=== PATIENT | male | born 1950 | race Caucasian/White ===

== ENCOUNTER → 2018-01-08 15:20 | Outpatient (CLI) | payer MEDICARE, SELFPAY ==
[2018-01-08 16:49] LABS: Alanine Aminotransferase 49 IU/L (21-72); Albumin 4.4 g/dL (3.5-5.0); Albumin Globulin Ratio 1.6 (1.0-2.8); Alkaline Phosphatase 75 U/L (38-126); Aspartate Aminotransferase 57 IU/L (17-59); BUN Creatinine Ratio 22.5 (6-22); Bilirubin Total 0.7 mg/dL (0.2-1.3); Blood Urea Nitrogen 18 mg/dL (9-20); Carbon Dioxide 32 mmol/L (22-32); Chloride 95 mmol/L (98-107); Estimated Glomerular Filt Rate > 60.0 mL/min (>60); Globulin 2.7 g/dL (1.7-4.1); Glucose 109 mg/dL (80-110); HEMOLYSIS < 15 (0-50); Potassium 4.1 mmol/L (3.4-5.1); Sodium 137 mmol/L (137-145); Total Protein 7.1 g/dL (6.3-8.2); Uric Acid 5.1 mg/dL (3.5-8.5)
[2018-01-08 16:53] LABS: Add Manual Diff / Slide Review NO; Basophils Percent Auto 0.9 % (0-2); Eosinophils Percent Auto 2.5 % (2-4); Hematocrit 44.8 % (41-53); Hemoglobin 15.6 g/dL (13.5-17.5); Lymphocytes Percent Auto 35.6 % (25-40); Mean Corpuscular HGB Conc 34.7 % (30-36); Mean Corpuscular Hemoglobin 32.1 PG (26-34); Mean Corpuscular Volume 92.4 fL (80-100); Monocytes Percent Auto 8.2 % (3-14); Neutrophils Absolute Auto 2800 /uL (3000-5900); Neutrophils Percent Auto 52.8 % (50-75); Platelet Count 259 X10^3/uL (150-400); Red Blood Cell Count 4.85 X10^6/uL (4.5-5.9); Red Cell Distribution Width 13.8 % (11.6-14.8); White Blood Cell Count 5.4 X10^3/uL (4.5-11.0)
[2018-01-08 17:38] LABS: Hemoglobin A1C% w Est Avg Glu 4.8 % (4.0-6.0)
[2018-01-08 17:52] LABS: Free T4, Direct Thyroxine 1.24 ng/dL (0.78-2.19)
[2018-01-08 18:06] LABS: Thyroid Stimulating Hormone 0.57 uIU/mL (0.47-4.68)
[2018-01-08 21:09] LABS: Vitamin B12 814 pg/mL (239-931)
[2018-01-12 16:50] LABS: Arsenic 9 mcg/L (< 23)
[2018-01-13 14:58] LABS: Lead, Blood < 1 mcg/dL (< 5)
== END ==
PROVIDERS: PCP Internal Medicine; Visit Provider Internal Medicine
DX: G62.9 Polyneuropathy, unspecified (principal)
CPT/HCPCS: 36415; 80053; 82607; 83036; 83825; 84439; 84443; 84550; 85025

== ENCOUNTER → 2018-05-28 16:22 | Outpatient (CLI) | payer MEDICARE, SELFPAY ==
--- NOTE | 2018-05-28 16:26 | DI.RAD.S_ITS ---
PROCEDURE: XR KNEE RT 3V INDICATIONS: osteoarthritis knee TECHNIQUE: 3 views of the knee were acquired. COMPARISON: [facility], , TIB/FIB 2V RIGHT, 11/29/2014, 16:44. [facility], , KNEE 3V RIGHT, 01/25/2016, 10:04. FINDINGS: Bones: There is a right knee total arthroplasty with prosthesis stable in alignment. There is inferior displacement of patella, unchanged. Old distal femoral metaphyseal fracture with deformity is noted, not significantly changed. Multiple corticated osseous fragments are seen, unchanged. No fractures or dislocations. No suspicious bony lesions. Soft tissues: Small joint effusion. No suspicious soft tissue calcifications. IMPRESSION: 1. Unchanged postsurgical appearance with total knee arthroplasty. 2. Inferior displacement of patella. 3. Old fracture/deformity in distal femoral metaphysis. 4. Small knee joint effusion Dictated by: Rubio Cabrera M.D. on 05/28/2018 at 17:00 Approved by: Rubio Cabrera M.D. on 05/28/2018 at 17:04
--- NOTE | 2018-05-28 16:26 | DI.RAD.S_ITS ---
PROCEDURE: XR KNEE LT 3V INDICATIONS: osteoarthritis knee TECHNIQUE: 3 views of the knee were acquired. COMPARISON: None FINDINGS: Bones: No fractures or dislocations. No suspicious bony lesions. There is severe medial and moderate to severe patellofemoral compartment narrowing. Jeri-articular osteophytes are present without erosions. Subchondral sclerosis is present within the medial compartment. Small patellar osteophytes are present. Soft tissues: Moderate joint effusion. No suspicious soft tissue calcifications. IMPRESSION: Moderate effusion with prominent medial and patellofemoral compartment changes suggestive of arthritis. Dictated by: Bisi Hatfield M.D. on 05/28/2018 at 16:51 Approved by: Bisi Hatfield M.D. on 05/28/2018 at 16:51
== END ==
PROVIDERS: PCP Internal Medicine; Visit Provider Internal Medicine
DX: M17.0 Bilateral primary osteoarthritis of knee (principal); M25.462 Effusion, left knee; M25.461 Effusion, right knee; Z96.651 Presence of right artificial knee joint
CPT/HCPCS: 73562

== ENCOUNTER → 2018-08-03 14:02 | Outpatient (CLI) | payer MEDICARE, SELFPAY ==
[2018-08-03 15:18] LABS: Erythrocyte Sedimentation Rate 1 MM/HR (0-15)
[2018-08-03 15:31] LABS: C-Reactive Protein Quant < 0.5 mg/dL (<1.0)
== END ==
PROVIDERS: PCP Internal Medicine; Visit Provider Internal Medicine
DX: T84.59XD Infection and inflammatory reaction due to other internal joint prosthesis, subsequent encounter (principal)
CPT/HCPCS: 36415; 85651; 86140

== ENCOUNTER 2018-09-22 10:42 | Day surgery (SDC) | payer MEDICARE, SELFPAY ==
[2018-09-22 11:01] VITALS: BMI 28.3
[2018-09-22 11:11] VITALS: BP 141/96; PULSE 70; RESP 12; TEMP 36.7; O2SAT 98
--- NOTE | 2018-09-22 11:15 | P.HP_ITS ---
History of Present Illness Date Patient Seen: 09/22/18 Time Patient Seen: 11:12 Chief complaint: colonoscopy 80112 Narrative: 68-year-old male with complicated medical and surgical history on long-term chronic pain medication who presented recently with rectal bleeding. Currently is having no such symptoms. Denies any other gastrointestinal issues except for perhaps occasional crampy abdominal pain. No diarrhea. Denies nausea or vomiting. No fever or chills. 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) Hypogonadism in male (Chronic 12/14/15) Pituitary adenoma (Inactive 10/18/02) History of migraine headaches (Chronic) Surgical History History of knee replacement Family History Father Leukemia Social History marital status: number of children: 3 household members: none lives independently: Yes caregiver/support person: No housing: house pets and animals: Yes education level: college occupational status: other Previous occupational history: Various leisure activities: music and other Smoking Status: Never smoker Tobacco: How many years used: 0 quit status: quit date established second hand exposure: No alcohol intake: current substance use type: does not use Family & Social History Family History Father Leukemia Social History: household members none lives independently Yes caregiver/support person No Tobacco & Substance use: Smoking Status Never smoker alcohol intake current Meds Home Medications Medication Instructions Recorded Confirmed Type [TESTOSTERONE] IM #0 10/07/08 09/01/18 History baclofen 10 - 40 mg PO TID #0 04/02/13 09/01/18 History hydrocortisone [Cortef] 20 mg PO AMCC #0 tab 04/02/13 09/01/18 History liothyronine [Cytomel] 5 mcg PO 0600 #0 tab 04/02/13 09/01/18 History cyclobenzaprine 10 mg PO Q8HP PRN #20 tab 10/25/16 09/01/18 Rx carbamazepine 600 mg PO QPM #0 03/24/17 09/01/18 History hydrocortisone [Cortef] 10 mg PO QPM #0 03/24/17 09/01/18 History morphine ER 15 mg tablet,extended 30 mg PO Q8H 01/08/18 09/01/18 History release triamcinolone acetonide 0.025 % TOP 30 Days #60 ml 01/08/18 09/01/18 History lotion diazepam 10 mg tablet 5 mg PO BID 03/10/18 09/01/18 History diclofenac sodium 75 mg 75 mg PO BID 03/10/18 09/01/18 History tablet,delayed release pantoprazole 40 mg tablet,delayed 40 mg PO DAILY 03/10/18 09/01/18 History release sennosides 8.6 mg tablet 8.6 mg PO BID PRN 03/10/18 09/01/18 History gabapentin 100 mg capsule 100 mg PO TID cap 04/14/18 09/01/18 History sennosides 8.6 mg-docusate sodium 2 tab PO BID #120 tab 04/14/18 09/01/18 Rx 50 mg tablet clonazepam 1 mg tablet 3 mg PO DAILY #0 tab 05/28/18 09/01/18 History tadalafil 5 mg tablet 5 mg PO DAILY #30 tab 07/24/18 09/01/18 Rx cephalexin 500 mg capsule 500 mg PO TID #0 cap 09/01/18 09/01/18 History levothyroxine 75 mcg tablet 75 mcg PO DAILY 90 Days tab 09/01/18 09/01/18 History morphine 15 mg immediate release See Rx Instructions PO Q6H PRN 28 09/01/18 History tablet Days tab Allergies Allergy/AdvReac Type Severity Reaction Status Date / Time phenobarbital [PHENOBARBITAL] Allergy Severe REALLY SICK Verified 09/22/18 11:01 venom-honey bee Allergy Severe ANAPHYLAXIS Verified 09/22/18 11:01 [BEE VENOM (HONEY BEE)] venom-wasp [WASP VENOM] Allergy Severe Anaphylaxis Verified 09/22/18 11:01 Review of Systems Review of Systems All systems reviewed & are unremarkable except as noted in HPI and below Exam Vital Signs (past 8 hours): - 09/22/18 11:11 Temperature 98.0 F Pulse Rate 70 Respiratory Rate 12 Blood Pressure 141/96 H Pulse Oximetry 98 Oxygen Delivery Method Room Air Narrative Exam Narrative: Well-nourished well-developed male in no acute distress. Alert oriented x3 although he is somewhat of a poor historian Sclera nonicteric Neck supple No crackles or wheezes. Regular rate rhythm Abdomen is soft, nondistended, nontender, no masses Extremities show no clubbing or cyanosis but he has multiple surgical scars from orthopedic procedures. Objective Labs Labs: No recent laboratory or radiographic studies for review Assessment & Plan Assessment & Plan narrative: 68-year-old male with recent blood per rectum requi ring colonoscopy. I discussed this with him today. Technical details of colonoscopy were reviewed. Risks, benefits, alternatives were explained. Risks including but not limited to anesthesia, bleeding, pain, missed lesion, incomplete examination, need for further radiographic studies, colonic perforation, need for major abdominal surgery, and all attendant risks of major surgery were explained at length. Because of his significant medical history including psychotropic medications, chronic high-dose narcotic medications, and neuropathy he requires general anesthesia. I discussed this with him and he is agreeable to such. All questions were otherwise answered to his satisfaction, and he voiced understanding. Consent was placed on the chart. We will proceed as above.
--- NOTE | 2018-09-22 11:15 | SUR.OPER ---
Supine on padded OR bed, head on pillow, safety belt at thigh, left arm padded and tucked at side. Right arm secured on padded arm oard <90 degrees abduction. Legs uncrossed. Padded footboard in place. Tape over blanket to secure lower legs.
--- NOTE | 2018-09-22 11:15 | PM.PREOP ---
Pre-operative Note Interval Note History & Physical reviewed/Exam performed by Physician: Yes Changes to H&P: No H&P completed within 30 days and has changed as indicated here:: Patient seen and examined. History physical examination documented and placed on the chart today. Proceed with colonoscopy today as planned.
[2018-09-22] MEDS: SODIUM CHLORIDE 0.9% 1,000 ML 100 ML IV (11:22)
--- NOTE | 2018-09-22 11:35 | SUR.OPER ---
pt. monitored per anesthesia
[2018-09-22 11:53] VITALS: BP 120/80; PULSE 79; RESP 13; TEMP 37.2; O2SAT 98
--- NOTE | 2018-09-22 11:55 | PM.OP.1 ---
Operative Date/Time/Diagnoses Date of procedure: 09/22/18 Time of procedure: 11:55 Pre-op diagnosis: Rectal bleeding Post-op diagnosis: other (Diverticulosis but otherwise normal colon and rectum) Procedure & Clinicians Procedure: Colonoscopy under anesthesia Same procedure as scheduled: Yes Indications: 68-year-old male with complicated medical and surgical history requiring significant chronic pain medications who presented with rectal bleeding recently. Colonoscopy was recommended. However, he requires general anesthesia services given his significant narcotic requirements and ASA class 3 status. Surgeon: Iek Vazquez Click Yes if Unassisted: Yes Anesthesia Type: General Operative Notes Findings: 1. Somewhat suboptimal bowel preparation but cleared with copious irrigation 2. Diverticulosis but without evidence of inflammation or stricture 3. No fresh or old blood anywhere in the entire colon or rectum 4. Otherwise completely normal colon and rectum without evidence of neoplastic disease or other abnormalities. Closure Type: not applicable Specimen(s): none sent Prosthetic devices, grafts, tissues, transplants, or devices: None Estimated Blood Loss (mL): 0 Blood products transfused: none Procedure in detail: After obtaining informed consent, the patient was brought to the OR suite and placed in the left lateral decubitus position on the examination table. After placement of appropriate monitors, the patient was given incremental doses of anesthesia per Dr. Mihcelle until an appropriate level of sedation was achieved. A time out was held per SCOAP protocol. A digital rectal examination was performed and did not reveal any masses or obstructing lesions. The colonoscope was gently passed into the patient's anus and the entire colon navigated to the level of the cecum with minimal difficulty. Once in the cecum, the scope was withdrawn being sure to go before and beyond all mucosal folds and prominences and get an excellent examination. The findings are noted above. At the level of the rectal vault, the scope was retroflexed and the internal anal canal was examined. The scope was straightened and air aspirated from the colon. The instrument was removed from the patient's body and the procedure was concluded. Scope withdrawal time was 8 min 33 sec. The patient was allowed to awaken from sedation without difficulty and taken to the post-anesthesia care unit in good condition. Complications: none Condition: stable Disposition: PACU Plan for aftercare: 1. Discharge home 2. Follow-up with primary physician as previously scheduled
[2018-09-22 11:58] VITALS: BP 130/81; PULSE 76; RESP 14; TEMP 37.2; O2SAT 97
[2018-09-22 12:02] VITALS: BP 130/75; PULSE 72; RESP 13; TEMP 37.2; O2SAT 97
== END 2018-09-22 12:15 | disposition home or self-care (01) ==
PROVIDERS: PCP Internal Medicine; Visit Provider Surgery
PROC: 0DJD8ZZ Inspection of Lower Intestinal Tract, Via Natural or Artificial Opening Endoscopic (ICD-10-PCS; CPT 45378; principal; 2018-09-22 13:30)
DX: K62.5 Hemorrhage of anus and rectum (principal); K57.30 Diverticulosis of large intestine without perforation or abscess without bleeding
CPT/HCPCS: 45378; J2704

== ENCOUNTER → 2018-11-12 17:43 | Outpatient (CLI) | payer MEDICARE, SELFPAY ==
[2018-11-24 13:55] LABS: Miscellaneous to LabCorp SEE SEPERATE REPORT
== END ==
PROVIDERS: PCP Internal Medicine
DX: Z79.899 Other long term (current) drug therapy (principal)
CPT/HCPCS: 80307; 80326; 80331; 80334; 80337; 80338; 80341; 80344; 80346; 80348; 80353; 80354; 80355; 80357; 80358; 80359; 80360; 80361; 80364; 80365; 80366; 80367; 80368; 80370; 80371; 80372; 80373; 80377; 83992; G0480

== ENCOUNTER → 2019-01-19 14:52 | Outpatient (CLI) | payer MEDICARE, SELFPAY ==
--- NOTE | 2019-01-19 14:54 | DI.RAD.S_ITS ---
PROCEDURE: XR CHEST 2V INDICATIONS: cough TECHNIQUE: 2 views of the chest were acquired. COMPARISON: [facility], Chest X-ray, 03/21/2017 and 04/08/2017. FINDINGS: Surgical changes and devices: None. Lungs and pleura: There is left lower lobe opacity in the posterior sulcus, unchanged from prior exams. No pleural effusions or pneumothorax. Mediastinum: Mediastinal contours are normal. Heart size is normal. Bones and chest wall: No suspicious bony abnormalities. Soft tissues appear unremarkable. IMPRESSION: Chronic left lower lobe opacity may be scars or atelectasis. Superimposed pneumonia could be present. Dictated by: Rubio Cabrera M.D. on 01/19/2019 at 16:18 Approved by: Rubio Cabrera M.D. on 01/19/2019 at 16:19
[2019-01-19 15:48] LABS: C-Reactive Protein Quant < 0.5 mg/dL (<1.0)
[2019-01-19 16:27] LABS: Erythrocyte Sedimentation Rate 1 MM/HR (0-15)
== END ==
PROVIDERS: PCP Internal Medicine; Visit Provider Internal Medicine
DX: R05 Cough (principal); M00.9 Pyogenic arthritis, unspecified
CPT/HCPCS: 36415; 71046; 85651; 86140

== ENCOUNTER 2019-02-06 10:48 | Emergency (ER) | payer MEDICARE, SELFPAY ==
[2019-02-06 11:02] VITALS: BP 144/56; PULSE 71; RESP 20; TEMP 36.4; O2SAT 100; BMI 28.5
--- NOTE | 2019-02-06 11:13 | DI.RAD.S_ITS ---
PROCEDURE: XR SHOULDER RT MIN 2V INDICATIONS: injury TECHNIQUE: 2 views of the shoulder were acquired. COMPARISON: [facility], CR, XR CHEST 2V, 01/19/2019, 15:11. [facility] [place], CR, XR SHOULDER 2+ VIEWS LEFT, 09/29/2018, 14:10. FINDINGS: Bones: No fractures or dislocations. No suspicious bony lesions. Visualized ribs appear intact. Degenerative changes are seen, particularly involving the acromioclavicular joint. Soft tissues: No suspicious soft tissue calcifications. The visualized lung demonstrates an unremarkable appearance. IMPRESSION: Degenerative changes are seen, without an acute abnormality identified. If there is point tenderness (or other clinical suspicion for a fracture not seen on these images) please consider a dedicated CT for further evaluation. Dictated by: Darion Sargent M.D. on 02/06/2019 at 10:47 Approved by: Darion Sargent M.D. on 02/06/2019 at 10:48
[2019-02-06 12:00] VITALS: BP 121/68; PULSE 71; O2SAT 98
--- NOTE | 2019-02-06 12:13 | ED.UPPEXIN ---
HPI - Extremity Injury (Upper) <Mónica LinGINA manzanares - Last Filed: 02/06/19 20:36> General Chief Complaint: Extremity Injury, Upper Stated Complaint: FALL ON RIGHT SHOULDER Time Seen by Provider: 02/06/19 12:05 Source: patient Mode of arrival: ambulatory Limitations: no limitations History of Present Illness HPI narrative: 68-year-old male with a history of seizures, chronic right knee infection, and neuropathy, presents emergency department today complaining of 6/10 right shoulder pain that is worse with movement after tripping and falling on his shoes. States the pain is centralized around the front of his shoulder. Patient denies hitting his head, denies any other injuries or areas of pain. Denies chest pain, dizziness, shortness of breath, syncope, abdominal pain, or lower leg swelling. Related Data Home Medications Medication Instructions Recorded Confirmed [TESTOSTERONE] IM #0 10/07/08 02/08/19 hydrocortisone [Cortef] 20 mg PO AMCC #0 tab 04/02/13 02/08/19 liothyronine [Cytomel] 5 mcg PO 0600 #0 tab 04/02/13 02/08/19 carbamazepine 600 mg PO QPM #0 03/24/17 02/08/19 hydrocortisone [Cortef] 10 mg PO QPM #0 03/24/17 02/08/19 triamcinolone acetonide 0.025 % TOP 30 Days #60 ml 01/08/18 02/08/19 lotion diazepam 10 mg tablet 5 mg PO BID 03/10/18 02/08/19 diclofenac sodium 75 mg 75 mg PO BID 03/10/18 02/08/19 tablet,delayed release pantoprazole 40 mg tablet,delayed 40 mg PO DAILY 03/10/18 02/08/19 release clonazepam 1 mg tablet 3 mg PO DAILY #0 tab 05/28/18 02/08/19 baclofen 10 mg tablet 10 mg PO BEDTIME #0 tab 01/19/19 02/08/19 cephalexin 500 mg capsule 1,500 mg PO TID #0 cap 01/19/19 02/08/19 gabapentin 100 mg capsule 600 mg PO TID cap 01/19/19 02/08/19 morphine ER 15 mg tablet,extended 60 mg PO BID tab 01/19/19 02/08/19 release sennosides 8.6 mg tablet See Rx Instructions PO DAILY PRN 01/19/19 02/08/19 tab levothyroxine 75 mcg capsule 75 mcg PO DAILY 02/08/19 02/08/19 Previous Rx's Medication Instructions Recorded cyclobenzaprine 10 mg PO Q8HP PRN #20 tab 10/25/16 sennosides 8.6 mg-docusate sodium 2 tab PO BID #120 tab 04/14/18 50 mg tablet tadalafil 5 mg tablet 5 mg PO DAILY #30 tab 07/24/18 fluticasone propionate 50 2 spray NASAL BEDTIME #16 gram 01/19/19 mcg/actuation nasal spray,suspension Allergies Allergy/AdvReac Type Severity Reaction Status Date / Time phenobarbital [PHENOBARBITAL] Allergy Severe REALLY SICK Verified 02/08/19 11:42 venom-honey bee Allergy Severe ANAPHYLAXIS Verified 02/08/19 11:42 [BEE VENOM (HONEY BEE)] venom-wasp [WASP VENOM] Allergy Severe Anaphylaxis Verified 02/08/19 11:42 Review of Systems <GINA Barriga - Last Filed: 02/06/19 20:36> Review of Systems REVIEW OF SYSTEMS: GENERAL: Denies fever or chills. HENT: No head trauma. EYES: No double vision or vision loss. CARDIOVASCULAR: No chest pain or syncope. RESPIRATORY: No shortness of breath or cough. GASTROINTESTINAL: No nausea, vomiting, diarrhea, or constipation. GENITOURINARY: No flank pain or dysuria. MUSCULOSKELETAL: Complains of right shoulder pain, see HPI. INTEGUMENTARY: No rash, lesions, or pruritus. NEURO: No numbness, tingling. PSYCH: No behavior or mood changes. 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) Hypogonadism in male (Chronic 12/14/15) Pituitary adenoma (Inactive 10/18/02) History of migraine headaches (Chronic) Surgical History History of knee replacement Family History Father Leukemia Social History marital status: number of children: 3 household members: none lives independently: Yes caregiver/support person: No housing: house pets and animals: Yes education level: college occupational status: other Previous occupational history: Various leisure activities: music and other Smoking Status: Never smoker Tobacco: How many years used: 0 quit status: quit date established second hand exposure: No alcohol intake: current substance use type: does not use Family History Father Leukemia Social History marital status: number of children: 3 household members: none lives independently: Yes caregiver/support person: No housing: house pets and animals: Yes education level: college occupational status: other Previous occupational history: Various leisure activities: music and other Smoking Status: Never smoker Tobacco: How many years used: 0 quit status: quit date established second hand exposure: No alcohol intake: current substance use type: does not use Exam <GINA Barriga - Last Filed: 02/06/19 20:36> Initial Vital Signs Initial Vital Signs: Vital Signs Temperature 97.5 F L 02/06/19 11:02 Pulse Rate 71 02/06/19 11:02 Respiratory Rate 20 02/06/19 11:02 Blood Pressure 144/56 H 02/06/19 11:02 Pulse Oximetry 100 02/06/19 11:02 PHYSICAL EXAMINATION: GENERAL: Well groomed, alert, and cooperative. Answers questions promptly and appropriately. Vital signs noted. HENT: Normocephalic, atraumatic. EYES: Symmetrical, sclera white, no periorbital swelling. CARDIOVASCULAR: S1 and S2 sounds normal. Regular rate and rhythm, no murmurs, clicks, or bruits. No pedal edema. RESPIRATORY: Normal respiratory rate, trachea midline, airway patent. No stridor, nasal flaring or accessory muscle use. Lungs are clear in all ramírez. MUSCULOSKELETAL: Normal gait and coordination. Equal tone and mass bilaterally. Tenderness to anterior aspect of right shoulder with palpation. Patient had difficulty with shoulder extension and external rotation, equal director chemistry strength bilaterally. Specific exam was difficult to obtain as patient reported diffuse pain all over the entire joint with palpation. Internal rotation and and flexion intact. EXTREMITIES: CMS intact. No pedal edema. SKIN: Warm, dry, soft, appropriate color for ethnicity. No lesions, rashes, or wounds. NEURO: Alert and Oriented X 3. No sensory deficits. PSYCH: Appropriate affect and mood. <Trixie Odonnell DO - Last Filed: 02/09/19 18:27> Initial Vital Signs Initial Vital Signs: Vital Signs Temperature 97.5 F L 02/06/19 11:02 Pulse Rate 71 02/06/19 11:02 Respiratory Rate 20 02/06/19 11:02 Blood Pressure 144/56 H 02/06/19 11:02 Pulse Oximetry 100 02/06/19 11:02 Course <GINA Barriga - Last Filed: 02/06/19 20:36> Orders Ordered: ED Orders 02/06/19 11:13 XR shoulder RT min 2V Stat Consultations Consultation #1: Patient staffed with Dr. Odonnell. Vital Signs - 8 hr 02/06/19 12:57 Pulse Rate 66 Respiratory Rate 19 Blood Pressure 159/90 H Pulse Oximetry 99 <Trixie Odonnell DO - Last Filed: 02/09/19 18:27> Orders Ordered: ED Orders 02/06/19 11:13 XR shoulder RT min 2V Stat Vital Signs - 8 hr 02/06/19 12:57 Pulse Rate 66 Respiratory Rate 19 Blood Pressure 159/90 H Pulse Oximetry 99 MDM - Extremity Injury (Upper) <GINA Barriga - Last Filed: 02/06/19 20:36> Medical Records Attestation: I reviewed the patient's medical records. Lab Data Attestation: I reviewed the patient's lab results. Imaging Data R Shoulder: Radiologist's impression: [address] [address] XRay Report Signed Patient: Charli Davalos [facility]#: [id number] : 9Acct:[id number] Age/Sex: 68 / MDate of Service: 02/06/19 Loc: ED Accession Number: [id number] Procedure: XR shoulder RT min 2V Ordering Provider: Trixie Odonnell D.O. PROCEDURE: XR SHOULDER RT MIN 2V INDICATIONS: injury TECHNIQUE: 2 views of the shoulder were acquired. COMPARISON: [facility], CR, XR CHEST 2V, 01/19/2019, 15:11. [facility], CR, XR SHOULDER 2+ VIEWS LEFT, 09/29/2018, 14:10. FINDINGS: Bones: No fractures or dislocations. No suspicious bony lesions. Visualized ribs appear intact. Degenerative changes are seen, particularly involving the acromioclavicular joint. Soft tissues: No suspicious soft tissue calcifications. The visualized lung demonstrates an unremarkable appearance. IMPRESSION: Degenerative changes are seen, without an acute abnormality identified. If there is point tenderness (or other clinical suspicion for a fracture not seen on these images) please consider a dedicated CT for further evaluation. Dictated by: Darion Sargent M.D. on 02/06/2019 at 10:47 Approved by: Darion Sargent M.D. on 02/06/2019 at 10:48 MDM Narrative Medical decision making narrative: Less likely fracture due to negative x-ray, lack of ecchymosis, however assessment was difficult as patient reported diffuse pain over his entire arm. Consider possible tendon or ligament injury due to increased pain with movement. Additionally, arthritis seen on x-ray may be contributing to pain. Strict return precautions given and follow-up instructions discussed. Discharge Plan Departure Patient Disposition: Home Clinical Impression: Acute shoulder pain Qualifiers: Laterality: right Qualified Code(s): M25.511 - Pain in right shoulder Discharge Date/Time: 02/06/19 12:58 Interventions: ED Discharge Assessment Last Done: 02/06/19 12:57 Instructions: DI for Shoulder Pain Activity Restrictions/Additional Instructions: Thank you for entrusting me with your care today. As discussed, your x-rays are negative for fracture. Please follow up with her primary care provider next week for further testing if her pain persists. Return to the emergency department for chest pain, shortness of breath, syncope, or high fevers. Prescriptions: No Action [TESTOSTERONE] IM Qty: 0 RF: 0 liothyronine [Cytomel] 5 MCG tablet 5 mcg PO 0600 Qty: 0 RF: 0 hydrocortisone [Cortef] 20 MG tablet 20 mg PO AMCC Qty: 0 RF: 0 cyclobenzaprine 10 MG tablet 10 mg PO Q8HP PRNQty: 20 RF: 0 carbamazepine 300 MG capsule, ER multiphase 12 hr 600 mg PO QPM Qty: 0 RF: 0 hydrocortisone [Cortef] 20 MG tablet 10 mg PO QPM Qty: 0 RF: 0 clonazepam 1 mg tablet 3 mg PO DAILY Qty: 0 RF: 0 tadalafil [Cialis] 5 mg tablet 5 mg PO DAILY Qty: 30 RF: 0 baclofen 10 mg tablet 10 mg PO BEDTIME Qty: 0 RF: 0 triamcinolone acetonide 0.025 % lotion TOP 30 Days Qty: 60 RF: 0 morphine 15 mg tablet extended release 60 mg PO BID RF: 0 diclofenac sodium 75 mg tablet,delayed release (DR/EC) 75 mg PO BID RF: 0 diazepam 10 mg tablet 5 mg PO BID RF: 0 pantoprazole 40 mg tablet,delayed release (DR/EC) 40 mg PO DAILY RF: 0 sennosides [Senokot] 8.6 mg tablet See Patient Comments PO DAILY PRNRF: 0 sennosides-docusate sodium [Senna with Docusate Sodium] 8.6-50 mg tablet 2 tab PO BID Qty: 120 RF: 2 gabapentin 100 mg capsule 600 mg PO TID RF: 0 fluticasone propionate 50 mcg/actuation spray,suspension 2 spray NASAL BEDTIME Qty: 16 RF: 0 levothyroxine 75 mcg capsule 75 mcg PO DAILY RF: 0 cephalexin [Keflex] 500 mg capsule 1,500 mg PO TID Qty: 0 RF: 0 Referrals: Charli Sampson MD [Primary Care Provider] - <Trixie Odonnell DO - Last Filed: 02/09/19 18:27> Cosign ED Attending Cosignature Attestation: I was immediately available in the department for consultation. This documentation has been reviewed and I agree with assessment and plan. Supervised by Trixie Odonnell DO
[2019-02-06 12:57] VITALS: BP 159/90; PULSE 66; RESP 19; O2SAT 99
== END 2019-02-06 12:58 | disposition home or self-care (01) ==
PROVIDERS: Emergency Provider Nurse Practitioner; PCP Internal Medicine
DX: M25.511 Pain in right shoulder (principal); W01.0XXA Fall on same level from slipping, tripping and stumbling without subsequent striking against object, initial encounter
CPT/HCPCS: 73030; 99282; 99283

== ENCOUNTER → 2019-02-22 14:42 | Outpatient (CLI) | payer MEDICARE, SELFPAY ==
--- NOTE | 2019-02-22 14:46 | DI.MRI.S_ITS ---
PROCEDURE: MR SHOULDER RT WO CON INDICATIONS: Right shoulder pain s/p ground level fall TECHNIQUE: Noncontrast oblique coronal T2 fast spin echo with fat saturation, oblique sagittal T1 spin echo and T2 fast spin echo with fat saturation, axial T1 spin echo and T2 fast spin echo with fat saturation through the shoulder. COMPARISON: [facility] [place], CR, XR SHOULDER 2+ VIEWS LEFT, 09/29/2018, 14:10. [facility], CR, XR SHOULDER RT MIN 2V, 02/06/2019, 11:30. FINDINGS: Image quality: Excellent. Rotator cuff: There is full-thickness tear of the supraspinatus tendon with tendon retraction to the musculotendinous junction. There is severe supraspinatus muscle atrophy. There is high-grade partial-thickness tear of the infraspinatus tendon. There is subscapularis tendinitis. Bones and bursae: No bone marrow contusions or fractures. Severe acromioclavicular and glenohumeral joint degeneration. The acromion demonstrates conventional anatomy, without an os acromiale. No pathologic subacromial-subdeltoid or subcoracoid bursal fluid is present. Capsule and soft tissues: There is degenerative fraying of the glenoid labrum. In the absence of intra-articular contrast, glenohumeral ligaments appear intact. The long head of the biceps tendon demonstrates normal location and morphology. The rotator interval appears normal, without fibrosis. The coracohumeral ligament is normal in thickness. IMPRESSION: 1. Full thickness tear of the supraspinatus tendon with tendon retraction and severe supraspinatus muscle atrophy. 2. High-grade partial-thickness tear of the infraspinatus tendon. 3. Subscapularis tendinitis. 4. Degenerative labral fraying. 5. Severe acromioclavicular and glenohumeral joint degeneration. Dictated by: Rubio Cabrera M.D. on 02/22/2019 at 16:43 Approved by: Rubio Cabrera M.D. on 02/22/2019 at 18:46
== END ==
PROVIDERS: PCP Internal Medicine; Visit Provider Registered Nurse
DX: S46.911A Strain of unspecified muscle, fascia and tendon at shoulder and upper arm level, right arm, initial encounter (principal); M75.81 Other shoulder lesions, right shoulder; M19.011 Primary osteoarthritis, right shoulder; M25.511 Pain in right shoulder; W10.8XXA Fall (on) (from) other stairs and steps, initial encounter
CPT/HCPCS: 73221

== ENCOUNTER 2019-02-26 21:35 | Emergency (ER) | payer MEDICARE, SELFPAY ==
[2019-02-26 21:40] VITALS: BP 169/97; PULSE 86; RESP 15; TEMP 36.6; O2SAT 95; BMI 30.6
--- NOTE | 2019-02-26 21:48 | DI.RAD.S_ITS ---
PROCEDURE: XR CHEST 1V INDICATIONS: chest pain TECHNIQUE: One view of the chest was acquired. COMPARISON: [facility], , CHEST 2 VIEW, 04/08/2017, 15:22. [facility], , XR CHEST 2V, 01/19/2019, 15:11. FINDINGS: Surgical changes and devices: None. Lungs and pleura: There are persistent diffuse interstitial prominence with more focal opacities involving the right lower lung zone and left lung base near the cardiac apex. These opacities are new compared to most recent comparison study. Interstitial prominence/coarsening is favored to be chronic in etiology. No pneumothorax or pleural effusion. Mediastinum: Cardiomediastinal contours are stable. Bones and chest wall: No suspicious bony lesions. Overlying soft tissues appear unremarkable. IMPRESSION: New patchy opacities involving the right lower lung zone and left lung base likely superimposed on chronic interstitial disease are suggestive of focal airspace disease/pneumonia. Otherwise, stable cardiopulmonary examination. Recommend follow up chest radiograph 4-6 weeks after treatment to document resolution of findings and/or return to baseline examination. Dictated by: Casey Abel M.D. on 02/26/2019 at 22:23 Approved by: Casey Abel M.D. on 02/26/2019 at 22:27
[2019-02-26] MEDS: SODIUM CHLORIDE 0.9% 1,000 ML 150 ML IV (21:59)
[2019-02-26] MEDS: ASPIRIN 81 MG TAB 324 MG PO (21:59)
--- NOTE | 2019-02-26 22:00 | ED.CHESTPAIN ---
HPI - Chest Pain General Chief Complaint: Headache Stated Complaint: Multiple complaints of pain, tinninitis, PTSD Time Seen by Provider: 02/26/19 21:38 Source: patient Mode of arrival: ambulatory Limitations: no limitations History of Present Illness HPI narrative: 68M nonsmoker with history of multiple orthopedic ailments, PTSD and oral surgery yesterday presents with a multitude of complaints including headache, fatigue and some anxiety and anterior chest discomfort which has been present for most of the day. He denies any radiation or provocation, palliation of his chest discomfort. He states he has been seen multitude of times for chest pressure and it has always been anxiety. He denies any facial swelling or fever chills but states that he had dental work yesterday and was given nothing for pain control or antibiotics. He has no difficulty in swallowing nor foul taste in his mouth. He denies runny nose or sore throat. Additionally he had a fall and had a recent MRI of his right shoulder noting (per the patient) a rotator cuff injury MD complaint: other Onset (ago): hour(s) Duration: intermittent Pain location: substernal Severity: mild Quality: aching Pain radiation: none Relieving factors: nothing Exacerbating factors: nothing Associated symptoms: other Treatments prior to arrival chest pain: none Related Data Home Medications Medication Instructions Recorded Confirmed [TESTOSTERONE] IM #0 10/07/08 02/25/19 hydrocortisone [Cortef] 20 mg PO [facility] #0 tab 04/02/13 02/25/19 liothyronine [Cytomel] 5 mcg PO 0600 #0 tab 04/02/13 02/25/19 carbamazepine 600 mg PO QPM #0 03/24/17 02/25/19 hydrocortisone [Cortef] 10 mg PO QPM #0 03/24/17 02/25/19 triamcinolone acetonide 0.025 % TOP 30 Days #60 ml 01/08/18 02/25/19 lotion diazepam 10 mg tablet 5 mg PO BID 03/10/18 02/25/19 diclofenac sodium 75 mg 75 mg PO BID 03/10/18 02/25/19 tablet,delayed release pantoprazole 40 mg tablet,delayed 40 mg PO DAILY 03/10/18 02/25/19 release clonazepam 1 mg tablet 3 mg PO DAILY #0 tab 05/28/18 02/25/19 baclofen 10 mg tablet 10 mg PO BEDTIME #0 tab 06/25/19 08/01/19 cephalexin 500 mg capsule 1,500 mg PO TID #0 cap 01/19/19 02/25/19 gabapentin 100 mg capsule 600 mg PO TID cap 01/19/19 02/25/19 morphine ER 15 mg tablet,extended 60 mg PO BID tab 01/19/19 02/25/19 release sennosides 8.6 mg tablet See Rx Instructions PO DAILY PRN 01/19/19 02/25/19 tab levothyroxine 75 mcg capsule 75 mcg PO DAILY 02/08/19 02/25/19 Previous Rx's Medication Instructions Recorded cyclobenzaprine 10 mg PO Q8HP PRN #20 tab 10/25/16 sennosides 8.6 mg-docusate sodium 2 tab PO BID #120 tab 04/14/18 50 mg tablet tadalafil 5 mg tablet 5 mg PO DAILY #30 tab 07/24/18 fluticasone propionate 50 2 spray NASAL BEDTIME #16 gram 02/25/19 mcg/actuation nasal spray,suspension amoxicillin-pot clavulanate 1 tab PO BID #20 tab 02/27/19 [Augmentin] ketorolac 10 mg PO Q6H PRN #14 tab 02/27/19 Allergies Allergy/AdvReac Type Severity Reaction Status Date / Time phenobarbital [PHENOBARBITAL] Allergy Severe REALLY SICK Verified 02/25/19 15:47 venom-honey bee Allergy Severe ANAPHYLAXIS Verified 02/25/19 15:47 [BEE VENOM (HONEY BEE)] venom-wasp [WASP VENOM] Allergy Severe Anaphylaxis Verified 02/25/19 15:47 Review of Systems Constitutional Denies chills, Denies fever(s), Denies lethargy and Denies weakness Eyes Denies change in vision, Denies eye discharge, Denies irritation and Denies loss of vision ENT Ears, Nose, Mouth, and Throat: Denies change in voice, Reports dental pain, Denies neck pain and Denies sore throat Cardiovascular Denies chest pain, Denies irregular heart rhythm, Denies lightheadedness, Denies palpitations, Denies dyspnea, Denies dyspnea on exertion and Denies orthopnea Respiratory Denies cough, Denies dyspnea, Denies dyspnea on exertion and Denies wheezing Gastrointestinal Gastrointestinal: Denies abdominal pain, Denies change in bowel habits, Denies diarrhea, Denies nausea and Denies vomiting Genitourinary Denies hematuria, Denies flank pain, Denies urinary incontinence and Denies urinary urgency Musculoskeletal Denies neck pain Integumentary/Breasts Denies pruritus, Denies erythema, Denies rash and Denies wounds Neurologic Denies confusion, Denies loss of vision and Denies weakness Psychiatric Denies anxiety, Denies confusion, Denies depression, Denies homicidal ideation and Denies suicidal ideation Endocrine Denies palpitations Hematologic/Lymphatic Denies easy bruising Allergic/Immunologic Denies wheezing [facility] Medical History Constipation due to opioid therapy (Chronic) Bipolar 1 disorder (Chronic) Depression (Chronic) Chronic pain (Chronic) Peripheral neuropathy (Chronic) Chronic infection of right knee (Chronic) Tinnitus (Chronic) Lumbago (Chronic 05/31/02) 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) Other specified hypothyroidism (Chronic 05/21/13) Chronic adrenal insufficiency (Chronic 05/21/13) 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) Hypogonadism in male (Chronic 12/14/15) Pituitary adenoma (Inactive 10/18/02) History of migraine headaches (Chronic) Surgical History History of knee replacement Family History Father Leukemia Social History marital status: number of children: 3 household members: none lives independently: Yes caregiver/support person: No housing: house pets and animals: Yes education level: college occupational status: other Previous occupational history: Various leisure activities: music and other Smoking Status: Never smoker Tobacco: How many years used: 0 quit status: quit date established second hand exposure: No alcohol intake: current substance use type: does not use Family History Father Leukemia Social History marital status: number of children: 3 household members: none lives independently: Yes caregiver/support person: No housing: house pets and animals: Yes education level: college occupational status: other Previous occupational history: Various leisure activities: music and other Smoking Status: Never smoker Tobacco: How many years used: 0 quit status: quit date established second hand exposure: No alcohol intake: current substance use type: does not use Exam Narrative Exam Narrative: GENERAL: T 68-YEAR-OLD MALE APPEARS STATED AGE, OBVIOUSLY ANXIOUS RUBBING THE RIGHT SIDE OF HIS JAW HEAD: ATRAUMATIC. NORMOCEPHALIC. NO TEMPORAL OR SCALP TENDERNESS. EYES: PUPILS EQUAL ROUND AND REACTIVE. EXTRAOCULAR MOTIONS INTACT. NO SCLERAL ICTERUS. NO INJECTION OR DRAINAGE. ENT: NO FACIAL SWELLING NO EVIDENCE OF INFECTION AT RECENT DENTAL SITE NOSE WITHOUT BLEEDING, PURULENT DRAINAGE OR SEPTAL HEMATOMA. THROAT WITHOUT ERYTHEMA, TONSILLAR HYPERTROPHY OR EXUDATE. UVULA MIDLINE. AIRWAY PATENT. NECK: TRACHEA MIDLINE. NO JVD OR LYMPHADENOPATHY. SUPPLE, NONTENDER, NO MENINGEAL SIGNS. CARDIOVASCULAR: REGULAR RATE AND RHYTHM WITHOUT MURMURS, GALLOPS, OR RUBS. RESPIRATORY: FAINT CRACKLES IN BILATERAL BASES GASTROINTESTINAL: ABDOMEN SOFT, NON-TENDER, NONDISTENDED. NO HEPATO-SPLENOMEGALY, OR PALPABLE MASSES. NO GUARDING. EXTREMITIES: NO CLUBBING, CYANOSIS, OR EDEMA. NO JOINT TENDERNESS, EFFUSION, OR EDEMA NOTED. BACK: NONTENDER WITHOUT DEFORMITY OR CREPITANCE. NO FLANK TENDERNESS. NEURO: AOX3. SKIN: NO RASH OR ERYTHEMA. Initial Vital Signs Initial Vital Signs: Vital Signs Temperature 97.9 F 02/26/19 21:40 Pulse Rate 86 02/26/19 21:40 Respiratory Rate 15 02/26/19 21:40 Blood Pressure 169/97 H 02/26/19 21:40 Pulse Oximetry 95 02/26/19 21:40 Course Orders Ordered: ED Orders 02/26/19 21:48 XR chest 1V Stat EKG-12 Lead Stat 02/26/19 22:20 Complete Blood Count AUTO DIFF Stat Comprehensive Metabolic Panel Stat Lipase Stat Troponin & CK Cardiac Panel Stat Sodium Chloride (Normal Saline 0.9%) 1,000 mls @ 150 mls/hr IV CONT KEYANNA Last Infusion: 02/27/19 01:03 Dose: 0 mls/hr Admin: 02/26/19 21:59 Dose: 150 mls/hr Discontinued Medications Aspirin (Aspirin Chew) 324 mg PO NOW ONE Stop: 02/26/19 21:48 Last Admin: 02/26/19 21:59 Dose: 324 mg Ketorolac Tromethamine (Toradol) 15 mg IV NOW ONE Stop: 02/27/19 00:59 Last Admin: 02/27/19 01:03 Dose: 15 mg Vital Signs - 8 hr 02/26/19 21:40 02/26/19 22:28 02/26/19 23:20 Temperature 97.9 F Pulse Rate 86 76 65 Respiratory Rate 15 18 15 Blood Pressure 169/97 H Blood Pressure [Left Arm] 96/77 138/70 Pulse Oximetry 95 96 98 02/27/19 00:00 02/27/19 01:04 Temperature Pulse Rate 64 63 Respiratory Rate 16 14 Blood Pressure Blood Pressure [Left Arm] 140/86 151/81 H Pulse Oximetry 98 98 MDM - Chest Pain Lab Data Result diagrams: 02/26/19 22:20 02/26/19 22:20 Lab Results 02/26/19 02/26/19 Range/Units 22:20 22:20 WBC 7.1 (4.5-11.0) X10^3/uL RBC 4.98 (4.5-5.9) X10^6/uL Hgb 15.8 (13.5-17.5) g/dL Hct 47.1 (41-53) % MCV 94.5 (80-100) fL MCH 31.8 (26-34) PG MCHC 33.7 (30-36) % RDW 13.5 (11.6-14.8) % Plt Count 237 (150-400) X10^3/uL Neut % (Auto) 52.5 (50-75) % Lymph % (Auto) 37.3 (25-40) % [place] % (Auto) 7.7 (3-14) % Eos % (Auto) 1.8 L (2-4) % Baso % (Auto) 0.7 (0-2) % Neut # (Auto) 3700 (7506-7673) /uL Lymph # (Auto) 2600 (2198-9114) /uL [place] # (Auto) 500 (0-900) /uL Eos # (Auto) 100 (0-450) /uL Baso # (Auto) 0 (0-100) /uL Sodium 133 L (137-145) mmol/L Potassium 4.0 (3.4-5.1) mmol/L Chloride 96 L (98-107) mmol/L Carbon Dioxide 30 (22-32) mmol/L BUN 15 (9-20) mg/dL Creatinine 0.90 (0.66-1.25) mg/dL Estimated GFR > 60.0 (>60) mL/min BUN/Creatinine Ratio 16.7 (6-22) Glucose 115 H (80-110) mg/dL Calcium 8.7 (8.4-10.2) mg/dL Total Bilirubin 0.4 (0.2-1.3) mg/dL AST 29 (17-59) IU/L ALT 19 L (21-72) IU/L Alkaline Phosphatase 93 (38-126) U/L Total Creatine Kinase 80 (55-170) U/L CK-MB (CK-2) TNP CK-MB (CK-2) Rel Index TNP Troponin I < 0.012 (0.01-0.034) ng/mL Total Protein 6.8 (6.3-8.2) g/dL Albumin 4.1 (3.5-5.0) g/dL Globulin 2.7 (1.7-4.1) g/dL Albumin/Globulin Ratio 1.5 (1.0-2.8) Lipase 60 (23-300) U/L Imaging Data Chest x-ray: Radiologist's impression: [address] [address] XRay Report Signed Patient: Charli Davalos CMR#: [id number] : 9Acct:[id number] Age/Sex: 68 / MDate of Service: 02/26/19 Loc: ED Accession Number: [id number] Procedure: XR chest 1V Ordering Provider: Tavo Miranda D.O. PROCEDURE: XR CHEST 1V INDICATIONS: chest pain TECHNIQUE: One view of the chest was acquired. COMPARISON: [facility], [place], CHEST 2 VIEW, 04/08/2017, 15:22. [facility], [place], XR CHEST 2V, 01/19/2019, 15:11. FINDINGS: Surgical changes and devices: None. Lungs and pleura: There are persistent diffuse interstitial prominence with more focal opacities involving the right lower lung zone and left lung base near the cardiac apex. These opacities are new compared to most recent comparison study. Interstitial prominence/coarsening is favored to be chronic in etiology. No pneumothorax or pleural effusion. Mediastinum: Cardiomediastinal contours are stable. Bones and chest wall: No suspicious bony lesions. Overlying soft tissues appear unremarkable. IMPRESSION: New patchy opacities involving the right lower lung zone and left lung base likely superimposed on chronic interstitial disease are suggestive of focal airspace disease/pneumonia. Otherwise, stable cardiopulmonary examination. Recommend follow up chest radiograph 4-6 weeks after treatment to document resolution of findings and/or return to baseline examination. Dictated by: Casey Abel M.D. on 02/26/2019 at 22:23 Approved by: Casey Abel M.D. on 02/26/2019 at 22:27 [facility] Narrative Medical decision making narrative: MULTIPLE ETIOLOGIES FOR PATIENT'S SYMPTOMS CONSIDERED INCLUDING: [MYOCARDIAL INFARCTION VERSUS PNEUMONIA VERSUS DENTAL INFECTION VERSUS MIGRAINE VERSUS OTHER] PATIENT'S SYMPTOMS IMPROVED OR DURATION OF STAY WITH ABOVE-STATED THERAPIES. FINDINGS AND DISCHARGE DIAGNOSIS DISCUSSED WITH PATIENT/FAMILY FOLLOWED BY VERBALIZATION OF UNDERSTANDING RETURN PRECAUTIONS DISCUSSED WITH PATIENT/FAMILY WHOM VERBALIZE UNDERSTANDING. Discharge Plan Departure Patient Disposition: Home Clinical Impression: Pneumonia Qualifiers: Pneumonia type: due to unspecified organism Laterality: bilateral Lung location: lower lobe of lung Qualified Code(s): J18.1 - Lobar pneumonia, unspecified organism Instructions: DI for Pneumonia -- Adult Activity Restrictions/Additional Instructions: *You have been diagnosed with [acute pneumonia and headache] *What to do: *Take medications as directed *Follow up with your primary care provider in 2-3 days, call for an appointment. Let them know you were seen in the Emergency Department and that we ask that you be seen in follow up *Return to ER if you should have any new, worsening or concerning symptoms Prescriptions: New ketorolac 10 mg tablet 10 mg PO Q6H PRN (Reason: pain) Qty: 14 RF: 0 amoxicillin-pot clavulanate [Augmentin] 875-125 mg tablet 1 tab PO BID Qty: 20 RF: 0 No Action [TESTOSTERONE] IM Qty: 0 RF: 0 liothyronine [Cytomel] 5 MCG tablet 5 mcg PO 0600 Qty: 0 RF: 0 hydrocortisone [Cortef] 20 MG tablet 20 mg PO [facility] Qty: 0 RF: 0 cyclobenzaprine 10 MG tablet 10 mg PO Q8HP PRNQty: 20 RF: 0 carbamazepine 300 MG capsule, ER multiphase 12 hr 600 mg PO QPM Qty: 0 RF: 0 hydrocortisone [Cortef] 20 MG tablet 10 mg PO QPM Qty: 0 RF: 0 clonazepam 1 mg tablet 3 mg PO DAILY Qty: 0 RF: 0 tadalafil [Cialis] 5 mg tablet 5 mg PO DAILY Qty: 30 RF: 0 baclofen 10 mg tablet 10 mg PO BEDTIME Qty: 0 RF: 0 triamcinolone acetonide 0.025 % lotion TOP 30 Days Qty: 60 RF: 0 morphine 15 mg tablet extended release 60 mg PO BID RF: 0 diclofenac sodium 75 mg tablet,delayed release (DR/EC) 75 mg PO BID RF: 0 diazepam 10 mg tablet 5 mg PO BID RF: 0 pantoprazole 40 mg tablet,delayed release (DR/EC) 40 mg PO DAILY RF: 0 sennosides [Senokot] 8.6 mg tablet See Patient Comments PO DAILY PRNRF: 0 sennosides-docusate sodium [Senna with Docusate Sodium] 8.6-50 mg tablet 2 tab PO BID Qty: 120 RF: 2 gabapentin 100 mg capsule 600 mg PO TID RF: 0 levothyroxine 75 mcg capsule 75 mcg PO DAILY RF: 0 cephalexin [Keflex] 500 mg capsule 1,500 mg PO TID Qty: 0 RF: 0 fluticasone propionate 50 mcg/actuation spray,suspension 2 spray NASAL BEDTIME Qty: 16 RF: 5 Referrals: Charli Sampson MD [Primary Care Provider] -
--- NOTE | 2019-02-26 22:05 | ED_ITS ---
HPI - Chest Pain General Chief Complaint: Headache Stated Complaint: Multiple complaints of pain, tinninitis, PTSD Time Seen by Provider: 02/26/19 21:38 Source: patient Mode of arrival: ambulatory Limitations: no limitations History of Present Illness HPI narrative: 68M nonsmoker with history of multiple orthopedic ailments, PTSD and oral surgery yesterday presents with a multitude of complaints including headache, fatigue and some anxiety and anterior chest discomfort which has been present for most of the day. He denies any radiation or provocation, palliation of his chest discomfort. He states he has been seen multitude of times for chest pressure and it has always been anxiety. He denies any facial swelling or fever chills but states that he had dental work yesterday and was given nothing for pain control or antibiotics. He has no difficulty in swallowing nor foul taste in his mouth. He denies runny nose or sore throat. Additionally he had a fall and had a recent MRI of his right shoulder noting (per the patient) a rotator cuff injury MD complaint: other Onset (ago): hour(s) Duration: intermittent Pain location: substernal Severity: mild Quality: aching Pain radiation: none Relieving factors: nothing Exacerbating factors: nothing Associated symptoms: other Treatments prior to arrival chest pain: none Related Data Home Medications Medication Instructions Recorded Confirmed [TESTOSTERONE] IM #0 10/07/08 02/25/19 hydrocortisone [Cortef] 20 mg PO [facility] #0 tab 04/02/13 02/25/19 liothyronine [Cytomel] 5 mcg PO 0600 #0 tab 04/02/13 02/25/19 carbamazepine 600 mg PO QPM #0 03/24/17 02/25/19 hydrocortisone [Cortef] 10 mg PO QPM #0 03/24/17 02/25/19 triamcinolone acetonide 0.025 % TOP 30 Days #60 ml 01/08/18 02/25/19 lotion diazepam 10 mg tablet 5 mg PO BID 03/10/18 02/25/19 diclofenac sodium 75 mg 75 mg PO BID 03/10/18 02/25/19 tablet,delayed release pantoprazole 40 mg tablet,delayed 40 mg PO DAILY 03/10/18 02/25/19 release clonazepam 1 mg tablet 3 mg PO DAILY #0 tab 05/28/18 02/25/19 baclofen 10 mg tablet 10 mg PO BEDTIME #0 tab 06/25/19 08/01/19 cephalexin 500 mg capsule 1,500 mg PO TID #0 cap 01/19/19 02/25/19 gabapentin 100 mg capsule 600 mg PO TID cap 01/19/19 02/25/19 morphine ER 15 mg tablet,extended 60 mg PO BID tab 01/19/19 02/25/19 release sennosides 8.6 mg tablet See Rx Instructions PO DAILY PRN 01/19/19 02/25/19 tab levothyroxine 75 mcg capsule 75 mcg PO DAILY 02/08/19 02/25/19 Previous Rx's Medication Instructions Recorded cyclobenzaprine 10 mg PO Q8HP PRN #20 tab 10/25/16 sennosides 8.6 mg-docusate sodium 2 tab PO BID #120 tab 04/14/18 50 mg tablet tadalafil 5 mg tablet 5 mg PO DAILY #30 tab 07/24/18 fluticasone propionate 50 2 spray NASAL BEDTIME #16 gram 02/25/19 mcg/actuation nasal spray,suspension amoxicillin-pot clavulanate 1 tab PO BID #20 tab 02/27/19 [Augmentin] ketorolac 10 mg PO Q6H PRN #14 tab 02/27/19 Allergies Allergy/AdvReac Type Severity Reaction Status Date / Time phenobarbital [PHENOBARBITAL] Allergy Severe REALLY SICK Verified 02/25/19 15:47 venom-honey bee Allergy Severe ANAPHYLAXIS Verified 02/25/19 15:47 [BEE VENOM (HONEY BEE)] venom-wasp [WASP VENOM] Allergy Severe Anaphylaxis Verified 02/25/19 15:47 Review of Systems Constitutional Denies chills, Denies fever(s), Denies lethargy and Denies weakness Eyes Denies change in vision, Denies eye discharge, Denies irritation and Denies loss of vision ENT Ears, Nose, Mouth, and Throat: Denies change in voice, Reports dental pain, Denies neck pain and Denies sore throat Cardiovascular Denies chest pain, Denies irregular heart rhythm, Denies lightheadedness, Denies palpitations, Denies dyspnea, Denies dyspnea on exertion and Denies orthopnea Respiratory Denies cough, Denies dyspnea, Denies dyspnea on exertion and Denies wheezing Gastrointestinal Gastrointestinal: Denies abdominal pain, Denies change in bowel habits, Denies diarrhea, Denies nausea and Denies vomiting Genitourinary Denies hematuria, Denies flank pain, Denies urinary incontinence and Denies urin [place] urgency Musculoskeletal Denies neck pain Integumentary/Breasts Denies pruritus, Denies erythema, Denies rash and Denies wounds Neurologic Denies confusion, Denies loss of vision and Denies weakness Psychiatric Denies anxiety, Denies confusion, Denies depression, Denies homicidal ideation and Denies suicidal ideation Endocrine Denies palpitations Hematologic/Lymphatic Denies easy bruising Allergic/Immunologic Denies wheezing [facility] Medical History Constipation due to opioid therapy (Chronic) Bipolar 1 disorder (Chronic) Depression (Chronic) Chronic pain (Chronic) Peripheral neuropathy (Chronic) Chronic infection of right knee (Chronic) Tinnitus (Chronic) Lumbago (Chronic 05/31/02) 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) Other specified hypothyroidism (Chronic 05/21/13) Chronic adrenal insufficiency (Chronic 05/21/13) 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) Hypogonadism in male (Chronic 12/14/15) Pituitary adenoma (Inactive 10/18/02) History of migraine headaches (Chronic) Surgical History History of knee replacement Family History Father Leukemia Social History marital status: number of children: 3 household members: none lives independently: Yes caregiver/support person: No housing: house pets and animals: Yes education level: college occupational status: other Previous occupational history: Various leisure activities: music and other Smoking Status: Never smoker Tobacco: How many years used: 0 quit status: quit date established second hand exposure: No alcohol intake: current substance use type: does not use Family History Father Leukemia Social History marital status: number of children: 3 household members: none lives independently: Yes caregiver/support person: No housing: house pets and animals: Yes education level: college occupational status: other Previous occupational history: Various leisure activities: music and other Smoking Status: Never smoker Tobacco: How many years used: 0 quit status: quit date established second hand exposure: No alcohol intake: current substance use type: does not use Exam Narrative Exam Narrative: GENERAL: T 68-YEAR-OLD MALE APPEARS STATED AGE, OBVIOUSLY ANXIOUS RUBBING THE RIGHT SIDE OF HIS JAW HEAD: ATRAUMATIC. NORMOCEPHALIC. NO TEMPORAL OR SCALP TENDERNESS. EYES: PUPILS EQUAL ROUND AND REACTIVE. EXTRAOCULAR MOTIONS INTACT. NO SCLERAL ICTERUS. NO INJECTION OR DRAINAGE. ENT: NO FACIAL SWELLING NO EVIDENCE OF INFECTION AT RECENT DENTAL SITE NOSE WITHOUT BLEEDING, PURULENT DRAINAGE OR SEPTAL HEMATOMA. THROAT WITHOUT ERYTHEMA, TONSILLAR HYPERTROPHY OR EXUDATE. UVULA MIDLINE. AIRWAY PATENT. NECK: TRACHEA MIDLINE. NO JVD OR LYMPHADENOPATHY. SUPPLE, NONTENDER, NO MENINGEAL SIGNS. CARDIOVASCULAR: REGULAR RATE AND RHYTHM WITHOUT MURMURS, GALLOPS, OR RUBS. RESPIRATORY: FAINT CRACKLES IN BILATERAL BASES GASTROINTESTINAL: ABDOMEN SOFT, NON-TENDER, NONDISTENDED. NO HEPATO- SPLENOMEGALY, OR PALPABLE MASSES. NO GUARDING. EXTREMITIES: NO CLUBBING, CYANOSIS, OR EDEMA. NO JOINT TENDERNESS, EFFUSION, OR EDEMA NOTED. BACK: NONTENDER WITHOUT DEFORMITY OR CREPITANCE. NO FLANK TENDERNESS. NEURO: AOX3. SKIN: NO RASH OR ERYTHEMA. Initial Vital Signs Initial Vital Signs: Vital Signs Temperature 97.9 F 02/26/19 21:40 Pulse Rate 86 02/26/19 21:40 Respiratory Rate 15 02/26/19 21:40 Blood Pressure 169/97 H 02/26/19 21:40 Pulse Oximetry 95 02/26/19 21:40 Course Orders Ordered: ED Orders 02/26/19 21:48 XR chest 1V Stat EKG-12 Lead Stat 02/26/19 22:20 Complete Blood Count AUTO DIFF Stat Comprehensive Metabolic Panel Stat Lipase Stat Troponin & CK Cardiac Panel Stat Sodium Chloride (Normal Saline 0.9%) 1,000 mls @ 150 mls/hr IV CONT KEYANNA Last Infusion: 02/27/19 01:03 Dose: 0 mls/hr Admin: 02/26/19 21:59 Dose: 150 mls/hr Discontinued Medications Aspirin (Aspirin Chew) 324 mg PO NOW ONE Stop: 02/26/19 21:48 Last Admin: 02/26/19 21:59 Dose: 324 mg Ketorolac Tromethamine (Toradol) 15 mg IV NOW ONE Stop: 02/27/19 00:59 Last Admin: 02/27/19 01:03 Dose: 15 mg Vital Signs - 8 hr 02/26/19 21:40 02/26/19 22:28 02/26/19 23:20 Temperature 97.9 F Pulse Rate 86 76 65 Respiratory Rate 15 18 15 Blood Pressure 169/97 H Blood Pressure [Left Arm] 96/77 138/70 Pulse Oximetry 95 96 98 02/27/19 00:00 02/27/19 01:04 Temperature Pulse Rate 64 63 Respiratory Rate 16 14 Blood Pressure Blood Pressure [Left Arm] 140/86 151/81 H Pulse Oximetry 98 98 MDM - Chest Pain Lab Data Result diagrams: 02/26/19 22:20 02/26/19 22:20 Lab Results 02/26/19 02/26/19 Range/Units 22:20 22:20 WBC 7.1 (4.5-11.0) X10^3/uL RBC 4.98 (4.5-5.9) X10^6/uL Hgb 15.8 (13.5-17.5) g/dL Hct 47.1 (41-53) % MCV 94.5 (80-100) fL MCH 31.8 (26-34) PG MCHC 33.7 (30-36) % RDW 13.5 (11.6-14.8) % Plt Count 237 (150-400) X10^3/uL Neut % (Auto) 52.5 (50-75) % Lymph % (Auto) 37.3 (25-40) % [place] % (Auto) 7.7 (3-14) % Eos % (Auto) 1.8 L (2-4) % Baso % (Auto) 0.7 (0-2) % Neut # (Auto) 3700 (8893-8540) /uL Lymph # (Auto) 2600 (4169-4256) /uL [place] # (Auto) 500 (0-900) /uL Eos # (Auto) 100 (0-450) /uL Baso # (Auto) 0 (0-100) /uL Sodium 133 L (137-145) mmol/L Potassium 4.0 (3.4-5.1) mmol/L Chloride 96 L (98-107) mmol/L Carbon Dioxide 30 (22-32) mmol/L BUN 15 (9-20) mg/dL Creatinine 0.90 (0.66-1.25) mg/dL Estimated GFR > 60.0 (>60) mL/min BUN/Creatinine Ratio 16.7 (6-22) Glucose 115 H (80-110) mg/dL Calcium 8.7 (8.4-10.2) mg/dL Total Bilirubin 0.4 (0.2-1.3) mg/dL AST 29 (17-59) IU/L ALT 19 L (21-72) IU/L Alkaline Phosphatase 93 (38-126) U/L Total Creatine Kinase 80 (55-170) U/L CK-MB (CK-2) TNP CK-MB (CK-2) Rel Index TNP Troponin I < 0.012 (0.01-0.034) ng/mL Total Protein 6.8 (6.3-8.2) g/dL Albumin 4.1 (3.5-5.0) g/dL Globulin 2.7 (1.7-4.1) g/dL Albumin/Globulin Ratio 1.5 (1.0-2.8) Lipase 60 (23-300) U/L Imaging Data Chest x-ray: Radiologist's impression: [place] [address] XRay Report Signed Patient: Charli Davalos CMR#: [id number] : 9Acct:[id number] Age/Sex: 68 / MDate of Service: 02/26/19 Loc: ED Accession Number: [id number] Procedure: XR chest 1V Ordering Provider: Tavo Miranda D.O. PROCEDURE: XR CHEST 1V INDICATIONS: chest pain TECHNIQUE: One view of the chest was acquired. COMPARISON: [facility], [place], CHEST 2 VIEW, 04/08/2017, 15:22. [facility], [place], XR CHEST 2V, 01/19/2019, 15:11. FINDINGS: Surgical changes and devices: None. Lungs and pleura: There are persistent diffuse interstitial prominence with more focal opacities involving the right lower lung zone and left lung base near the cardiac apex. These opacities are new compared to most recent comparison study. Interstitial prominence/coarsening is favored to be chronic in etiology. No pneumothorax or pleural effusion. Mediastinum: Cardiomediastinal contours are stable. Bones and chest wall: No suspicious bony lesions. Overlying soft tissues madisyn ear unremarkable. IMPRESSION: New patchy opacities involving the right lower lung zone and left lung base likely superimposed on chronic interstitial disease are suggestive of focal airspace disease/pneumonia. Otherwise, stable cardiopulmonary examination. Recommend follow up chest radiograph 4-6 weeks after treatment to document resolution of findings and/or return to baseline examination. Dictated by: Casey Abel M.D. on 02/26/2019 at 22:23 Approved by: Casey Abel M.D. on 02/26/2019 at 22:27 [facility] Narrative Medical decision making narrative: MULTIPLE ETIOLOGIES FOR PATIENT'S SYMPTOMS CONSIDERED INCLUDING: [MYOCARDIAL INFARCTION VERSUS PNEUMONIA VERSUS DENTAL INFECTION VERSUS MIGRAINE VERSUS OTHER] PATIENT'S SYMPTOMS IMPROVED OR DURATION OF STAY WITH ABOVE-STATED THERAPIES. FINDINGS AND DISCHARGE DIAGNOSIS DISCUSSED WITH PATIENT/FAMILY FOLLOWED BY VERBALIZATION OF UNDERSTANDING RETURN PRECAUTIONS DISCUSSED WITH PATIENT/FAMILY WHOM VERBALIZE UNDERSTANDING. Discharge Plan Departure Patient Disposition: Home Clinical Impression: Pneumonia Qualifiers: Pneumonia type: due to unspecified organism Laterality: bilateral Lung lo cation: lower lobe of lung Qualified Code(s): J18.1 - Lobar pneumonia, unspecified organism Instructions: DI for Pneumonia -- Adult Activity Restrictions/Additional Instructions: *You have been diagnosed with [acute pneumonia and headache] *What to do: *Take medications as directed *Follow up with your primary care provider in 2-3 days, call for an appointment. Let them know you were seen in the Emergency Department and that we ask that you be seen in follow up *Return to ER if you should have any new, worsening or concerning symptoms Prescriptions: New ketorolac 10 mg tablet 10 mg PO Q6H PRN (Reason: pain) Qty: 14 RF: 0 amoxicillin-pot clavulanate [Augmentin] 875-125 mg tablet 1 tab PO BID Qty: 20 RF: 0 No Action [TESTOSTERONE] IM Qty: 0 RF: 0 liothyronine [Cytomel] 5 MCG tablet 5 mcg PO 0600 Qty: 0 RF: 0 hydrocortisone [Cortef] 20 MG tablet 20 mg PO [facility] Qty: 0 RF: 0 cyclobenzaprine 10 MG tablet 10 mg PO Q8HP PRNQty: 20 RF: 0 carbamazepine 300 MG capsule, ER multiphase 12 hr 600 mg PO QPM Qty: 0 RF: 0 hydrocortisone [Cortef] 20 MG tablet 10 mg PO QPM Qty: 0 RF: 0 clonazepam 1 mg tablet 3 mg PO DAILY Qty: 0 RF: 0 tadalafil [Cialis] 5 mg tablet 5 mg PO DAILY Qty: 30 RF: 0 baclofen 10 mg tablet 10 mg PO BEDTIME Qty: 0 RF: 0 triamcinolone acetonide 0.025 % lotion TOP 30 Days Qty: 60 RF: 0 morphine 15 mg tablet extended release 60 mg PO BID RF: 0 diclofenac sodium 75 mg tablet,delayed release (DR/EC) 75 mg PO BID RF: 0 diazepam 10 mg tablet 5 mg PO BID RF: 0 pantoprazole 40 mg tablet,delayed release (DR/EC) 40 mg PO DAILY RF: 0 sennosides [Senokot] 8.6 mg tablet See Patient Comments PO DAILY PRNRF: 0 sennosides-docusate sodium [Senna with Docusate Sodium] 8.6-50 mg tablet 2 tab PO BID Qty: 120 RF: 2 gabapentin 100 mg capsule 600 mg PO TID RF: 0 levothyroxine 75 mcg capsule 75 mcg PO DAILY RF: 0 cephalexin [Keflex] 500 mg capsule 1,500 mg PO TID Qty: 0 RF: 0 fluticasone propionate 50 mcg/actuation spray,suspension 2 spray NASAL BEDTIME Qty: 16 RF: 5 Referrals: Charli Sampson MD [Primary Care Provider] -
[2019-02-26 22:27] LABS: Add Manual Diff / Slide Review NO; Basophils Absolute Auto 0 /uL (0-100); Basophils Percent Auto 0.7 % (0-2); Eosinophils Absolute Auto 100 /uL (0-450); Eosinophils Percent Auto 1.8 % (2-4); Hematocrit 47.1 % (41-53); Hemoglobin 15.8 g/dL (13.5-17.5); Lymphocytes Absolute Auto 2600 /uL (1100-4500); Lymphocytes Percent Auto 37.3 % (25-40); Mean Corpuscular HGB Conc 33.7 % (30-36); Mean Corpuscular Hemoglobin 31.8 PG (26-34); Mean Corpuscular Volume 94.5 fL (80-100); Monocytes Absolute Auto 500 /uL (0-900); Monocytes Percent Auto 7.7 % (3-14); Neutrophils Absolute Auto 3700 /uL (1500-7000); Neutrophils Percent Auto 52.5 % (50-75); Platelet Count 237 X10^3/uL (150-400); Red Blood Cell Count 4.98 X10^6/uL (4.5-5.9); Red Cell Distribution Width 13.5 % (11.6-14.8); White Blood Cell Count 7.1 X10^3/uL (4.5-11.0)
[2019-02-26 22:28] VITALS: BP 96/77; PULSE 76; RESP 18; O2SAT 96
[2019-02-26 22:36] LABS: Alanine Aminotransferase 19 IU/L (21-72); Albumin 4.1 g/dL (3.5-5.0); Albumin Globulin Ratio 1.5 (1.0-2.8); Alkaline Phosphatase 93 U/L (38-126); Aspartate Aminotransferase 29 IU/L (17-59); BUN Creatinine Ratio 16.7 (6-22); Bilirubin Total 0.4 mg/dL (0.2-1.3); Blood Urea Nitrogen 15 mg/dL (9-20); Calcium 8.7 mg/dL (8.4-10.2); Carbon Dioxide 30 mmol/L (22-32); Chloride 96 mmol/L (98-107); Creatine Kinase 80 U/L (55-170); Estimated Glomerular Filt Rate > 60.0 mL/min (>60); Globulin 2.7 g/dL (1.7-4.1); Glucose 115 mg/dL (80-110); HEMOLYSIS 18 (0-50); Lipase 60 U/L (23-300); Sodium 133 mmol/L (137-145); Total Protein 6.8 g/dL (6.3-8.2)
[2019-02-26 22:48] LABS: Troponin I < 0.012 ng/mL (0.01-0.034)
[2019-02-26 23:20] VITALS: BP 138/70; PULSE 65; RESP 15; O2SAT 98
[2019-02-27] VITALS: BP 140/86; PULSE 64; RESP 16; O2SAT 98
[2019-02-27] MEDS: KETOROLAC 60 MG/2 ML VIAL 15 MG IV (01:03)
[2019-02-27 01:04] VITALS: BP 151/81; PULSE 63; RESP 14; O2SAT 98
== END 2019-02-27 01:15 | disposition home or self-care (01) ==
PROVIDERS: Emergency Provider Emergency Medicine; PCP Internal Medicine
DX: J18.1 Lobar pneumonia, unspecified organism (principal); R07.9 Chest pain, unspecified
CPT/HCPCS: 36591; 71045; 80053; 82550; 83690; 84484; 85025; 93005; 96361; 96374; 99283; 99285; J1885

== ENCOUNTER → 2019-03-19 15:51 | Outpatient (CLI) | payer MEDICARE, SELFPAY ==
--- NOTE | 2019-03-19 15:53 | DI.RAD.S_ITS ---
PROCEDURE: XR CHEST 2V INDICATIONS: cough TECHNIQUE: 2 views of the chest were acquired. COMPARISON: [facility], [place], XR CHEST 2V, 01/19/2019, 15:11. [facility], [place], XR CHEST 1V, 02/26/2019, 21:52. FINDINGS: Surgical changes and devices: None. Lungs and pleura: There is been interval resolution of focal air space opacities involving the lung bases. Diffuse bilateral chronic interstitial densities are unchanged. No pleural effusion or pneumothorax. No pleural effusions or pneumothorax. Mediastinum: Mediastinal contours are normal. Heart size is normal. Bones and chest wall: No suspicious bony abnormalities. Soft tissues appear unremarkable. IMPRESSION: 1. Interval resolution of bibasilar atelectasis versus pneumonia. 2. Chronic interstitial fibrosis redemonstrated. Dictated by: Rehan HERNANDEZ Interpreted: Javier Vinson MD on 03/19/2019 at 16:35 Approved by: Javier Vinson M.D. on 03/22/2019 at 8:37
== END ==
PROVIDERS: PCP Internal Medicine; Visit Provider Internal Medicine
DX: R05 Cough (principal)
CPT/HCPCS: 71046

== ENCOUNTER 2019-03-24 17:01 | Emergency (ER) | payer MEDICARE, SELFPAY ==
[2019-03-24 17:05] VITALS: BP 138/123; PULSE 110; RESP 15; TEMP 37.2; O2SAT 93
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
--- NOTE | 2019-03-24 17:13 | DI.RAD.S_ITS ---
PROCEDURE: XR TIBIA FUBULA RT 2V INDICATIONS: ankle injury TECHNIQUE: 2 views of the tibia and fibula were acquired. COMPARISON: [facility], [place], XR ANKLE RT 2V, 03/24/2019, 17:38. [facility], [place], KNEE 3V RIGHT, 01/25/2016, 10:04. [facility], [place], TIB/FIB 2V RIGHT, 11/29/2014, 16:44. FINDINGS: Bones: Patient is status post right total knee arthroplasty and [place] Alignment of right knee and hardware position is not significantly changed from previous study. ion. No gross acute right knee fracture or dislocation. No gross acute fracture or dislocation is seen in proximal to mid right tibia and fibula. Cortical irregularity involving medial and lateral malleoli are seen suggestive of slightly displaced bimalleolar fractures. Osteoarthritic changes in ankle joint are seen. Soft tissues: No suspicious soft tissue calcifications or masses. Soft tissue swelling around ankle joint is seen. IMPRESSION: Prior right total knee arthroplasty. No gross hardware complication. 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 Osteopenia. Suggestion of slightly displaced bimalleolar fracture with ankle soft tissue swelling. No proximal to mid tibial or fibular shaft fractures. Dictated by: Jesse Aguila M.D. on 03/24/2019 at 18:28 Approved by: Jesse Aguila M.D. on 03/24/2019 at 18:32
--- NOTE | 2019-03-24 17:13 | DI.RAD.S_ITS ---
PROCEDURE: XR ANKLE RT 2V INDICATIONS: Ankle pain after injury. TECHNIQUE: 2 views of the ankle were acquired. COMPARISON: None. FINDINGS: Bones: Slightly displaced oblique fracture involving distal fibular shaft is seen. Subtle cortical irregularity involving medial cortex of medial malleolus is seen concerning for subtle minimally displaced fracture. Ankle joint osteoarthritis is seen.. Ankle mortise is normally aligned. No suspicious bony lesions. Soft tissues: No tibiotalar joint effusion. Achilles tendon appears normal. Soft tissue swelling around ankle joint is noted. IMPRESSION: 1. Finding is consistent with a slightly displaced distal fibular shaft/lateral malleolus fracture and minimally displaced medial malleolus fracture. Ankle soft tissue swelling. Dictated by: Jesse Aguila M.D. on 03/24/2019 at 18:58 Approved by: Jesse Aguila M.D. on 03/24/2019 at 18:59
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
[2019-03-24] MEDS: HYDROMORPHONE 1 MG INJ IV (17:48)
--- NOTE | 2019-03-24 19:12 | ED.LOWEXIN ---
HPI - Extremity Injury (Lower) General Chief Complaint: Extremity Injury, Lower Stated Complaint: Right ankle fracture Time Seen by Provider: 03/24/19 18:12 Source: patient and EMS Limitations: no limitations History of Present Illness HPI Narrative: Patient is a 68-year-old male who presents with right ankle pain after a fall. He is a chronic pain patient with multiple orthopedic injuries PTSD, presenting with ankle pain. He is unable to tell me how he fell exactly because she is in so much pain and wanting his pain controlled. He had 60 mg of morphine which is his typical dose prior to arrival and also 1 mg of Dilaudid. He denies any other injury from the fall MD complaint: ankle injury Related Data Home Medications Medication Instructions Recorded Confirmed [TESTOSTERONE] IM #0 10/07/08 03/19/19 hydrocortisone [Cortef] 20 mg PO [facility] #0 tab 04/02/13 03/24/19 liothyronine [Cytomel] 5 mcg PO 0600 #0 tab 04/02/13 03/24/19 carbamazepine 600 mg PO BID #0 03/24/17 03/24/19 hydrocortisone [Cortef] 10 mg PO QPM #0 03/24/17 03/24/19 triamcinolone acetonide 0.025 % TOP 30 Days #60 ml 01/08/18 03/19/19 lotion diazepam 10 mg tablet 5 mg PO BID 03/10/18 03/19/19 diclofenac sodium 75 mg 75 mg PO BID 03/10/18 03/24/19 tablet,delayed release pantoprazole 40 mg tablet,delayed 40 mg PO DAILY PRN 03/10/18 03/24/19 release clonazepam 1 mg tablet 1 mg PO QAM #0 tab 05/28/18 03/24/19 baclofen 10 mg tablet 10 mg PO BEDTIME #0 tab 01/19/19 03/19/19 cephalexin 500 mg capsule 500 mg PO TID #0 cap 01/19/19 03/24/19 morphine 15 mg tablet,extended 60 mg PO BID tab 01/19/19 03/19/19 release sennosides 8.6 mg tablet See Rx Instructions PO DAILY PRN 01/19/19 03/19/19 tab clonazepam 2 mg PO QPM 03/24/19 03/24/19 cyclobenzaprine 10 mg PO TID 03/24/19 03/24/19 gabapentin 600 mg PO TID 03/24/19 03/24/19 levothyroxine 56 mcg PO DAILY 03/24/19 03/24/19 morphine 15 - 30 mg PO Q6H PRN 03/24/19 03/24/19 silver sulfadiazine [SSD] applic TOPICAL BID 03/24/19 tadalafil 20 mg PO .ONCE 03/24/19 03/24/19 Previous Rx's Medication Instructions Recorded fluticasone propionate 50 2 spray NASAL BEDTIME #16 gram 02/25/19 mcg/actuation nasal spray,suspension ketorolac 10 mg PO Q6H PRN #14 tab 02/27/19 levofloxacin 750 mg tablet 750 mg PO DAILY #10 tab 03/19/19 Allergies Allergy/AdvReac Type Severity Reaction Status Date / Time phenobarbital [PHENOBARBITAL] Allergy Severe REALLY SICK Verified 03/24/19 17:10 venom-honey bee Allergy Severe ANAPHYLAXIS Verified 03/24/19 17:10 [BEE VENOM (HONEY BEE)] venom-wasp [WASP VENOM] Allergy Severe Anaphylaxis Verified 03/24/19 17:10 Review of Systems Review of Systems Narrative: GENERAL: Denies chills,fever HEENT: Denies throat pain RESPIRATORY: Denies dyspnea, cough, wheezing CARDIOVASCULAR: Denies chest pain, palpitations GASTROINTESTINAL: Denies nausea, vomiting MUSCULOSKELETAL: See HPI SKIN: No rash, no laceration, no pruritus NEUROLOGIC: Denies weakness, dizziness, headache, numbness 8 point review of systems is negative except for those stated above and HPI PFSH Medical History Bipolar 1 disorder (Chronic) Chronic adrenal insufficiency (Chronic 05/21/13) Chronic infection of right knee (Chronic) Chronic pain (Chronic) Constipation due to opioid therapy (Chronic) Depression (Chronic) History of migraine headaches (Chronic) Hypogonadism in male (Chronic 12/14/15) 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) Lumbago (Chronic 05/31/02) Other specified hypothyroidism (Chronic 05/21/13) 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) Peripheral neuropathy (Chronic) Pituitary adenoma (Inactive 10/18/02) Tinnitus (Chronic) Surgical History History of knee replacement Family History Father Leukemia Social History marital status: number of children: 3 household members: none lives independently: Yes caregiver/support person: No housing: house pets and animals: Yes education level: college occupational status: other Previous occupational history: Various leisure activities: music and other Smoking Status: Never smoker Tobacco: How many years used: 0 quit status: quit date established second hand exposure: No alcohol intake: current substance use type: does not use Family History Father Leukemia Social History marital status: number of children: 3 household members: none lives independently: Yes caregiver/support person: No housing: house pets and animals: Yes education level: college occupational status: other Previous occupational history: Various leisure activities: music and other Smoking Status: Never smoker Tobacco: How many years used: 0 quit status: quit date established second hand exposure: No alcohol intake: current substance use type: does not use Exam Initial Vital Signs Initial Vital Signs: Vital Signs Temperature 98.9 F 03/24/19 17:05 Pulse Rate 110 H 03/24/19 17:05 Respiratory Rate 15 03/24/19 17:05 Blood Pressure 138/123 H 03/24/19 17:05 Pulse Oximetry 93 03/24/19 17:05 GENERAL: Alert hostile angry may CARDIOVASCULAR: peripheral pulses in tact, cap refill <2 sec RESPIRATORY: No respiratory distress, speaks in full sentences without difficulty EXTREMITIES: Normal range of motion, no clubbing or edema. Neurovascularly intact Right ankle distal pedal pulse intact severe pain bilaterally no gross bony deformity NEUROLOGICAL: Cranial nerves II through XII grossly intact. Normal gait and speech. SKIN: Warm, dry, no petechiae, no rashes or lesions. Procedures Orthopedic Splinting/Casting Injury #1: Side: right Lower Extremity Injury Location: ankle Lower Extremity Immobilizer: posterior splint and stirrup splint Post splinting neuro exam: intact Post splinting vascular exam: intact Placed by: Provider Course Orders Ordered: Discontinued Medications Hydromorphone HCl (Dilaudid) 1 mg IV NOW ONE Stop: 03/24/19 17:44 Last Admin: 03/24/19 17:48 Dose: 1 mg Documented by: MARY Hydromorphone HCl (Dilaudid) 2 mg IV NOW ONE Stop: 03/24/19 19:10 Last Admin: 03/24/19 19:15 Dose: 2 mg Documented by: MARY Vital Signs Vital signs: Vital Signs - 8 hr 03/24/19 20:00 03/24/19 21:10 Temperature 97.6 F Pulse Rate 94 H 80 Respiratory Rate 18 16 Blood Pressure 150/94 H Blood Pressure [Right Arm] 138/95 H Pulse Oximetry 97 97 MDM - Extremity Injury (Lower) Imaging Data Right ankle: Radiologist's impression: PROCEDURE: XR TIBIA FUBULA RT 2V INDICATIONS: ankle injury TECHNIQUE: 2 views of the tibia and fibula were acquired. COMPARISON: [facility], CR, XR ANKLE RT 2V, 03/24/2019, 17:38. [facility], CR, KNEE 3V RIGHT, 01/25/2016, 10:04. [facility], CR, TIB/FIB 2V RIGHT, 11/29/2014, 16:44. FINDINGS: Bones: Patient is status post right total knee arthroplasty and salvador Alignment of right knee and hardware position is not significantly changed from previous study. ion. No gross acute right knee fracture or dislocation. No gross acute fracture or dislocation is seen in proximal to mid right tibia and fibula. Cortical irregularity involving medial and lateral malleoli are seen suggestive of slightly displaced bimalleolar fractures. Osteoarthritic changes in ankle joint are seen. Soft tissues: No suspicious soft tissue calcifications or masses. Soft tissue swelling around ankle joint is seen. IMPRESSION: Prior right total knee arthroplasty. No gross hardware complication. 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 Osteopenia. Suggestion of slightly displaced bimalleolar fracture with ankle soft tissue swelling. No proximal to mid tibial or fibular shaft fractures. Dictated by: Jesse Aguila M.D. on 03/24/2019 at 18:28 MDM Narrative Medical decision making narrative: Patient is noted to be quite angry and aggressive towards staff. He has a chronic pain patient and I have explained to him that his pain will not be completely controlled I have also explained that he will not be getting a prescription of narcotic medications. He is given a total 3 mg of Dilaudid to splint his right ankle fracture. He is given a disc and offered crutches. He has orthopedic surgeons who he sees on what sounds like a fairly regular basis. I recommend he follow up with them. Discharge Plan Departure Patient Disposition: Home Clinical Impression: Ankle fracture, right Qualifiers: Encounter type: initial encounter Fracture type: closed Qualified Code(s): S82.891A - Other fracture of right lower leg, initial encounter for closed fracture Discharge Date/Time: 03/24/19 21:10 Instructions: Ankle Fracture Activity Restrictions/Additional Instructions: *You have been diagnosed with right ankle fracture *What to do: Keep splint on at all times, no weight-bearing use crutches *Continue to take medications as directed Please call your chronic pain management doctor in regards to your pain management *Follow up with your primary care provider in 2-3 days, call orthopedic surgeon tomorrow *Return to ER if you should have numbness tingling, or any new, worsening or concerning symptoms Prescriptions: No Action [TESTOSTERONE] IM Qty: 0 RF: 0 liothyronine [Cytomel] 5 MCG tablet 5 mcg PO 0600 Qty: 0 RF: 0 hydrocortisone [Cortef] 20 MG tablet 20 mg PO [facility] Qty: 0 RF: 0 carbamazepine 300 MG capsule, ER multiphase 12 hr 600 mg PO BID Qty: 0 RF: 0 hydrocortisone [Cortef] 20 MG tablet 10 mg PO QPM Qty: 0 RF: 0 clonazepam 1 mg tablet 1 mg PO QAM Qty: 0 RF: 0 baclofen 10 mg tablet 10 mg PO BEDTIME Qty: 0 RF: 0 triamcinolone acetonide 0.025 % lotion TOP 30 Days Qty: 60 RF: 0 morphine 15 mg tablet extended release 60 mg PO BID RF: 0 diclofenac sodium 75 mg tablet,delayed release (DR/EC) 75 mg PO BID RF: 0 diazepam 10 mg tablet 5 mg PO BID RF: 0 pantoprazole 40 mg tablet,delayed release (DR/EC) 40 mg PO DAILY PRN (Reason: Acid Reflux) RF: 0 sennosides [Senokot] 8.6 mg tablet See Rx Instructions PO DAILY PRNRF: 0 levofloxacin [Levaquin] 750 mg tablet 750 mg PO DAILY Qty: 10 RF: 0 cephalexin [Keflex] 500 mg capsule 500 mg PO TID Qty: 0 RF: 0 fluticasone propionate 50 mcg/actuation spray,suspension 2 spray NASAL BEDTIME Qty: 16 RF: 5 ketorolac 10 mg tablet 10 mg PO Q6H PRN (Reason: pain) Qty: 14 RF: 0 silver sulfadiazine [SSD] 1 % cream TOPICAL BID RF: 0 gabapentin 600 mg tablet 600 mg PO TID RF: 0 clonazepam 1 mg tablet 2 mg PO QPM RF: 0 morphine 15 mg tablet 15 - 30 mg PO Q6H PRN (Reason: pain) RF: 0 levothyroxine 112 mcg tablet 56 mcg PO DAILY RF: 0 tadalafil 20 mg tablet 20 mg PO .ONCE RF: 0 cyclobenzaprine 10 MG tablet 10 mg PO TID RF: 0 Referrals: Charli Sampson MD [Primary Care Provider] -
[2019-03-24] MEDS: HYDROMORPHONE 1 MG INJ 2 MG IV (19:15)
--- NOTE | 2019-03-24 19:51 | PC.NURSE ---
Pt advised of plan of care. pt to be medicated and leg to be splinted. pt with questions regarding splint. Dr Mullins in room to answer all pt questions. Pt being verbally aggressive and abusive with staff. medicated with 2mg dilaudid. pt states im about to punch someone attempted deescalation. Ankle splinted with posterior and stirrup splint and pt tolerated well. pt reports my girlfriend has a small Kim and i wont be able to fit in it, so i need an ambulance home Pt advised that insurance will most likely not pay for the ambulance ride to his home and staff can assist him into his vehicle. RN called [facility] and asked for pt to be met at his home to assist him into house. Pt agreeable.
[2019-03-24 20:00] VITALS: BP 138/95; PULSE 94; RESP 18; TEMP 36.4; O2SAT 97
--- NOTE | 2019-03-24 21:07 | PC.NURSE ---
Pt continually verbally abusive to staff. States I'm going to go off on you. Informed that no violence either physical or verbal would be tolerated and law enforcement would be called for staff safety. Pt continued to be verbally abusive to this nurse and other nurses during his stay. I told him to calm down and to listen to our instructions. Pt hostile and angry that I spoke to him in this way. I informed him that our tolerance for his abusive verbalizations was at an end. 2 assist into wheel chair, then to car. [facility] agreed to meet them at the home to assist patient into home. Pt verbalized understanding that he had pain management contract and would not receive additional narcotics from the ED per Dr. Mullins.
[2019-03-24 21:10] VITALS: BP 150/94; PULSE 80; RESP 16; O2SAT 97
--- NOTE | 2019-03-24 21:28 | PC.NURSE ---
2110: pt refusing to sign DC instructions. being verbally aggressive and abusive with staff. pt calling RN's uneducated while trying to assist pt in transferring to wheelchair. pt assisted into car.with RN x 2.
== END 2019-03-24 21:10 | disposition home or self-care (01) ==
PROVIDERS: Emergency Provider Emergency Medicine; PCP Internal Medicine
DX: S82.891A Other fracture of right lower leg, initial encounter for closed fracture (principal)
CPT/HCPCS: 36591; 73590; 73600; 96374; 96376; 99282; 99284; J1170

== ENCOUNTER → 2019-06-21 11:28 | Outpatient (CLI) | payer MEDICARE, SELFPAY ==
--- NOTE | 2019-06-21 11:31 | DI.RAD.S_ITS ---
PROCEDURE: XR CHEST 2V INDICATIONS: cough TECHNIQUE: 2 views of the chest were acquired. COMPARISON: [facility], CR, XR CHEST 2V, 03/19/2019, 15:53. [facility], CR, XR CHEST 1V, 02/26/2019, 21:52. FINDINGS: Surgical changes and devices: None. Lungs and pleura: Lungs are clear except for a mild interstitial prominence. No pleural effusions or pneumothorax. Mediastinum: Mediastinal contours are normal. Heart size is normal. Bones and chest wall: No suspicious bony abnormalities. Soft tissues appear unremarkable. IMPRESSION: Chronic mild interstitial prominence potentially a manifestation of prior smoking, no acute disease, a definite source of new cough is found. Dictated by: Javier Vinson M.D. on 06/21/2019 at 12:18 Approved by: Javier Vinson M.D. on 06/21/2019 at 12:18
== END ==
PROVIDERS: PCP Internal Medicine; Visit Provider Internal Medicine
DX: R05 Cough (principal)
CPT/HCPCS: 71046

== ENCOUNTER 2019-08-10 22:02 | Emergency (ER) | payer MEDICARE, SELFPAY ==
[2019-08-10 22:10] VITALS: BP 154/96; PULSE 84; RESP 16; TEMP 36.7; O2SAT 100; BMI 28.0
--- NOTE | 2019-08-10 22:37 | DI.RAD.S_ITS ---
PROCEDURE: XR CHEST 2V INDICATIONS: cough TECHNIQUE: 2 views of the chest were acquired. COMPARISON: [facility], CR, XR CHEST 2V, 06/21/2019, 11:29. FINDINGS: Surgical changes and devices: A right shoulder prosthesis is partially visualized. Lungs and pleura: No focal consolidation. There is increased interstitial prominence compared to the prior study. No pleural effusions or pneumothorax. Mediastinum: Mediastinal contours are normal. Heart size is normal. Bones and chest wall: No suspicious bony abnormalities. Soft tissues appear unremarkable. IMPRESSION: 1. Increased interstitial prominence compared to the prior study suggestive of interstitial edema which may be due to cardiogenic or noncardiogenic etiologies such as atypical infection. Dictated by: Poli Painter M.D. on 08/11/2019 at 9:26 Approved by: Poli Painter M.D. on 08/11/2019 at 9:27
[2019-08-10 23:35] LABS: Influenza A - CEPHEID Flu A NEGATIVE (NEGATIVE); Influenza B - CEPHEID Flu B NEGATIVE (NEGATIVE)
--- NOTE | 2019-08-11 00:05 | ED_ITS ---
HPI - URI/Sore Throat General Chief Complaint: Upper Respiratory Symptoms Stated Complaint: cough, congestion Time Seen by Provider: 08/11/19 00:05 Source: patient Mode of arrival: Ambulatory Limitations: no limitations History of Present Illness HPI Narrative: The patient developed cough about 3-4 days ago. He is now developing increased cough with a recumbent position. He has had this a couple times previously. He has previously been diagnosed with pneumonia. He has previously been on inhaler. He has not been a cigarette smoker since the 1960s. Additionally, he smoked marijuana in the 60s and 70s. 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 He has never had environmental issues that would be a problem for his lungs. He has no history of CHF or cardiac disease. He had no edema. He denies orthopnea. With the current cough he has had no ENT complaints, no sinus pressure or sore throat. He is not having fever. He has no chest pain. I've reviewed his prior chest x-rays, as well the chest x-ray tonight. He has a prominent interstitial pattern in his lung ramírez. Cardiac silhouette is normal. He has severe DJD, multiple prior operations in the right knee and pain and swelling the right knee. There is no erythema. He is on Keflex for right knee inflammation from his doctor. He has also undergone surgery on the right shoulder and has planned surgery on the left knee. Related Data Home Medications Medication Instructions Recorded Confirmed [TESTOSTERONE] IM #0 10/07/08 06/21/19 hydrocortisone [Cortef] 20 mg PO [facility] #0 tab 04/02/13 06/21/19 liothyronine [Cytomel] 5 mcg PO 0600 #0 tab 04/02/13 06/21/19 carbamazepine 600 mg PO BID #0 03/24/17 06/21/19 hydrocortisone [Cortef] 10 mg PO QPM #0 03/24/17 06/21/19 triamcinolone acetonide 0.025 % TOP 30 Days #60 ml 01/08/18 06/21/19 lotion diazepam 10 mg tablet 5 mg PO BID 03/10/18 06/21/19 diclofenac sodium 75 mg 75 mg PO BID 03/10/18 06/21/19 tablet,delayed release pantoprazole 40 mg tablet,delayed 40 mg PO DAILY PRN 03/10/18 06/21/19 release clonazepam 1 mg tablet 1 mg PO QAM #0 tab 05/28/18 06/21/19 baclofen 10 mg tablet 10 mg PO BEDTIME #0 tab 01/19/19 06/21/19 cephalexin 500 mg capsule 500 mg PO TID #0 cap 01/19/19 06/21/19 morphine 15 mg tablet,extended 60 mg PO BID tab 01/19/19 06/21/19 release sennosides 8.6 mg tablet See Rx Instructions PO DAILY PRN 01/19/19 06/21/19 tab clonazepam 2 mg PO QPM 03/24/19 06/21/19 cyclobenzaprine 10 mg PO TID 03/24/19 06/21/19 gabapentin 600 mg PO TID 03/24/19 06/21/19 levothyroxine 56 mcg PO DAILY 03/24/19 06/21/19 morphine 15 - 30 mg PO Q6H PRN 03/24/19 06/21/19 silver sulfadiazine [SSD] applic TOPICAL BID 03/24/19 06/21/19 Previous Rx's Medication Instructions Recorded fluticasone propionate 50 2 spray NASAL BEDTIME #16 gram 02/25/19 mcg/actuation nasal spray,suspension ketorolac 10 mg PO Q6H PRN #14 tab 02/27/19 tadalafil 20 mg tablet 20 mg PO .ONCE #30 tab 07/14/19 prednisone 60 mg PO DAILY 5 Days #15 tab 08/11/19 Allergies Allergy/AdvReac Type Severity Reaction Status Date / Time phenobarbital [PHENOBARBITAL] Allergy Severe REALLY SICK Verified 06/21/19 11:01 venom-honey bee Allergy Severe ANAPHYLAXIS Verified 06/21/19 11:01 [BEE VENOM (HONEY BEE)] venom-wasp [WASP VENOM] Allergy Severe Anaphylaxis Verified 06/21/19 11:01 Review of Systems Review of Systems ROS Unobtainable: All systems reviewed & are unremarkable except as noted in HPI and below Constitutional Constitutional: Denies chills, Denies fever(s), Denies lethargy and Denies weakness Eyes Comments: No higher taken or discharge. ENT Ears, Nose, Mouth, and Throat: Denies change in voice, Denies neck pain and Denies sore throat Cardiovascular Cardiovascular: Denies chest pain, Denies edema, Denies irregular heart rhythm, Denies lightheadedness, Denies palpitations and Denies orthopnea Respiratory Respiratory: Reports cough Gastrointestinal Gastrointestinal: Denies abdominal pain, Denies nausea and Denies vomiting Musculoskeletal Musculoskeletal: Denies neck pain Comments: No lower extremity edema Integumentary/Breasts Skin/Breast: Denies pruritus, Denies erythema, Denies rash and Denies wounds Neurologic Neurologic: Denies confusion and Denies weakness Psychiatric Psychiatric: Denies confusion Endocrine Endocrine: Denies palpitations Patient History Medical History Bipolar 1 disorder (Chronic) Chronic adrenal insufficiency (Chronic 05/21/13) Chronic infection of right knee (Chronic) Chronic pain (Chronic) Constipation due to opioid therapy (Chronic) Depression (Chronic) History of migraine headaches (Chronic) Hypogonadism in male (Chronic 12/14/15) 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) Lumbago (Chronic 05/31/02) Other specified hypothyroidism (Chronic 05/21/13) 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) Peripheral neuropathy (Chronic) Pituitary adenoma (Inactive 10/18/02) Tinnitus (Chronic) Surgical History History of knee replacement Family History Father Leukemia Social History marital status: number of children: 3 household members: none lives independently: Yes caregiver/support person: No housing: house pets and animals: Yes education level: college occupational status: other Previous occupational history: Various leisure activities: music and other Smoking Status: Never smoker Tobacco: How many years used: 0 quit status: quit date established second hand exposure: No alcohol intake: current substance use type: does not use Smoking Status: Never smoker alcohol intake frequency: 0-2 drinks per day Substance Use Type: does not use Exam Initial Vital Signs Initial Vital Signs: Vital Signs Temperature 98.0 F 08/10/19 22:10 Pulse Rate 84 08/10/19 22:10 Respiratory Rate 16 08/10/19 22:10 Blood Pressure 154/96 H 08/10/19 22:10 Pulse Oximetry 100 08/10/19 22:10 Const General: cooperative and well developed Nutritional Appearance: well nourished [facility] Mouth: oral mucosae normal and other (No sinus tenderness) Neck Neck: No JVD Chest Chest: normal inspection of the chest Resp Other: Wheezes left middle lobe. Cardio Rate: regular rate Rhythm: regular rhythm Heart Sounds: S1 normal, no click, no gallops, no murmurs and no rubs Pulses: normal peripheral pulses GI Inspection: non-distended Palpation: soft, no hepatosplenomegaly, No guarding, No pulsatile mass and No tender Auscultation: normal bowel sounds Back/Spine/Pelvis Thoracic/Lumbar Spine: thoracic and lumbar spine normal to inspection Skin General: no rashes or lesions noted Neuro General: alert, oriented x3, gait normal and no focal motor deficits Speech: speech normal Extrem General: full ROM, no pedal edema and no calf tenderness Course Course Course Narrative: The patient has cleared after albuterol neb. The patient has a question about antibiotics, he takes Keflex for a right knee Staph infection. He is having no fever chills with current respiratory symptoms. I would not provide alternative antibiotics for pulmonary infection. He will be discharged on albuterol and prednisone. He is advised to follow up with regular doctor, I recommend a pulmonology consult. Orders Ordered: ED Orders 08/10/19 22:37 XR chest 2V Stat 08/10/19 22:58 Flu test [Influenza A & B (PCR)] Stat Discontinued Medications Albuterol/Ipratropium (Duoneb) 3 ml INH NOW ONE Stop: 08/11/19 00:04 Last Admin: 08/11/19 00:10 Dose: 3 ml Documented by: TSHARP Vital Signs Vital signs: Vital Signs - 8 hr 08/10/19 22:10 08/11/19 00:10 Temperature 98.0 F Pulse Rate 84 Respiratory Rate 16 Blood Pressure 154/96 H Pulse Oximetry 100 98 MDM - URI/Sore Throat Lab Data Labs: Lab Results 08/10/19 Range/Units 22:58 Influenza A (RT-PCR) Flu a negative (NEGATIVE) Influenza B (RT-PCR) Flu b negative (NEGATIVE) Imaging Data Chest x-ray: Radiologist's Impression: Increased interstitial markings, no infiltrate or mass. Discharge Plan Departure Patient Disposition: Home Clinical Impression: ILD (interstitial lung disease) Instructions: Interstitial Lung Disease Activity Restrictions/Additional Instructions: Albuterol 2 puffs every 4 hours as needed for cough or shortness of breath. Prednisone 60 mg daily for the next 5 days. Follow-up with Dr. Sampson. I would recommend consultation with a [facility], a lung specialist. Return the ER for increased difficulty breathing Prescriptions: New prednisone 20 mg tablet 60 mg PO DAILY 5 Days Qty: 15 RF: 0 No Action [TESTOSTERONE] IM Qty: 0 RF: 0 liothyronine [Cytomel] 5 MCG tablet 5 mcg PO 0600 Qty: 0 RF: 0 hydrocortisone [Cortef] 20 MG tablet 20 mg PO [facility] Qty: 0 RF: 0 carbamazepine 300 MG capsule, ER multiphase 12 hr 600 mg PO BID Qty: 0 RF: 0 hydrocortisone [Cortef] 20 MG tablet 10 mg PO QPM Qty: 0 RF: 0 clonazepam 1 mg tablet 1 mg PO QAM Qty: 0 RF: 0 baclofen 10 mg tablet 10 mg PO BEDTIME Qty: 0 RF: 0 tadalafil 20 mg tablet 20 mg PO .ONCE Qty: 30 RF: 0 triamcinolone acetonide 0.025 % lotion TOP 30 Days Qty: 60 RF: 0 morphine 15 mg tablet extended release 60 mg PO BID RF: 0 diclofenac sodium 75 mg tablet,delayed release (DR/EC) 75 mg PO BID RF: 0 diazepam 10 mg tablet 5 mg PO BID RF: 0 pantoprazole 40 mg tablet,delayed release (DR/EC) 40 mg PO DAILY PRN (Reason: Acid Reflux) RF: 0 sennosides [Senokot] 8.6 mg tablet See Rx Instructions PO DAILY PRNRF: 0 cephalexin [Keflex] 500 mg capsule 500 mg PO TID Qty: 0 RF: 0 fluticasone propionate 50 mcg/actuation spray,suspension 2 spray NASAL BEDTIME Qty: 16 RF: 5 ketorolac 10 mg tablet 10 mg PO Q6H PRN (Reason: pain) Qty: 14 RF: 0 silver sulfadiazine [SSD] 1 % cream TOPICAL BID RF: 0 gabapentin 600 mg tablet 600 mg PO TID RF: 0 clonazepam 1 mg tablet 2 mg PO QPM RF: 0 morphine 15 mg tablet 15 - 30 mg PO Q6H PRN (Reason: pain) RF: 0 levothyroxine 112 mcg tablet 56 mcg PO DAILY RF: 0 cyclobenzaprine 10 MG tablet 10 mg PO TID RF: 0 Referrals: Charli Sampson MD [Primary Care Provider] -
[2019-08-11 00:10] VITALS: O2SAT 98
[2019-08-11] MEDS: ALBUTEROL/IPRATROPIUM 3 ML AMPUL INH (00:10)
[2019-08-11] MEDS: ALBUTEROL HFA PREPACK 1 BOX MISC (01:57)
[2019-08-11] MEDS: predniSONE 20 MG TABLET 60 MG PO (01:57)
[2019-08-11 02:06] VITALS: BP 157/90; PULSE 75; RESP 16; O2SAT 96
== END 2019-08-11 02:06 | disposition home or self-care (01) ==
PROVIDERS: Emergency Provider Emergency Medicine; Family Provider Internal Medicine; PCP Internal Medicine
DX: J84.9 Interstitial pulmonary disease, unspecified (principal)
CPT/HCPCS: 71046; 87502; 94640; 99284

== ENCOUNTER → 2019-12-09 13:25 | Outpatient (CLI) | payer MEDICARE, SELFPAY ==
[2019-12-09 14:09] LABS: Add Manual Diff / Slide Review NO; Basophils Absolute Auto 0 /uL (0-100); Basophils Percent Auto 0.9 % (0-2); Eosinophils Absolute Auto 100 /uL (0-450); Eosinophils Percent Auto 2.4 % (2-4); Hematocrit 44.8 % (41-53); Hemoglobin 14.4 g/dL (13.5-17.5); Lymphocytes Absolute Auto 1400 /uL (1100-4500); Lymphocytes Percent Auto 29.5 % (25-40); Mean Corpuscular HGB Conc 32.2 % (30-36); Mean Corpuscular Hemoglobin 24.7 PG (26-34); Mean Corpuscular Volume 76.9 fL (80-100); Monocytes Absolute Auto 400 /uL (0-900); Monocytes Percent Auto 7.6 % (3-14); Neutrophils Absolute Auto 2900 /uL (1500-7000); Neutrophils Percent Auto 59.6 % (50-75); Platelet Count 266 X10^3/uL (150-400); Red Blood Cell Count 5.83 X10^6/uL (4.5-5.9); Red Cell Distribution Width 16.7 % (11.6-14.8); White Blood Cell Count 4.8 X10^3/uL (4.5-11.0)
[2019-12-09 14:26] LABS: Alanine Aminotransferase 22 IU/L (<50); Albumin 4.7 g/dL (3.5-5.0); Albumin Globulin Ratio 1.6 (1.0-2.8); Alkaline Phosphatase 98 U/L (38-126); Aspartate Aminotransferase 35 IU/L (17-59); BUN Creatinine Ratio 16.3 (6-22); Bilirubin Total 0.7 mg/dL (0.2-1.3); Blood Urea Nitrogen 15 mg/dL (9-20); Calcium 9.9 mg/dL (8.4-10.2); Carbon Dioxide 30 mmol/L (22-32); Chloride 95 mmol/L (98-107); Estimated Glomerular Filt Rate > 60.0 mL/min (>60); Globulin 2.9 g/dL (1.7-4.1); Glucose 107 mg/dL (80-110); HEMOLYSIS < 15 (0-50); Potassium 5.3 mmol/L (3.4-5.1); Sodium 133 mmol/L (137-145); Total Protein 7.6 g/dL (6.3-8.2)
[2019-12-10 05:57] LABS: Carbamazepine Tegretol Level 8.4 ug/mL (4.0-12.0)
== END ==
PROVIDERS: Family Provider Internal Medicine; PCP Internal Medicine; Referring Provider Psychiatry & Neurology Neurology; Visit Provider Psychiatry & Neurology Neurology
DX: Z51.81 Encounter for therapeutic drug level monitoring (principal); G40.319 Generalized idiopathic epilepsy and epileptic syndromes, intractable, without status epilepticus; G93.40 Encephalopathy, unspecified
CPT/HCPCS: 36415; 80053; 80156; 85025

== ENCOUNTER → 2019-12-10 14:06 | Outpatient (CLI) | payer MEDICARE, SELFPAY ==
[2019-12-10 15:56] LABS: BUN Creatinine Ratio 23.5 (6-22); Blood Urea Nitrogen 20 mg/dL (9-20); Calcium 9.2 mg/dL (8.4-10.2); Carbon Dioxide 24 mmol/L (22-32); Chloride 97 mmol/L (98-107); Estimated Glomerular Filt Rate > 60.0 mL/min (>60); Glucose 69 mg/dL (80-110); HEMOLYSIS 15 (0-50); Sodium 133 mmol/L (137-145)
[2019-12-10 16:10] LABS: Free T4, Direct Thyroxine 1.27 ng/dL (0.78-2.19)
[2019-12-10 16:24] LABS: Thyroid Stimulating Hormone 0.94 uIU/mL (0.47-4.68)
== END ==
PROVIDERS: Family Provider Internal Medicine; PCP Internal Medicine; Referring Provider Internal Medicine; Visit Provider Internal Medicine
DX: R60.9 Edema, unspecified (principal)
CPT/HCPCS: 36415; 80048; 84439; 84443

== ENCOUNTER → 2019-12-17 14:48 | Outpatient (CLI) | payer MEDICARE, SELFPAY ==
--- NOTE | 2019-12-17 14:59 | DI.ECHO.S_ITS ---
Echocardiogram Report + + :Name: OMAYRA LEGGETT Study Date: 12/17/2019 Height: 76 in : :[facility] Weight: 243 lb : : Gender: Male BSA: 2.4 m2 : :: 1950 Age: 69 yrs BP: 126/78 mmHg: :Reason For Study: Edema : :Ordering Physician: Dr. Augustin : :Adrián Performed By: Charisma Lucero : + + Interpretation Summary Mild hypokinesis of basal to mid inferior/inferolateral bernardo are suspected but endocardial definition is suboptimal. Please correlate clinically and obtain further studies if coronary disease is suspected.. The left ventricular ejection fraction is normal. Diastolic parameters suggest a relaxation abnormality of the left ventricle, consistent with probable normal filling pressures. The right ventricle is normal in size and function. There is mild aortic regurgitation. The ascending aorta is mildly enlarged. There is no prior echocardiogram noted for this patient. Procedure: A two-dimensional transthoracic echocardiogram with color flow and Doppler was performed. The study quality was technically adequate. There is no prior echocardiogram noted for this patient. The patient was in normal sinus rhythm during the exam. Left Ventricle: The left ventricle is normal in size. There is normal left ventricular wall thickness. There is mild proximal septal thickening noted. The ejection fraction is estimated to be 60-65%. The left ventricular ejection fraction is normal. Mild hypokinesis of basal to mid inferior/inferolateral bernardo are suspected but endocardial definition is suboptimal. Please correlate clinically and obtain further studies if coronary disease is suspected.. Diastolic parameters suggest a relaxation abnormality of the left ventricle, consistent with probable normal filling pressures. Right Ventricle: The right ventricle is normal in size and function. Atria: The left atrium is mildly dilated. Right atrial size is normal. There is no Doppler evidence for an interatrial shunt. Mitral Valve: The mitral valve is normal in structure and function. There is trace mitral regurgitation. Aortic Valve: The aortic valve is grossly normal. There is no aortic valve stenosis. There is mild aortic regurgitation. Tricuspid Valve: The tricuspid valve is normal in structure and function. There is a trace or physiologic amount of tricuspid regurgitation. The right ventricular systolic pressure is estimated to be at least 24 mmHg based on an estimated right atrial pressure of 3 mm Hg. Pulmonic Valve: The pulmonic valve is not well seen, but is grossly normal. There is a trace or physiologic amount of pulmonic regurgitation. Great Vessels: The aortic root is normal size. The ascending aorta is mildly enlarged. The aortic arch is mildly enlarged. The IVC is of normal diameter and collapses greater than 50% with a sniff. This suggests a low right atrial pressure of 3 mm Hg. Pericardium/ Pleura There is no pericardial effusion. MMode/2D Measurements & Calculations LVIDd: 5.7 cm LVOT diam: 2.1 cm LVIDs: 3.7 cm Ao root diam: 4.1 cm FS: 35.6 % asc Aorta Diam: 4.1 cm EPSS: 0.34 cm Ao Arch Diam (Prox Trans): 3.4 cm IVSd: 1.1 cm LVPWd: 0.90 cm LV hernandez. diameter/BSA (cm/m^2): 2.4 LV sys. diameter/BSA (cm/m^2): 1.5 LA A2 area: 27.0 cm2 RA long axis: 5.3 cm LA A4 area: 23.2 cm2 RA area: 17.0 cm2 LA length (vol): 5.8 cm RA vol: 46.8 ml LA vol: 92.5 ml RA : 19.5 ml/m2 LA vol index: 38.4 ml/m2 IVC diam: 1.4 cm RVD1 (basal): 4.0 cm RVD2 (mid): 2.8 cm TAPSE: 2.6 cm Doppler Measurements & Calculations Ao V2 max: 131.1 cm/sec LVOT Max Reggie: 130.2 cm/sec Ao V2 mean: 87.9 cm/sec LV V1 max P.8 mmHg Ao max P.9 mmHg LV V1 VTI: 23.3 cm Ao mean P.5 mmHg FORREST(I,D): 3.0 cm2 Ao V2 VTI: 26.1 cm FORREST(V,D): 3.3 cm2 sev ratio: 0.89 FORREST indexed to BSA (cm^2/m^2): 1.2 AI P1/2t: 901.0 msec AI dec slope: 117.7 cm/sec2 MV E max reggie: 47.7 cm/sec TR max reggie: 230.8 cm/sec MV A max reggie: 57.6 cm/sec TR max P.3 mmHg MV E/A: 0.83 PA V2 max: 87.1 cm/sec Med Peak E' Reggie: 5.6 cm/sec PA V2 mean: 64.3 cm/sec E/E' med: 8.6 PA mean P.8 mmHg Lat Peak E' Reggie: 5.6 cm/sec PA Accel Time: 0.09 sec E/E' lat: 8.6 E/e' average: 8.6 MV dec time: 0.29 sec MV P1/2t: 85.7 msec MV P1/2t max reggie: 48.2 cm/sec SV(LVOT): 78.6 ml MVA(P1/2t): 2.6 cm2 _ Electronically signed by: Barrett Ramires M.D. on Reading Physician:12/20/2019 11:18 PM
== END ==
PROVIDERS: Family Provider Internal Medicine; PCP Internal Medicine; Referring Provider Internal Medicine; Visit Provider Internal Medicine
DX: I35.1 Nonrheumatic aortic (valve) insufficiency (principal); I77.89 Other specified disorders of arteries and arterioles; R60.9 Edema, unspecified
CPT/HCPCS: 93306

== ENCOUNTER → 2020-01-07 15:16 | Outpatient (CLI) | payer MEDICARE, SELFPAY ==
[2020-01-07 16:12] LABS: Add Manual Diff / Slide Review NO; Basophils Absolute Auto 100 /uL (0-100); Basophils Percent Auto 0.7 % (0-2); Eosinophils Absolute Auto 0 /uL (0-450); Eosinophils Percent Auto 0.6 % (2-4); Hematocrit 43.9 % (41-53); Hemoglobin 14.5 g/dL (13.5-17.5); Lymphocytes Absolute Auto 1500 /uL (1100-4500); Lymphocytes Percent Auto 20.1 % (25-40); Mean Corpuscular Hemoglobin 25.9 PG (26-34); Mean Corpuscular Volume 78.4 fL (80-100); Monocytes Absolute Auto 500 /uL (0-900); Monocytes Percent Auto 6.1 % (3-14); Neutrophils Absolute Auto 5500 /uL (1500-7000); Neutrophils Percent Auto 72.5 % (50-75); Platelet Count 315 X10^3/uL (150-400); Red Cell Distribution Width 18.6 % (11.6-14.8); White Blood Cell Count 7.6 X10^3/uL (4.5-11.0)
[2020-01-07 16:28] LABS: BUN Creatinine Ratio 18.9 (6-22); Blood Urea Nitrogen 17 mg/dL (9-20); Calcium 9.2 mg/dL (8.4-10.2); Carbon Dioxide 28 mmol/L (22-32); Chloride 95 mmol/L (98-107); Estimated Glomerular Filt Rate > 60.0 mL/min (>60); Glucose 141 mg/dL (80-110); HEMOLYSIS 44 (0-50); Potassium 4.7 mmol/L (3.4-5.1); Sodium 133 mmol/L (137-145)
[2020-01-07 16:29] LABS: C-Reactive Protein Quant < 0.5 mg/dL (<1.0)
== END ==
PROVIDERS: Family Provider Internal Medicine; PCP Internal Medicine; Referring Provider Internal Medicine; Visit Provider Internal Medicine
DX: T84.59XD Infection and inflammatory reaction due to other internal joint prosthesis, subsequent encounter (principal); Z96.659 Presence of unspecified artificial knee joint
CPT/HCPCS: 36415; 80048; 85025; 86140

== ENCOUNTER → 2020-03-03 09:39 | Outpatient (CLI) | payer MEDICARE, SELFPAY ==
--- NOTE | 2020-03-03 | DI.CT.S_ITS ---
PROCEDURE: CT UE RT WO CON INDICATIONS: Other specific arthropathies, not elsewhere classi TECHNIQUE: Noncontrast 1-1.5 mm thick sections acquired from the acromioclavicular joint to the inferior scapula, with coronal and sagittal reformatting. COMPARISON: [facility], , SHOULDER RT WO CON, 02/22/2019, 14:46. FINDINGS: Image quality: Diagnostic. Bones: Patient is status post reverse right total shoulder arthroplasty. Right shoulder alignment is anatomic. No gross hardware loosening or failure is seen. There is no acute shoulder fracture or dislocation. Moderate acromioclavicular joint osteoarthritic changes are seen. No suspicious intraosseous lesion. Visualized right ribs are grossly intact. Soft tissues: Moderate supraspinatus muscle atrophy is seen. There is no gross full-thickness rotator cuff tendon rupture. No significant joint effusion is seen. Visualized right lung field shows scattered scarring/atelectasis . No pleural effusion or pneumothorax. IMPRESSION: 1. Prior right shoulder reverse arthroplasty. Anatomic right shoulder alignment. No fracture or dislocation. No evidence of hardware complication. 2. Moderate supraspinatus muscle atrophy. No gross full-thickness rotator cuff tendon rupture. No significant joint effusion. Dictated by: Jesse Aguila M.D. on 03/03/2020 at 11:31 Approved by: Jesse Aguila M.D. on 03/03/2020 at 11:41
== END ==
PROVIDERS: Family Provider Internal Medicine; PCP Internal Medicine
DX: M12.811 Other specific arthropathies, not elsewhere classified, right shoulder (principal); Z96.611 Presence of right artificial shoulder joint
CPT/HCPCS: 73200

== ENCOUNTER 2020-04-28 15:58 | Emergency (ER) | payer MEDICARE, SELFPAY ==
[2020-04-28 16:14] VITALS: BP 135/102; PULSE 111; RESP 16; TEMP 36.7; O2SAT 96; BMI 27.1
[2020-04-28] MEDS: MORPHINE IR 15 MG TABLET 45 MG PO (17:58)
[2020-04-28 18:32] LABS: Add Manual Diff / Slide Review NO; Basophils Absolute Auto 100 /uL (0-100); Basophils Percent Auto 0.9 % (0-2); Eosinophils Absolute Auto 100 /uL (0-450); Eosinophils Percent Auto 1.4 % (2-4); Hematocrit 38.5 % (41-53); Hemoglobin 12.4 g/dL (13.5-17.5); Lymphocytes Absolute Auto 1600 /uL (1100-4500); Lymphocytes Percent Auto 23.8 % (25-40); Mean Corpuscular HGB Conc 32.3 % (30-36); Mean Corpuscular Hemoglobin 26.1 PG (26-34); Mean Corpuscular Volume 80.9 fL (80-100); Monocytes Absolute Auto 500 /uL (0-900); Monocytes Percent Auto 7.9 % (3-14); Neutrophils Absolute Auto 4500 /uL (1500-7000); Platelet Count 333 X10^3/uL (150-400); Red Blood Cell Count 4.75 X10^6/uL (4.5-5.9); Red Cell Distribution Width 18.6 % (11.6-14.8); White Blood Cell Count 6.9 X10^3/uL (4.5-11.0)
--- NOTE | 2020-04-28 19:21 | ED_ITS ---
HPI - Wound/Laceration General Chief Complaint: Wound/Laceration Stated Complaint: RT SHOULDER SURGERY BANDGE NEEDS FIXED Time Seen by Provider: 04/28/20 17:25 Source: patient Mode of arrival: Ambulatory Limitations: no limitations History of Present Illness HPI narrative: 69M nonsmoker presents with his son for evaluation of increasing pain, swelling, and mild bleeding from a recent surgical site of his right marjan ulder. He noted some spots of bleeding on the bandage of his right shoulder. The bandage had been placed earlier in the week. Patient had his original surgery on his right shoulder [place] a few months ago and had a revision of the surgery recently. In the aftermath of the surgery developed a large hematoma which required the use of a wound VAC which was just referred removed earlier in the week and then the incision was closed by skin adhesive. Patient denies significant pain. He denies systemic findings such as fever, chills nor nausea or vomiting. He denies any focal findings such as numbness, tingling or weakness. Related Data Home Medications Medication Instructions Recorded Confirmed [TESTOSTERONE] IM #0 10/07/08 02/22/20 hydrocortisone [Cortef] 20 [facility] #[facility] tab 04/02/13 02/22/20 liothyronine [Cytomel] 5 mcg PO 0600 #0 tab 04/02/13 02/22/20 hydrocortisone [Cortef] 10 mg PO QPM #0 03/24/17 02/22/20 triamcinolone acetonide 0.025 % TOP 30 Days #60 ml 01/08/18 02/22/20 lotion diazepam 10 mg tablet 5 mg PO BID 03/10/18 02/22/20 diclofenac sodium 75 mg 75 mg PO BID 03/10/18 02/22/20 tablet,delayed release pantoprazole 40 mg tablet,delayed 40 mg PO DAILY PRN 03/10/18 02/22/20 release clonazepam 1 mg tablet 1 mg PO QAM #0 tab 05/28/18 02/22/20 baclofen 10 mg tablet 10 mg PO BEDTIME #0 tab 01/19/19 02/22/20 cephalexin 500 mg capsule 500 mg PO TID #0 cap 01/19/19 02/22/20 sennosides 8.6 mg tablet See Rx Instructions PO DAILY PRN 01/19/19 02/22/20 tab clonazepam 2 mg PO QPM 03/24/19 02/22/20 cyclobenzaprine 10 mg PO TID 03/24/19 02/22/20 gabapentin 600 mg PO TID 03/24/19 02/22/20 levothyroxine 56 mcg PO DAILY 03/24/19 02/22/20 morphine 15 - 30 mg PO Q6H PRN 03/24/19 02/22/20 carbamazepine 300 mg 300 mg PO BID #0 cap 02/15/20 02/22/20 capsule,extended release [id number] Previous Rx's Medication Instructions Recorded tadalafil 20 mg tablet 20 mg PO .ONCE #30 tab 02/14/20 furosemide 20 mg tablet 20 mg PO DAILY #30 tab 04/06/20 potassium chloride 8 mEq 8 meq PO DAILY #30 tab 04/06/20 tablet,extended release Allergies Allergy/AdvReac Type Severity Reaction Status Date / Time phenobarbital [PHENOBARBITAL] Allergy Severe REALLY SICK Verified 04/28/20 16:21 venom-honey bee Allergy Severe ANAPHYLAXIS Verified 04/28/20 16:21 [BEE VENOM (HONEY BEE)] venom-wasp [WASP VENOM] Allergy Severe Anaphylaxis Verified 04/28/20 16:21 Review of Systems Constitutional Constitutional: Denies chills, Denies fatigue, Denies fever(s), Denies frequent falls, Denies lethargy and Denies weakness Eyes Eyes: Denies change in vision, Denies eye discharge, Denies irritation and Denies loss of vision ENT Ears, Nose, Mouth, and Throat: Denies change in voice, Denies dizziness, Denies neck pain, Denies sore throat and Denies throat swelling Cardiovascular Cardiovascular: Denies chest pain, Denies irregular heart rhythm, Denies lightheadedness, Denies palpitations, Denies dyspnea, Denies dyspnea on exertion and Denies orthopnea Respiratory Respiratory: Denies cough, Denies dyspnea, Denies dyspnea on exertion and Denies wheezing Gastrointestinal Gastrointestinal: Denies abdominal pain, Denies change in bowel habits, Denies diarrhea, Denies nausea and Denies vomiting Musculoskeletal Musculoskeletal: Reports arthralgias, Reports joint swelling, Reports limited range of motion, Denies neck pain and Denies numbness Integumentary/Breasts Skin/Breast: Denies pruritus, Denies erythema, Denies rash, Reports unusual bruising and Denies wounds Neurologic Neurologic: Denies behavioral changes, Denies confusion, Denies dizziness, De nies frequent falls, Denies loss of vision, Denies numbness and Denies weakness Psychiatric Psychiatric: Denies anxiety, Denies behavioral changes, Denies confusion, Denies depression, Denies homicidal ideation and Denies suicidal ideation Endocrine Endocrine: Denies fatigue, Denies flushing and Denies palpitations Hematologic/Lymphatic Hematologic/Lymphatic: Reports easy bleeding and Reports easy bruising Allergic/Immunologic Allergic/Immunologic: Denies urticaria, Denies throat swelling and Denies wheezing Patient History Medical History Bipolar 1 disorder (Chronic) Chronic adrenal insufficiency (Chronic 05/21/13) Chronic infection of right knee (Chronic) Chronic pain (Chronic) Constipation due to opioid therapy (Chronic) Depression (Chronic) History of migraine headaches (Chronic) Hypogonadism in male (Chronic 12/14/15) 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) Lumbago (Chronic 05/31/02) Other specified hypothyroidism (Chronic 05/21/13) 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) Peripheral neuropathy (Chronic) Pituitary adenoma (Inactive 10/18/02) Tinnitus (Chronic) Surgical History History of knee replacement Status post left knee replacement (Acute) Status post replacement of right shoulder joint (Acute ~04/27/19) Status post surgery (Acute) Family History Father Leukemia Social History marital status: number of children: 3 household members: none lives independently: Yes caregiver/support person: No housing: house pets and animals: Yes education level: college occupational status: other Previous occupational history: Various leisure activities: music and other Smoking Status: Never smoker Tobacco: How many years used: 0 quit status: quit date established second hand exposure: No alcohol intake: current substance use type: does not use Smoking Status: Never smoker alcohol intake frequency: 0-2 drinks per day Substance Use Type: does not use Exam Narrative Exam Narrative: GENERAL: [69] year old patient appears stated age. Well- nourished, well-developed patient, in mild distress. HEAD: Atraumatic. Normocephalic. EYES: Pupils equal round and reactive. Extraocular motions intact. No scleral icterus. No injection or drainage. ENT: Nose without bleeding, purulent drainage. Throat without erythema, tonsillar hypertrophy or exudate. Airway patent. NECK: Trachea midline. Non tender CARDIOVASCULAR: Regular rate and rhythm without murmurs, gallops, or rubs. RESPIRATORY: Clear to auscultation. Breath sounds equal bilaterally. No wheezes, rales, or rhonchi. GASTROINTESTINAL: Abdomen soft, non-tender, nondistended. EXTREMITIES: Right shoulder with noted swelling, and bruising. Incision largely in tact, very small area of dehiscence at inferior edge. Hematoma is soft and minimally painful. There is no obvious sign of infection. Distal pulses and sensation intact. BACK: Nontender without deformity or crepitance. No flank tenderness. NEURO: AOx3. SKIN: No rash or erythema of visible areas Initial Vital Signs Initial Vital Signs: Vital Signs Temperature 98.0 F 04/28/20 16:14 Pulse Rate 111 H 04/28/20 16:14 Respiratory Rate 16 04/28/20 16:14 Blood Pressure 135/102 H 04/28/20 16:14 Pulse Oximetry 96 04/28/20 16:14 Course Orders Ordered: ED Orders 04/28/20 18:25 Complete Blood Count AUTO DIFF Stat Discontinued Medications Morphine Sulfate (Morphine) 50 mg PO Q1HR PRN PRN Reason: Pain, Severe (7-10) Morphine Sulfate (Morphine Ir) 45 mg PO NOW ONE Stop: 04/28/20 18:01 Last Admin: 04/28/20 17:58 Dose: 45 mg Documented by: FIONA Consultations Consultation #1: discussion with occupational hygienist PA for patient orthopedist. He is in agreement that there is little concern for infection. Wishes for us to re-wrap, and have patient follow up with their clinic at [place] on Friday morning Vital Signs Vital signs: Vital Signs - 8 hr 04/28/20 16:14 Temperature 98.0 F Pulse Rate 111 H Respiratory Rate 16 Blood Pressure 135/102 H Pulse Oximetry 96 MDM - Wound/Laceration Lab Data Result diagrams: 04/28/20 18:25 Labs: Lab Results 04/28/20 Range/Units 18:25 WBC 6.9 (4.5-11.0) X10^3/uL RBC 4.75 (4.5-5.9) X10^6/uL Hgb 12.4 L (13.5-17.5) g/dL Hct 38.5 L (41-53) % MCV 80.9 (80-100) fL MCH 26.1 (26-34) PG MCHC 32.3 (30-36) % RDW 18.6 H (11.6-14.8) % Plt Count 333 (150-400) X10^3/uL Neut % (Auto) 66.0 (50-75) % Lymph % (Auto) 23.8 L (25-40) % Archuleta % (Auto) 7.9 (3-14) % Eos % (Auto) 1.4 L (2-4) % Baso % (Auto) 0.9 (0-2) % Neut # (Auto) 4500 (5120-1557) /uL Lymph # (Auto) 1600 (0271-4119) /uL Archuleta # (Auto) 500 (0-900) /uL Eos # (Auto) 100 (0-450) /uL Baso # (Auto) 100 (0-100) /uL MDM Narrative Medical decision making narrative: Patient with minimal wound dehiscence and moderate-sized hematoma postoperatively with no signs of infection or anemia. Compartments are soft and there is no evidence of compartment syndrome. Patient will see his surgical team Friday at their clinic in [place]. He has been given return precautions and has had his questions answered to his apparent satisfaction Discharge Plan Departure Patient Disposition: Home Clinical Impression: Hematoma Discharge Date/Time: 04/28/20 19:53 Instructions: DI for Hematoma (Bruise) Activity Restrictions/Additional Instructions: *You have been diagnosed with [ Hematoma, post operative, no evidence of infection ] *What to do: *Continue take medications as directed *Follow up with Ortho at [facility] on Friday as we discussed. *Return to ER if you should have any new, worsening or concerning symptoms, such as [fever, chills, worsening pain, numbness, tingling or other bothersome symptoms ] Prescriptions: No Action [TESTOSTERONE] IM Qty: 0 RF: 0 liothyronine [Cytomel] 5 MCG tablet 5 mcg PO 0600 Qty: 0 RF: 0 hydrocortisone [Cortef] 20 MG tablet 20 mg PO [facility] Qty: 0 RF: 0 hydrocortisone [Cortef] 20 MG tablet 10 mg PO QPM Qty: 0 RF: 0 clonazepam 1 mg tablet 1 mg PO QAM Qty: 0 RF: 0 baclofen 10 mg tablet 10 mg PO BEDTIME Qty: 0 RF: 0 tadalafil 20 mg tablet 20 mg PO .ONCE Qty: 30 RF: 0 carbamazepine 300 mg capsule, ER multiphase 12 hr 300 mg PO BID Qty: 0 RF: 0 furosemide 20 mg tablet 20 mg PO DAILY Qty: 30 RF: 3 potassium chloride 8 mEq tablet extended release 8 meq PO DAILY Qty: 30 RF: 3 triamcinolone acetonide 0.025 % lotion TOP 30 Days Qty: 60 RF: 0 diclofenac sodium 75 mg tablet,delayed release (DR/EC) 75 mg PO BID RF: 0 diazepam 10 mg tablet 5 mg PO BID RF: 0 pantoprazole 40 mg tablet,delayed release (DR/EC) 40 mg PO DAILY PRN (Reason: Acid Reflux) RF: 0 sennosides [Senokot] 8.6 mg tablet See Rx Instructions PO DAILY PRNRF: 0 cephalexin [Keflex] 500 mg capsule 500 mg PO TID Qty: 0 RF: 0 gabapentin 600 mg tablet 600 mg PO TID RF: 0 clonazepam 1 mg tablet 2 mg PO QPM RF: 0 morphine 15 mg tablet 15 - 30 mg PO Q6H PRN (Reason: pain) RF: 0 levothyroxine 112 mcg tablet 56 mcg PO DAILY RF: 0 cyclobenzaprine 10 MG tablet 10 mg PO TID RF: 0 Referrals: Charli Sampson MD [Primary Care Provider] - Matt Manuel MD [Physician] -
== END 2020-04-28 19:53 | disposition home or self-care (01) ==
PROVIDERS: Emergency Provider Emergency Medicine; Family Provider Internal Medicine; PCP Internal Medicine
DX: M96.840 Postprocedural hematoma of a musculoskeletal structure following a musculoskeletal system procedure (principal)
CPT/HCPCS: 36415; 85025; 99283

== ENCOUNTER 2020-05-16 15:08 | Emergency (ER) | payer MEDICARE, SELFPAY ==
[2020-05-16 15:10] VITALS: BP 140/76; PULSE 85; RESP 18; TEMP 36.7; O2SAT 99; BMI 28.5
[2020-05-16 16:33] VITALS: BP 138/80; PULSE 72; RESP 18; O2SAT 98
--- NOTE | 2020-05-16 22:17 | ED.SKABFB ---
HPI - Skin/Abscess/Foreign Bdy <GINA Schafer - Last Filed: 05/16/20 22:30> General Chief complaint: Skin/Abscess/Foreign Body Stated complaint: NEEDS DRESSING CHANGE Time Seen by Provider: 05/16/20 15:30 Source: patient Mode of arrival: Ambulatory Limitations: no limitations History of Present Illness HPI narrative: This is a 69-year-old male, nonsmoker, who presents to ED requesting for wound dressing on right shoulder. Patient reports she had accidental fall had right shoulder total reconstruction at [facility] 6 weeks ago. He then developed hematoma and has been draining serosanguineous drainage which requires dressing change in 2-3 days. Patient was seen by his surgeon a week ago and has a follow up appointment in about a week. Patient denies fever, chills, purulent discharge. Pain when he reaches out the affected arm and denies increasing pain. Patient's surgeon has been providing supplies for dressing change but this has ran out and he had difficult time with dressing change by himself. Patient reports usually his significant other and sons with dressing change but they are not at home to help him with this. Related Data Home Medications Medication Instructions Recorded Confirmed [TESTOSTERONE] IM #0 10/07/08 02/22/20 hydrocortisone [Cortef] 20 mg PO [facility] #0 tab 04/02/13 02/22/20 liothyronine [Cytomel] 5 mcg PO 0600 #0 tab 04/02/13 02/22/20 hydrocortisone [Cortef] 10 mg PO QPM #0 03/24/17 02/22/20 triamcinolone acetonide 0.025 % TOP 30 Days #60 ml 01/08/18 02/22/20 lotion diazepam 10 mg tablet 5 mg PO BID 03/10/18 02/22/20 diclofenac sodium 75 mg 75 mg PO BID 03/10/18 02/22/20 tablet,delayed release pantoprazole 40 mg tablet,delayed 40 mg PO DAILY PRN 03/10/18 02/22/20 release clonazepam 1 mg tablet 1 mg PO QAM #0 tab 05/28/18 02/22/20 baclofen 10 mg tablet 10 mg PO BEDTIME #0 tab 01/19/19 02/22/20 cephalexin 500 mg capsule 500 mg PO TID #0 cap 01/19/19 02/22/20 sennosides 8.6 mg tablet See Rx Instructions PO DAILY PRN 01/19/19 02/22/20 tab clonazepam 2 mg PO QPM 03/24/19 02/22/20 cyclobenzaprine 10 mg PO TID 03/24/19 02/22/20 gabapentin 600 mg PO TID 03/24/19 02/22/20 levothyroxine 56 mcg PO DAILY 03/24/19 02/22/20 morphine 15 - 30 mg PO Q6H PRN 03/24/19 02/22/20 carbamazepine 300 mg 300 mg PO BID #0 cap 02/15/20 02/22/20 capsule,extended release [id number] Previous Rx's Medication Instructions Recorded tadalafil 20 mg tablet 20 mg PO .ONCE #30 tab 02/14/20 furosemide 20 mg tablet 20 mg PO DAILY #30 tab 04/06/20 potassium chloride 8 mEq 8 meq PO DAILY #30 tab 04/06/20 tablet,extended release Allergies Allergy/AdvReac Type Severity Reaction Status Date / Time phenobarbital [PHENOBARBITAL] Allergy Severe REALLY SICK Verified 04/28/20 16:21 venom-honey bee Allergy Severe ANAPHYLAXIS Verified 04/28/20 16:21 [BEE VENOM (HONEY BEE)] venom-wasp [WASP VENOM] Allergy Severe Anaphylaxis Verified 04/28/20 16:21 Patient History <GINA Schafer - Last Filed: 05/16/20 22:30> Medical History Bipolar 1 disorder (Chronic) Chronic adrenal insufficiency (Chronic 05/21/13) Chronic infection of right knee (Chronic) Chronic pain (Chronic) Constipation due to opioid therapy (Chronic) Depression (Chronic) History of migraine headaches (Chronic) Hypogonadism in male (Chronic 12/14/15) 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) Lumbago (Chronic 05/31/02) Other specified hypothyroidism (Chronic 05/21/13) 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) Peripheral neuropathy (Chronic) Pituitary adenoma (Inactive 10/18/02) Tinnitus (Chronic) Surgical History History of knee replacement Status post left knee replacement (Acute) Status post replacement of right shoulder joint (Acute ~04/27/19) Status post surgery (Acute) Family History Father Leukemia Social History marital status: number of children: 3 household members: none lives independently: Yes caregiver/support person: No housing: house pets and animals: Yes education level: college occupational status: other Previous occupational history: Various leisure activities: music and other Smoking Status: Never smoker Tobacco: How many years used: 0 quit status: quit date established second hand exposure: No alcohol intake: current substance use type: does not use Smoking Status: Never smoker alcohol intake frequency: 0-2 drinks per day Substance Use Type: does not use Exam <GINA Schafer - Last Filed: 05/16/20 22:30> Narrative Exam Narrative: General appearance: well developed, well nourished, in no acute distress. Head: normocephalic, atraumatic, no scalp lesions, non-tender. ENT: Hearing grossly intact. Airway patent. Neck/Thyroid: neck supple, full range of motion, no visible masses or meningeal signs. No JVD, non-tender without lymphadenopathy. Skin: Right shoulder with mild erythema without warmth. Vertical surgical incision on right shoulder with several bullae and blister. No pruluent discharge. No significant swelling appreciated. Warm and dry and appropriate color for ethnicity. Heart: no clubbing, no cyanosis, no edema. Lungs: Breathing even and unlabored. No stridor. No accessory muscles used. Able to speak in full sentences. Chest: normal shape and expansion. Abdomen: non-obese, non-distended. Neurologic: alert and oriented. Cognitive exam, ANGER CONTROL COUNSELOR and PNS grossly intact on informal exam. Psych: good eye contact, normal affect. Initial Vital Signs Initial Vital Signs: Vital Signs Temperature 98.1 F 05/16/20 15:10 Pulse Rate 85 05/16/20 15:10 Respiratory Rate 18 05/16/20 15:10 Blood Pressure 140/76 05/16/20 15:10 Pulse Oximetry 99 05/16/20 15:10 Extrem Right upper extremity: shoulder/upper arm Details: abnormal to inspection, abnormal ROM (slight decreaed ROM with abduction, elevation) Details: with range as follows and other (Veritical surgical incision on right anterior shoulder); no tenderness, no swelling and no unusual warmth and hand Details: normal to inspection, neuromotor exam normal, neurosensory exam normal, vascular exam Details: radial pulse present and normal capillary refill and normal ROM of fingers <Ricardo Henriquez DO - Last Filed: 05/17/20 07:10> Initial Vital Signs Initial Vital Signs: Vital Signs Temperature 98.1 F 05/16/20 15:10 Pulse Rate 85 05/16/20 15:10 Respiratory Rate 18 05/16/20 15:10 Blood Pressure 140/76 05/16/20 15:10 Pulse Oximetry 99 05/16/20 15:10 Course <GINA Schafer - Last Filed: 05/16/20 22:30> Vital Signs Vital signs: Vital Signs - 8 hr 05/16/20 15:10 05/16/20 16:33 Temperature 98.1 F Pulse Rate 85 72 Respiratory Rate 18 18 Blood Pressure 140/76 138/80 Pulse Oximetry 99 98 <Ricardo Henriquez DO - Last Filed: 05/17/20 07:10> Vital Signs Vital signs: Vital Signs - 8 hr 05/16/20 15:10 05/16/20 16:33 Temperature 98.1 F Pulse Rate 85 72 Respiratory Rate 18 18 Blood Pressure 140/76 138/80 Pulse Oximetry 99 98 MDM - Skin/Abscess/Foreign Bdy <GINA Schafer - Last Filed: 05/16/20 22:30> Differential Diagnosis Differential diagnosis: Likely cellulitis and other (encounter for dressing change) Medical Records Attestation: I reviewed the patient's medical records. MDM Narrative Medical decision making narrative: Right shoulder exam without indications for cellulitis at this time. Right shoulder surgical dressing changed with abdominal pad and large clear tegaderm and provided dressing supply for temporarily. Patient advised to follow with surgeon or primary care physician's office requesting additional dressing supply and return precautions were discussed with patient. Patient verbalized understanding in agreement with treatment plan. Discharge Plan Departure Patient Disposition: Home Clinical Impression: Encounter for change of dressing, Hematoma of surgical wound of skin after surgical procedure Discharge Date/Time: 05/16/20 16:35 Instructions: DI for Hematoma (Bruise) Activity Restrictions/Additional Instructions: You have been diagnosed with [encounter for dressing change on right shoulder after shoulder surgery with hematoma.]. What to do: *Take your medications as directed. *Follow up next week as scheduled with your orthopedic doctor. Let them know you were seen in the ED and that we asked you to be seen in follow up. *Return to ED if you have any new, worsening, or concerning symptoms, such as [fever, chills, increasing pain, chest pain, breathing difficulty, purulent discharge from surgical site or any acute concerns]. Prescriptions: No Action [TESTOSTERONE] IM Qty: 0 RF: 0 liothyronine [Cytomel] 5 MCG tablet 5 mcg PO 0600 Qty: 0 RF: 0 hydrocortisone [Cortef] 20 MG tablet 20 mg PO [facility] Qty: 0 RF: 0 hydrocortisone [Cortef] 20 MG tablet 10 mg PO QPM Qty: 0 RF: 0 clonazepam 1 mg tablet 1 mg PO QAM Qty: 0 RF: 0 baclofen 10 mg tablet 10 mg PO BEDTIME Qty: 0 RF: 0 tadalafil 20 mg tablet 20 mg PO .ONCE Qty: 30 RF: 0 carbamazepine 300 mg capsule, ER multiphase 12 hr 300 mg PO BID Qty: 0 RF: 0 furosemide 20 mg tablet 20 mg PO DAILY Qty: 30 RF: 3 potassium chloride 8 mEq tablet extended release 8 meq PO DAILY Qty: 30 RF: 3 triamcinolone acetonide 0.025 % lotion TOP 30 Days Qty: 60 RF: 0 diclofenac sodium 75 mg tablet,delayed release (DR/EC) 75 mg PO BID RF: 0 diazepam 10 mg tablet 5 mg PO BID RF: 0 pantoprazole 40 mg tablet,delayed release (DR/EC) 40 mg PO DAILY PRN (Reason: Acid Reflux) RF: 0 sennosides [Senokot] 8.6 mg tablet See Rx Instructions PO DAILY PRNRF: 0 cephalexin [Keflex] 500 mg capsule 500 mg PO TID Qty: 0 RF: 0 gabapentin 600 mg tablet 600 mg PO TID RF: 0 clonazepam 1 mg tablet 2 mg PO QPM RF: 0 morphine 15 mg tablet 15 - 30 mg PO Q6H PRN (Reason: pain) RF: 0 levothyroxine 112 mcg tablet 56 mcg PO DAILY RF: 0 cyclobenzaprine 10 MG tablet 10 mg PO TID RF: 0 Referrals: Charli Sampson MD [Primary Care Provider] - <Ricardo Henriquez, DO - Last Filed: 05/17/20 07:10> Cosign ED Attending Cosignature Attestation: Dr Henriquez Co-Sign Statement: I was available for consultation during this patient's emergency department visit. This chart is signed by myself for administrative purposes only. I did not have direct contact with this patient during this visit. They were seen independently by the APC.
== END 2020-05-16 16:35 | disposition home or self-care (01) ==
PROVIDERS: Emergency Provider Nurse Practitioner Family; Family Provider Internal Medicine; PCP Internal Medicine
DX: Z48.01 Encounter for change or removal of surgical wound dressing (principal)
CPT/HCPCS: 99281

== ENCOUNTER 2020-06-09 14:43 | Emergency (ER) | payer MEDICARE, SELFPAY ==
[2020-06-09 14:56] VITALS: BP 148/89; PULSE 87; RESP 15; TEMP 36.5; O2SAT 96; BMI 28.5
--- NOTE | 2020-06-09 18:04 | ED_ITS ---
HPI - Recheck/Abnormal Lab/Rx General Chief Complaint: Recheck/Abnormal Lab/Rx Stated Complaint: wants PICC line removed Time Seen by Provider: 06/09/20 17:57 Source: patient Mode of arrival: Ambulatory Limitations: no limitations History of Present Illness HPI narrative: The patient is 69-year-old male who presents with request of PICC line removal. He apparently has an infected right shoulder he was discharged earlier this week from [facility]. It sounds as though they wanted him to go to a [facility] for further IV antibiotics however he did not want to be in [place] or a [facility] for IV antibiotics. Was evaluated today day in [place] he returned back to and a [facility] he says he received a phone call that they forgot to remove his PICC line. However after speaking with Orthopedics there seems to be some miss communication. Patient has transportation issues and has difficulty getting to [place]. He thinks he has an appointment next week with Orthopedics but the day continues to change in he is unsure when his appointment is. Related Data Home Medications Medication Instructions Recorded Confirmed [TESTOSTERONE] IM #0 10/07/08 02/22/20 hydrocortisone [Cortef] 20 mg PO [facility] #0 tab 04/02/13 02/22/20 liothyronine [Cytomel] 5 mcg PO 0600 #0 tab 04/02/13 02/22/20 hydrocortisone [Cortef] 10 mg PO QPM #0 03/24/17 02/22/20 triamcinolone acetonide 0.025 % TOP 30 Days #60 ml 01/08/18 02/22/20 lotion diazepam 10 mg tablet 5 mg PO BID 03/10/18 02/22/20 diclofenac sodium 75 mg 75 mg PO BID 03/10/18 02/22/20 tablet,delayed release pantoprazole 40 mg tablet,delayed 40 mg PO DAILY PRN 03/10/18 02/22/20 release clonazepam 1 mg tablet 1 mg PO QAM #0 tab 05/28/18 02/22/20 baclofen 10 mg tablet 10 mg PO BEDTIME #0 tab 01/19/19 02/22/20 cephalexin 500 mg capsule 500 mg PO TID #0 cap 01/19/19 02/22/20 sennosides 8.6 mg tablet See Rx Instructions PO DAILY PRN 01/19/19 02/22/20 tab clonazepam 2 mg PO QPM 03/24/19 02/22/20 cyclobenzaprine 10 mg PO TID 03/24/19 02/22/20 gabapentin 600 mg PO TID 03/24/19 02/22/20 levothyroxine 56 mcg PO DAILY 03/24/19 02/22/20 morphine 15 - 30 mg PO Q6H PRN 03/24/19 02/22/20 carbamazepine 300 mg 300 mg PO BID #0 cap 02/15/20 02/22/20 capsule,extended release [id number] Previous Rx's Medication Instructions Recorded tadalafil 20 mg tablet 20 mg PO .ONCE #30 tab 02/14/20 furosemide 20 mg tablet 20 mg PO DAILY #30 tab 04/06/20 potassium chloride 8 mEq 8 meq PO DAILY #30 tab 04/06/20 tablet,extended release Allergies Allergy/AdvReac Type Severity Reaction Status Date / Time phenobarbital [PHENOBARBITAL] Allergy Severe REALLY SICK Verified 06/09/20 14:56 venom-honey bee Allergy Severe ANAPHYLAXIS Verified 06/09/20 14:56 [BEE VENOM (HONEY BEE)] venom-wasp [WASP VENOM] Allergy Severe Anaphylaxis Verified 06/09/20 14:56 Review of Systems Review of Systems Narrative: GENERAL: Denies chills,fever HEENT: Denies throat pain RESPIRATORY: Denies dyspnea, cough, wheezing CARDIOVASCULAR: Denies chest pain, palpitations GASTROINTESTINAL: Denies nausea, vomiting MUSCULOSKELETAL: Denies extremity pain, injury SKIN: No rash, no laceration, no pruritus NEUROLOGIC: Denies weakness, dizziness, headache, numbness 8 point review of systems is negative except for those stated above and HPI Patient History Medical History Bipolar 1 disorder (Chronic) Chronic adrenal insufficiency (Chronic 05/21/13) Chronic infection of right knee (Chronic) Chronic pain (Chronic) Constipation due to opioid therapy (Chronic) Depression (Chronic) History of migraine headaches (Chronic) Hypogonadism in male (Chronic 12/14/15) 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) Lumbago (Chronic 05/31/02) Other specified hypothyroidism (Chronic 05/21/13) 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) Peripheral neuropathy (Chronic) Pituitary adenoma (Inactive 10/18/02) Tinnitus (Chronic) Surgical History History of knee replacement Status post left knee replacement (Acute) Status post replacement of right shoulder joint (Acute ~04/27/19) Status post surgery (Acute) Family History Father Leukemia Social History marital status: number of children: 3 household members: none lives independently: Yes caregiver/support person: No housing: house pets and animals: Yes education level: college occupational status: other Previous occupational history: Various leisure activities: music and other Smoking Status: Never smoker Tobacco: How many years used: 0 quit status: quit date established second hand exposure: No alcohol intake: current substance use type: does not use Smoking Status: Never smoker alcohol intake frequency: 0-2 drinks per day Substance Use Type: does not use Exam Initial Vital Signs Initial Vital Signs: Vital Signs Temperature 97.7 F 06/09/20 14:56 Pulse Rate 87 06/09/20 14:56 Respiratory Rate 15 06/09/20 14:56 Blood Pressure 148/89 H 06/09/20 14:56 Pulse Oximetry 96 06/09/20 14:56 GENERAL: Well-appearing, well-nourished and in no acute distress. CARDIOVASCULAR: peripheral pulses in tact, cap refill <2 sec RESPIRATORY: No respiratory distress, speaks in full sentences without difficulty EXTREMITIES: Normal range of motion, no clubbing or edema. Neurovascularly intact Right shoulder dressing intact not saturated PICC line in place on left arm no erythema NEUROLOGICAL: Cranial nerves II through XII grossly intact. Normal gait and speech. SKIN: Warm, dry, no petechiae, no rashes or lesions. Course Orders Ordered: Heparin Sodium (Porcine) (Heparin Flush (Port)) 500 unit IV PRN PRN PRN Reason: Flush Vital Signs Vital signs: Vital Signs - 8 hr 06/09/20 14:56 Temperature 97.7 F Pulse Rate 87 Respiratory Rate 15 Blood Pressure 148/89 H Pulse Oximetry 96 MDM - Recheck/Abnormal Lab/Rx MDM Narrative Medical decision making narrative: Jose Carlos [phone] spoke with on-call orthopedics from the [facility]. He states patient does actually need ongoing vancomycin an antibiotics. The he has difficulty with compliance. Orthopedics has spoken directly with the patient in the emergency department. 7:45pm Dr. Blackomn, on-call for PCP I spoke to him about arranging outpatient IV antibiotics or home health IV antibiotics here locally. He will not receive antibiotics over the weekend but this can be arranged for next week. The patient overall appears well and does not appear septic. Discharge Plan Departure Patient Disposition: Home Clinical Impression: Infection of shoulder Activity Restrictions/Additional Instructions: *You have been diagnosed with right shoulder infection *What to do: It sounds as though you need continuous IV antibiotics. *Continue to take medications as directed *Follow up with your primary care provider-they will be able to help arrange outpatient IV antibiotics here in [facility] Please be sure to follow-up with your Orthopedics in [place] next week as scheduled *Return to ER if you should have any new, worsening or concerning symptoms Prescriptions: No Action [TESTOSTERONE] IM Qty: 0 RF: 0 liothyronine [Cytomel] 5 MCG tablet 5 mcg PO 0600 Qty: 0 RF: 0 hydrocortisone [Cortef] 20 MG tablet 20 mg PO [facility] Qty: 0 RF: 0 hydrocortisone [Cortef] 20 MG tablet 10 mg PO QPM Qty: 0 RF: 0 clonazepam 1 mg tablet 1 mg PO QAM Qty: 0 RF: 0 baclofen 10 mg tablet 10 mg PO BEDTIME Qty: 0 RF: 0 tadalafil 20 mg tablet 20 mg PO .ONCE Qty: 30 RF: 0 carbamazepine 300 mg capsule, ER multiphase 12 hr 300 mg PO BID Qty: 0 RF: 0 furosemide 20 mg tablet 20 mg PO DAILY Qty: 30 RF: 3 potassium chloride 8 mEq tablet extended release 8 meq PO DAILY Qty: 30 RF: 3 triamcinolone acetonide 0.025 % lotion TOP 30 Days Qty: 60 RF: 0 diclofenac sodium 75 mg tablet,delayed release (DR/EC) 75 mg PO BID RF: 0 diazepam 10 mg tablet 5 mg PO BID RF: 0 pantoprazole 40 mg tablet,delayed release (DR/EC) 40 mg PO DAILY PRN (Reason: Acid Reflux) RF: 0 sennosides [Senokot] 8.6 mg tablet See Rx Instructions PO DAILY PRNRF: 0 cephalexin [Keflex] 500 mg capsule 500 mg PO TID Qty: 0 RF: 0 gabapentin 600 mg tablet 600 mg PO TID RF: 0 clonazepam 1 mg tablet 2 mg PO QPM RF: 0 morphine 15 mg tablet 15 - 30 mg PO Q6H PRN (Reason: pain) RF: 0 levothyroxine 112 mcg tablet 56 mcg PO DAILY RF: 0 cyclobenzaprine 10 MG tablet 10 mg PO TID RF: 0 Referrals: Charli Sampson MD [Primary Care Provider] -
[2020-06-09 20:08] VITALS: BP 200/109; PULSE 87; RESP 14; O2SAT 98
== END 2020-06-09 20:10 | disposition home or self-care (01) ==
PROVIDERS: Emergency Provider Emergency Medicine; Family Provider Internal Medicine; PCP Internal Medicine
DX: M00.9 Pyogenic arthritis, unspecified (principal)
CPT/HCPCS: 99281

== ENCOUNTER 2020-06-13 11:54 | Emergency (ER) | payer MEDICARE, SELFPAY ==
[2020-06-13 12:07] VITALS: BP 169/91; PULSE 100; RESP 14; TEMP 36.8; O2SAT 97; BMI 29.2
--- NOTE | 2020-06-13 12:29 | PC.NURSE ---
pt would like his picc line flushed.
--- NOTE | 2020-06-13 12:55 | DI.RAD.S_ITS ---
PROCEDURE: XR CHEST 1V INDICATIONS: PICC line verification TECHNIQUE: One view of the chest was acquired. COMPARISON: [facility], , XR CHEST 1V, 02/26/2019, 21:52. FINDINGS: Surgical changes and devices: PICC line projects to the distal SVC via a left-sided approach. Right shoulder arthroplasty. Lungs and pleura: Interstitial prominence is stable. No pleural effusions or pneumothorax. Mediastinum: Mediastinal contours appear normal. Heart size is normal. Bones and chest wall: No suspicious bony lesions. Overlying soft tissues appear unremarkable. IMPRESSION: PICC line projects to the distal SVC via a left-sided approach. Dictated by: Lizz Rankin MD, PhD on 06/13/2020 at 13:11 Approved by: Lizz Rankin MD, PhD on 06/13/2020 at 13:13
--- NOTE | 2020-06-13 13:12 | ED_ITS ---
HPI - Recheck/Abnormal Lab/Rx <GINA Schafer - Last Filed: 06/13/20 14:32> General Chief Complaint: Recheck/Abnormal Lab/Rx Stated Complaint: NEEDS PICC LINE FLUSHED Time Seen by Provider: 06/13/20 12:13 Source: patient Mode of arrival: Ambulatory Limitations: no limitations History of Present Illness HPI narrative: This is a 69-year-old male, nonsmoker, with past medical history significant for recent right shoulder surgery which developed infection and was hospitalized in [facility] for IV antibiotic medication, vancomycin, infusion received through declined on left upper arm. Patient reports discharged to home 4 days ago and was evaluated in ED on that day in emergency room after he received a phone call from [facility] in regards to PICC line questionable removal. According to EHR 4 days ago, patient is to receive outpatient verses home healthcare antibiotic medications which will be arranged by primary care physician. Patient is here today in request of PICC line Flush that he remembers this has to be done daily. Patient denies fever, chills, nausea or vomiting, chest pain, or breathing difficulty. Patient reports PICC line insertion was done in [facility]. PICC line dressing shows last dressing change was done on 06/02/2020. Patient thinks PICC line flushed 4 days ago. Related Data Home Medications Medication Instructions Recorded Confirmed [TESTOSTERONE] IM #0 10/07/08 02/22/20 hydrocortisone [Cortef] 20 mg PO [facility] #0 tab 04/02/13 02/22/20 liothyronine [Cytomel] 5 mcg PO 0600 #0 tab 04/02/13 02/22/20 hydrocortisone [Cortef] 10 mg PO QPM #0 03/24/17 02/22/20 triamcinolone acetonide 0.025 % TOP 30 Days #60 ml 01/08/18 02/22/20 lotion diazepam 10 mg tablet 5 mg PO BID 03/10/18 02/22/20 diclofenac sodium 75 mg 75 mg PO BID 03/10/18 02/22/20 tablet,delayed release pantoprazole 40 mg tablet,delayed 40 mg PO DAILY PRN 03/10/18 02/22/20 release clonazepam 1 mg tablet 1 mg PO QAM #0 tab 05/28/18 02/22/20 baclofen 10 mg tablet 10 mg PO BEDTIME #0 tab 01/19/19 02/22/20 cephalexin 500 mg capsule 500 mg PO TID #0 cap 01/19/19 02/22/20 sennosides 8.6 mg tablet See Rx Instructions PO DAILY PRN 01/19/19 02/22/20 tab clonazepam 2 mg PO QPM 03/24/19 02/22/20 cyclobenzaprine 10 mg PO TID 03/24/19 02/22/20 gabapentin 600 mg PO TID 03/24/19 02/22/20 levothyroxine 56 mcg PO DAILY 03/24/19 02/22/20 morphine 15 - 30 mg PO Q6H PRN 03/24/19 02/22/20 carbamazepine 300 mg 300 mg PO BID #0 cap 02/15/20 02/22/20 capsule,extended release [id number] Previous Rx's Medication Instructions Recorded tadalafil 20 mg tablet 20 mg PO .ONCE #30 tab 02/14/20 furosemide 20 mg tablet 20 mg PO DAILY #30 tab 04/06/20 potassium chloride 8 mEq 8 meq PO DAILY #30 tab 04/06/20 tablet,extended release Allergies Allergy/AdvReac Type Severity Reaction Status Date / Time phenobarbital [PHENOBARBITAL] Allergy Severe REALLY SICK Verified 06/13/20 12:07 venom-honey bee Allergy Severe ANAPHYLAXIS Verified 06/13/20 12:07 [BEE VENOM (HONEY BEE)] venom-wasp [WASP VENOM] Allergy Severe Anaphylaxis Verified 06/13/20 12:07 Review of Systems <GINA Schafer - Last Filed: 06/13/20 14:32> Review of Systems Narrative: General: Denies fever, chills, fatigue, malaise, sweats. Respiratory: Denies dyspnea, cough, wheezing, hemoptysis, sputum. Cardiovascular: Denies chest pain, palpitations, orthopnea, edema. Gastrointestinal: Denies nausea, vomiting, abdominal pain, diarrhea, constipation, melena. : Denies dysuria, frequency, incontinence, hematuria, urinary retention. Musculoskeletal: Right shoulder pain well managed. Skin: Denies rash, skin lesions, or other. Right shoulder surgical site dressing intact before leaving [facility]. 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) Peripheral neuropathy Pituitary adenoma (10/18/02) Tinnitus Surgical History History of knee replacement Status post left knee 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 (~04/27/19) Status post surgery Family History Father Leukemia Social History marital status: number of children: 3 household members: none lives independently: Yes caregiver/support person: No housing: house pets and animals: Yes education level: college occupational status: other Previous occupational history: Various leisure activities: music and other Smoking Status: Never smoker Tobacco: How many years used: 0 quit status: quit date established second hand exposure: No alcohol intake: current substance use type: does not use Smoking Status: Never smoker alcohol intake frequency: 0-2 drinks per day Substance Use Type: does not use Exam <GINA Schafer - Last Filed: 06/13/20 14:32> Narrative Exam Narrative: General appearance: well developed, well nourished, in no acute distress. Head: normocephalic, atraumatic, no scalp lesions, non-tender. ENT: Hearing grossly intact. Airway patent. Neck/Thyroid: neck supple, full range of motion, no visible masses or meningeal signs. No JVD, non-tender without lymphadenopathy. Skin: Right shoulder dressing intact. No redness, warmth, swelling in surrounding the surgical area. Warm and dry and appropriate color for ethnicity. Left upper arm with PICC line no swelling, redness, drainage or warmth. Heart: no clubbing, no cyanosis, no edema. Lungs: Breathing even and unlabored. No stridor. No accessory muscles used. Able to speak in full sentences. Chest: normal shape and expansion. Abdomen: non-obese, non-distended. Neurologic: alert and oriented. Cognitive exam, [place]AM[place] and PNS grossly intact on informal exam. Psych: good eye contact, normal affect. Initial Vital Signs Initial Vital Signs: Vital Signs Temperature 98.3 F 06/13/20 12:07 Pulse Rate 100 H 06/13/20 12:07 Respiratory Rate 14 06/13/20 12:07 Blood Pressure 169/91 H 06/13/20 12:07 Pulse Oximetry 97 06/13/20 12:07 <Trixie Odonnell DO - Last Filed: 06/13/20 19:22> Initial Vital Signs Initial Vital Signs: Vital Signs Temperature 98.3 F 06/13/20 12:07 Pulse Rate 100 H 06/13/20 12:07 Respiratory Rate 14 06/13/20 12:07 Blood Pressure 169/91 H 06/13/20 12:07 Pulse Oximetry 97 06/13/20 12:07 Scores <GINA Schafer - Last Filed: 06/13/20 14:32> GCS [place] coma scale eye opening: Spontaneous [place] coma scale verbal response: Orientated [place] coma scale motor response: Obey commands [place] coma scale total score: 15 Course <GINA Schafer - Last Filed: 06/13/20 14:32> Orders Ordered: ED Orders 06/13/20 12:55 XR chest 1V Stat Discontinued Medications Heparin Sodium (Porcine) (Heparin Flush (Cl/Picc/Mid-Line) 50 Unit/5 Ml Syringe) 50 unit IV NOW ONE Stop: 06/13/20 13:22 Last Admin: 06/13/20 13:38 Dose: 50 unit Documented by: TRAE Vital Signs Vital signs: Vital Signs - 8 hr 06/13/20 12:07 06/13/20 14:06 Temperature 98.3 F Pulse Rate 100 H 78 Respiratory Rate 14 18 Blood Pressure 169/91 H 132/72 Pulse Oximetry 97 100 <Trixie Odonnell DO - Last Filed: 06/13/20 19:22> Orders Ordered: ED Orders 06/13/20 12:55 XR chest 1V Stat Discontinued Medications Heparin Sodium (Porcine) (Heparin Flush (Cl/Picc/Mid-Line) 50 Unit/5 Ml Syringe) 50 unit IV NOW ONE Stop: 06/13/20 13:22 Last Admin: 06/13/20 13:38 Dose: 50 unit Documented by: TRAE Vital Signs Vital signs: Vital Signs - 8 hr 06/13/20 12:07 06/13/20 14:06 Temperature 98.3 F Pulse Rate 100 H 78 Respiratory Rate 14 18 Blood Pressure 169/91 H 132/72 Pulse Oximetry 97 100 MDM - Recheck/Abnormal Lab/Rx <GINA Schafer - Last Filed: 06/13/20 14:32> Differential Diagnosis Differential diagnosis: Likely other (Encounter for PICC line Flush) Medical Records Attestation: I reviewed the patient's medical records. Imaging Data Chest x-ray: Radiologist's Impression: Charli Davalos 69 M [address] [id number] ReportSigned Patient: Charli Davalos CMR#: [id number]: 9Acct:[id number]/Sex: 69 / MDate of Service: 06/13/20Loc: EDAccession Number: [id number] Procedure: XR chest 1V Ordering Provider: Dejuan John PROCEDURE: XR CHEST 1V INDICATIONS: PICC line verification TECHNIQUE: One view of the chest was acquired. COMPARISON: [facility], , XR CHEST 1V, 02/26/2019, 21:52. FINDINGS: Surgical changes and devices: PICC line projects to the distal SVC via a left- sided approach. Right shoulder arthroplasty. Lungs and pleura: Interstitial prominence is stable. No pleural effusions or pneumothorax. Mediastinum: Mediastinal contours appear normal. Heart size is normal. Bones and chest wall: No suspicious bony lesions. Overlying soft tissues appear unremarkable. IMPRESSION: PICC line projects to the distal SVC via a left-sided approach. Dictated by: Lizz Rankin MD, PhD on 06/13/2020 at 13:11 Approved by: Lizz Rankin MD, PhD on 06/13/2020 at 13:13 [facility] Narrative Medical decision making narrative: This is 69-year-old male who has postop infection on right shoulder and he received IV vancomycin via PICC line before discharged from [facility] 4 days ago. Patient is here to get his PICC line flushed. He is waiting for on appointment with primary care physician to arrange resuming IV antibiotic medication at outpatient clinic in [facility] versus home health care. PICC line site no signs of infection. Chest x-ray shows appropriate location of PICC line. PICC line was flushed by nursing staff without difficulty and dressing has changed. Patient advised to follow-up with primary care physician as scheduled and return precautions were discussed with patient. He verbalized understanding and in agreement with the treatment plan. Discharge Plan Departure Patient Disposition: Home Clinical Impression: Encounter for peripherally inserted central catheter (PICC) flush Activity Restrictions/Additional Instructions: You have been diagnosed with [a encounter for PICC line dressing change and flushed with heparin. X-ray test shows PICC line verification]. What to do: *Take your medications as directed. *Follow up with your primary care provider in 2-3 days, call for an appointment. Let them know you were seen in the ED and that we asked you to be seen in follow up. You may be able to get PICC line dressing change and flush at your physician's office or walk-in clinic. Please contact Dr. Sampson office today to arrange this. *Return to ED if you have any new, worsening, or concerning symptoms, such as [chest pain, breathing difficulty, fever, signs and symptoms for infection on her right shoulder region and PICC line insertion site or any acute concerns]. Prescriptions: No Action [TESTOSTERONE] IM Qty: 0 RF: 0 liothyronine [Cytomel] 5 MCG tablet 5 mcg PO 0600 Qty: 0 RF: 0 hydrocortisone [Cortef] 20 MG tablet 20 mg PO [facility] Qty: 0 RF: 0 hydrocortisone [Cortef] 20 MG tablet 10 mg PO QPM Qty: 0 RF: 0 clonazepam 1 mg tablet 1 mg PO QAM Qty: 0 RF: 0 baclofen 10 mg tablet 10 mg PO BEDTIME Qty: 0 RF: 0 tadalafil 20 mg tablet 20 mg PO .ONCE Qty: 30 RF: 0 carbamazepine 300 mg capsule, ER multiphase 12 hr 300 mg PO BID Qty: 0 RF: 0 furosemide 20 mg tablet 20 mg PO DAILY Qty: 30 RF: 3 potassium chloride 8 mEq tablet extended release 8 meq PO DAILY Qty: 30 RF: 3 triamcinolone acetonide 0.025 % lotion TOP 30 Days Qty: 60 RF: 0 diclofenac sodium 75 mg tablet,delayed release (DR/EC) 75 mg PO BID RF: 0 diazepam 10 mg tablet 5 mg PO BID RF: 0 pantoprazole 40 mg tablet,delayed release (DR/EC) 40 mg PO DAILY PRN (Reason: Acid Reflux) RF: 0 sennosides [Senokot] 8.6 mg tablet See Rx Instructions PO DAILY PRNRF: 0 cephalexin [Keflex] 500 mg capsule 500 mg PO TID Qty: 0 RF: 0 gabapentin 600 mg tablet 600 mg PO TID RF: 0 clonazepam 1 mg tablet 2 mg PO QPM RF: 0 morphine 15 mg tablet 15 - 30 mg PO Q6H PRN (Reason: pain) RF: 0 levothyroxine 112 mcg tablet 56 mcg PO DAILY RF: 0 cyclobenzaprine 10 MG tablet 10 mg PO TID RF: 0 Referrals: Charli Sampson MD [Primary Care Provider] - <Trixie Odonnell DO - Last Filed: 06/13/20 19:22> Cosign ED Attending Cosignature Attestation: I was immediately available in the department for consultation. This documentation has been reviewed and I agree with assessment and plan. Supervised by Trixie Odonnell DO
[2020-06-13 14:06] VITALS: BP 132/72; PULSE 78; RESP 18; O2SAT 100
== END 2020-06-13 14:15 | disposition home or self-care (01) ==
PROVIDERS: Emergency Provider Nurse Practitioner Family; Family Provider Internal Medicine; PCP Internal Medicine
DX: T85.9XXA Unspecified complication of internal prosthetic device, implant and graft, initial encounter (principal); Z45.2 Encounter for adjustment and management of vascular access device
CPT/HCPCS: 71045; 99283; J1642

== ENCOUNTER 2020-06-17 14:31 | Emergency (ER) | payer MEDICARE, SELFPAY ==
[2020-06-17 14:41] VITALS: BP 145/77; PULSE 95; RESP 16; TEMP 36.8; O2SAT 98; BMI 29.0
--- NOTE | 2020-06-17 14:46 | ED_ITS ---
HPI - Recheck/Abnormal Lab/Rx <GINA Schafer - Last Filed: 06/17/20 15:25> General Chief Complaint: Recheck/Abnormal Lab/Rx Stated Complaint: needs PICC line flushed Time Seen by Provider: 06/17/20 14:33 Source: patient Mode of arrival: Ambulatory Limitations: no limitations History of Present Illness HPI narrative: This is a 69-year-old male, nonsmoker, with past medical history significant for right shoulder surgery which he developed hematoma and infection and was hospitalized in [facility] for IV antibiotic medication therapy with vancomycin via PICC line on left upper arm presents to ED with in request of PICC line fush. Patient has not resumed daily antibiotic medication therapy yet but this has been arranged to start locally at [facility] in 3 days. Patient denies no pain, swelling, redness to PICC line site and denies chest pain or dyspnea. Patient denies fever, chills, nausea or vomiting. Patient reports he saw orthopedic doctor 2 days ago and re-evaluated on right shoulder surical site. Patient was here 4 days ago with same request and PICC line placement was verified. Related Data Home Medications Medication Instructions Recorded Confirmed [TESTOSTERONE] IM #0 10/07/08 06/16/20 hydrocortisone [Cortef] 20 mg PO [facility] #0 tab 04/02/13 06/16/20 liothyronine [Cytomel] 5 mcg PO 0600 #0 tab 04/02/13 06/16/20 diclofenac sodium 75 mg 75 mg PO BID 03/10/18 06/16/20 tablet,delayed release pantoprazole 40 mg tablet,delayed 40 mg PO DAILY PRN 03/10/18 06/16/20 release clonazepam 1 mg tablet 1 mg PO QAM #0 tab 05/28/18 06/16/20 sennosides 8.6 mg tablet See Rx Instructions PO DAILY PRN 01/19/19 06/16/20 tab clonazepam 2 mg PO QPM 03/24/19 06/16/20 cyclobenzaprine 10 mg PO TID 03/24/19 06/16/20 gabapentin 600 mg PO TID 03/24/19 06/16/20 levothyroxine 56 mcg PO DAILY 03/24/19 06/16/20 carbamazepine 300 mg 300 mg PO BID #0 cap 02/15/20 06/16/20 capsule,extended release [id number] baclofen 10 mg tablet 20 mg PO TID #0 tab 06/16/20 06/16/20 cephalexin 500 mg capsule 500 mg PO BID #0 cap 06/16/20 06/16/20 diazepam 10 mg tablet 10 mg PO BID PRN tab 06/16/20 06/16/20 hydrocortisone 10 mg tablet 10 mg PO QPM tab 06/16/20 06/16/20 morphine 15 mg immediate release 45 mg PO Q6H PRN tab 06/16/20 06/16/20 tablet Previous Rx's Medication Instructions Recorded furosemide 20 mg tablet 20 mg PO DAILY #30 tab 04/06/20 potassium chloride 8 mEq 8 meq PO DAILY #30 tab 04/06/20 tablet,extended release tadalafil 20 mg tablet 20 mg PO DAILY PRN #30 tab 06/16/20 Allergies Allergy/AdvReac Type Severity Reaction Status Date / Time phenobarbital [PHENOBARBITAL] Allergy Severe REALLY SICK Verified 06/17/20 14:44 venom-honey bee Allergy Severe ANAPHYLAXIS Verified 06/17/20 14:44 [BEE VENOM (HONEY BEE)] venom-wasp [WASP VENOM] Allergy Severe Anaphylaxis Verified 06/17/20 14:44 Review of Systems <GINA Schafer - Last Filed: 06/17/20 15:25> Review of Systems Narrative: General: Denies fever, chills, fatigue, malaise, sweats. Respiratory: Denies dyspnea, cough, wheezing, hemoptysis, sputum. Cardiovascular: Denies chest pain, palpitations, orthopnea, edema. Musculoskeletal: Had recent right shoulder surgery. Denies increase in pain. Skin: See HPI. 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) Peripheral neuropathy Pituitary adenoma (10/18/02) Tinnitus Surgical History History of knee replacement Status post left knee 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 (~04/27/19) Status post surgery Family History Father Leukemia Social History marital status: number of children: 3 household members: none lives independently: Yes caregiver/support person: No housing: house pets and animals: Yes education level: college occupational status: other Previous occupational history: Various leisure activities: music and other Smoking Status: Never smoker Tobacco: How many years used: 0 quit status: quit date established second hand exposure: No alcohol intake: current substance use type: does not use Smoking Status: Never smoker alcohol intake frequency: 0-2 drinks per day Substance Use Type: does not use Exam <GINA Schafer - Last Filed: 06/17/20 15:25> Narrative Exam Narrative: General appearance: well developed, well nourished, in no acute distress. Head: normocephalic, atraumatic, no scalp lesions, non-tender. ENT: Hearing grossly intact. Airway patent. Neck/Thyroid: neck supple, full range of motion, no visible masses or meningeal signs. No JVD, non-tender without lymphadenopathy. Skin: no suspicious rashes, lesions over visible areas. PICC site without swelling, erythema, or warmth. Warm and dry and appropriate color for ethnicity. Heart: no clubbing, no cyanosis, no edema. S1 and S2 normal. RRR w/o murmurs, clicks, or bruits. Lungs: Breathing even and unlabored. No stridor. No accessory muscles used. Able to speak in full sentences. Chest: normal shape and expansion. Abdomen: non-obese, non-distended. Neurologic: alert and oriented. Cognitive exam, PORTABLE [place]WYER and PNS grossly intact on i nformal exam. Psych: good eye contact, normal affect. Initial Vital Signs Initial Vital Signs: Vital Signs Temperature 98.2 F 06/17/20 14:41 Pulse Rate 95 H 06/17/20 14:41 Respiratory Rate 16 06/17/20 14:41 Blood Pressure 145/77 H 06/17/20 14:41 Pulse Oximetry 98 06/17/20 14:41 <Yajaira Wills MD - Last Filed: 06/17/20 15:30> Initial Vital Signs Initial Vital Signs: Vital Signs Temperature 98.2 F 06/17/20 14:41 Pulse Rate 95 H 06/17/20 14:41 Respiratory Rate 16 06/17/20 14:41 Blood Pressure 145/77 H 06/17/20 14:41 Pulse Oximetry 98 06/17/20 14:41 Scores <Dejuan ANGELA JohnP - Last Filed: 06/17/20 15:25> GCS [place] coma scale eye opening: Spontaneous [place] coma scale verbal response: Orientated [place] coma scale motor response: Obey commands [place] coma scale total score: 15 Course <GINA Schafer - Last Filed: 06/17/20 15:25> Orders Ordered: Discontinued Medications Heparin Sodium (Porcine) (Heparin Flush (Cl/Picc/Mid-Line) 50 Unit/5 Ml Syringe) 50 unit IV NOW ONE Stop: 06/17/20 14:46 Last Admin: 06/17/20 15:09 Dose: 50 unit Documented by: TORY Vital Signs Vital signs: Vital Signs - 8 hr 06/17/20 14:41 Temperature 98.2 F Pulse Rate 95 H Respiratory Rate 16 Blood Pressure 145/77 H Pulse Oximetry 98 <Yajaira Wills MD - Last Filed: 06/17/20 15:30> Orders Ordered: Discontinued Medications Heparin Sodium (Porcine) (Heparin Flush (Cl/Picc/Mid-Line) 50 Unit/5 Ml Syringe) 50 unit IV NOW ONE Stop: 06/17/20 14:46 Last Admin: 06/17/20 15:09 Dose: 50 unit Documented by: TORY Vital Signs Vital signs: Vital Signs - 8 hr 06/17/20 14:41 Temperature 98.2 F Pulse Rate 95 H Respiratory Rate 16 Blood Pressure 145/77 H Pulse Oximetry 98 MDM - Recheck/Abnormal Lab/Rx <ANGELA SchaferP - Last Filed: 06/17/20 15:25> Differential Diagnosis Differential diagnosis: Likely other (Encounter for PICC line flush) Medical Records Attestation: I reviewed the patient's medical records. [facility] Narrative Medical decision making narrative: This is a 69 year old male presents to ED in request of left upper arm PICC line flashing. His waiting to resume antibiotic medication therapy in 3 days I was arranged by Dr. Sampson and [facility] orthopedist after he developed postop hematoma and infection on right shoulder. Patient has no complaints at this time. PICC line was flushed without difficulty. Advised to follow up with an appointment with Oncology clinic on Friday as scheduled for IV antibiotic medication infusion and PICC line dressing change. He verbalized understanding and agreement with treatment plan. Discharge Plan Departure Patient Disposition: Home Clinical Impression: Encounter for peripherally inserted central catheter flush Activity Restrictions/Additional Instructions: You have been diagnosed with [ PICC line flush. NO indication for infection around the PICC line.]. What to do: *Take your medications as directed. *Follow up for IV antibiotic medication therapy and Oncology Clinic in [facility] as scheduled on Friday. *Return to ED if you have any new, worsening, or concerning symptoms, such as [chest pain, dyspnea, fever, unable to tolerate fluids, signs and symptoms for infection at PICC line site or any acute concerns]. Prescriptions: No Action [TESTOSTERONE] IM Qty: 0 RF: 0 liothyronine [Cytomel] 5 MCG tablet 5 mcg PO 0600 Qty: 0 RF: 0 hydrocortisone [Cortef] 20 MG tablet 20 mg PO [facility] Qty: 0 RF: 0 clonazepam 1 mg tablet 1 mg PO QAM Qty: 0 RF: 0 carbamazepine 300 mg capsule, ER multiphase 12 hr 300 mg PO BID Qty: 0 RF: 0 furosemide 20 mg tablet 20 mg PO DAILY Qty: 30 RF: 3 potassium chloride 8 mEq tablet extended release 8 meq PO DAILY Qty: 30 RF: 3 baclofen 10 mg tablet 20 mg PO TID Qty: 0 RF: 0 diclofenac sodium 75 mg tablet,delayed release (DR/EC) 75 mg PO BID RF: 0 pantoprazole 40 mg tablet,delayed release (DR/EC) 40 mg PO DAILY PRN (Reason: Acid Reflux) RF: 0 sennosides [Senokot] 8.6 mg tablet See Rx Instructions PO DAILY PRNRF: 0 diazepam 10 mg tablet 10 mg PO BID PRNRF: 0 cephalexin [Keflex] 500 mg capsule 500 mg PO BID Qty: 0 RF: 0 tadalafil [Cialis] 20 mg tablet 20 mg PO DAILY PRN (Reason: sexual activity) Qty: 30 RF: 3 hydrocortisone [Cortef] 10 mg tablet 10 mg PO QPM RF: 0 gabapentin 600 mg tablet 600 mg PO TID RF: 0 clonazepam 1 mg tablet 2 mg PO QPM RF: 0 levothyroxine 112 mcg tablet 56 mcg PO DAILY RF: 0 cyclobenzaprine 10 MG tablet 10 mg PO TID RF: 0 morphine 15 mg tablet 45 mg PO Q6H PRN (Reason: pain) RF: 0 Referrals: Charli Sampson MD [Primary Care Provider] - <Yajaira Wills MD - Last Filed: 06/17/20 15:30> [facility]: I was immediately available in the department for consultation throughout this patient's visit. I agree with documentation as above. Yajaira Wills MD
== END 2020-06-17 15:42 | disposition home or self-care (01) ==
PROVIDERS: Emergency Provider Nurse Practitioner Family; Family Provider Internal Medicine; PCP Internal Medicine
DX: Z45.2 Encounter for adjustment and management of vascular access device (principal)
CPT/HCPCS: 99281; J1642

== ENCOUNTER 2020-07-11 06:44 | Emergency (ER) | payer MEDICARE, SELFPAY ==
--- NOTE | 2020-07-11 06:54 | DI.RAD.S_ITS ---
PROCEDURE: XR CHEST 1V INDICATIONS: PICC line pulled out eval for possible retained part TECHNIQUE: One view of the chest was acquired. COMPARISON: [facility], CR, XR CHEST 1V, 06/13/2020, 13:01. FINDINGS: Surgical changes and devices: No radiopaque foreign body or retained catheter identified.. Scattered subsegmental atelectasis and/or scarring. No focal consolidation. No pleural effusions or pneumothorax. Mediastinum: Mediastinal contours appear normal. Heart size is normal. Bones and chest wall: No suspicious bony lesions. Overlying soft tissues appear unremarkable. IMPRESSION: No radiopaque foreign body or retained catheter fragment. Scattered subsegmental atelectasis and/or scarring. No focal consolidation. Dictated by: Darren Sheikh M.D. on 07/11/2020 at 8:44 Approved by: Darren Sheikh M.D. on 07/11/2020 at 8:50
[2020-07-11 06:55] VITALS: BP 162/93; PULSE 88; RESP 16; TEMP 36.6; O2SAT 99; BMI 28.0
--- NOTE | 2020-07-11 07:06 | ED_ITS ---
HPI - Extremity Problem General Chief complaint: Extremity Problem,Nontraumatic Stated complaint: pulled picc line out Time Seen by Provider: 07/11/20 06:47 Source: patient Mode of arrival: Ambulatory Limitations: no limitations History of Present Illness HPI Narrative: 70-year-old gentleman with a history of a left shoulder replacement with consequent infection and long-term antibiotics. Had a PICC line in the left upper extremity and woke up this morning having an odd dream and the line dislodged. No bleeding issues but he comes in and brings the line concerned that part of it may have broken off. The line does have a very blunt and rather than tapered (as is typical with a central line) and ends at 52 cm. Will need to see if we can document the length of the line at time of insertion. All this care is through the [facility], he has had infectious disease consultation. No records from this are immediately available. Chest x-rays obtained to see if any portion of the line is visible. Patient is in absolutely no distress with no chest pain, dyspnea, palpitations, fever, chills, abdominal pain, nausea, vomiting, diarrhea. Current plan as documented in the infusion clinic was daptomycin 600 mg and ceftriaxone 2 g IV daily through 07/14. Charli states that he had a teleconference with his infectious disease doctor yesterday who recommended continuing the antibiotics through at least the and perhaps longer. In light of that plan change as of yesterday, will proceed with PICC line and will administer his daptomycin ceftriaxone do today here in the emergency department. He will continue his schedule follow-up at the infusion clinic tomorrow 11. Related Data Home Medications Medication Instructions Recorded Confirmed [TESTOSTERONE] IM #0 10/07/08 06/16/20 hydrocortisone [Cortef] 20 mg PO [facility] #0 tab 04/02/13 06/16/20 liothyronine [Cytomel] 5 mcg PO 0600 #0 tab 04/02/13 06/16/20 diclofenac sodium 75 mg 75 mg PO BID 03/10/18 06/16/20 tablet,delayed release pantoprazole 40 mg tablet,delayed 40 mg PO DAILY PRN 03/10/18 06/16/20 release clonazepam 1 mg tablet 1 mg PO QAM #0 tab 05/28/18 06/16/20 sennosides 8.6 mg tablet See Rx Instructions PO DAILY PRN 01/19/19 06/16/20 tab clonazepam 2 mg PO QPM 03/24/19 06/16/20 cyclobenzaprine 10 mg PO TID 03/24/19 06/16/20 gabapentin 600 mg PO TID 03/24/19 06/16/20 levothyroxine 56 mcg PO DAILY 03/24/19 06/16/20 carbamazepine 300 mg 300 mg PO BID #0 cap 02/15/20 06/16/20 capsule,extended release [id number] baclofen 10 mg tablet 20 mg PO TID #0 tab 06/16/20 06/16/20 cephalexin 500 mg capsule 500 mg PO BID #0 cap 06/16/20 06/16/20 diazepam 10 mg tablet 10 mg PO BID PRN tab 06/16/20 06/16/20 hydrocortisone 10 mg tablet 10 mg PO QPM tab 06/16/20 06/16/20 morphine 15 mg immediate release 45 mg PO Q6H PRN tab 06/16/20 06/16/20 tablet Previous Rx's Medication Instructions Recorded furosemide 20 mg tablet 20 mg PO DAILY #30 tab 04/06/20 potassium chloride 8 mEq 8 meq PO DAILY #30 tab 04/06/20 tablet,extended release tadalafil 20 mg tablet 20 mg PO DAILY PRN #30 tab 06/16/20 Allergies Allergy/AdvReac Type Severity Reaction Status Date / Time phenobarbital [PHENOBARBITAL] Allergy Severe REALLY SICK Verified 06/17/20 14:44 venom-honey bee Allergy Severe ANAPHYLAXIS Verified 06/17/20 14:44 [BEE VENOM (HONEY BEE)] venom-wasp [WASP VENOM] Allergy Severe Anaphylaxis Verified 06/17/20 14:44 Review of Systems Review of Systems Narrative: Remainder of review of systems including constitutional, ENT, cardiovascular, respiratory, GI, , musculoskeletal, skin, neurologic and psychiatric systems reviewed and are unremarkable except as noted in HPI. 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) Peripheral neuropathy Pituitary adenoma (10/18/02) Tinnitus Surgical History (Updated 07/11/20 @ 09:18 by Yajaira Wills MD) History of knee replacement Status post left knee 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 (~04/27/19) Status post surgery Family History Father Leukemia Social History marital status: number of children: 3 household members: none lives independently: Yes caregiver/support person: No housing: house pets and animals: Yes education level: college occupational status: other Previous occupational history: Various leisure activities: music and other Smoking Status: Never smoker Tobacco: How many years used: 0 quit status: quit date established second hand exposure: No alcohol intake: current substance use type: does not use Smoking Status: Never smoker alcohol intake frequency: 0-2 drinks per day Substance Use Type: does not use Exam Narrative Exam Narrative: General: Alert appropriate in no acute distress Respiratory: Able to speak in full sentences, no obvious respiratory distress, no wheezing or rhonchi Cardiac: Regular rate and rhythm Skin: No obvious rashes, warm and dry. Small puncture site left upper extremity from PICC line is noted. Has some skin irritation from the adhesive from the catheter rivers device. Neurologic: Grossly intact no obvious asymmetries or abnormalities Psych, appropriate insight and affect, cooperative Initial Vital Signs Initial Vital Signs: Vital Signs Temperature 97.8 F 07/11/20 06:55 Pulse Rate 88 07/11/20 06:55 Respiratory Rate 16 07/11/20 06:55 Blood Pressure 162/93 H 07/11/20 06:55 Pulse Oximetry 99 07/11/20 06:55 Course Course Course Narrative: Call to [facility]fusion [facility] Orders Ordered: ED Orders 07/11/20 06:54 XR chest 1V Stat Discontinued Medications Heparin Sodium (Porcine) (Heparin 500 Unit/5 Ml Port Flush) 500 unit IV PRN PRN PRN Reason: Flush Heparin Sodium (Porcine) (Heparin Flush (Cl/Picc/Mid-Line) 50 Unit/5 Ml Syringe) 50 unit IV NOW ONE Stop: 07/11/20 10:42 Last Admin: 07/11/20 10:41 Dose: 50 unit Documented by: MICHAELR Ceftriaxone Sodium/Dextrose (Rocephin) 2 gm in 50 mls @ 100 mls/hr IV NOW ONE Stop: 07/11/20 08:51 Last Infusion: 07/11/20 11:32 Dose: 0 mls/hr Documented by: Admin: 07/11/20 10:37 Dose: 100 mls/hr Documented by: VIRGINIAONER Daptomycin 600 mg/ Sodium (Chloride) 50 mls @ 100 mls/hr IV Q24H KEYANNA Last Infusion: 07/11/20 10:36 Dose: 0 mls/hr Documented by: Admin: 07/11/20 09:31 Dose: 100 mls/hr Documented by: DANIE Triamcinolone Acetonide (Triamcinolone 0.1% Cream 15 Gm) 1 applic TOP NOW ONE Stop: 07/11/20 07:22 Last Admin: 07/11/20 07:39 Dose: 1 applic Documented by: DANIE Vital Signs Vital signs: Vital Signs - 8 hr 07/11/20 06:55 07/11/20 09:36 07/11/20 09:38 Temperature 97.8 F Pulse Rate 88 76 71 Respiratory Rate 16 Blood Pressure 162/93 H 172/81 H Pulse Oximetry 99 99 100 07/11/20 10:00 07/11/20 10:30 07/11/20 11:00 Temperature Pulse Rate 63 63 65 Respiratory Rate Blood Pressure Pulse Oximetry 100 100 99 MDM - Extremity (Nontraumatic) Imaging Data Chest x-ray: Radiologist's Impression: No evidence of retained radiopaque foreign body Dr Anurag Pink MD [facility] Narrative Medical decision making narrative: 70-year-old gentleman with a right shoulder infection requiring prolonged IV antibiotics. Pulled his PICC line out last night and still has at least 7 days of IV antibiotics required. He does bring in pic line it is a power port and does need to be trimmed prior to insertion. His recollection was ?52 something? which correlates with the 52 cm the current power port is trimmed to. The chest x-ray is unremarkable and I do not suspect that there is any retained product or remnant of the PICC line in place. PICC team is consulted and midline a 8 in IV will be placed good for at least 28 additional days. Discharge Plan Departure Patient Disposition: Home Clinical Impression: Status post peripherally inserted central catheter (PICC) central line placement, Infection of shoulder Activity Restrictions/Additional Instructions: Thank you for coming in today Sounds like you had quite the impressive dream that led to pulling at your catheter. The catheter appears to be intact and your chest x-ray was unremarkable. You had a new midline catheter placed that is good for an additional month. You did get your ceftriaxone and dapsone infusions in the emergency department today. Please keep your scheduled appointment tomorrow at 11:00 a.m. with the infusion clinic I hope you heal completely and quickly Prescriptions: No Action [TESTOSTERONE] IM Qty: 0 RF: 0 liothyronine [Cytomel] 5 MCG tablet 5 mcg PO 0600 Qty: 0 RF: 0 hydrocortisone [Cortef] 20 MG tablet 20 mg PO [facility] Qty: 0 RF: 0 clonazepam 1 mg tablet 1 mg PO QAM Qty: 0 RF: 0 carbamazepine 300 mg capsule, ER multiphase 12 hr 300 mg PO BID Qty: 0 RF: 0 furosemide 20 mg tablet 20 mg PO DAILY Qty: 30 RF: 3 potassium chloride 8 mEq tablet extended release 8 meq PO DAILY Qty: 30 RF: 3 baclofen 10 mg tablet 20 mg PO TID Qty: 0 RF: 0 diclofenac sodium 75 mg tablet,delayed release (DR/EC) 75 mg PO BID RF: 0 pantoprazole 40 mg tablet,delayed release (DR/EC) 40 mg PO DAILY PRN (Reason: Acid Reflux) RF: 0 sennosides [Senokot] 8.6 mg tablet See Rx Instructions PO DAILY PRNRF: 0 diazepam 10 mg tablet 10 mg PO BID PRNRF: 0 cephalexin [Keflex] 500 mg capsule 500 mg PO BID Qty: 0 RF: 0 tadalafil [Cialis] 20 mg tablet 20 mg PO DAILY PRN (Reason: sexual activity) Qty: 30 RF: 3 hydrocortisone [Cortef] 10 mg tablet 10 mg PO QPM RF: 0 gabapentin 600 mg tablet 600 mg PO TID RF: 0 clonazepam 1 mg tablet 2 mg PO QPM RF: 0 levothyroxine 112 mcg tablet 56 mcg PO DAILY RF: 0 cyclobenzaprine 10 MG tablet 10 mg PO TID RF: 0 morphine 15 mg tablet 45 mg PO Q6H PRN (Reason: pain) RF: 0 Referrals: Charli Sampson MD [Primary Care Provider] -
[2020-07-11] MEDS: TRIAMCINOLONE 0.1% CREAM 15 GM 1 APPLIC TOP (07:39)
[2020-07-11 09:36] VITALS: PULSE 76; O2SAT 99
[2020-07-11 09:38] VITALS: BP 172/81; PULSE 71; O2SAT 100
[2020-07-11 10:00] VITALS: PULSE 63; O2SAT 100
[2020-07-11 10:30] VITALS: PULSE 63; O2SAT 100
[2020-07-11] MEDS: CEFTRIAXONE 2 GM/50 ML FROZ.PIGGY IV (10:37)
[2020-07-11 11:00] VITALS: PULSE 65; O2SAT 99
== END 2020-07-11 11:32 | disposition home or self-care (01) ==
PROVIDERS: Emergency Provider Emergency Medicine; Family Provider Internal Medicine; PCP Internal Medicine
DX: T85.9XXA Unspecified complication of internal prosthetic device, implant and graft, initial encounter (principal); L08.9 Local infection of the skin and subcutaneous tissue, unspecified
CPT/HCPCS: 71045; 96365; 96367; 99283; 99284; J0696; J0878; J1642

== ENCOUNTER → 2020-07-17 11:00 | Oncology outpatient (ONC) | payer MEDICARE, SELFPAY ==
[2020-06-19] MEDS: CEFTRIAXONE 2 GM/50 ML FROZ.PIGGY IV (15:23)
[2020-06-19 15:27] LABS: Add Manual Diff / Slide Review NO; Basophils Absolute Auto 100 /uL (0-100); Basophils Percent Auto 1.5 % (0-2); Eosinophils Absolute Auto 200 /uL (0-450); Eosinophils Percent Auto 2.7 % (2-4); Hematocrit 34.9 % (41-53); Hemoglobin 11.2 g/dL (13.5-17.5); Lymphocytes Absolute Auto 1900 /uL (1100-4500); Lymphocytes Percent Auto 29.7 % (25-40); Mean Corpuscular HGB Conc 32.1 % (30-36); Mean Corpuscular Hemoglobin 25.3 PG (26-34); Mean Corpuscular Volume 78.7 fL (80-100); Monocytes Absolute Auto 500 /uL (0-900); Neutrophils Absolute Auto 3700 /uL (1500-7000); Neutrophils Percent Auto 58.1 % (50-75); Platelet Count 399 X10^3/uL (150-400); Red Blood Cell Count 4.44 X10^6/uL (4.5-5.9); Red Cell Distribution Width 16.4 % (11.6-14.8); White Blood Cell Count 6.3 X10^3/uL (4.5-11.0)
[2020-06-19 15:43] LABS: Alanine Aminotransferase 17 IU/L (<50); Albumin Globulin Ratio 1.5 (1.0-2.8); Alkaline Phosphatase 106 U/L (38-126); Aspartate Aminotransferase 31 IU/L (17-59); Bilirubin Total 0.5 mg/dL (0.2-1.3); Blood Urea Nitrogen 18 mg/dL (9-20); Calcium 8.6 mg/dL (8.4-10.2); Carbon Dioxide 32 mmol/L (22-32); Chloride 97 mmol/L (98-107); Estimated Glomerular Filt Rate > 60.0 mL/min (>60); Globulin 2.6 g/dL (1.7-4.1); Glucose 121 mg/dL (80-110); HEMOLYSIS < 15 (0-50); Potassium 3.9 mmol/L (3.4-5.1); Sodium 133 mmol/L (137-145); Total Protein 6.6 g/dL (6.3-8.2)
[2020-06-19 15:45] LABS: C-Reactive Protein Quant < 0.5 mg/dL (<1.0)
[2020-06-19 16:23] LABS: Erythrocyte Sedimentation Rate 3 MM/HR (0-15)
[2020-06-20] MEDS: CEFTRIAXONE 2 GM/50 ML FROZ.PIGGY IV (13:30)
[2020-06-20 13:47] VITALS: BP 124/70; PULSE 80; RESP 18; TEMP 36.8; O2SAT 95
[2020-06-21 11:02] VITALS: BP 133/74; PULSE 82; RESP 16; TEMP 36.9; O2SAT 95
[2020-06-21] MEDS: CEFTRIAXONE 2 GM/50 ML FROZ.PIGGY IV (11:12)
[2020-06-22] MEDS: CEFTRIAXONE 2 GM/50 ML FROZ.PIGGY IV (10:56)
[2020-06-23] MEDS: CEFTRIAXONE 2 GM/50 ML FROZ.PIGGY IV (11:01)
[2020-06-23 11:29] VITALS: BP 138/78; PULSE 70; RESP 18; TEMP 36.6; O2SAT 96
--- NOTE | 2020-06-23 11:42 | PC.NURSE ---
06/23/2020 1100 Pt arrived for Abx infusion. PICC to LUE flushes well and tolerating infusion x2. Heparin flushed. Dressing CDI.
[2020-06-24] MEDS: CEFTRIAXONE 2 GM/50 ML FROZ.PIGGY IV (11:05)
[2020-06-24 11:08] VITALS: BP 124/72; PULSE 83; RESP 16; TEMP 36.8; O2SAT 96
[2020-06-25 10:52] VITALS: BP 101/73; PULSE 90; RESP 16; TEMP 37.4; O2SAT 97
[2020-06-25] MEDS: CEFTRIAXONE 2 GM/50 ML FROZ.PIGGY IV (10:57)
[2020-06-26 11:08] LABS: Add Manual Diff / Slide Review NO; Basophils Absolute Auto 0 /uL (0-100); Basophils Percent Auto 1.1 % (0-2); Eosinophils Absolute Auto 200 /uL (0-450); Eosinophils Percent Auto 3.5 % (2-4); Hematocrit 36.7 % (41-53); Hemoglobin 11.7 g/dL (13.5-17.5); Lymphocytes Absolute Auto 1500 /uL (1100-4500); Lymphocytes Percent Auto 33.7 % (25-40); Mean Corpuscular HGB Conc 31.7 % (30-36); Mean Corpuscular Hemoglobin 24.4 PG (26-34); Mean Corpuscular Volume 76.9 fL (80-100); Monocytes Absolute Auto 400 /uL (0-900); Monocytes Percent Auto 9.1 % (3-14); Neutrophils Absolute Auto 2400 /uL (1500-7000); Neutrophils Percent Auto 52.6 % (50-75); Platelet Count 266 X10^3/uL (150-400); Red Blood Cell Count 4.78 X10^6/uL (4.5-5.9); White Blood Cell Count 4.5 X10^3/uL (4.5-11.0)
[2020-06-26 11:13] VITALS: BP 145/75; PULSE 79; RESP 16; TEMP 36.4; O2SAT 97
[2020-06-26] MEDS: CEFTRIAXONE 2 GM/50 ML FROZ.PIGGY IV (11:15)
[2020-06-26 11:33] LABS: Alanine Aminotransferase 17 IU/L (<50); Albumin 4.2 g/dL (3.5-5.0); Albumin Globulin Ratio 1.6 (1.0-2.8); Alkaline Phosphatase 96 U/L (38-126); Aspartate Aminotransferase 32 IU/L (17-59); BUN Creatinine Ratio 18.9 (6-22); Bilirubin Total 0.5 mg/dL (0.2-1.3); Blood Urea Nitrogen 14 mg/dL (9-20); Carbon Dioxide 35 mmol/L (22-32); Chloride 96 mmol/L (98-107); Estimated Glomerular Filt Rate > 60.0 mL/min (>60); Globulin 2.7 g/dL (1.7-4.1); Glucose 103 mg/dL (80-110); HEMOLYSIS < 15 (0-50); Potassium 3.8 mmol/L (3.4-5.1); Sodium 132 mmol/L (137-145); Total Protein 6.9 g/dL (6.3-8.2)
[2020-06-26 11:38] LABS: C-Reactive Protein Quant < 0.5 mg/dL (<1.0)
[2020-06-26 11:44] LABS: Erythrocyte Sedimentation Rate 2 MM/HR (0-15)
[2020-06-27] MEDS: CEFTRIAXONE 2 GM/50 ML FROZ.PIGGY IV (11:42)
[2020-06-27 11:47] VITALS: BP 126/80; PULSE 86; RESP 18; TEMP 36.9; O2SAT 98
[2020-06-28 13:12] VITALS: BP 129/73; PULSE 86; RESP 16; TEMP 37; O2SAT 95
[2020-06-28] MEDS: CEFTRIAXONE 2 GM/50 ML FROZ.PIGGY IV (13:26)
[2020-06-29 11:20] VITALS: BP 136/79; PULSE 79; RESP 16; TEMP 36.7; O2SAT 95
[2020-06-29] MEDS: CEFTRIAXONE 2 GM/50 ML FROZ.PIGGY IV (11:51)
[2020-06-30] MEDS: CEFTRIAXONE 2 GM/50 ML FROZ.PIGGY IV (11:09)
[2020-06-30 11:50] VITALS: BP 133/76; PULSE 80; RESP 16; TEMP 35.6; O2SAT 100
[2020-07-01 11:01] VITALS: BP 132/84; PULSE 76; RESP 18; TEMP 36.3; O2SAT 100
--- NOTE | 2020-07-01 11:19 | PC.NURSE ---
Addendum entered by Madison Rodríguez R.N. 07/01/20 12:53: pt disconnected from infusion, PICC flushed with heparin, and tolerated well. I ran both ABX concurrently (with one being the primary) and then attached a 250mL bag of NS to flush. pt ambulated out of room with all personal belongings. Addendum entered by Madison Rodríguez R.N. 07/01/20 11:46: pt stated that downstairs has been infusing both ABX concurrently. Pharmacy confirmed that ceftriaxone and daptomycin are compatible and stated to Y-site the ABX. Will flush with NS after both have completed. Original Note: pt arrived to room for ABX infusions. PICC to upper left arm flushed and patent. VS stable. No other complaints or concerns (other than pt reporting chair is uncomfortable). Daptomycin infusing currently and tolerating well. Call light on bedside table.
[2020-07-01] MEDS: CEFTRIAXONE 2 GM/50 ML FROZ.PIGGY IV (11:25)
[2020-07-02 10:53] VITALS: BP 138/92; PULSE 76; RESP 16; TEMP 36.7; O2SAT 98
[2020-07-02] MEDS: CEFTRIAXONE 2 GM/50 ML FROZ.PIGGY IV (11:04)
[2020-07-03 11:13] LABS: Add Manual Diff / Slide Review NO; Basophils Absolute Auto 100 /uL (0-100); Basophils Percent Auto 1.2 % (0-2); Eosinophils Absolute Auto 100 /uL (0-450); Eosinophils Percent Auto 2.7 % (2-4); Hematocrit 38.6 % (41-53); Hemoglobin 12.1 g/dL (13.5-17.5); Lymphocytes Absolute Auto 1800 /uL (1100-4500); Lymphocytes Percent Auto 33.1 % (25-40); Mean Corpuscular HGB Conc 31.5 % (30-36); Mean Corpuscular Volume 76.2 fL (80-100); Monocytes Absolute Auto 400 /uL (0-900); Monocytes Percent Auto 7.9 % (3-14); Neutrophils Absolute Auto 3000 /uL (1500-7000); Neutrophils Percent Auto 55.1 % (50-75); Platelet Count 189 X10^3/uL (150-400); Red Blood Cell Count 5.06 X10^6/uL (4.5-5.9); Red Cell Distribution Width 17.2 % (11.6-14.8); White Blood Cell Count 5.5 X10^3/uL (4.5-11.0)
[2020-07-03 11:24] LABS: Alanine Aminotransferase 21 IU/L (<50); Albumin 4.5 g/dL (3.5-5.0); Albumin Globulin Ratio 1.5 (1.0-2.8); Alkaline Phosphatase 99 U/L (38-126); Aspartate Aminotransferase 36 IU/L (17-59); BUN Creatinine Ratio 21.1 (6-22); Bilirubin Total 0.5 mg/dL (0.2-1.3); Blood Urea Nitrogen 15 mg/dL (9-20); C-Reactive Protein Quant < 0.5 mg/dL (<1.0); Calcium 9.1 mg/dL (8.4-10.2); Carbon Dioxide 30 mmol/L (22-32); Chloride 99 mmol/L (98-107); Estimated Glomerular Filt Rate > 60.0 mL/min (>60); Globulin 3.1 g/dL (1.7-4.1); Glucose 102 mg/dL (80-110); HEMOLYSIS < 15 (0-50); Sodium 134 mmol/L (137-145); Total Protein 7.6 g/dL (6.3-8.2)
[2020-07-03 11:31] VITALS: BP 128/76; PULSE 78; RESP 16; TEMP 36.8; O2SAT 93
[2020-07-03 11:37] LABS: Erythrocyte Sedimentation Rate 1 MM/HR (0-15)
[2020-07-03] MEDS: CEFTRIAXONE 2 GM/50 ML FROZ.PIGGY IV (11:48)
[2020-07-04 11:01] VITALS: PULSE 82; RESP 16; TEMP 36.3; O2SAT 97
[2020-07-04] MEDS: CEFTRIAXONE 2 GM/50 ML FROZ.PIGGY IV (11:03)
[2020-07-05] MEDS: CEFTRIAXONE 2 GM/50 ML FROZ.PIGGY IV (11:17)
[2020-07-05 11:30] VITALS: BP 131/77; PULSE 85; RESP 16; TEMP 36.5; O2SAT 100
[2020-07-06] MEDS: CEFTRIAXONE 2 GM/50 ML FROZ.PIGGY IV (11:12)
[2020-07-07 10:55] VITALS: BP 125/76; PULSE 88; RESP 16; TEMP 37; O2SAT 96
[2020-07-07] MEDS: CEFTRIAXONE 2 GM/50 ML FROZ.PIGGY IV (11:05)
[2020-07-08 11:18] VITALS: BP 138/85; PULSE 89; RESP 16; TEMP 36.7
--- NOTE | 2020-07-08 11:37 | PC.NURSE ---
Pt arrived via home for abx tx. offers no overt complaint. Restful sitting in recliner.
[2020-07-08] MEDS: CEFTRIAXONE 2 GM/50 ML FROZ.PIGGY IV (11:39)
[2020-07-09 10:54] VITALS: BP 131/70; PULSE 80; RESP 10; TEMP 36
[2020-07-09] MEDS: CEFTRIAXONE 2 GM/50 ML FROZ.PIGGY IV (11:21)
[2020-07-10 11:01] VITALS: BP 128/77; PULSE 80; RESP 16; TEMP 36.6; O2SAT 100
[2020-07-10 11:09] LABS: Add Manual Diff / Slide Review NO; Basophils Absolute Auto 100 /uL (0-100); Basophils Percent Auto 1.2 % (0-2); Eosinophils Absolute Auto 300 /uL (0-450); Eosinophils Percent Auto 5.9 % (2-4); Hematocrit 37.2 % (41-53); Hemoglobin 11.7 g/dL (13.5-17.5); Lymphocytes Absolute Auto 1700 /uL (1100-4500); Lymphocytes Percent Auto 36.8 % (25-40); Mean Corpuscular HGB Conc 31.4 % (30-36); Mean Corpuscular Volume 76.3 fL (80-100); Monocytes Absolute Auto 400 /uL (0-900); Monocytes Percent Auto 9.3 % (3-14); Neutrophils Absolute Auto 2200 /uL (1500-7000); Neutrophils Percent Auto 46.8 % (50-75); Platelet Count 238 X10^3/uL (150-400); Red Blood Cell Count 4.87 X10^6/uL (4.5-5.9); Red Cell Distribution Width 17.4 % (11.6-14.8); White Blood Cell Count 4.6 X10^3/uL (4.5-11.0)
[2020-07-10 11:19] LABS: Alanine Aminotransferase 17 IU/L (<50); Albumin 4.1 g/dL (3.5-5.0); Albumin Globulin Ratio 1.6 (1.0-2.8); Alkaline Phosphatase 92 U/L (38-126); Aspartate Aminotransferase 31 IU/L (17-59); BUN Creatinine Ratio 25.3 (6-22); Bilirubin Total 0.4 mg/dL (0.2-1.3); Blood Urea Nitrogen 21 mg/dL (9-20); Calcium 8.7 mg/dL (8.4-10.2); Carbon Dioxide 33 mmol/L (22-32); Chloride 100 mmol/L (98-107); Estimated Glomerular Filt Rate > 60.0 mL/min (>60); Globulin 2.6 g/dL (1.7-4.1); Glucose 85 mg/dL (80-110); HEMOLYSIS < 15 (0-50); Potassium 3.8 mmol/L (3.4-5.1); Sodium 136 mmol/L (137-145); Total Protein 6.7 g/dL (6.3-8.2)
[2020-07-10 11:20] LABS: C-Reactive Protein Quant < 0.5 mg/dL (<1.0)
[2020-07-10] MEDS: CEFTRIAXONE 2 GM/50 ML FROZ.PIGGY IV (11:29)
[2020-07-10 11:37] LABS: Erythrocyte Sedimentation Rate 2 MM/HR (0-15)
[2020-07-12] MEDS: CEFTRIAXONE 2 GM/50 ML FROZ.PIGGY IV (11:03)
[2020-07-12 11:21] VITALS: BP 128/77; PULSE 80; RESP 16; TEMP 36.8; O2SAT 97
--- NOTE | 2020-07-13 09:09 | PC.NURSE ---
Addendum entered by Betsy Dela Cruz R.N. 07/13/20 09:46: RE; ABX order Per Alessandra JIMENEZ for Dr. Espinal she will fax updated orders to this clinic. Fax number provided. Reiterated to Alessandra that this clinic is closed on Friday and that order will need to be received by close today, Alessandra states understood. Original Note: ABX extension order: On 07/12 pt reported to this RN that at his most recent infectious disease f/u, he was instructed to continue IV ABX through Friday07/17/20. However, this clinic only has orders to give ABX through 07/14/20. This RN called [facility] yesterday 07/12 to request clarification and updated orders. Alessandra JIMENEZ explained she would ask provider and then update this clinic. As of today this clinic has not received any update.
[2020-07-13] MEDS: CEFTRIAXONE 2 GM/50 ML FROZ.PIGGY IV (11:12)
[2020-07-13 11:26] VITALS: BP 128/69; PULSE 84; RESP 16; TEMP 36.4; O2SAT 95
[2020-07-14] MEDS: CEFTRIAXONE 2 GM/50 ML FROZ.PIGGY IV (11:16)
[2020-07-14 11:21] VITALS: BP 117/64; PULSE 81; RESP 18; TEMP 36.9; O2SAT 99
--- NOTE | 2020-07-14 11:22 | PC.NURSE ---
Infusion 07/14/2020. pt arrived to room 219 at approximately 1057 and sitting in chair. VSS. Voided in bathroom IND. Midline flushed with saline. Ceftriaxone infusing per orders. pt resting in chair.
--- NOTE | 2020-07-14 14:14 | PC.NURSE ---
Addendum entered by Lashanda Bustos R.N. 07/14/20 14:47: ABX ORDER Rafiq confirmed that Dr. Sampson agreed to extended abx treatment until 07/17/20. Stated that he would fax order to [facility] and acute care unit for infusion over the weekend. Original Note: RE ABX ORDER This RN called [facility] at 1030 to obtain cef/dapto orders with new end date of 07/17. Spoke with TONY Aparicio. A progress note was faxed that stated ok to extend abx to 07/17/20. This RN tried numerous times to reach [facility] staff again to get signed order, but was unable to make contact with them. Called [facility] triage (Rafiq) to discuss the possibility of Dr. Sampson prescribing abx through the . Explained situation to Rafiq regarding the need for order, and faxed [facility] patient progress note to [facility] with attention Dr. Sampson. Also explained to Rafiq that our clinic is closed today through the weekend and that the abx order would need to be faxed to main pharmacy, fax number given ([phone]). Rafiq stated that he would get back to me as soon as possible with answer.
[2020-07-15] MEDS: CEFTRIAXONE 2 GM/50 ML FROZ.PIGGY IV (11:01)
[2020-07-15 11:03] VITALS: BP 141/73; PULSE 78; RESP 16; TEMP 36.5; O2SAT 98
[2020-07-15] MEDS: SODIUM CHLORIDE 0.9% FLUSH 10 ML IV (11:46)
[2020-07-16] MEDS: CEFTRIAXONE 2 GM/50 ML FROZ.PIGGY IV (10:45)
[2020-07-16] MEDS: SODIUM CHLORIDE 0.9% FLUSH 10 ML IV ×2 (10:45→11:20)
[2020-07-16 10:46] VITALS: BP 133/80; PULSE 84; RESP 16; TEMP 36.4; O2SAT 100
[2020-07-17] MEDS: CEFTRIAXONE 2 GM/50 ML FROZ.PIGGY IV (12:58)
[2020-07-17 13:00] LABS: Add Manual Diff / Slide Review NO; Basophils Absolute Auto 100 /uL (0-100); Basophils Percent Auto 1.2 % (0-2); Eosinophils Absolute Auto 100 /uL (0-450); Eosinophils Percent Auto 2.7 % (2-4); Hemoglobin 11.8 g/dL (13.5-17.5); Lymphocytes Absolute Auto 1000 /uL (1100-4500); Lymphocytes Percent Auto 23.1 % (25-40); Mean Corpuscular HGB Conc 31.8 % (30-36); Mean Corpuscular Volume 75.5 fL (80-100); Monocytes Absolute Auto 300 /uL (0-900); Monocytes Percent Auto 6.6 % (3-14); Neutrophils Absolute Auto 2900 /uL (1500-7000); Neutrophils Percent Auto 66.4 % (50-75); Platelet Count 288 X10^3/uL (150-400); Red Cell Distribution Width 17.1 % (11.6-14.8); White Blood Cell Count 4.4 X10^3/uL (4.5-11.0)
[2020-07-17 13:18] LABS: Alanine Aminotransferase 19 IU/L (<50); Albumin 4.4 g/dL (3.5-5.0); Albumin Globulin Ratio 1.5 (1.0-2.8); Alkaline Phosphatase 97 U/L (38-126); Aspartate Aminotransferase 37 IU/L (17-59); BUN Creatinine Ratio 26.2 (6-22); Bilirubin Total 0.5 mg/dL (0.2-1.3); Blood Urea Nitrogen 22 mg/dL (9-20); Calcium 8.9 mg/dL (8.4-10.2); Carbon Dioxide 35 mmol/L (22-32); Chloride 100 mmol/L (98-107); Estimated Glomerular Filt Rate > 60.0 mL/min (>60); Globulin 2.9 g/dL (1.7-4.1); Glucose 93 mg/dL (80-110); HEMOLYSIS 17 (0-50); Potassium 4.1 mmol/L (3.4-5.1); Sodium 137 mmol/L (137-145); Total Protein 7.3 g/dL (6.3-8.2)
[2020-07-17 13:19] LABS: C-Reactive Protein Quant < 0.5 mg/dL (<1.0)
[2020-07-17 13:24] LABS: Erythrocyte Sedimentation Rate 2 MM/HR (0-15)
== END ==
PROVIDERS: Family Provider Internal Medicine; PCP Internal Medicine; Referring Provider Internal Medicine; Visit Provider Internal Medicine
DX: M00.9 Pyogenic arthritis, unspecified (principal); Z79.899 Other long term (current) drug therapy
CPT/HCPCS: 36415; 36592; 80053; 85025; 85651; 86140; 96365; 96366; 96367; 96368; 96523; J0696; J0878; J1642

== ENCOUNTER → 2020-08-19 13:40 | Outpatient (CLI) | payer MEDICARE, SELFPAY ==
[2020-08-19 14:22] LABS: COVID19 -Nasal RAPID Negative (Negative)
== END ==
PROVIDERS: Family Provider Internal Medicine; PCP Internal Medicine; Visit Provider Physician Assistant
DX: Z20.822 Contact with and (suspected) exposure to COVID-19 (principal)
CPT/HCPCS: 87635; C9803

== ENCOUNTER → 2020-11-09 09:41 | Outpatient (CLI) | payer MEDICARE, SELFPAY ==
[2020-11-09 10:43] LABS: Basophils Absolute Auto 100 /uL (0-100); Basophils Percent Auto 1.2 % (0-2); Eosinophils Absolute Auto 1300 /uL (0-450); Hematocrit 37.7 % (41-53); Hemoglobin 11.3 g/dL (13.5-17.5); Lymphocytes Absolute Auto 1300 /uL (1100-4500); Lymphocytes Percent Auto 23.3 % (25-40); Mean Corpuscular HGB Conc 29.9 % (30-36); Mean Corpuscular Hemoglobin 20.5 PG (26-34); Mean Corpuscular Volume 68.4 fL (80-100); Monocytes Absolute Auto 400 /uL (0-900); Neutrophils Absolute Auto 2600 /uL (1500-7000); Neutrophils Percent Auto 45.5 % (50-75); Platelet Count 343 X10^3/uL (150-400); Red Blood Cell Count 5.52 X10^6/uL (4.5-5.9); Red Cell Distribution Width 17.8 % (11.6-14.8); White Blood Cell Count 5.7 X10^3/uL (4.5-11.0)
[2020-11-09 10:54] LABS: Add Manual Diff / Slide Review SLIDE REVIEW; Alanine Aminotransferase 16 IU/L (<50); Albumin 4.4 g/dL (3.5-5.0); Albumin Globulin Ratio 1.5 (1.0-2.8); Alkaline Phosphatase 101 U/L (38-126); Aspartate Aminotransferase 34 IU/L (17-59); BUN Creatinine Ratio 16.5 (6-22); Bilirubin Total 0.2 mg/dL (0.2-1.3); Blood Urea Nitrogen 18 mg/dL (9-20); Calcium 9.2 mg/dL (8.4-10.2); Carbon Dioxide 29 mmol/L (22-32); Chloride 101 mmol/L (98-107); Estimated Glomerular Filt Rate > 60.0 mL/min (>60); Glucose 97 mg/dL (80-110); Potassium 4.7 mmol/L (3.4-5.1); Sodium 137 mmol/L (137-145); Total Protein 7.4 g/dL (6.3-8.2)
[2020-11-09 10:57] LABS: HEMOLYSIS < 15 (0-50)
[2020-11-09 11:00] LABS: Erythrocyte Sedimentation Rate 1 MM/HR (0-15)
[2020-11-09 11:10] LABS: Prolactin 6.9 ng/mL (3.7-17.9)
[2020-11-09 11:15] LABS: TSH w/ Reflex to FT4 0.56 uIU/mL (0.47-4.68)
[2020-11-09 11:46] LABS: Anisocytosis 1+; Hypochromasia 1+; Microcytosis 1+; Poikilocytosis 1+
== END ==
PROVIDERS: Family Provider Internal Medicine; PCP Internal Medicine; Referring Provider Internal Medicine; Visit Provider Internal Medicine
DX: D35.2 Benign neoplasm of pituitary gland (principal); E03.8 Other specified hypothyroidism; G62.9 Polyneuropathy, unspecified; G89.29 Other chronic pain
CPT/HCPCS: 36415; 80053; 84146; 84443; 85025; 85651; 86140

== ENCOUNTER → 2020-11-17 08:02 | Outpatient (CLI) | payer MEDICARE, SELFPAY ==
[2020-11-17 08:32] LABS: COVID19 -Nasal RAPID Negative (Negative)
== END ==
PROVIDERS: Family Provider Internal Medicine; PCP Internal Medicine; Visit Provider Physician Assistant
DX: Z20.822 Contact with and (suspected) exposure to COVID-19 (principal)
CPT/HCPCS: 87635

== ENCOUNTER → 2020-11-17 08:16 | Outpatient (CLI) | payer MEDICARE, SELFPAY ==
--- NOTE | 2020-11-17 08:19 | DI.RAD.S_ITS ---
PROCEDURE: XR CHEST 2V INDICATIONS: cough TECHNIQUE: 2 views of the chest were acquired. COMPARISON: [facility], CR, XR CHEST 2V, 08/10/2019, 23:00. [facility], CR, XR CHEST 1V, 07/11/2020, 6:59. FINDINGS: Heart size, mediastinum and pulmonary vasculature normal. Atherosclerotic calcification in the abdominal aorta without evidence of aneurysm. Diffuse chronic interstitial changes rim stable from the prior exam. Minimal blunting the right costophrenic angle. Right total shoulder arthroplasty partially imaged. IMPRESSION: Stable diffuse chronic interstitial changes. Small right basilar pleural effusion with atelectasis and/or infiltrate. Dictated by: Lizandro Amin M.D. on 11/17/2020 at 9:35 Approved by: Lizandro Amin M.D. on 11/17/2020 at 9:38
== END ==
PROVIDERS: Family Provider Internal Medicine; PCP Internal Medicine; Referring Provider Physician Assistant; Visit Provider Physician Assistant
DX: R05 Cough (principal); J90 Pleural effusion, not elsewhere classified; Z20.822 Contact with and (suspected) exposure to COVID-19
CPT/HCPCS: 71046; 87635

== ENCOUNTER → 2021-02-20 14:02 | Outpatient (CLI) | payer MEDICARE, SELFPAY ==
--- NOTE | 2021-02-20 14:20 | DI.RAD.S_ITS ---
PROCEDURE: XR ANKLE RT MIN 3V INDICATIONS: ANKLE PAIN AFTER HARDWARE PLACEMENT TECHNIQUE: 3 views of the ankle were acquired. COMPARISON: [facility], CR, XR ANKLE RT 2V, 03/24/2019, 17:38. FINDINGS: Bones: No previously unidentified fractures or dislocations. Ankle mortise is normally aligned. No suspicious bony lesions. Excellent anatomic alignment after ORIF of right ankle fractures. Soft tissues: No tibiotalar joint effusion. Achilles tendon appears normal. IMPRESSION: Normal alignment for healing after ORIF at the right ankle fractures. Dictated by: Javier Vinson M.D. on 02/20/2021 at 17:03 Approved by: Javier Vinson M.D. on 02/20/2021 at 17:04
[2021-02-20 14:58] LABS: Add Manual Diff / Slide Review NO; Basophils Absolute Auto 0 /uL (0-100); Eosinophils Absolute Auto 300 /uL (0-450); Eosinophils Percent Auto 6.7 % (2-4); Hematocrit 36.1 % (41-53); Hemoglobin 10.7 g/dL (13.5-17.5); Lymphocytes Absolute Auto 1800 /uL (1100-4500); Lymphocytes Percent Auto 43.1 % (25-40); Mean Corpuscular HGB Conc 29.6 % (30-36); Mean Corpuscular Hemoglobin 20.5 PG (26-34); Mean Corpuscular Volume 69.1 fL (80-100); Monocytes Absolute Auto 400 /uL (0-900); Monocytes Percent Auto 10.2 % (3-14); Neutrophils Absolute Auto 1600 /uL (1500-7000); Platelet Count 201 X10^3/uL (150-400); Red Blood Cell Count 5.22 X10^6/uL (4.5-5.9); Red Cell Distribution Width 18.8 % (11.6-14.8); White Blood Cell Count 4.1 X10^3/uL (4.5-11.0)
[2021-02-20 15:17] LABS: BUN Creatinine Ratio 23.3 (6-22); Blood Urea Nitrogen 21 mg/dL (9-20); C-Reactive Protein Quant < 0.5 mg/dL (<1.0); Carbon Dioxide 28 mmol/L (22-32); Chloride 103 mmol/L (98-107); Estimated Glomerular Filt Rate > 60.0 mL/min (>60); Glucose 94 mg/dL (80-110); HEMOLYSIS < 15 (0-50); Potassium 4.7 mmol/L (3.4-5.1); Sodium 136 mmol/L (137-145)
[2021-02-20 15:26] LABS: Hypochromasia 2+; Microcytosis 2+; RBC Morphology ABNORMAL
[2021-02-20 15:27] LABS: Erythrocyte Sedimentation Rate 1 MM/HR (0-15)
== END ==
PROVIDERS: Family Provider Internal Medicine; PCP Internal Medicine; Referring Provider Internal Medicine; Visit Provider Internal Medicine
DX: A49.01 Methicillin susceptible Staphylococcus aureus infection, unspecified site (principal); T84.59XD Infection and inflammatory reaction due to other internal joint prosthesis, subsequent encounter; M25.571 Pain in right ankle and joints of right foot
CPT/HCPCS: 36415; 73610; 80048; 85025; 85651; 86140

== ENCOUNTER → 2021-10-22 17:36 | Outpatient (CLI) | payer MEDICARE, SELFPAY ==
[2021-10-22 18:45] LABS: Alanine Aminotransferase 18 IU/L (<50); Albumin 4.5 g/dL (3.5-5.0); Albumin Globulin Ratio 1.8 (1.0-2.8); Alkaline Phosphatase 61 U/L (38-126); Aspartate Aminotransferase 29 IU/L (17-59); BUN Creatinine Ratio 22.2 (6-22); Bilirubin Total 0.5 mg/dL (0.2-1.3); Blood Urea Nitrogen 20 mg/dL (9-20); Calcium 8.5 mg/dL (8.4-10.2); Carbon Dioxide 31 mmol/L (22-32); Chloride 100 mmol/L (98-107); Estimated Glomerular Filt Rate > 60.0 mL/min (>60); Globulin 2.5 g/dL (1.7-4.1); Glucose 131 mg/dL (80-110); HEMOLYSIS < 15 (0-50); Potassium 4.3 mmol/L (3.4-5.1); Sodium 136 mmol/L (137-145)
[2021-10-22 19:02] LABS: Free T3, Triiodothyronine Free 4.18 pg/mL (2.77-5.27)
[2021-10-22 19:15] LABS: Thyroid Stimulating Hormone 0.488 uIU/mL (0.47-4.68)
[2021-10-23 22:07] LABS: Sex Hormone Binding Globulin 84.2 nmol/L (19.3-76.4)
[2021-10-28 12:11] LABS: Percent Free Testosterone 1.59 % (1.50-4.20); Testosterone Free 6.14 ng/dL (5.00-21.00); Testosterone Total 386.3 ng/dL (264.0-916.0)
== END ==
PROVIDERS: Family Provider Internal Medicine; PCP Internal Medicine; Referring Provider Internal Medicine; Visit Provider Internal Medicine
DX: E29.1 Testicular hypofunction (principal); E03.9 Hypothyroidism, unspecified
CPT/HCPCS: 36415; 80053; 84270; 84402; 84403; 84439; 84443; 84481

== ENCOUNTER → 2021-11-06 16:56 | Outpatient (CLI) | payer MEDICARE, SELFPAY ==
--- NOTE | 2021-11-06 16:59 | DI.RAD.S_ITS ---
PROCEDURE: XR KNEE RT 3V INDICATIONS: knee pain/infection TECHNIQUE: 3 views of the knee were acquired. COMPARISON: [facility], CR, XR KNEE RT 3V, 05/28/2018, 16:04. [facility], CR, XR KNEE LT 3V, 05/28/2018, 16:04. FINDINGS: Bones: No acute, displaced fracture. Redemonstrated knee arthroplasty with increased perihardware lucency of the femoral component, now measuring up to 5 mm, compatible with loosening. Diffuse osteopenia. Soft tissues: No joint effusion. Soft tissue swelling overlying the femoral component.. IMPRESSION: Loosening of the femoral component, knee arthroplasty. Dictated by: Mesfin Marcos M.D. on 11/07/2021 at 13:15 Approved by: Mesfin Marcos M.D. on 11/07/2021 at 13:22
--- NOTE | 2021-11-06 16:59 | DI.RAD.S_ITS ---
PROCEDURE: XR KNEE LT 3V INDICATIONS: knee pain after replacement TECHNIQUE: 3 views of the knee were acquired. COMPARISON: [facility], RG, KNEE 3VW (LT), 09/09/2019, 13:39. [facility], CR, XR KNEE LT 3V, 05/28/2018, 16:04. FINDINGS: Bones: No fractures or dislocations. Left knee arthroplasty without evidence of hardware loosening. No suspicious bony lesions. Soft tissues: No substantial joint effusion. Suprapatellar intra-articular body versus calcification of the quadriceps. IMPRESSION: Postsurgical change of the left knee as detailed above. Dictated by: Mesfin Marcos M.D. on 11/07/2021 at 13:22 Approved by: Mesfin Marcos M.D. on 11/07/2021 at 13:23
== END ==
PROVIDERS: Family Provider Internal Medicine; PCP Internal Medicine; Referring Provider Internal Medicine; Visit Provider Internal Medicine
DX: M00.9 Pyogenic arthritis, unspecified (principal); M25.562 Pain in left knee; T84.032A Mechanical loosening of internal right knee prosthetic joint, initial encounter; G89.29 Other chronic pain
CPT/HCPCS: 73562

== ENCOUNTER 2021-12-09 11:38 | Emergency (ER) | payer MEDICARE, SELFPAY ==
[2021-12-09] VITALS (9 sets, daily range): BP systolic 141–163; BP diastolic 67–81; PULSE 62–80; RESP 16; TEMP 36.6; O2SAT 94–100; BMI 28.0
--- NOTE | 2021-12-09 13:18 | ED_ITS ---
HPI - Abdominal Pain General Chief Complaint: Abdominal Pain Stated Complaint: constipation Time Seen by Provider: 12/09/21 12:47 Source: patient Mode of arrival: Ambulatory History of Present Illness HPI narrative: Patient is a 71-year-old male chronic ongoing pain. He has had multiple surgeries pain is controlled with morphine. He has been on stool softener softener since he has been on morphine. It has been a number of years. However he has taken multiple [id number] stool softeners her recently including Dulcolax which he says is not working. He has not had a bowel movement for the last 10 days. He has no nausea or vomiting. He is passing gas. She has no significant pain. No chest pain shortness of breath fever. But is concerned because usually medications work for Related Data Home Medications Medication Instructions Recorded Confirmed [TESTOSTERONE] IM #0 10/07/08 11/06/21 hydrocortisone 20 mg tablet 20 mg PO AMCC #0 tab 04/02/13 11/06/21 (Cortef) liothyronine 5 mcg tablet (Cytomel) 5 mcg PO 0600 #0 tab 04/02/13 11/06/21 diclofenac sodium 75 mg 75 mg PO BID 03/10/18 11/06/21 tablet,delayed release pantoprazole 40 mg tablet,delayed 40 mg PO DAILY PRN 03/10/18 11/06/21 release clonazepam 1 mg tablet 1 mg PO QAM #0 tab 05/28/18 11/06/21 sennosides 8.6 mg tablet (Senokot) See Rx Instructions PO DAILY PRN 01/19/19 11/06/21 tab clonazepam 1 mg tablet 2 mg PO QPM 03/24/19 11/06/21 cyclobenzaprine 10 mg tablet 10 mg PO TID 03/24/19 11/06/21 levothyroxine 112 mcg tablet 56 mcg PO DAILY 03/24/19 11/06/21 carbamazepine 300 mg 300 mg PO BID #0 cap 02/15/20 11/06/21 capsule,extended release [id number] baclofen 10 mg tablet 20 mg PO TID #0 tab 06/16/20 11/06/21 hydrocortisone 10 mg tablet 10 mg PO QPM tab 06/16/20 11/06/21 (Cortef) morphine 15 mg immediate release 45 mg PO Q6H PRN tab 06/16/20 11/06/21 tablet cefadroxil 500 mg capsule 1,000 mg PO BID 11/09/20 11/06/21 Previous Rx's Medication Instructions Recorded tamsulosin 0.4 mg capsule 0.4 mg PO DAILY #90 cap 04/13/21 furosemide 20 mg tablet 20 mg PO DAILY #30 tab 05/28/21 potassium chloride 8 mEq 8 meq PO DAILY #30 tab 06/28/21 tablet,extended release duloxetine 40 mg capsule,delayed 40 mg PO DAILY #90 cap 11/06/21 release lorazepam 2 mg tablet 4 mg PO BEDTIME #60 tab 11/06/21 tadalafil 20 mg tablet (Cialis) 20 mg PO DAILY PRN #10 tab 11/19/21 lactulose 10 gram/15 mL oral 20 g (30 mL) PO TID #237 ml 12/09/21 solution Allergies Allergy/AdvReac Type Severity Reaction Status Date / Time phenobarbital [PHENOBARBITAL] Allergy Severe REALLY SICK Verified 12/09/21 11:47 venom-honey bee Allergy Severe ANAPHYLAXIS Verified 12/09/21 11:47 [BEE VENOM (HONEY BEE)] venom-wasp [WASP VENOM] Allergy Severe Anaphylaxis Verified 12/09/21 11:47 Review of Systems Review of Systems Narrative: GENERAL: Denies chills, fatigue, malaise, fever, sweats, travel HEENT: Denies sinus pain, ear pain, sore throat, difficulty swallowing, neck pain RESPIRATORY: Denies dyspnea, cough, wheezing, hemoptysis, sputum. CARDIOVASCULAR: Denies chest pain, palpitations, orthopnea, edema GASTROINTESTINAL: See HPI : Denies dysuria, frequency, incontinence, hematuria, urinary retention, flank pain. MUSCULOSKELETAL: Denies weakness, joint pain, or bony pain SKIN: No rash, no erythema, no pruritus NEUROLOGIC: Denies weakness, dizziness, headache, numbness, change in speech, confusion PSYCHIATRIC: No concerning psychosocial issues. 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) Peripheral neuropathy Pituitary adenoma (10/18/02) Tinnitus Surgical History (Updated 07/26/20 @ 00:00 by ) History of knee replacement Status post left knee 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 (~04/27/19) Status post surgery Family History Father Leukemia Social History marital status: number of children: 3 household members: none lives independently: Yes caregiver/support person: No housing: house pets and animals: Yes education level: college occupational status: other Previous occupational history: Various leisure activities: music and other Smoking Status: Never smoker Tobacco: How many years used: 0 quit status: quit date established second hand exposure: No alcohol intake: current substance use type: does not use Smoking Status: Never smoker alcohol intake frequency: a few times a week Substance Use Type: does not use Exam Initial Vital Signs Initial Vital Signs: Vital Signs Temperature 98 F 12/09/21 11:43 Pulse Rate 80 12/09/21 11:43 Respiratory Rate 16 12/09/21 11:43 Blood Pressure 141/67 H 12/09/21 11:43 Pulse Oximetry 98 12/09/21 11:43 GENERAL: Alert 71-year-old male appears well no acute distress HEENT: Head atraumatic,EOMI, pupils reactive, face symmetric, moist mucous m embranes CARDIOVASCULAR: Regular rate and rhythm without murmurs, rubs or gallops. RESPIRATORY: Breath sounds equal bilaterally, no wheezes rales or rhonchi. ABDOMEN: Soft, nontender. Normoactive bowel sounds all 4 quadrants. No guarding or rebound. EXTREMITIES: Normal range of motion, no clubbing or edema. Neurovascularly intact NEUROLOGICAL: Alert and oriented x4.Normal gait and speech. SKIN: Warm, dry, no laceration, no petechiae, no rashes or lesions. Course Orders Ordered: ED Orders 12/09/21 13:18 CT abdomen pelvis w con Stat 12/09/21 13:48 Complete Blood Count AUTO DIFF Stat Comprehensive Metabolic Panel Stat Lipase Stat Discontinued Medications Sodium Chloride (Normal Saline 0.9%) 1,000 mls @ 150 mls/hr IV CONT KEYANNA Last Infusion: 12/09/21 16:59 Dose: 0 mls/hr Documented by: MARIA GUADALUPE Admin: 12/09/21 14:25 Dose: 150 mls/hr Documented by: TITO Lactulose (Lactulose 20 Gm/30 Ml Solution) 20 gm PO NOW ONE Stop: 12/09/21 16:34 Last Admin: 12/09/21 16:55 Dose: 20 gm Documented by: MARIA GUADALUPE Vital Signs Vital signs: Vital Signs - 8 hr 12/09/21 11:43 12/09/21 14:46 12/09/21 14:48 Temperature 98 F Pulse Rate 80 67 65 Respiratory Rate 16 Blood Pressure 141/67 H 163/81 H Pulse Oximetry 98 99 100 12/09/21 15:00 12/09/21 15:30 12/09/21 15:31 Temperature Pulse Rate 64 64 64 Respiratory Rate Blood Pressure 151/69 H Pulse Oximetry 95 94 95 12/09/21 15:58 12/09/21 16:00 12/09/21 16:30 Temperature Pulse Rate 62 63 64 Respiratory Rate Blood Pressure 147/71 H 145/73 H 147/72 H Pulse Oximetry 95 96 99 MDM - Abdominal Pain Lab Data Result diagrams: 12/09/21 13:48 12/09/21 13:48 Labs: Lab Results 12/09/21 12/09/21 Range/Units 13:48 13:48 WBC 4.7 (4.5-11.0) X10^3/uL RBC 5.63 (4.5-5.9) X10^6/uL Hgb 12.3 L (13.5-17.5) g/dL Hct 39.1 L (41-53) % MCV 70.0 L (80-100) fL MCH 21.9 L (26-34) PG MCHC 31.5 (30-36) % RDW 19.0 H (11.6-14.8) % Plt Count 218 (150-400) X10^3/uL Neut % (Auto) 59.7 (50-75) % Lymph % (Auto) 25.8 (25-40) % Martin % (Auto) 9.9 (3-14) % Eos % (Auto) 3.2 (2-4) % Baso % (Auto) 1.4 (0-2) % Neut # (Auto) 2800 (3166-7254) /uL Lymph # (Auto) 1200 (6594-0306) /uL Martin # (Auto) 500 (0-900) /uL Eos # (Auto) 200 (0-450) /uL Baso # (Auto) 100 (0-100) /uL Sodium 133 L (137-145) mmol/L Potassium 4.2 (3.4-5.1) mmol/L Chloride 96 L (98-107) mmol/L Carbon Dioxide 31 (22-32) mmol/L BUN 8 L (9-20) mg/dL Creatinine 0.82 (0.66-1.25) mg/dL Estimated GFR > 60 (>60) mL/min BUN/Creatinine Ratio 9.8 (6-22) Glucose 98 (80-110) mg/dL Calcium 8.7 (8.4-10.2) mg/dL Total Bilirubin 0.4 (0.2-1.3) mg/dL AST 33 (17-59) IU/L ALT 21 (<50) IU/L Alkaline Phosphatase 78 (38-126) U/L Total Protein 7.3 (6.3-8.2) g/dL Albumin 4.5 (3.5-5.0) g/dL Globulin 2.8 (1.7-4.1) g/dL Albumin/Globulin Ratio 1.6 (1.0-2.8) Lipase 50 (23-300) U/L Point of care testing: Urine Dip Bedside Urine Glucose Negative Bedside Urine Bilirubin - Negative Bedside Urine Ketone - Negative Urine Specific [place] 1.010 Bedside Urine Occult Blood - Negative Bedside Urine pH 7 Bedside Urine Protein - Negative Bedside Urine Urobilinogen - Negative Bedside Urine Nitrite - Negative Bedside Urine Leukocytes - Negative Esterase Imaging Data CT scan - abdomen/pelvis: Radiologist's Impression: CT Scan Report Signed Patient: Charli Davalos MR#: [id number] : 1950 Acct:[id number] Age/Sex: 71 / M Date of Service: 12/09/21 Loc: ED Accession Number: [id number] ?? Procedure: CT abdomen pelvis w con Ordering Provider: Botnick,Carolyn D.O. PROCEDURE:? CT ABDOMEN PELVIS W CON ? INDICATIONS:? no bm for 10 days, pain ? TECHNIQUE:? After the administration of IV contrast, axial sections were acquired from the lung bases to the pubic symphysis.? Coronal and sagittal reformats were performed.? For radiation dose reduction, the following was used:? automated exposure control, adjustment of mA and/or kV according to patient size. ? COMPARISON:? None. ? FINDINGS:? Image quality:? Excellent.? ? Lung bases:? Mild subpleural fibrotic changes can be seen. Eventration of the right hemidiaphragm can be seen, without carly hernia. Heart:? No significant findings.? At least moderate coronary artery calcification is seen. ? ? ABDOMEN: Liver:? Unremarkable.? ? Gallbladder:? Unremarkable.? ? Biliary ducts:? Unremarkable.? ? Pancreas:? Unremarkable.? ? Spleen:? Unremarkable.? ? Adrenal Glands:? Unremarkable.? ? Kidneys and Ureters:? Unremarkable.? ? ? Stomach and Bowel:? There is a moderate amount of stool seen within the colon.? The right hepatic flexure is high-riding is seen superior to the liver.? No dilated loops of small bowel are seen. No significant gastric abnormality is seen. A normal appendix is incidentally noted.? Peritoneum:? No abnormal intraperitoneal fluid.? No free air.? ? Ventral Wall: ? No hernia.? Abdominal Nodes:? No retroperitoneal or mesenteric adenopathy by size criteria.? Vessels:? Aorta and inferior vena cava are normal in size.? ? PELVIS: Pelvic Organs:? Unremarkable.? ? Bladder:? Unremarkable.? ? Pelvic Nodes: No enlarged lymph nodes.? Miscellaneous: No inguinal hernias are seen. ? ? ? Bones:? At least moderate lumbar spine degenerative changes are seen. No suspicious lytic or blastic lesions are seen. ? ? IMPRESSION:? ? There is a moderate amount of stool seen within the colon, which is consistent with the given history. ? ? ? Incidental note is made of: At least moderate coronary artery calcification Focal lumbar spine degenerative change Normal appendix ? ?Dictated by: Darion Sargent M.D. on 12/09/2021 at 13:42? MDM Narrative Medical decision making narrative: Patient is on chronic opiate medications. He has not had a bowel movement in numerous days. No significant pain nausea vomiting. CT does confirm constipation. He is given a lactulose to help with this. Discharge Plan Departure Patient Disposition: Home Clinical Impression: Constipation Instructions: DI for Constipation Activity Restrictions/Additional Instructions: *You have been diagnosed with constipation *What to do: It increased water intake, increased walking. Definitely return to your regular regimen. *Continue to take medications as directed Lactulose 15 g up to 3 times a day as needed for constipation-> SENT TO [facility] *Follow up with your primary care provider in 2-3 days or call [phone] *Return to ER if you should have vomiting, increased abdominal pain, fever or any new, worsening or concerning symptoms Prescriptions: New lactulose 10 gram/15 mL solution 20 g PO TID Qty: 237 0RF No Action [TESTOSTERONE] IM Qty: 0 0RF liothyronine [Cytomel] 5 MCG tablet 5 mcg PO 0600 Qty: 0 0RF hydrocortisone [Cortef] 20 MG tablet 20 mg PO AMCC Qty: 0 0RF clonazepam 1 mg tablet 1 mg PO QAM Qty: 0 0RF Label Comments: 1 every am and 2 every night carbamazepine 300 mg capsule, ER multiphase 12 hr 300 mg PO BID Qty: 0 0RF baclofen 10 mg tablet 20 mg PO TID Qty: 0 0RF tamsulosin 0.4 mg capsule 0.4 mg PO DAILY Qty: 90 3RF furosemide 20 mg tablet 20 mg PO DAILY Qty: 30 3RF potassium chloride 8 mEq tablet extended release 8 meq PO DAILY Qty: 30 3RF tadalafil [Cialis] 20 mg tablet 20 mg PO DAILY PRN (Reason: sexual activity) Qty: 10 0RF Rx Instructions: 1 tablet daily as needed. diclofenac sodium 75 mg tablet,delayed release (DR/EC) 75 mg PO BID 0RF pantoprazole 40 mg tablet,delayed release (DR/EC) 40 mg PO DAILY PRN (Reason: Acid Reflux) 0RF sennosides [Senokot] 8.6 mg tablet See Rx Instructions PO DAILY PRN0RF Label Comments: 1 TAB IN AM, 2 IN PM PO DAILY PRN; Rx Instructions: 1 TAB IN AM, 2 IN PM PO DAILY PRN; cefadroxil 500 mg capsule 1,000 mg PO BID 0RF duloxetine 40 mg capsule,delayed release(DR/EC) 40 mg PO DAILY Qty: 90 3RF lorazepam 2 mg tablet 4 mg PO BEDTIME Qty: 60 0RF hydrocortisone [Cortef] 10 mg tablet 10 mg PO QPM 0RF clonazepam 1 mg tablet 2 mg PO QPM 0RF Label Comments: TK 1 T PO QAM AND TK 2 TS QPM. levothyroxine 112 mcg tablet 56 mcg PO DAILY 0RF Label Comments: TK 1/2 T PO QD cyclobenzaprine 10 MG tablet 10 mg PO TID 0RF morphine 15 mg tablet 45 mg PO Q6H PRN (Reason: pain) 0RF Label Comments: TK 1 TO 2 TS PO Q 6 H PRN P Referrals: Charli Sampson MD [Primary Care Provider] -
--- NOTE | 2021-12-09 13:18 | DI.CT.S_ITS ---
PROCEDURE: CT ABDOMEN PELVIS W CON INDICATIONS: no bm for 10 days, pain TECHNIQUE: After the administration of IV contrast, axial sections were acquired from the lung bases to the pubic symphysis. Coronal and sagittal reformats were performed. For radiation dose reduction, the following was used: automated exposure control, adjustment of mA and/or kV according to patient size. COMPARISON: None. FINDINGS: Image quality: Excellent. Lung bases: Mild subpleural fibrotic changes can be seen. Eventration of the right hemidiaphragm can be seen, without carly hernia. Heart: No significant findings. At least moderate coronary artery calcification is seen. ABDOMEN: Liver: Unremarkable. Gallbladder: Unremarkable. Biliary ducts: Unremarkable. Pancreas: Unremarkable. Spleen: Unremarkable. Adrenal Glands: Unremarkable. Kidneys and Ureters: Unremarkable. Stomach and Bowel: There is a moderate amount of stool seen within the colon. The right hepatic flexure is high-riding is seen superior to the liver. No dilated loops of small bowel are seen. No significant gastric abnormality is seen. A normal appendix is incidentally noted. Peritoneum: No abnormal intraperitoneal fluid. No free air. Ventral Wall: No hernia. Abdominal Nodes: No retroperitoneal or mesenteric adenopathy by size criteria. Vessels: Aorta and inferior vena cava are normal in size. PELVIS: Pelvic Organs: Unremarkable. Bladder: Unremarkable. Pelvic Nodes: No enlarged lymph nodes. Miscellaneous: No inguinal hernias are seen. Bones: At least moderate lumbar spine degenerative changes are seen. No suspicious lytic or blastic lesions are seen. IMPRESSION: There is a moderate amount of stool seen within the colon, which is consistent with the given history. Incidental note is made of: At least moderate coronary artery calcification Focal lumbar spine degenerative change Normal appendix Dictated by: Darion Sargent M.D. on 12/09/2021 at 13:42 Approved by: Darion Sargent M.D. on 12/09/2021 at 13:45
[2021-12-09 14:09] LABS: Add Manual Diff / Slide Review NO; Basophils Absolute Auto 100 /uL (0-100); Basophils Percent Auto 1.4 % (0-2); Eosinophils Absolute Auto 200 /uL (0-450); Eosinophils Percent Auto 3.2 % (2-4); Hematocrit 39.1 % (41-53); Hemoglobin 12.3 g/dL (13.5-17.5); Lymphocytes Absolute Auto 1200 /uL (1100-4500); Lymphocytes Percent Auto 25.8 % (25-40); Mean Corpuscular HGB Conc 31.5 % (30-36); Mean Corpuscular Hemoglobin 21.9 PG (26-34); Monocytes Absolute Auto 500 /uL (0-900); Monocytes Percent Auto 9.9 % (3-14); Neutrophils Absolute Auto 2800 /uL (1500-7000); Neutrophils Percent Auto 59.7 % (50-75); Platelet Count 218 X10^3/uL (150-400); Red Blood Cell Count 5.63 X10^6/uL (4.5-5.9); White Blood Cell Count 4.7 X10^3/uL (4.5-11.0)
[2021-12-09 14:18] LABS: Alanine Aminotransferase 21 IU/L (<50); Albumin 4.5 g/dL (3.5-5.0); Albumin Globulin Ratio 1.6 (1.0-2.8); Alkaline Phosphatase 78 U/L (38-126); Aspartate Aminotransferase 33 IU/L (17-59); BUN Creatinine Ratio 9.8 (6-22); Bilirubin Total 0.4 mg/dL (0.2-1.3); Blood Urea Nitrogen 8 mg/dL (9-20); Calcium 8.7 mg/dL (8.4-10.2); Carbon Dioxide 31 mmol/L (22-32); Chloride 96 mmol/L (98-107); Estimated Glomerular Filt Rate > 60 mL/min (>60); Globulin 2.8 g/dL (1.7-4.1); Glucose 98 mg/dL (80-110); HEMOLYSIS < 15 (0-50); Lipase 50 U/L (23-300); Potassium 4.2 mmol/L (3.4-5.1); Sodium 133 mmol/L (137-145); Total Protein 7.3 g/dL (6.3-8.2)
[2021-12-09] MEDS: SODIUM CHLORIDE 0.9% 1,000 ML 150 ML IV (14:25)
[2021-12-09] MEDS: LACTULOSE 20 GM/30 ML SOLUTION PO (16:55)
== END 2021-12-09 17:00 | disposition home or self-care (01) ==
PROVIDERS: Emergency Provider Emergency Medicine; Family Provider Internal Medicine; PCP Internal Medicine
DX: K59.00 Constipation, unspecified (principal); R10.9 Unspecified abdominal pain
CPT/HCPCS: 36415; 74177; 80053; 81003; 83690; 85025; 99284; Q9967

== ENCOUNTER 2021-12-31 18:53 | Emergency (ER) | payer MEDICARE, SELFPAY ==
[2021-12-31 19:13] VITALS: BP 135/77; PULSE 79; RESP 16; TEMP 36.9; O2SAT 96; BMI 28.0
[2021-12-31 21:30] LABS: Influenza A - CEPHEID Flu A NEGATIVE (NEGATIVE); Influenza B - CEPHEID Flu B NEGATIVE (NEGATIVE); Respiratory Syncytial Virus Negative (Negative)
[2021-12-31 21:38] LABS: COVID-19 CEPHEID PCR (VTM/NP) POSITIVE (Negative)
--- NOTE | 2021-12-31 21:43 | ED.FEVER ---
HPI - Fever General Chief Complaint: Fever Stated Complaint: Sore throat cough 103 fever Time Seen by Provider: 12/31/21 21:28 Source: patient Mode of arrival: Ambulatory History of Present Illness HPI Narrative: 71M nonsmoker with history of anxiety and bipolar as well as panhypopituitarism presents with multiple days of fever, nasal congestion, runny nose, sore throat, and a harsh but dry cough. He has no significant difficulty breathing. He denies obvious exposure to ill persons. He is fully vaccinated against COVID. He denies any nausea or vomiting but did have some loose stools about a week ago. Related Data Home Medications Medication Instructions Recorded Confirmed [TESTOSTERONE] IM #0 10/07/08 11/06/21 hydrocortisone 20 mg tablet 20 mg PO AMCC #0 tab 04/02/13 11/06/21 (Cortef) liothyronine 5 mcg tablet (Cytomel) 5 mcg PO 0600 #0 tab 04/02/13 11/06/21 diclofenac sodium 75 mg 75 mg PO BID 03/10/18 11/06/21 tablet,delayed release pantoprazole 40 mg tablet,delayed 40 mg PO DAILY PRN 03/10/18 11/06/21 release clonazepam 1 mg tablet 1 mg PO QAM #0 tab 05/28/18 11/06/21 sennosides 8.6 mg tablet (Senokot) See Rx Instructions PO DAILY PRN 01/19/19 11/06/21 tab clonazepam 1 mg tablet 2 mg PO QPM 03/24/19 11/06/21 cyclobenzaprine 10 mg tablet 10 mg PO TID 03/24/19 11/06/21 levothyroxine 112 mcg tablet 56 mcg PO DAILY 03/24/19 11/06/21 carbamazepine 300 mg 300 mg PO BID #0 cap 02/15/20 11/06/21 capsule,extended release [id number] baclofen 10 mg tablet 20 mg PO TID #0 tab 06/16/20 11/06/21 hydrocortisone 10 mg tablet 10 mg PO QPM tab 06/16/20 11/06/21 (Cortef) morphine 15 mg immediate release 45 mg PO Q6H PRN tab 06/16/20 11/06/21 tablet cefadroxil 500 mg capsule 1,000 mg PO BID 04/15/21 04/12/22 Previous Rx's Medication Instructions Recorded tamsulosin 0.4 mg capsule 0.4 mg PO DAILY #90 cap 04/13/21 furosemide 20 mg tablet 20 mg PO DAILY #30 tab 05/28/21 potassium chloride 8 mEq 8 meq PO DAILY #30 tab 06/28/21 tablet,extended release duloxetine 40 mg capsule,delayed 40 mg PO DAILY #90 cap 11/06/21 release tadalafil 20 mg tablet (Cialis) 20 mg PO DAILY PRN #10 tab 11/19/21 lactulose 10 gram/15 mL oral 20 g (30 mL) PO TID #237 ml 12/09/21 solution lorazepam 2 mg tablet 4 mg PO BEDTIME #60 tab 12/27/21 promethazine 6.25 mg-codeine 10 5 ml PO Q4-6H PRN #473 ml 12/31/21 mg/5 mL syrup Allergies Allergy/AdvReac Type Severity Reaction Status Date / Time phenobarbital [PHENOBARBITAL] Allergy Severe REALLY SICK Verified 12/31/21 20:33 venom-honey bee Allergy Severe ANAPHYLAXIS Verified 12/31/21 20:33 [BEE VENOM (HONEY BEE)] venom-wasp [WASP VENOM] Allergy Severe Anaphylaxis Verified 12/31/21 20:33 Review of Systems Review of Systems Narrative: GENERAL: See HPI HEENT: See HPI RESPIRATORY: See HPI CARDIOVASCULAR: Denies chest pain, palpitations, orthopnea, edema, GASTROINTESTINAL: See HPI : Denies dysuria, frequency, incontinence, hematuria, urinary retention. MUSCULOSKELETAL: denies weakness, joint pain, or bony pain SKIN: Denies rash, skin lesions, or other NEUROLOGIC: Denies weakness, headache, numbness, change in speech, confusion, seizures, incoordination. PSYCHIATRIC: No concerning psychosocial issues. 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) Peripheral neuropathy Pituitary adenoma (10/18/02) Tinnitus Surgical History (Updated 07/26/20 @ 00:00 by ) History of knee replacement Status post left knee 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 (~04/27/19) Status post surgery Family History Father Leukemia Social History marital status: number of children: 3 household members: none lives independently: Yes caregiver/support person: No housing: house pets and animals: Yes education level: college occupational status: other Previous occupational history: Various leisure activities: music and other Smoking Status: Never smoker Tobacco: How many years used: 0 quit status: quit date established second hand exposure: No alcohol intake: current substance use type: does not use Smoking Status: Never smoker alcohol intake frequency: a few times a week Substance Use Type: does not use Exam Narrative Exam Narrative: GENERAL: [71] year old patient appears stated age. Well-developed patient, in mild distress. HEAD: Atraumatic. Normocephalic. EYES: Pupils equal round and reactive. Extraocular motions intact. No scleral icterus. No injection or drainage. ENT: Nose without bleeding, clear nasal drainage bilaterally. Throat without erythema, tonsillar hypertrophy or exudate. Airway patent. NECK: Trachea midline. Non tender CARDIOVASCULAR: Regular rate and rhythm without murmurs, gallops, or rubs. RESPIRATORY: Clear to auscultation. Breath sounds equal bilaterally. No wheezes, rales, or rhonchi. Occasional harsh sounding cough GASTROINTESTINAL: Abdomen soft, non-tender, nondistended. EXTREMITIES: No edema or joint tenderness. BACK: Nontender without deformity or crepitance. No flank tenderness. NEURO: AOx3. SKIN: No rash or erythema of visible areas Initial Vital Signs Initial Vital Signs: Vital Signs Temperature 98.4 F 12/31/21 19:13 Pulse Rate 79 12/31/21 19:13 Respiratory Rate 16 12/31/21 19:13 Blood Pressure 135/77 12/31/21 19:13 Pulse Oximetry 96 12/31/21 19:13 Course Orders Ordered: ED Orders 12/31/21 19:28 Covid-19 + FLU A/B + RSV - PCR Stat Discontinued Medications Acetaminophen/Codeine Phosphate (Acetaminophen/Codeine Soln 5 Ml Solution) 10 ml PO NOW ONE Stop: 12/31/21 21:55 Last Admin: 12/31/21 22:06 Dose: 5 ml Documented by: ROSA Acetaminophen/Codeine Phosphate (Acetaminophen/Codeine Soln 5 Ml Solution) 5 ml PO NOW ONE Stop: 12/31/21 22:31 Last Admin: 12/31/21 22:22 Dose: 5 ml Documented by: ROSA Vital Signs Vital signs: Vital Signs - 8 hr 12/31/21 22:03 Pulse Rate 87 Respiratory Rate 18 Blood Pressure 160/81 H Pulse Oximetry 95 MDM - Fever Lab Data Labs: Lab Results 12/31/21 Range/Units 19:28 SARS-CoV-2 (PCR) Positive H (Negative) Influenza A (RT-PCR) Flu a negative (NEGATIVE) Influenza B (RT-PCR) Flu b negative (NEGATIVE) RSV (PCR) Negative (Negative) MDM Narrative Medical decision making narrative: Patient with reassuring history and physical exam including typical upper respiratory symptoms as no signs of significant respiratory distress, no use of accessory muscles or hypoxemia. He is well-hydrated and tolerating orals. Vital signs are reassuring. COVID swab is positive. The duration of his symptoms was suggest that he is not a candidate for Paxlovid. There is no indication for significant workup involving labs or advanced imaging. Extensive return precautions discussed and questions answered to his apparent satisfaction Discharge Plan Departure Patient Disposition: Home Clinical Impression: COVID-19 Instructions: DI for COVID-19 (Suspected or Confirmed ) Activity Restrictions/Additional Instructions: *You have been diagnosed with [ COVID-19] *What to do: * per recommendations from the CDC and the [facility] Department of Health * stay home except to get medical care. Restrict activities outside your home, except for getting medical care. Do not go to work, school, or public areas. Avoid using public transportation, ride sharing, or taxis. * separate yourself from other people in your home. * call ahead before visiting your doctor * Wear a facemask * Cover your coughs and sneezes * Clean your hands often * Avoid sharing household items * Clean all high-touch services every day * Monitor your symptoms and seek prompt medical attention if your illness is worsening, particularly with difficulty in breathing. You may discontinue your isolation when: 1. You have been fever-free for at least 24 hours without the use of fever reducing medication, AND 2. Your symptoms are getting better, AND 3. At least 5 days have passed since symptoms first appeared 4. If you have fever, continue to stay home until fever resolves Individuals with laboratory confirmed COVID-19 who have not had any symptoms may discontinue home isolation when at least 5 days have passed since the date of their first COVID-19 diagnostic test and have had no subsequent illness You should notifiy any friends and family that have been in close contact *If up to date on COVID Vaccines, then they do not need to quarantine unless symptoms develop. Get tested on day 5 (or sooner if symptoms develop). Take precautions and watch for symptoms until day 10 *If NOT up to date on COVID Vaccines, then CDC recommends quarantine for at least 5 full days. Wear a well fitted mask at home if you must be around others. If they develop symptoms they should get tested. If they remain asymptomatic they should get tested on day 5. They should take precautions and monitor for symptoms until day 10. Prescriptions: New promethazine-codeine 6.25-10 mg/5 mL syrup 5 ml PO Q4-6H PRN (Reason: cough) Qty: 473 0RF No Action [TESTOSTERONE] IM Qty: 0 0RF liothyronine [Cytomel] 5 MCG tablet 5 mcg PO 0600 Qty: 0 0RF hydrocortisone [Cortef] 20 MG tablet 20 mg PO AMCC Qty: 0 0RF clonazepam 1 mg tablet 1 mg PO QAM Qty: 0 0RF Label Comments: 1 every am and 2 every night carbamazepine 300 mg capsule, ER multiphase 12 hr 300 mg PO BID Qty: 0 0RF baclofen 10 mg tablet 20 mg PO TID Qty: 0 0RF tamsulosin 0.4 mg capsule 0.4 mg PO DAILY Qty: 90 3RF furosemide 20 mg tablet 20 mg PO DAILY Qty: 30 3RF potassium chloride 8 mEq tablet extended release 8 meq PO DAILY Qty: 30 3RF tadalafil [Cialis] 20 mg tablet 20 mg PO DAILY PRN (Reason: sexual activity) Qty: 10 0RF Rx Instructions: 1 tablet daily as needed. lorazepam 2 mg tablet 4 mg PO BEDTIME Qty: 60 0RF diclofenac sodium 75 mg tablet,delayed release (DR/EC) 75 mg PO BID 0RF pantoprazole 40 mg tablet,delayed release (DR/EC) 40 mg PO DAILY PRN (Reason: Acid Reflux) 0RF sennosides [Senokot] 8.6 mg tablet See Rx Instructions PO DAILY PRN0RF Label Comments: 1 TAB IN AM, 2 IN PM PO DAILY PRN; Rx Instructions: 1 TAB IN AM, 2 IN PM PO DAILY PRN; cefadroxil 500 mg capsule 1,000 mg PO BID 0RF duloxetine 40 mg capsule,delayed release(DR/EC) 40 mg PO DAILY Qty: 90 3RF hydrocortisone [Cortef] 10 mg tablet 10 mg PO QPM 0RF lactulose 10 gram/15 mL solution 20 g PO TID Qty: 237 0RF clonazepam 1 mg tablet 2 mg PO QPM 0RF Label Comments: TK 1 T PO QAM AND TK 2 TS QPM. levothyroxine 112 mcg tablet 56 mcg PO DAILY 0RF Label Comments: TK 1/2 T PO QD cyclobenzaprine 10 MG tablet 10 mg PO TID 0RF morphine 15 mg tablet 45 mg PO Q6H PRN (Reason: pain) 0RF Label Comments: TK 1 TO 2 TS PO Q 6 H PRN P Referrals: Charli Sampson MD [Primary Care Provider] - Visit Report Forms: Patient Portal/API
[2021-12-31 22:03] VITALS: BP 160/81; PULSE 87; RESP 18; O2SAT 95
[2021-12-31] MEDS: ACETAMINOPHEN/CODEINE SOLN 5 ML SOLUTION 10 ML PO (22:06)
[2021-12-31] MEDS: ACETAMINOPHEN/CODEINE SOLN 5 ML SOLUTION PO (22:22)
== END 2021-12-31 22:27 | disposition home or self-care (01) ==
PROVIDERS: Emergency Provider Emergency Medicine; Family Provider Internal Medicine; PCP Internal Medicine
DX: U07.1 COVID-19 (principal)
CPT/HCPCS: 0241U; 99283

== ENCOUNTER → 2022-03-04 14:34 | Outpatient (CLI) | payer MEDICARE, SELFPAY ==
--- NOTE | 2022-03-04 14:38 | DI.RAD.S_ITS ---
PROCEDURE: XR ACUTE ABDOMEN SERIES INDICATIONS: nausea/abd pain TECHNIQUE: One view chest and two views of the abdomen were acquired. COMPARISON: [facility], CR, XR CHEST 2V, 11/17/2020, 8:20. [facility], CT, CT ABDOMEN PELVIS W CON, 12/09/2021, 14:13. FINDINGS: Surgical changes and devices: None. Chest: Increased pulmonary markings are unchanged. This is consistent with chronic interstitial lung disease. No acute airspace opacity identified. Heart size is normal. No pleural effusions. No pneumoperitoneum. Abdomen: Scattered small bowel and colonic gas. No dilated loops of bowel seen. No suspicious calcifications. Visualized solid organ contours appear normal. Bones: No suspicious bony lesions. Right shoulder reverse arthroplasty. IMPRESSION: 1. Similar chronic interstitial lung disease. 2. Nonobstructive bowel gas pattern. If clinically indicated consider CT abdomen pelvis with IV contrast for further evaluation. Dictated by: Vance Pineda M.D. on 03/05/2022 at 9:19 Approved by: Vance Pineda M.D. on 03/05/2022 at 9:22
[2022-03-04 16:17] LABS: Add Manual Diff / Slide Review NO; Basophils Absolute Auto 0 /uL (0-100); Basophils Percent Auto 0.8 % (0-2); Eosinophils Absolute Auto 200 /uL (0-450); Eosinophils Percent Auto 3.9 % (2-4); Hematocrit 42.6 % (41-53); Hemoglobin 13.5 g/dL (13.5-17.5); Lymphocytes Absolute Auto 2300 /uL (1100-4500); Lymphocytes Percent Auto 43.6 % (25-40); Mean Corpuscular HGB Conc 31.7 % (30-36); Mean Corpuscular Hemoglobin 23.1 PG (26-34); Mean Corpuscular Volume 72.9 fL (80-100); Monocytes Absolute Auto 600 /uL (0-900); Monocytes Percent Auto 10.7 % (3-14); Neutrophils Absolute Auto 2200 /uL (1500-7000); Platelet Count 275 X10^3/uL (150-400); Red Blood Cell Count 5.85 X10^6/uL (4.5-5.9); Red Cell Distribution Width 20.7 % (11.6-14.8); White Blood Cell Count 5.3 X10^3/uL (4.5-11.0)
[2022-03-04 16:42] LABS: Erythrocyte Sedimentation Rate 1 MM/HR (0-15)
[2022-03-04 16:45] LABS: Alanine Aminotransferase 27 IU/L (<50); Albumin 4.8 g/dL (3.5-5.0); Albumin Globulin Ratio 1.5 (1.0-2.8); Alkaline Phosphatase 83 U/L (38-126); Amylase 94 U/L (30-110); Aspartate Aminotransferase 61 IU/L (17-59); BUN Creatinine Ratio 13.3 (6-22); Bilirubin Total 0.7 mg/dL (0.2-1.3); Blood Urea Nitrogen 15 mg/dL (9-20); C-Reactive Protein Quant < 0.5 mg/dL (<1.0); Calcium 9.4 mg/dL (8.4-10.2); Carbon Dioxide 29 mmol/L (22-32); Chloride 95 mmol/L (98-107); Estimated Glomerular Filt Rate > 60 mL/min (>60); Globulin 3.2 g/dL (1.7-4.1); Glucose 111 mg/dL (80-110); HEMOLYSIS 21 (0-50); Lipase 77 U/L (23-300); Potassium 4.5 mmol/L (3.4-5.1); Sodium 134 mmol/L (137-145)
[2022-03-04 16:58] LABS: Anisocytosis 2+
[2022-03-04 17:00] LABS: Macrocytosis 1+
== END ==
PROVIDERS: Family Provider Internal Medicine; PCP Internal Medicine; Referring Provider Internal Medicine; Visit Provider Internal Medicine
DX: R11.0 Nausea (principal); R10.9 Unspecified abdominal pain; J84.9 Interstitial pulmonary disease, unspecified
CPT/HCPCS: 36415; 74022; 80053; 82150; 83690; 85025; 85651; 86140

== ENCOUNTER → 2022-03-20 17:38 | Outpatient (CLI) | payer MEDICARE, SELFPAY ==
[2022-03-20 18:41] LABS: Alanine Aminotransferase 21 IU/L (<50); Albumin 4.2 g/dL (3.5-5.0); Albumin Globulin Ratio 1.6 (1.0-2.8); Alkaline Phosphatase 77 U/L (38-126); Aspartate Aminotransferase 31 IU/L (17-59); BUN Creatinine Ratio 19.3 (6-22); Bilirubin Total 0.4 mg/dL (0.2-1.3); Blood Urea Nitrogen 21 mg/dL (9-20); Calcium 8.6 mg/dL (8.4-10.2); Carbon Dioxide 30 mmol/L (22-32); Chloride 98 mmol/L (98-107); Estimated Glomerular Filt Rate > 60 mL/min (>60); Globulin 2.6 g/dL (1.7-4.1); Glucose 102 mg/dL (80-110); HEMOLYSIS < 15 (0-50); Sodium 133 mmol/L (137-145); Total Protein 6.8 g/dL (6.3-8.2)
[2022-03-20 18:59] LABS: Free T3, Triiodothyronine Free 5.08 pg/mL (2.77-5.27); Free T4, Direct Thyroxine 1.13 ng/dL (0.78-2.19)
[2022-03-20 19:12] LABS: Thyroid Stimulating Hormone 0.285 uIU/mL (0.47-4.68)
[2022-03-20 19:17] LABS: Testosterone 762 ng/dL (71.8-623)
== END ==
PROVIDERS: Family Provider Internal Medicine; PCP Internal Medicine; Referring Provider Internal Medicine Endocrinology, Diabetes & Metabolism; Visit Provider Internal Medicine Endocrinology, Diabetes & Metabolism
DX: E29.1 Testicular hypofunction (principal); E03.9 Hypothyroidism, unspecified
CPT/HCPCS: 36415; 80053; 84403; 84439; 84443; 84481

== ENCOUNTER 2022-05-05 13:59 | Emergency (ER) | payer MEDICARE, SELFPAY ==
[2022-05-05 14:33] VITALS: BP 116/60; PULSE 106; RESP 18; TEMP 36.9; O2SAT 97; BMI 27.3
--- NOTE | 2022-05-05 14:39 | DI.RAD.S_ITS ---
PROCEDURE: XR ACUTE ABDOMEN SERIES INDICATIONS: no bm in 1 week, increased pain TECHNIQUE: One view chest and two views of the abdomen were acquired. COMPARISON: [facility], CR, XR CHEST 2V, 11/17/2020, 8:20. [facility], CT, CT ABDOMEN PELVIS W CON, 12/09/2021, 14:13. [facility], CR, XR ACUTE ABDOMEN SERIES, 03/04/2022, 14:55. FINDINGS: Surgical changes and devices: Right shoulder arthroplasty hardware is seen. Chest: Generalized interstitial prominence can be seen within the lungs. No focal infiltrates are seen. No pneumothorax or pleural effusions are seen. Heart size is normal. No pleural effusions. No pneumoperitoneum. Abdomen: No dilated loops of small bowel are seen. There is a moderate amount of stool seen within the colon. No suspicious calcifications. Visualized solid organ contours appear normal. Pelvic phleboliths are incidentally noted. Bones: No suspicious bony lesions. Age-appropriate bony degenerative changes are seen. Mild dextroconvex scoliotic curvature is seen. IMPRESSION: There is a moderate amount of stool seen within the colon, which is consistent with the given history. Postoperative and degenerative changes are seen. Stable pulmonary interstitial prominence. Dictated by: Darion Sargent M.D. on 05/05/2022 at 14:22 Approved by: Darion Sargent M.D. on 05/05/2022 at 14:24
--- NOTE | 2022-05-05 16:06 | ED.ABDPAIN ---
HPI - Abdominal Pain <Daniel Sanders PA-C - Last Filed: 05/05/22 19:05> General Chief Complaint: Abdominal Pain Stated Complaint: Constipation pt thinks, lower abd pain Time Seen by Provider: 05/05/22 14:25 Source: patient Mode of arrival: Ambulatory History of Present Illness HPI narrative: Patient is a 71-year-old male who presents to the emergency room today with complaint of constipation and the need urinate. Patient has chronic history of constipation related to him taking opioid medication states she has been seen by his primary care provider recently for this and he was prescribed Constulose. States he is not understand the dosing of this medication. States that last night he noticed that he had associated abdominal pain with the constipation. States that he also had difficulty urinating. He said he eventually he urinated late last night with still had constipation. States he was hit on the toilet would not be able to go. Admits the last time he was seen here in the emergency room the lactulose helped him have a bowel movement. States that he took some of the Constulose yesterday and it was only the 2nd medication. Denies shortness of breath fever chills nausea vomiting or other GI related concerns. Describes the abdominal pain as an abdominal discomfort that is lateral lower abdomen. Related Data Home Medications Medication Instructions Recorded Confirmed [TESTOSTERONE] IM ##0 10/07/08 03/04/22 liothyronine 5 mcg tablet (Cytomel) 5 mcg PO 0600 #0 tabs 04/02/13 03/04/22 diclofenac sodium 75 mg 75 mg PO BID 03/10/18 03/04/22 tablet,delayed release pantoprazole 40 mg tablet,delayed 40 mg PO DAILY PRN Acid Reflux 03/10/18 03/04/22 release clonazepam 1 mg tablet 1 mg PO QAM #0 tabs 05/28/18 03/04/22 sennosides 8.6 mg tablet (Senokot) See Rx Instructions PO DAILY PRN 01/19/19 03/04/22 clonazepam 1 mg tablet 2 mg PO QPM 03/24/19 03/04/22 cyclobenzaprine 10 mg tablet 10 mg PO TID 03/24/19 03/04/22 levothyroxine 112 mcg tablet 56 mcg PO DAILY 03/24/19 03/04/22 carbamazepine 300 mg 300 mg PO BID #0 caps 02/15/20 03/04/22 capsule,extended release [id number] baclofen 10 mg tablet 20 mg PO TID #0 tabs 06/16/20 03/04/22 morphine 15 mg immediate release 45 mg PO Q6H PRN pain 06/16/20 03/04/22 tablet cefadroxil 500 mg capsule 1,000 mg PO BID 11/09/20 03/04/22 hydrocortisone 10 mg tablet See Rx Instructions .Route .COMPLEX 01/25/22 03/04/22 (Cortef) sulfamethoxazole 800 1 tab PO BID 01/25/22 03/04/22 mg-trimethoprim 160 mg tablet Previous Rx's Medication Instructions Recorded furosemide 20 mg tablet 20 mg PO DAILY #30 tabs 05/28/21 potassium chloride 8 mEq 8 meq PO DAILY #30 tabs 06/28/21 tablet,extended release duloxetine 40 mg capsule,delayed 40 mg PO DAILY #90 caps 11/06/21 release promethazine 6.25 mg-codeine 10 5 ml PO Q4-6H PRN cough #473 mL 12/31/21 mg/5 mL syrup tadalafil 20 mg tablet (Cialis) 20 mg PO DAILY PRN sexual activity 02/11/22 #10 tabs lactulose 10 gram/15 mL oral 20 g (30 mL) PO TID #237 mL 03/12/22 solution tamsulosin 0.4 mg capsule 0.4 mg PO DAILY #90 caps 04/02/22 lorazepam 2 mg tablet 4 mg PO BEDTIME anxiety #60 tabs 04/11/22 Allergies Allergy/AdvReac Type Severity Reaction Status Date / Time phenobarbital [PHENOBARBITAL] Allergy Severe REALLY SICK Verified 03/04/22 14:07 venom-honey bee Allergy Severe ANAPHYLAXIS Verified 03/04/22 14:07 [BEE VENOM (HONEY BEE)] venom-wasp [WASP VENOM] Allergy Severe Anaphylaxis Verified 03/04/22 14:07 Review of Systems <Daniel Sanders PA-C - Last Filed: 05/05/22 19:05> Review of Systems Narrative: R.O.S.: General: No fever, chills or fatigue. Cardiovascular: No chest pain or palpitations Respiratory: No S.O.B. HEENT: No congestion, ear pain, rhinorrhea, sore throat or tinnitus Gastrointestinal: Constipation : Need to urinate Skin: No rash or associated abnormalities Musculoskeletal: No pain in muscles or joints, no limitation of range of motion, no paresthesia or numbness. ?? Neurological: Awake, alert and in not apparent distress. No Headaches, changes in vision or other related neurological concerns. 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) Peripheral neuropathy Pituitary adenoma (10/18/02) Tinnitus Surgical History (Updated 07/26/20 @ 00:00 by ) History of knee replacement Status post left knee 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 (~04/27/19) Status post surgery Family History Father Leukemia Social History marital status: number of children: 3 household members: none lives independently: Yes caregiver/support person: No housing: house pets and animals: Yes education level: college occupational status: other Previous occupational history: Various leisure activities: music and other Smoking Status: Never smoker Tobacco: How many years used: 0 quit status: quit date established second hand exposure: No alcohol intake: current substance use type: does not use Smoking Status: Never smoker alcohol intake frequency: a few times a week Substance Use Type: does not use Exam <Daniel Sanders PA-C - Last Filed: 05/05/22 19:05> Narrative Exam Narrative: Physical Exam: ? General: normal appearance, well developed, well nourished, alert, and awake. Not in acute distress. ? Head: Normocephalic, no lesions. Chest: Lungs CTAB, no rales, rhonchi or wheezes. ?? Heart: RRR, no murmurs, rubs or gallops. Eyes: PERRLA, EOM's full, conjunctivae clear. ? Neuro: Physiological, no localizing findings, CN3-12 intact. ?? Extremities: Warm, well perfused, FROM, no deformities, no edema. ?? Skin: Normal, no rashes, no lesions noted. ?? PSYCHIATRIC: The mood is good, no blunted affect. Speech is clear. Thought process is linear, thought content is appropriate. The voice is without significant inflection. Gastrointestinal: Soft; NT; mild tenderness to the bilateral lower quadrants.; negative CVA tenderness Pos BS with Neg. rebound tenderness. No scars or major deformities noted on Visual Inspection. Initial Vital Signs Initial Vital Signs: Vital Signs Temperature 98.5 F 05/05/22 14:33 Pulse Rate 106 H 05/05/22 14:33 Respiratory Rate 18 05/05/22 14:33 Blood Pressure 116/60 05/05/22 14:33 Pulse Oximetry 97 05/05/22 14:33 Oxygen Delivery Method 05/05/22 14:33 <DO Estela Cook Last Filed: 05/06/22 07:10> Initial Vital Signs Initial Vital Signs: Vital Signs Temperature 98.5 F 05/05/22 14:33 Pulse Rate 106 H 05/05/22 14:33 Respiratory Rate 18 05/05/22 14:33 Blood Pressure 116/60 05/05/22 14:33 Pulse Oximetry 97 05/05/22 14:33 Oxygen Delivery Method 05/05/22 14:33 Course <Daniel Sanders PA-C - Last Filed: 05/05/22 19:05> Orders Ordered: ED Orders 05/05/22 14:39 XR acute abdomen series Stat Complete Blood Count AUTO DIFF Stat Comprehensive Metabolic Panel Stat Lipase Stat 05/05/22 15:16 EKG-12 Lead Stat Vital Signs Vital signs: Vital Signs - 8 hr 05/05/22 14:33 Temperature 98.5 F Pulse Rate 106 H Respiratory Rate 18 Blood Pressure 116/60 Pulse Oximetry 97 Oxygen Delivery Method Room Air <DO Estela Cook Last Filed: 05/06/22 07:10> Orders Ordered: ED Orders 05/05/22 14:39 XR acute abdomen series Stat Complete Blood Count AUTO DIFF Stat Comprehensive Metabolic Panel Stat Lipase Stat 05/05/22 15:16 EKG-12 Lead Stat Vital Signs Vital signs: Vital Signs - 8 hr 05/05/22 14:33 Temperature 98.5 F Pulse Rate 106 H Respiratory Rate 18 Blood Pressure 116/60 Pulse Oximetry 97 Oxygen Delivery Method Room Air MDM - Abdominal Pain <Daniel Sanders PA-C - Last Filed: 05/05/22 19:05> Lab Data Point of care testing: Urine Dip Bedside Urine Glucose Negative Bedside Urine Bilirubin - Negative Bedside Urine Ketone - Negative Urine Specific [place] 1.010 Bedside Urine Occult Blood - Negative Bedside Urine pH 7.5 Bedside Urine Protein - Negative Bedside Urine Urobilinogen 0.2 Bedside Urine Nitrite - Negative Bedside Urine Leukocytes - Negative Esterase Imaging Data Abdominal x-ray: Radiologist's Impression: [address] [address] XRay Report Signed Patient: Charli Davalos MR#: [id number] : 1950 Acct:[id number] Age/Sex: 71 / M Date of Service: 05/05/22 Loc: ED Accession Number: [id number] ?? Procedure: XR acute abdomen series Ordering Provider: Ricardo Henriquez D.O. PROCEDURE:? XR ACUTE ABDOMEN SERIES ? INDICATIONS:? no bm in 1 week, increased pain ? TECHNIQUE:? One view chest and two views of the abdomen were acquired.? ? COMPARISON:? [facility], CR, XR CHEST 2V, 11/17/2020, 8:20.? [facility], CT, CT ABDOMEN PELVIS W CON, 12/09/2021, 14:13.? [facility], CR, XR ACUTE ABDOMEN SERIES, 03/04/2022, 14:55. ? FINDINGS:? ? Surgical changes and devices:? Right shoulder arthroplasty hardware is seen. ? Chest:? Generalized interstitial prominence can be seen within the lungs.? No focal infiltrates are seen. No pneumothorax or pleural effusions are seen. ? Heart size is normal.? No pleural effusions.? No pneumoperitoneum.? ? Abdomen:? No dilated loops of small bowel are seen.? There is a moderate amount of stool seen within the colon.? No suspicious calcifications.? Visualized solid organ contours appear normal.? Pelvic phleboliths are incidentally noted.? ? Bones:? No suspicious bony lesions.? Age-appropriate bony degenerative changes are seen.? Mild dextroconvex scoliotic curvature is seen.? IMPRESSION:? There is a moderate amount of stool seen within the colon, which is consistent with the given history. ? Postoperative and degenerative changes are seen.? ? Stable pulmonary interstitial prominence. ? ? Dictated by: Darion Sargent M.D. on 05/05/2022 at 14:22 ? ? Approved by: Darion Sargent M.D. on 05/05/2022 at 14:24 ? MDM Narrative Medical decision making narrative: Patient to emergency room with complaint of chronic constipation and inability to urinate as he feels. Physical exam did not reveal any urgent emergent. Chest abdomen x-ray acute series was also done did not reveal any urgent emergent concerns. Bladder scan ordered and confirmed a volume of 600 cc. Nurse to insert a catheter to help patient avoid. Also urine collected to rule out urinary tract infection. Patient declined to have a catheter inserted and voided urine while he was in the emergency room. Urine was negative for urinary tract infection inpatient sedated the emergency room before given total discharge instructions. <Ricardo Henriquez, DO - Last Filed: 05/06/22 07:10> Lab Data Point of care testing: Urine Dip Bedside Urine Glucose Negative Bedside Urine Bilirubin - Negative Bedside Urine Ketone - Negative Urine Specific [place] 1.010 Bedside Urine Occult Blood - Negative Bedside Urine pH 7.5 Bedside Urine Protein - Negative Bedside Urine Urobilinogen 0.2 Bedside Urine Nitrite - Negative Bedside Urine Leukocytes - Negative Esterase Discharge Plan Departure Patient Disposition: Home Clinical Impression: Constipation, chronic, Difficulty in urination Instructions: DI for Constipation Activity Restrictions/Additional Instructions: *You have been diagnosed with chronic constipation and difficulty urinating. The nurse informed me the voided urine while in the emergency room and declined catheter today. I have instructed on correct dosing of your Constulose medications and advise you take them as ordered. I also suggested also use Fleet enemas and other [id number] remedies to with your constipation. Also please return to the emergency room should any emergent concerns arise. [ ] *What to do: *Please continue to take your regular medications as directed. [ ] New medication prescriptions sent to your pharmacy: [ ] [ ] New medication written as a paper prescription [x] No new medications given *Please follow up with your primary care provider in 2-3 days, call for an appointment. Let them know you were seen in the Emergency Department and that we ask that you be seen in follow up. We will electronically transmit a record of today's note if your PCP is in our system *If you do not have a primary care provider please contact the [facility] Resource line at [phone]. They will ask some questions about your medical history and help get you set up with a doctor in the community. *Return to Emergency Department if you should have any new, worsening or concerning symptoms, such as [fever greater than 101 F, shaking chills, worsening pain, persistent vomiting or other bothersome symptoms] Prescriptions: No Action [TESTOSTERONE] IM Qty: 0 liothyronine [Cytomel] 5 MCG tablet 5 mcg PO 0600 Qty: 0 clonazepam 1 mg tablet 1 mg PO QAM Qty: 0 Label Comments: 1 every am and 2 every night carbamazepine 300 mg capsule, ER multiphase 12 hr 300 mg PO BID Qty: 0 baclofen 10 mg tablet 20 mg PO TID Qty: 0 furosemide 20 mg tablet 20 mg PO DAILY Qty: 30 3RF potassium chloride 8 mEq tablet extended release 8 meq PO DAILY Qty: 30 3RF tadalafil [Cialis] 20 mg tablet 20 mg PO DAILY PRN (Reason: sexual activity) Qty: 10 3RF Rx Instructions: 1 tablet daily as needed. lactulose 10 gram/15 mL solution 20 g PO TID Qty: 237 12RF tamsulosin 0.4 mg capsule 0.4 mg PO DAILY Qty: 90 3RF lorazepam 2 mg tablet 4 mg PO BEDTIME Qty: 60 0RF diclofenac sodium 75 mg tablet,delayed release (DR/EC) 75 mg PO BID pantoprazole 40 mg tablet,delayed release (DR/EC) 40 mg PO DAILY PRN (Reason: Acid Reflux) sennosides [Senokot] 8.6 mg tablet See Rx Instructions PO DAILY PRN Label Comments: 1 TAB IN AM, 2 IN PM PO DAILY PRN; Rx Instructions: 1 TAB IN AM, 2 IN PM PO DAILY PRN; cefadroxil 500 mg capsule 1,000 mg PO BID duloxetine 40 mg capsule,delayed release(DR/EC) 40 mg PO DAILY Qty: 90 3RF sulfamethoxazole-trimethoprim 800-160 mg tablet 1 tab PO BID hydrocortisone [Cortef] 10 mg tablet See Rx Instructions .ROUTE .COMPLEX Rx Instructions: 20mg in am, 10mg in pm clonazepam 1 mg tablet 2 mg PO QPM Label Comments: TK 1 T PO QAM AND TK 2 TS QPM. levothyroxine 112 mcg tablet 56 mcg PO DAILY Label Comments: TK 1/2 T PO QD cyclobenzaprine 10 MG tablet 10 mg PO TID morphine 15 mg tablet 45 mg PO Q6H PRN (Reason: pain) Label Comments: TK 1 TO 2 TS PO Q 6 H PRN P promethazine-codeine 6.25-10 mg/5 mL syrup 5 ml PO Q4-6H PRN (Reason: cough) Qty: 473 0RF Referrals: Charli Sampson MD [Primary Care Provider] - Visit Report Forms: Patient Portal/API <Ricardo Henriquez, - Last Filed: 05/06/22 07:10> Cosign ED Attending Cosignature Attestation: Dr Henriquez Co-Sign Statement: I was available for consultation during this patient's emergency department visit. This chart is signed by myself for administrative purposes only. I did not have direct contact with this patient during this visit. They were seen independently by the APC.
== END 2022-05-05 18:20 | disposition home or self-care (01) ==
PROVIDERS: Emergency Provider Physician Assistant; Family Provider Internal Medicine; PCP Internal Medicine
DX: K59.09 Other constipation (principal); R39.198 Other difficulties with micturition; R10.9 Unspecified abdominal pain
CPT/HCPCS: 51798; 74022; 81003; 93005; 93010; 99282; 99284

== ENCOUNTER 2022-10-12 18:19 | Emergency (ER) | payer MEDICARE, SELFPAY ==
[2022-10-12] VITALS (7 sets, daily range): BP systolic 137–181; BP diastolic 73–91; PULSE 60–87; RESP 15–16; TEMP 36.8; O2SAT 93–98; BMI 27.3
--- NOTE | 2022-10-12 18:33 | DI.RAD.S_ITS ---
PROCEDURE: XR CHEST 2V INDICATIONS: fall, hit chest on bed frame TECHNIQUE: 2 views of the chest were acquired. COMPARISON: [facility], , XR CHEST 2V, 11/17/2020, 8:20. FINDINGS: Surgical changes and devices: None. Lungs and pleura: Prominent reticular opacities throughout the bilateral lungs. No concerning consolidation. No pleural effusions or pneumothorax. Mediastinum: Mediastinal contours are normal. Heart size is normal. Bones and chest wall: Severe emphysematous reticular changes obscure overlying osseous structures. No displaced rib fracture identified. No pneumothorax. No suspicious bony abnormalities. Soft tissues appear unremarkable. IMPRESSION: 1. No displaced rib fracture or pneumothorax identified. 2. Prominent emphysematous changes with reticular thickening of the lungs. Dictated by: Taqueria Finley M.D. on 10/12/2022 at 17:53 Approved by: Taqueria Finley M.D. on 10/12/2022 at 17:55
--- NOTE | 2022-10-12 18:49 | PC.NURSE ---
No sub-cutaneous emphysema palpated on chest or over neck, no JVD, no flail chest, and no signs of acute respiratory distress. Pt tender to palpation.
--- NOTE | 2022-10-12 19:04 | ED_ITS ---
HPI - Fall General Chief Complaint: Fall Stated Complaint: fell last night/hand injury/chest pain Time Seen by Provider: 10/12/22 18:25 Source: patient Mode of arrival: Family Vehicle History of Present Illness HPI Narrative: 72-year-old male nonsmoker with history of bipolar 1, roberto hypopituitarism presents with family in the chief complaint of chest wall pain as a consequence of a ground level fall yesterday. He states that he had no prodromal symptoms contributed to the fall such as dizziness, weakness or lightheadedness. He states that he was barely reaching for to stabilize his body when leaning over and his hand slipped which allowed him to fall forward striking his chest on a hard object. He denies any head, neck or back pain. He does not take any anticoagulation. He has sharp and stabbing pain in his left anterior chest with certain range of motion in deep breath. He is had no hemoptysis and feels short of breath only occasionally and generally due to pain. He denies abdominal pain, nausea or vomiting. Related Data Home Medications Medication Instructions Recorded Confirmed liothyronine 5 mcg tablet (Cytomel) 5 mcg PO 0600 #0 tabs 04/02/13 09/06/22 diclofenac sodium 75 mg 75 mg PO BID 03/10/18 09/06/22 tablet,delayed release pantoprazole 40 mg tablet,delayed 40 mg PO DAILY PRN Acid Reflux 03/10/18 09/06/22 release clonazepam 1 mg tablet 1 mg PO QAM #0 tabs 05/28/18 09/06/22 sennosides 8.6 mg tablet (Senokot) See Rx Instructions PO DAILY PRN 01/19/19 09/06/22 clonazepam 1 mg tablet 2 mg PO QPM 03/24/19 09/06/22 cyclobenzaprine 10 mg tablet 10 mg PO TID 03/24/19 09/06/22 levothyroxine 112 mcg tablet 56 mcg PO DAILY 03/24/19 09/06/22 carbamazepine 300 mg 300 mg PO BID #0 caps 02/15/20 09/06/22 capsule,extended release [id number] baclofen 10 mg tablet 20 mg PO TID #0 tabs 06/16/20 09/06/22 morphine 15 mg immediate release 45 mg PO Q6H PRN pain 06/16/20 09/06/22 tablet cefadroxil 500 mg capsule 1,000 mg PO BID 11/09/20 09/06/22 hydrocortisone 10 mg tablet See Rx Instructions .Route .COMPLEX 01/25/22 09/06/22 (Cortef) sulfamethoxazole 800 1 tab PO BID 01/25/22 09/06/22 mg-trimethoprim 160 mg tablet testosterone cypionate 200 mg/mL 200 mg IM 09/06/22 09/06/22 intramuscular oil Previous Rx's Medication Instructions Recorded furosemide 20 mg tablet 20 mg PO DAILY #30 tabs 05/28/21 duloxetine 40 mg capsule,delayed 40 mg PO DAILY #90 caps 11/06/21 release lactulose 10 gram/15 mL oral 20 g (30 mL) PO TID #237 mL 03/12/22 solution tamsulosin 0.4 mg capsule 0.4 mg PO DAILY #90 caps 04/02/22 tadalafil 20 mg tablet (Cialis) 20 mg PO DAILY PRN sexual activity 07/30/22 #10 tabs lorazepam 2 mg tablet 4 mg PO BEDTIME anxiety #60 tabs 10/08/22 hydrocodone 5 mg-acetaminophen 325 1 tab PO Q4-6H PRN pain #20 tabs 10/12/22 mg tablet ondansetron 4 mg disintegrating 4 mg PO TID-QID PRN nausea and 10/12/22 tablet vomiting #10 tabs Allergies Allergy/AdvReac Type Severity Reaction Status Date / Time phenobarbital [PHENOBARBITAL] Allergy Severe REALLY SICK Verified 10/12/22 18:28 venom-honey bee Allergy Severe ANAPHYLAXIS Verified 10/12/22 18:28 [BEE VENOM (HONEY BEE)] venom-wasp [WASP VENOM] Allergy Severe Anaphylaxis Verified 10/12/22 18:28 Review of Systems Review of Systems Narrative: GENERAL: Denies chills, fatigue, malaise, fever, sweats. HEENT: Denies sinus pain, ear pain, sore throat, difficulty swallowing, dizziness. RESPIRATORY: Denies dyspnea, cough, wheezing, hemoptysis, sputum. CARDIOVASCULAR: See HPI GASTROINTESTINAL: Denies nausea, vomiting, abdominal pain, diarrhea, constipation, melena. : Denies dysuria, frequency, incontinence, hematuria, urinary retention. MUSCULOSKELETAL: denies weakness, joint pain, or bony pain SKIN: Denies rash, skin lesions, or other NEUROLOGIC: Denies weakness, headache, numbness, change in speech, confusion, seizures, incoordination. PSYCHIATRIC: No concerning psychosocial issues. 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) Peripheral neuropathy Pituitary adenoma (10/18/02) Tinnitus Surgical History History of knee replacement Status post left knee 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 (~04/27/19) Status post surgery Family History Father Leukemia Social History marital status: number of children: 3 household members: none lives independently: Yes caregiver/support person: No housing: house pets and animals: Yes education level: college occupational status: other Previous occupational history: Various leisure activities: music and other Smoking Status: Never smoker Tobacco: How many years used: 0 quit status: quit date established second hand exposure: No alcohol intake: current substance use type: does not use Smoking Status: Never smoker alcohol intake frequency: a few times a week Substance Use Type: does not use Exam Narrative Exam Narrative: GENERAL: [72] year old patient appears stated age. Well-developed patient, in mild distress. HEAD: Atraumatic. Normocephalic. EYES: Pupils equal round and reactive. Extraocular motions intact. No scleral icterus. No injection or drainage. ENT: Nose without bleeding, purulent drainage. Throat without erythema, tonsillar hypertrophy or exudate. Airway patent. NECK: Trachea midline. Non tender CARDIOVASCULAR: Regular rate and rhythm without murmurs, gallops, or rubs. Left anterior chest tender to palpation, no subcu emphysema or crepitance. There is a small area of ecchymosis just lateral to the sternum RESPIRATORY: Clear to auscultation. Breath sounds equal bilaterally. No wheezes, rales, or rhonchi. GASTROINTESTINAL: Abdomen soft, non-tender, nondistended. EXTREMITIES: No edema or joint tenderness. BACK: Nontender without deformity or crepitance. No flank tenderness. NEURO: AOx3. SKIN: No rash or erythema of visible areas Initial Vital Signs Initial Vital Signs: Vital Signs Pulse Rate 83 10/12/22 18:24 Blood Pressure 181/91 H 10/12/22 18:24 Pulse Oximetry 96 10/12/22 18:24 Course Orders Ordered: Discontinued Medications Hydrocodone Bitart/Acetaminophen (Hydrocodone/Acet 5/325 Prepack) 1 bottle MISC SEEINSTR ONE Stop: 10/12/22 19:48 Last Admin: 10/12/22 19:59 Dose: 1 bottle Documented By: CHEO Ondansetron HCl (Ondansetron 4 Mg Odt Prepack) 1 bottle MISC SEEINSTR ONE Stop: 10/12/22 19:48 Last Admin: 10/12/22 19:59 Dose: 1 bottle Documented By: CHEO Vital Signs Vital signs: Vital Signs - 8 hr 10/12/22 18:25 10/12/22 18:24 10/12/22 18:24 Temperature 98.2 F Pulse Rate 87 83 Respiratory Rate 16 Blood Pressure 181/91 H 181/91 H Pulse Oximetry 97 96 Oxygen Delivery Method Room Air 10/12/22 18:34 10/12/22 18:34 10/12/22 18:46 Temperature Pulse Rate 81 Respiratory Rate Blood Pressure 153/81 H 164/83 H Pulse Oximetry 98 Oxygen Delivery Method 10/12/22 18:46 10/12/22 19:00 10/12/22 19:00 Temperature Pulse Rate 81 75 Respiratory Rate 15 Blood Pressure 146/82 H Pulse Oximetry 97 95 Oxygen Delivery Method 10/12/22 19:30 10/12/22 19:30 Temperature Pulse Rate 60 Respiratory Rate Blood Pressure 147/73 H Pulse Oximetry 93 Oxygen Delivery Method Room Air MDM - Fall MDM Narrative Medical decision making narrative: [72] year old patient presents with chest wall pain after ground level fall yesterday Multiple etiologies for patient's symptoms considered including, but not limited to: [Contusion, rib fracture, pneumothorax versus other] Prior Charts reviewed in our EMR Primary Historian: patient Imaging reviewed: No fracture or pneumothorax Patient with anterior chest wall pain after ground level fall, no significant increased work of breathing, normal lung sounds bilaterally and imaging without obvious fracture or pneumothorax. His vitals are stable and there is no evidence of hypoxemia. We did discuss the utility of a possible CT scan but sure the opinion that at this time we would hold off because based on how reassuring his history and physical as well as vital signs are it is unlikely to present a finding that would take us down a different path. We spoke at length about the elements that would prompt a return such as increasing shortness of breath, hemoptysis, near-syncope, worsening pain, vomiting or other concerning symptoms. He is given prepack for both hydrocodone and Zofran and respiratory therapy has provided teaching with incentive spirometry Findings and discharge diagnosis discussed with patient/family followed by verbalization of understanding Return precautions discussed with patient/family whom verbalize understanding of diagnosis and plan Discharge Plan Departure Patient Disposition: Home Clinical Impression: Chest wall contusion Instructions: DI for Contusion Activity Restrictions/Additional Instructions: *You have been diagnosed with [chest wall contusion. As we discussed your history and physical exam as well as x-ray are reassuring and there is no evidence of fracture or collapsed lung.] *What to do: *Please continue to take your regular medications as directed. [ x] New medication prescriptions sent to your pharmacy: [ [facility] ] [ ] New medication written as a paper prescription [ ] No new medications given *Please follow up with your primary care provider in 2-3 days, call for an appointment. Let them know you were seen in the Emergency Department and that we ask that you be seen in follow up. We will electronically transmit a record of today's note if your PCP is in our system *If you do not have a primary care provider please contact the [facility] Resource line at [phone]. They will ask some questions about your medical history and help get you set up with a doctor in the community. *Return to Emergency Department if you should have any new, worsening or concerning symptoms, such as [fever greater than 101 F, shaking chills, worsening pain, persistent vomiting or other bothersome symptoms] You have been prescribed a short course of narcotic medications. These are potentially dangerous and addictive medications that should be used carefully. While on these medications you cannot drive or operate heavy machinery. Additionally, you cannot sign legal documents or perform any duties such as this. Many people get constipated on narcotic medications so it would be advisable to discuss stool softeners with the pharmacist when you pickle solution maker your prescription. Please understand that we cannot provide further refills of narcotics or controlled substances through the ED and your pain management will need to be through your Primary Care Provider Prescriptions: New hydrocodone-acetaminophen 5-325 mg tablet 1 tab PO Q4-6H PRN (Reason: pain) Qty: 20 0RF ondansetron 4 mg tablet,disintegrating 4 mg PO TID-QID PRN (Reason: nausea and vomiting) Qty: 10 0RF No Action liothyronine [Cytomel] 5 MCG tablet 5 mcg PO 0600 Qty: 0 clonazepam 1 mg tablet 1 mg PO QAM Qty: 0 Patient Comments: 1 every am and 2 every night carbamazepine 300 mg capsule, ER multiphase 12 hr 300 mg PO BID Qty: 0 baclofen 10 mg tablet 20 mg PO TID Qty: 0 furosemide 20 mg tablet 20 mg PO DAILY Qty: 30 3RF lactulose 10 gram/15 mL solution 20 g PO TID Qty: 237 12RF tamsulosin 0.4 mg capsule 0.4 mg PO DAILY Qty: 90 3RF tadalafil [Cialis] 20 mg tablet 20 mg PO DAILY PRN (Reason: sexual activity) Qty: 10 3RF Rx Instructions: 1 tablet daily as needed. lorazepam 2 mg tablet 4 mg PO BEDTIME Qty: 60 0RF diclofenac sodium 75 mg tablet,delayed release (DR/EC) 75 mg PO BID pantoprazole 40 mg tablet,delayed release (DR/EC) 40 mg PO DAILY PRN (Reason: Acid Reflux) sennosides [Senokot] 8.6 mg tablet See Rx Instructions PO DAILY PRN Patient Comments: 1 TAB IN AM, 2 IN PM PO DAILY PRN; Rx Instructions: 1 TAB IN AM, 2 IN PM PO DAILY PRN; cefadroxil 500 mg capsule 1,000 mg PO BID duloxetine 40 mg capsule,delayed release(DR/EC) 40 mg PO DAILY Qty: 90 3RF sulfamethoxazole-trimethoprim 800-160 mg tablet 1 tab PO BID hydrocortisone [Cortef] 10 mg tablet See Rx Instructions .ROUTE .COMPLEX Rx Instructions: 20mg in am, 10mg in pm testosterone cypionate 200 mg/mL oil 200 mg IM clonazepam 1 mg tablet 2 mg PO QPM Patient Comments: TK 1 T PO QAM AND TK 2 TS QPM. levothyroxine 112 mcg tablet 56 mcg PO DAILY Patient Comments: TK 1/2 T PO QD cyclobenzaprine 10 MG tablet 10 mg PO TID morphine 15 mg tablet 45 mg PO Q6H PRN (Reason: pain) Patient Comments: TK 1 TO 2 TS PO Q 6 H PRN P Referrals: Charli Sampson MD [Primary Care Provider] - Stand Alone Forms: Patient Portal/API
[2022-10-12] MEDS: HYDROCODONE/ACET 5/325 PREPACK 1 BOTTLE MISC (19:59)
[2022-10-12] MEDS: ONDANSETRON 4 MG ODT PREPACK 1 BOTTLE MISC (19:59)
== END 2022-10-12 20:07 | disposition home or self-care (01) ==
PROVIDERS: Emergency Provider Emergency Medicine; Family Provider Internal Medicine; PCP Internal Medicine
DX: S20.212A Contusion of left front wall of thorax, initial encounter (principal); W18.30XA Fall on same level, unspecified, initial encounter
CPT/HCPCS: 71046; 99283

== ENCOUNTER → 2022-11-05 13:04 | Outpatient (CLI) | payer MEDICARE, SELFPAY ==
[2022-11-05 14:03] LABS: Alanine Aminotransferase 62 IU/L (<50); Albumin 4.3 g/dL (3.5-5.0); Albumin Globulin Ratio 1.5 (1.0-2.8); Alkaline Phosphatase 131 U/L (38-126); Aspartate Aminotransferase 54 IU/L (17-59); BUN Creatinine Ratio 20.9 (6-22); Bilirubin Total 0.7 mg/dL (0.2-1.3); Bilirubin Unconjugated 0.4 mg/dL (0.0-1.1); Blood Urea Nitrogen 18 mg/dL (9-20); Calcium 8.9 mg/dL (8.4-10.2); Carbon Dioxide 32 mmol/L (22-32); Chloride 93 mmol/L (98-107); Estimated Glomerular Filt Rate > 60 mL/min (>60); Globulin 2.9 g/dL (1.7-4.1); Glucose 87 mg/dL (80-110); HEMOLYSIS < 15 (0-50); Potassium 4.3 mmol/L (3.4-5.1); Sodium 131 mmol/L (137-145); Total Protein 7.2 g/dL (6.3-8.2)
== END ==
PROVIDERS: Family Provider Internal Medicine; PCP Internal Medicine; Referring Provider Internal Medicine; Visit Provider Internal Medicine
DX: E27.40 Unspecified adrenocortical insufficiency (principal); E87.5 Hyperkalemia
CPT/HCPCS: 36415; 80048; 80076

== ENCOUNTER 2023-03-11 16:36 | Emergency (ER) | payer MEDICARE, SELFPAY ==
[2023-03-11 16:47] VITALS: BP 149/70; PULSE 79; RESP 19; TEMP 36.3; O2SAT 97; BMI 27.8
--- NOTE | 2023-03-11 21:07 | ED.GENADULT ---
HPI - General Adult General Chief complaint: Nasal Problem Stated complaint: Bleeding post nose surgery Time Seen by Provider: 03/11/23 20:59 Source: patient Mode of arrival: Family Vehicle History of Present Illness HPI narrative: Patient is a 72-year-old male who earlier today had a Mohs surgery on his nose. He states that he noticed that the bandage that was covering the wound was bleeding and was saturated. He took the bandage off and replaced it with another and came to the emergency department for evaluation. Related Data Home Medications Medication Instructions Recorded Confirmed liothyronine 5 mcg tablet (Cytomel) 5 mcg PO 0600 #0 tabs 04/02/13 09/06/22 diclofenac sodium 75 mg 75 mg PO BID 03/10/18 09/06/22 tablet,delayed release pantoprazole 40 mg tablet,delayed 40 mg PO DAILY PRN Acid Reflux 03/10/18 09/06/22 release clonazepam 1 mg tablet 1 mg PO QAM #0 tabs 05/28/18 09/06/22 sennosides 8.6 mg tablet (Senokot) See Rx Instructions PO DAILY PRN 01/19/19 09/06/22 clonazepam 1 mg tablet 2 mg PO QPM 03/24/19 09/06/22 cyclobenzaprine 10 mg tablet 10 mg PO TID 03/24/19 09/06/22 levothyroxine 112 mcg tablet 56 mcg PO DAILY 03/24/19 09/06/22 carbamazepine 300 mg 300 mg PO BID #0 caps 02/15/20 09/06/22 capsule,extended release [id number] baclofen 10 mg tablet 20 mg PO TID #0 tabs 06/16/20 09/06/22 morphine 15 mg immediate release 45 mg PO Q6H PRN pain 06/16/20 09/06/22 tablet cefadroxil 500 mg capsule 1,000 mg PO BID 11/09/20 09/06/22 hydrocortisone 10 mg tablet See Rx Instructions .Route .COMPLEX 01/25/22 09/06/22 (Cortef) sulfamethoxazole 800 1 tab PO BID 01/25/22 09/06/22 mg-trimethoprim 160 mg tablet testosterone cypionate 200 mg/mL 200 mg IM 09/06/22 09/06/22 intramuscular oil Previous Rx's Medication Instructions Recorded furosemide 20 mg tablet 20 mg PO DAILY #30 tabs 05/28/21 lactulose 10 gram/15 mL oral 20 g (30 mL) PO TID #237 mL 03/12/22 solution tadalafil 20 mg tablet (Cialis) 20 mg PO DAILY PRN sexual activity 07/30/22 #10 tabs hydrocodone 5 mg-acetaminophen 325 1 tab PO Q4-6H PRN pain #20 tabs 10/12/22 mg tablet ondansetron 4 mg disintegrating 4 mg PO TID-QID PRN nausea and 10/12/22 tablet vomiting #10 tabs tamsulosin 0.4 mg capsule 0.4 mg PO DAILY #90 caps 11/18/22 duloxetine 40 mg capsule,delayed 40 mg PO DAILY #90 caps 12/09/22 release lorazepam 2 mg tablet 4 mg PO BEDTIME anxiety #60 tabs 02/19/23 Allergies Allergy/AdvReac Type Severity Reaction Status Date / Time phenobarbital [PHENOBARBITAL] Allergy Severe REALLY SICK Verified 10/12/22 18:28 venom-honey bee Allergy Severe ANAPHYLAXIS Verified 10/12/22 18:28 [BEE VENOM (HONEY BEE)] venom-wasp [WASP VENOM] Allergy Severe Anaphylaxis Verified 10/12/22 18:28 Review of Systems Constitutional Constitutional: Reports system reviewed and no additional complaints, except as documented Integumentary/Breasts Skin/Breast: Reports system reviewed and no additional complaints, except as documented Hematologic/Lymphatic On Anticoagulants: No Patient History Medical History Bipolar 1 disorder Chronic adrenal insufficiency (05/21/13) Chronic infection of right knee Chronic pain Constipation due to opioid therapy COVID-19 Depression Generalized anxiety disorder History of migraine headaches Hypogonadism in male (12/14/15) Lumbago (05/31/02) Other specified hypothyroidism (05/21/13) 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) Peripheral neuropathy Pituitary adenoma (10/18/02) Tinnitus Surgical History History of knee replacement Status post left knee 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 (~04/27/19) Status post surgery Family History Father Leukemia Social History (Reviewed 03/12/23 @ 03:02 by OCTAVIA Cook marital status: number of children: 3 household members: none lives independently: Yes caregiver/support person: No housing: house pets and animals: Yes education level: college occupational status: other Previous occupational history: Various leisure activities: music and other Smoking Status: Never smoker Tobacco: How many years used: 0 quit status: quit date established second hand exposure: No alcohol intake: current substance use type: does not use Smoking Status: Never smoker alcohol intake frequency: a few times a week Substance Use Type: does not use Exam Initial Vital Signs Initial Vital Signs: Vital Signs Temperature 97.3 F L 03/11/23 16:47 Pulse Rate 79 03/11/23 16:47 Respiratory Rate 19 03/11/23 16:47 Blood Pressure 149/70 H 03/11/23 16:47 Pulse Oximetry 97 03/11/23 16:47 Oxygen Delivery Method Room Air 03/11/23 16:47 Const General: cooperative, comfortable and No ill appearing HENMT Nose: other (Surgical wound left side of nose appears well without bleeding) Skin Other: The surgical incision on the left side of the nose appears well. The stitches are in place. There was no active bleeding. Does have some swelling under his left eye. Neuro General: patient alert and patient awake Course Vital Signs Vital signs: Vital Signs - 8 hr 03/11/23 16:47 Temperature 97.3 F L Pulse Rate 79 Respiratory Rate 19 Blood Pressure 149/70 H Pulse Oximetry 97 Oxygen Delivery Method Room Air Medical Decision Making MDM Narrative Medical decision making narrative: The surgical wound appears well. No active bleeding at the time my evaluation. No further workup required in the emergency department. Discharge patient home with return precautions. He expressed understanding and agreement. Discharge Plan Departure Patient Disposition: Home Clinical Impression: Postoperative hemorrhage Activity Restrictions/Additional Instructions: Recommend that you continue to follow all of the postoperative instructions given to you by the surgeon. Return to the emergency department for new or worsening symptoms. Prescriptions: No Action liothyronine [Cytomel] 5 MCG tablet 5 mcg PO 0600 Qty: 0 clonazepam 1 mg tablet 1 mg PO QAM Qty: 0 Patient Comments: 1 every am and 2 every night carbamazepine 300 mg capsule, ER multiphase 12 hr 300 mg PO BID Qty: 0 baclofen 10 mg tablet 20 mg PO TID Qty: 0 furosemide 20 mg tablet 20 mg PO DAILY Qty: 30 3RF lactulose 10 gram/15 mL solution 20 g PO TID Qty: 237 12RF tadalafil [Cialis] 20 mg tablet 20 mg PO DAILY PRN (Reason: sexual activity) Qty: 10 3RF Rx Instructions: 1 tablet daily as needed. tamsulosin 0.4 mg capsule 0.4 mg PO DAILY Qty: 90 1RF duloxetine 40 mg capsule,delayed release(DR/EC) 40 mg PO DAILY Qty: 90 3RF lorazepam 2 mg tablet 4 mg PO BEDTIME Qty: 60 0RF diclofenac sodium 75 mg tablet,delayed release (DR/EC) 75 mg PO BID pantoprazole 40 mg tablet,delayed release (DR/EC) 40 mg PO DAILY PRN (Reason: Acid Reflux) sennosides [Senokot] 8.6 mg tablet See Rx Instructions PO DAILY PRN Patient Comments: 1 TAB IN AM, 2 IN PM PO DAILY PRN; Rx Instructions: 1 TAB IN AM, 2 IN PM PO DAILY PRN; cefadroxil 500 mg capsule 1,000 mg PO BID sulfamethoxazole-trimethoprim 800-160 mg tablet 1 tab PO BID hydrocortisone [Cortef] 10 mg tablet See Rx Instructions .ROUTE .COMPLEX Rx Instructions: 20mg in am, 10mg in pm testosterone cypionate 200 mg/mL oil 200 mg IM hydrocodone-acetaminophen 5-325 mg tablet 1 tab PO Q4-6H PRN (Reason: pain) Qty: 20 0RF ondansetron 4 mg tablet,disintegrating 4 mg PO TID-QID PRN (Reason: nausea and vomiting) Qty: 10 0RF clonazepam 1 mg tablet 2 mg PO QPM Patient Comments: TK 1 T PO QAM AND TK 2 TS QPM. levothyroxine 112 mcg tablet 56 mcg PO DAILY Patient Comments: TK 1/2 T PO QD cyclobenzaprine 10 MG tablet 10 mg PO TID morphine 15 mg tablet 45 mg PO Q6H PRN (Reason: pain) Patient Comments: TK 1 TO 2 TS PO Q 6 H PRN P Referrals: Charli Sampson MD [Primary Care Provider] - Stand Alone Forms: Patient Portal/API
== END 2023-03-11 21:28 | disposition home or self-care (01) ==
PROVIDERS: Emergency Provider Emergency Medicine; Family Provider Internal Medicine; PCP Internal Medicine
DX: L76.21 Postprocedural hemorrhage of skin and subcutaneous tissue following a dermatologic procedure (principal)
CPT/HCPCS: 99281

== ENCOUNTER → 2023-07-10 11:27 | Outpatient (CLI) | payer MEDICARE, SELFPAY ==
[2023-07-10 13:56] LABS: Influenza A - CEPHEID Flu A NEGATIVE (NEGATIVE); Influenza B - CEPHEID Flu B NEGATIVE (NEGATIVE); Respiratory Syncytial Virus POSITIVE (Negative)
[2023-07-10 14:09] LABS: COVID-19 CEPHEID 4-PLEX PCR Negative (Negative)
== END ==
PROVIDERS: PCP Internal Medicine; Visit Provider Physician Assistant
DX: J02.9 Acute pharyngitis, unspecified (principal); R05.1 Acute cough
CPT/HCPCS: 0241U

== ENCOUNTER 2023-07-23 15:25 | Emergency (ER) | payer MEDICARE, SELFPAY ==
[2023-07-23 15:29] VITALS: BP 113/53; PULSE 79; RESP 20; TEMP 36.4; O2SAT 98; BMI 26.7
--- NOTE | 2023-07-23 15:42 | DI.RAD.S_ITS ---
PROCEDURE: XR CHEST 2V INDICATIONS: cough x 14days, hx pneumonia TECHNIQUE: 2 views of the chest were acquired. COMPARISON: , CR, XR CHEST 2V, 11/17/2020, 8:20. , CR, XR CHEST 2V, 10/12/2022, 18:34. FINDINGS: Surgical changes and devices: Right shoulder arthroplasty hardware is seen. Lungs and pleura: Abnormal interstitial prominence is seen, which is worse than on the prior examination. Low lung volumes are noted. This causes a crowded appearance to the lung markings and limits evaluation. No pneumothorax or pleural effusions are seen. Mediastinum: Mediastinal contours are normal. Heart size is normal. Atherosclerotic calcification of the aortic arch is noted. Bones and chest wall: No suspicious bony abnormalities. Age-appropriate bony degenerative changes are seen. Soft tissues appear unremarkable. IMPRESSION: Low lung volumes, with worsening interstitial prominence. Mild pulmonary edema is suspected, although please consider atypical infection. If it would be helpful for clinical management decision making in this patient with this given history, please consider a dedicated chest CT with IV contrast for further evaluation. Postoperative and degenerative changes are seen. Dictated by: Darion Sargent M.D. on 07/23/2023 at 14:56 Approved by: Darion Sargent M.D. on 07/23/2023 at 14:57
[2023-07-23 16:24] LABS: Influenza A - CEPHEID Flu A NEGATIVE (NEGATIVE); Influenza B - CEPHEID Flu B NEGATIVE (NEGATIVE); Respiratory Syncytial Virus Negative (Negative)
[2023-07-23 16:25] LABS: COVID-19 CEPHEID 4-PLEX PCR Negative (Negative)
--- NOTE | 2023-07-23 18:09 | ED.GENADULT ---
HPI - General Adult General Chief complaint: Upper Respiratory Symptoms Stated complaint: chronic cough T-14/ Time Seen by Provider: 07/23/23 15:41 Source: patient and family Mode of arrival: Ambulatory History of Present Illness HPI narrative: Patient is a 73-year-old male. He is here for evaluation for approximately 14 days of a cough. It is nonproductive. No chest pain. No fevers. No sinus congestion. No sore throat. No shortness of breath. He currently is on antibiotics for a knee issue in a shoulder issue. This is prescribed by an outside provider. One of those antibiotics as Rocephin. He did have an exposure to COVID however he has had the cough prior to that. Related Data Home Medications Medication Instructions Recorded Confirmed liothyronine 5 mcg tablet (Cytomel) 5 mcg PO 0600 #0 tabs 04/02/13 07/10/23 diclofenac sodium 75 mg 75 mg PO BID 03/10/18 07/10/23 tablet,delayed release pantoprazole 40 mg tablet,delayed 40 mg PO DAILY PRN Acid Reflux 03/10/18 07/10/23 release clonazepam 1 mg tablet 1 mg PO QAM #0 tabs 05/28/18 07/10/23 sennosides 8.6 mg tablet (Senokot) See Rx Instructions PO DAILY PRN 01/19/19 07/10/23 clonazepam 1 mg tablet 2 mg PO QPM 03/24/19 07/10/23 cyclobenzaprine 10 mg tablet 10 mg PO TID 03/24/19 07/10/23 levothyroxine 112 mcg tablet 56 mcg PO DAILY 03/24/19 07/10/23 carbamazepine 300 mg 300 mg PO BID #0 caps 02/15/20 07/10/23 capsule,extended release [id number] baclofen 10 mg tablet 20 mg PO TID #0 tabs 06/16/20 07/10/23 morphine 15 mg immediate release 45 mg PO Q6H PRN pain 06/16/20 07/10/23 tablet cefadroxil 500 mg capsule 1,000 mg PO BID 11/09/20 07/10/23 hydrocortisone 10 mg tablet See Rx Instructions .Route .COMPLEX 01/25/22 07/10/23 (Cortef) sulfamethoxazole 800 1 tab PO BID 01/25/22 07/10/23 mg-trimethoprim 160 mg tablet testosterone cypionate 200 mg/mL 200 mg IM 09/06/22 07/10/23 intramuscular oil Previous Rx's Medication Instructions Recorded furosemide 20 mg tablet 20 mg PO DAILY #30 tabs 05/28/21 lactulose 10 gram/15 mL oral 20 g (30 mL) PO TID #237 mL 03/12/22 solution ondansetron 4 mg disintegrating 4 mg PO TID-QID PRN nausea and 10/12/22 tablet vomiting #10 tabs lorazepam 2 mg tablet 4 mg (2 x 2 mg) PO BEDTIME anxiety 05/29/23 #60 tabs duloxetine 60 mg capsule,delayed 60 mg PO DAILY #90 caps 06/12/23 release mometasone 0.1 % topical solution 1 applic topical DAILY PRN itching 06/12/23 #60 mL triamcinolone acetonide 0.1 % 1 applic topical BID #80 grams 06/12/23 topical cream tamsulosin 0.4 mg capsule 0.4 mg PO DAILY #90 caps 07/03/23 benzonatate 200 mg capsule 200 mg PO TID #30 caps 07/10/23 fluticasone propionate 50 1 spray intranasal DAILY #16 grams 07/10/23 mcg/actuation nasal spray,suspension (Flonase Allergy Relief) guaifenesin 1,200 mg tablet, 1,200 mg PO BID #30 tabs 07/10/23 extended release 12 hr tadalafil 20 mg tablet (Cialis) 20 mg PO DAILY PRN sexual activity 07/16/23 #10 tabs promethazine 6.25 mg-codeine 10 10 ml PO Q6H PRN cough #473 mL 07/23/23 mg/5 mL syrup Allergies Allergy/AdvReac Type Severity Reaction Status Date / Time phenobarbital [PHENOBARBITAL] Allergy Severe REALLY SICK Verified 07/10/23 11:26 venom-honey bee Allergy Severe ANAPHYLAXIS Verified 07/10/23 11:26 [BEE VENOM (HONEY BEE)] venom-wasp [WASP VENOM] Allergy Severe Anaphylaxis Verified 07/10/23 11:26 Review of Systems Constitutional Constitutional: Reports system reviewed and no additional complaints, except as documented ENT Ears, Nose, Mouth, and Throat: Reports system reviewed and no additional complaints, except as documented Cardiovascular Cardiovascular: Reports system reviewed and no additional complaints, except as documented Respiratory Respiratory: Reports system reviewed and no additional complaints, except as documented Integumentary/Breasts Skin/Breast: Reports system reviewed and no additional complaints, except as documented Allergic/Immunologic Allergic/Immunologic: Reports system reviewed and no additional complaints, except as documented Patient History Medical History COVID-19 Generalized anxiety disorder Constipation due to opioid therapy Chronic pain History of migraine headaches Chronic infection of right knee Tinnitus Peripheral neuropathy Depression Bipolar 1 disorder Lumbago (05/31/02) 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) Hypogonadism in male (12/14/15) Chronic adrenal insufficiency (05/21/13) Other specified hypothyroidism (05/21/13) Pituitary adenoma (10/18/02) Surgical History History of knee replacement Status post left knee 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 (~04/27/19) Status post surgery Family History Father Leukemia Social History marital status: number of children: 3 household members: none lives independently: Yes caregiver/support person: No housing: house pets and animals: Yes education level: college occupational status: other Previous occupational history: Various leisure activities: music and other Smoking Status: Never smoker Tobacco: How many years used: 0 quit status: quit date established second hand exposure: No alcohol intake: current substance use type: does not use Smoking Status: Never smoker alcohol intake frequency: a few times a week Substance Use Type: does not use Exam Initial Vital Signs Initial Vital Signs: Vital Signs Temperature 97.6 F 07/23/23 15:29 Pulse Rate 79 07/23/23 15:29 Respiratory Rate 20 07/23/23 15:29 Blood Pressure 113/53 L 07/23/23 15:29 Pulse Oximetry 98 07/23/23 15:29 Oxygen Delivery Method Room Air 07/23/23 15:29 HENMT Head: normal to inspection and normocephalic Resp Effort & Inspection: normal respiratory effort Auscultation: clear to auscultation bilaterally Cardio Rate: regular rate Rhythm: regular rhythm Skin General: no rashes or lesions noted Neuro General: patient alert, patient awake and moves all extremities Extrem General: No edema Course Orders Ordered: ED Orders 07/23/23 15:34 Covid-19 + FLU A/B + RSV - PCR Stat 07/23/23 15:42 XR chest 2V Stat Vital Signs Vital signs: Vital Signs - 8 hr 07/23/23 15:29 07/23/23 18:35 Temperature 97.6 F 98.1 F Pulse Rate 79 82 Respiratory Rate 20 18 Blood Pressure 113/53 L 117/62 Pulse Oximetry 98 98 Oxygen Delivery Method Room Air Room Air Medical Decision Making Lab Data Lab results reviewed: Yes I reviewed the patient's lab results. Labs: Lab Results 07/23/23 Range/Units 15:34 SARS-CoV-2 (PCR) Negative (Negative) Influenza A (RT-PCR) Flu a negative (NEGATIVE) Influenza B (RT-PCR) Flu b negative (NEGATIVE) RSV (PCR) Negative (Negative) Imaging Data Chest x-ray: Radiologist's Impression: PROCEDURE: XR CHEST 2V INDICATIONS: cough x 14days, hx pneumonia TECHNIQUE: 2 views of the chest were acquired. COMPARISON: [facility], , XR CHEST 2V, 11/17/2020, 8:20. [facility], , XR CHEST 2V, 10/12/2022, 18:34. FINDINGS: Surgical changes and devices: Right shoulder arthroplasty hardware is seen. Lungs and pleura: Abnormal interstitial prominence is seen, which is worse than on the prior examination. Low lung volumes are noted. This causes a crowded appearance to the lung markings and limits evaluation. No pneumothorax or pleural effusions are seen. Mediastinum: Mediastinal contours are normal. Heart size is normal. Atherosclerotic calcification of the aortic arch is noted. Bones and chest wall: No suspicious bony abnormalities. Age-appropriate bony degenerative changes are seen. Soft tissues appear unremarkable. IMPRESSION: Low lung volumes, with worsening interstitial prominence. Mild pulmonary edema is suspected, although please consider atypical infection. If it would be helpful for clinical management decision making in this patient with this given history, please consider a dedicated chest CT with IV contrast for further evaluation. Postoperative and degenerative changes are seen. MDM Narrative Medical decision making narrative: COVID/flu/RSV negative. Chest x-ray is unremarkable. He is afebrile. It has a nonproductive cough. Clear lungs. No fevers. Clinically does not have pneumonia. Radiologically does not have pneumonia. Potentially does have another viral illness that was not tested for today however his symptoms have been going on for the past 14 days. He has no underlying lung pathology. Discharge patient home with symptom treatment. He currently is on antibiotics for another orthopedic issue that would cover a pneumonia even if it was present. Will try medications. He was given return precautions. He expressed understanding and agreement. Discharge Plan Departure Patient Disposition: Home Clinical Impression: Cough Instructions: Cough (Alternative Therapy), Cough Activity Restrictions/Additional Instructions: I do recommend that you contact your primary care doctor for a follow-up. Return to the emergency department for new or worsening symptoms Prescriptions: New promethazine-codeine 6.25-10 mg/5 mL syrup 10 ml PO Q6H PRN (Reason: cough) Qty: 473 0RF No Action liothyronine [Cytomel] 5 MCG tablet 5 mcg PO 0600 Qty: 0 clonazepam 1 mg tablet 1 mg PO QAM Qty: 0 Patient Comments: 1 every am and 2 every night carbamazepine 300 mg capsule, ER multiphase 12 hr 300 mg PO BID Qty: 0 baclofen 10 mg tablet 20 mg PO TID Qty: 0 furosemide 20 mg tablet 20 mg PO DAILY Qty: 30 3RF lactulose 10 gram/15 mL solution 20 g PO TID Qty: 237 12RF lorazepam 2 mg tablet 4 mg PO BEDTIME Qty: 60 0RF tamsulosin 0.4 mg capsule 0.4 mg PO DAILY Qty: 90 1RF tadalafil [Cialis] 20 mg tablet 20 mg PO DAILY PRN (Reason: sexual activity) Qty: 10 3RF Rx Instructions: 1 tablet daily as needed. diclofenac sodium 75 mg tablet,delayed release (DR/EC) 75 mg PO BID pantoprazole 40 mg tablet,delayed release (DR/EC) 40 mg PO DAILY PRN (Reason: Acid Reflux) sennosides [Senokot] 8.6 mg tablet See Rx Instructions PO DAILY PRN Patient Comments: 1 TAB IN AM, 2 IN PM PO DAILY PRN; Rx Instructions: 1 TAB IN AM, 2 IN PM PO DAILY PRN; cefadroxil 500 mg capsule 1,000 mg PO BID sulfamethoxazole-trimethoprim 800-160 mg tablet 1 tab PO BID hydrocortisone [Cortef] 10 mg tablet See Rx Instructions .ROUTE .COMPLEX Rx Instructions: 20mg in am, 10mg in pm mometasone 0.1 % solution 1 applic topical DAILY PRN (Reason: itching) Qty: 60 0RF triamcinolone acetonide 0.1 % cream 1 applic topical BID Qty: 80 0RF duloxetine 60 mg capsule,delayed release(DR/EC) 60 mg PO DAILY Qty: 90 3RF testosterone cypionate 200 mg/mL oil 200 mg IM benzonatate 200 mg capsule 200 mg PO TID Qty: 30 0RF guaifenesin 1,200 mg tablet extended release 12hr 1,200 mg PO BID Qty: 30 0RF fluticasone propionate [Flonase Allergy Relief] 50 mcg/actuation spray,suspension 1 spray intranasal DAILY Qty: 16 0RF Rx Instructions: administer into each nostril for nasal congestion ondansetron 4 mg tablet,disintegrating 4 mg PO TID-QID PRN (Reason: nausea and vomiting) Qty: 10 0RF clonazepam 1 mg tablet 2 mg PO QPM Patient Comments: TK 1 T PO QAM AND TK 2 TS QPM. levothyroxine 112 mcg tablet 56 mcg PO DAILY Patient Comments: TK 1/2 T PO QD cyclobenzaprine 10 MG tablet 10 mg PO TID morphine 15 mg tablet 45 mg PO Q6H PRN (Reason: pain) Patient Comments: TK 1 TO 2 TS PO Q 6 H PRN P Referrals: Charli Sampson MD [Primary Care Provider] - Stand Alone Forms: Patient Portal/API
[2023-07-23 18:35] VITALS: BP 117/62; PULSE 82; RESP 18; TEMP 36.7; O2SAT 98
== END 2023-07-23 18:35 | disposition home or self-care (01) ==
PROVIDERS: Emergency Medicine; Emergency Provider Emergency Medicine; PCP Internal Medicine
DX: R05.9 Cough, unspecified (principal); Z20.822 Contact with and (suspected) exposure to COVID-19
CPT/HCPCS: 0241U; 71046; 99281; 99283

== ENCOUNTER → 2023-09-19 09:44 | Outpatient (CLI) | payer MEDICARE, SELFPAY ==
[2023-09-19 10:31] LABS: Add Manual Diff / Slide Review NO; Basophils Absolute Auto 0 /uL (0-100); Eosinophils Absolute Auto 100 /uL (0-450); Eosinophils Percent Auto 2.9 % (2-4); Hemoglobin 12.8 g/dL (13.5-17.5); Lymphocytes Absolute Auto 1200 /uL (1100-4500); Lymphocytes Percent Auto 30.6 % (25-40); Mean Corpuscular HGB Conc 32.8 % (30-36); Mean Corpuscular Hemoglobin 26.2 PG (26-34); Mean Corpuscular Volume 79.8 fL (80-100); Monocytes Absolute Auto 500 /uL (0-900); Neutrophils Absolute Auto 2200 /uL (1500-7000); Neutrophils Percent Auto 53.5 % (50-75); Platelet Count 257 X10^3/uL (150-400); Red Blood Cell Count 4.88 X10^6/uL (4.5-5.9); Red Cell Distribution Width 17.5 % (11.6-14.8); White Blood Cell Count 4.1 X10^3/uL (4.5-11.0)
[2023-09-19 10:48] LABS: Alanine Aminotransferase 43 IU/L (<50); Albumin 4.3 g/dL (3.5-5.0); Albumin Globulin Ratio 1.4 (1.0-2.8); Alkaline Phosphatase 166 U/L (38-126); Aspartate Aminotransferase 53 IU/L (17-59); BUN Creatinine Ratio 28.4 (6-22); Bilirubin Total 0.9 mg/dL (0.2-1.3); Blood Urea Nitrogen 25 mg/dL (9-20); Calcium 9.2 mg/dL (8.4-10.2); Carbon Dioxide 28 mmol/L (22-32); Chloride 95 mmol/L (98-107); Estimated Glomerular Filt Rate > 60 mL/min (>60); Glucose 111 mg/dL (80-110); HEMOLYSIS < 15 (0-50); Potassium 4.7 mmol/L (3.4-5.1); Sodium 130 mmol/L (137-145); Total Protein 7.3 g/dL (6.3-8.2)
[2023-09-19 11:07] LABS: Free T4, Direct Thyroxine 1.42 ng/dL (0.78-2.19)
[2023-09-19 11:21] LABS: Thyroid Stimulating Hormone 0.692 uIU/mL (0.47-4.68)
== END ==
PROVIDERS: PCP Internal Medicine; Referring Provider Internal Medicine; Visit Provider Internal Medicine
DX: G40.909 Epilepsy, unspecified, not intractable, without status epilepticus (principal); E03.8 Other specified hypothyroidism; E27.40 Unspecified adrenocortical insufficiency; Z79.899 Other long term (current) drug therapy
CPT/HCPCS: 36415; 80053; 84439; 84443; 85025

== ENCOUNTER → 2023-11-07 17:02 | Outpatient (CLI) | payer MEDICARE, SELFPAY | PROVIDERS: PCP Internal Medicine; Referring Provider Psychiatry & Neurology Psychiatry; Visit Provider Psychiatry & Neurology Psychiatry | DX: G31.9 Degenerative disease of nervous system, unspecified (principal) | CPT/HCPCS: 36415 ==

== ENCOUNTER 2023-11-25 20:36 | Emergency (ER) | payer MEDICARE, SELFPAY ==
[2023-11-25] VITALS (12 sets, daily range): BP systolic 134–194; BP diastolic 63–92; PULSE 60–91; RESP 16–18; TEMP 36.6; O2SAT 91–98; BMI 27.3
--- NOTE | 2023-11-25 20:45 | DI.RAD.S_ITS ---
PROCEDURE: XR SHOULDER RT MIN 2V INDICATIONS: fall/pain TECHNIQUE: 3 views of the shoulder were acquired. COMPARISON: [facility], CT, CT UE RT WO CON, 03/03/2020, 9:46. [facility], CR, XR SHOULDER RT MIN 2V, 02/06/2019, 11:30. FINDINGS: Bones: No fractures or dislocations. No suspicious bony lesions. Visualized ribs appear intact. Shoulder arthroplasty. Hardware is intact without hardware fracture or periprosthetic lucency to suggest loosening. Alignment is stable. Severe acromioclavicular degenerative narrowing. Soft tissues: No suspicious soft tissue calcifications. IMPRESSION: Shoulder arthroplasty. No visualized acute fracture or dislocation. However, if clinical concern and/or pain persist, short interval imaging followup in 7-10 days is recommended, as occult injury cannot be definitively excluded. Dictated by: Bisi Hatfield M.D. on 11/25/2023 at 22:24 Approved by: Bisi Hatfield M.D. on 11/25/2023 at 22:25
--- NOTE | 2023-11-25 20:45 | PC.NURSE ---
pt tripped and fell while walking his dog, fell on his right shoulder, he has had 6 surgeries on the same shoulder the last one 6 yrs ago, pt is pain free untill he attempts to move his right arm
--- NOTE | 2023-11-25 22:11 | DI.CT.S_ITS ---
PROCEDURE: CT UE RT WO CON INDICATIONS: Eval for fracture/dislocation of right shoulder TECHNIQUE: Noncontrast 0.75 mm thick sections acquired from the acromioclavicular joint to the inferior scapula, with coronal and sagittal reformatting. COMPARISON: [facility], CT, CT UE RT WO CON, 03/03/2020, 9:46. [facility], CR, XR SHOULDER RT MIN 2V, 11/25/2023, 21:07. FINDINGS: Image quality: Portions of the shoulder are suboptimally evaluated secondary to metallic streak artifact from shoulder arthroplasty. Bones: Significant artifact is present. There is cortical irregularity and discontinuity at the superior anterior aspect the humerus the level of the humeral arthroplasty. It is not well seen all views secondary to significant artifact. It is best seen on series 2 image 81. This appears similar compared to 2019 and suspected to be related to old trauma. There is a linear lucency nondisplaced within the posterior lateral aspect the scapula, seen series 7, image 136. This appears new since 2019. There is also significant artifact within this region. Soft tissues: Within normal limits. IMPRESSION: Markedly limited exam secondary to artifact. Suspected scapular fracture as described. While this could be artifactual, lucency is slightly more prominent and seen on several sequences. It is new since 2019. Dictated by: Bisi Hatfield M.D. on 11/25/2023 at 23:21 Approved by: Bisi Hatfield M.D. on 11/25/2023 at 23:32
[2023-11-25] MEDS: HYDROMORPHONE 1 MG INJ IM (22:15)
[2023-11-25] MEDS: HYDROCODONE/ACET 5/325 TABLET 2 TAB PO (23:40)
--- NOTE | 2023-11-25 23:43 | ED.GENADULT ---
HPI - General Adult General Chief complaint: Extremity Injury, Upper Stated complaint: GLF/Shoulder Pain Time Seen by Provider: 11/25/23 20:57 Source: patient Mode of arrival: EMS History of Present Illness HPI narrative: 73-year-old male who has had his right shoulder replaced approximately 4 years ago who is here for evaluation of right shoulder pain. He states he was pulled over by his dog and landed directly on his right shoulder. He reports no injuries to his right elbow is right wrist however he is having some pain radiating from his right shoulder into that area. He states he is pain with turning his head to the left but that is on the top of his shoulder and on his upper back on the right. He reports no other injuries from the event. Related Data Home Medications Medication Instructions Recorded Confirmed liothyronine 5 mcg tablet (Cytomel) 5 mcg PO 0600 #0 tabs 04/02/13 09/19/23 diclofenac sodium 75 mg 75 mg PO BID 03/10/18 09/19/23 tablet,delayed release pantoprazole 40 mg tablet,delayed 40 mg PO DAILY PRN Acid Reflux 03/10/18 09/19/23 release clonazepam 1 mg tablet 1 mg PO QAM #0 tabs 05/28/18 09/19/23 sennosides 8.6 mg tablet (Senokot) See Rx Instructions PO DAILY PRN 01/19/19 09/19/23 clonazepam 1 mg tablet 2 mg PO QPM 03/24/19 09/19/23 cyclobenzaprine 10 mg tablet 10 mg PO TID 03/24/19 09/19/23 levothyroxine 112 mcg tablet 56 mcg PO DAILY 03/24/19 09/19/23 carbamazepine 300 mg 300 mg PO BID #0 caps 02/15/20 09/19/23 capsule,extended release [id number] baclofen 10 mg tablet 20 mg PO TID #0 tabs 06/16/20 09/19/23 morphine 15 mg immediate release 45 mg PO Q6H PRN pain 06/16/20 09/19/23 tablet hydrocortisone 10 mg tablet See Rx Instructions .Route .COMPLEX 01/25/22 09/19/23 (Cortef) testosterone cypionate 200 mg/mL 200 mg IM 09/06/22 09/19/23 intramuscular oil Previous Rx's Medication Instructions Recorded furosemide 20 mg tablet 20 mg PO DAILY #30 tabs 05/28/21 ondansetron 4 mg disintegrating 4 mg PO TID-QID PRN nausea and 10/12/22 tablet vomiting #10 tabs duloxetine 60 mg capsule,delayed 60 mg PO DAILY #90 caps 06/12/23 release mometasone 0.1 % topical solution 1 applic topical DAILY PRN itching 06/12/23 #60 mL triamcinolone acetonide 0.1 % 1 applic topical BID #80 grams 06/12/23 topical cream tamsulosin 0.4 mg capsule 0.4 mg PO DAILY #90 caps 07/03/23 tadalafil 20 mg tablet (Cialis) 20 mg PO DAILY PRN sexual activity 07/16/23 #10 tabs promethazine 6.25 mg-codeine 10 10 ml PO Q6H PRN cough #473 mL 07/23/23 mg/5 mL syrup sulfamethoxazole 800 1 tab PO BID #180 tabs 09/19/23 mg-trimethoprim 160 mg tablet lorazepam 2 mg tablet 2 mg PO BID PRN anxiety #180 tabs 10/09/23 cefadroxil 500 mg capsule 1,000 mg (2 x 500 mg) PO BID #120 10/27/23 caps hydrocodone 5 mg-acetaminophen 325 See Rx Instructions .Route 11/26/23 mg tablet .COMPLEX PRN pain #20 tabs Allergies Allergy/AdvReac Type Severity Reaction Status Date / Time phenobarbital [PHENOBARBITAL] Allergy Severe REALLY SICK Verified 09/19/23 09:05 venom-honey bee Allergy Severe ANAPHYLAXIS Verified 09/19/23 09:05 [BEE VENOM (HONEY BEE)] venom-wasp [WASP VENOM] Allergy Severe Anaphylaxis Verified 09/19/23 09:05 Review of Systems Constitutional Constitutional: Reports system reviewed and no additional complaints, except as documented Musculoskeletal Musculoskeletal: Reports system reviewed and no additional complaints, except as documented Integumentary/Breasts Skin/Breast: Reports system reviewed and no additional complaints, except as documented Neurologic Neurologic: Reports system reviewed and no additional complaints, except as documented Patient History Medical History (Updated 11/26/23 @ 00:16 by Ricardo Henriquez DO) Seizure disorder COVID-19 Generalized anxiety disorder Constipation due to opioid therapy Chronic pain History of migraine headaches Chronic infection of right knee Tinnitus Peripheral neuropathy Depression Bipolar 1 disorder Lumbago (05/31/02) 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) Hypogonadism in male (12/14/15) Chronic adrenal insufficiency (05/21/13) Other specified hypothyroidism (05/21/13) Pituitary adenoma (10/18/02) Surgical History Status post surgery Status post left knee 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 (~04/27/19) History of knee replacement Family History Father Leukemia Social History marital status: number of children: 3 household members: none lives independently: Yes caregiver/support person: No housing: house pets and animals: Yes education level: college occupational status: other Previous occupational history: Various leisure activities: music and other Smoking Status: Never smoker Tobacco: How many years used: 0 quit status: quit date established second hand exposure: No alcohol intake: current substance use type: does not use Smoking Status: Never smoker alcohol intake frequency: holidays/special occasions only Substance Use Type: does not use Exam Initial Vital Signs Initial Vital Signs: Vital Signs Temperature 98 F 11/25/23 20:35 Pulse Rate 89 11/25/23 20:35 Respiratory Rate 16 11/25/23 20:35 Blood Pressure 138/90 11/25/23 20:35 Pulse Oximetry 96 11/25/23 20:35 Oxygen Delivery Method Room Air 11/25/23 20:35 HENMT Head: normal to inspection and normocephalic Cardio Pulses: radial pulses present on the right Back/Spine/Pelvis Cervical Spine: No cervical spinal tenderness Skin General: no rashes or lesions noted Neuro Sensory Exam: no sensory deficits noted Extrem Other: Significant discomfort with palpation of the right upper back over the shoulder, over the AC joint and over the right glenohumeral joint. Right elbow and right wrist are unremarkable. Course Orders Ordered: ED Orders 11/25/23 20:45 XR shoulder RT min 2V Stat 11/25/23 22:11 CT UE RT wo con Stat Discontinued Medications Hydrocodone Bitart/Acetaminophen (Hydrocodone/Acet 5/325 Tablet) 2 tab PO NOW ONE Stop: 11/25/23 23:38 Last Admin: 11/25/23 23:40 Dose: 2 tab Documented By: DENISE Hydrocodone Bitart/Acetaminophen (Hydrocodone/Acet 5/325 Prepack) 1 bottle MISC DIRECTED ONE Stop: 11/26/23 00:08 Last Admin: 11/26/23 00:15 Dose: 1 bottle Documented By: DENISE Hydromorphone HCl (Hydromorphone 1 Mg Inj) 1 mg IM NOW ONE Stop: 11/25/23 22:01 Last Admin: 11/25/23 22:15 Dose: 1 mg Documented By: DENISE Vital Signs Vital signs: Vital Signs - 8 hr 11/25/23 20:35 11/25/23 20:36 11/25/23 20:38 Temperature 98 F Pulse Rate 89 91 H 83 Respiratory Rate 16 Blood Pressure 138/90 Pulse Oximetry 96 91 96 Oxygen Delivery Method Room Air 11/25/23 20:38 11/25/23 21:00 11/25/23 21:00 Temperature Pulse Rate 84 Respiratory Rate Blood Pressure 138/90 148/85 H Pulse Oximetry 98 Oxygen Delivery Method 11/25/23 21:30 11/25/23 21:30 11/25/23 22:00 Temperature Pulse Rate 70 Respiratory Rate 18 Blood Pressure 134/66 140/85 Pulse Oximetry 94 Oxygen Delivery Method 11/25/23 22:00 11/25/23 22:30 11/25/23 22:32 Temperature Pulse Rate 69 71 67 Respiratory Rate Blood Pressure Pulse Oximetry 93 95 95 Oxygen Delivery Method 11/25/23 22:32 11/25/23 23:00 11/25/23 23:01 Temperature Pulse Rate 67 66 Respiratory Rate Blood Pressure 140/63 Pulse Oximetry 91 91 Oxygen Delivery Method 11/25/23 23:01 11/25/23 23:30 11/25/23 23:31 Temperature Pulse Rate 60 63 Respiratory Rate Blood Pressure 187/92 H Pulse Oximetry 93 95 Oxygen Delivery Method 11/25/23 23:31 11/26/23 00:00 11/26/23 00:09 Temperature Pulse Rate 64 Respiratory Rate 18 Blood Pressure 194/86 H 161/83 H Pulse Oximetry 95 Oxygen Delivery Method 11/26/23 00:09 Temperature Pulse Rate 61 Respiratory Rate Blood Pressure Pulse Oximetry 96 Oxygen Delivery Method Medical Decision Making Imaging Data Extremity x-ray #1: Radiologist's Impression: PROCEDURE: XR SHOULDER RT MIN 2V INDICATIONS: fall/pain TECHNIQUE: 3 views of the shoulder were acquired. COMPARISON: [facility], CT, CT UE RT WO CON, 03/03/2020, 9:46. [facility], CR, XR SHOULDER RT MIN 2V, 02/06/2019, 11:30. FINDINGS: Bones: No fractures or dislocations. No suspicious bony lesions. Visualized ribs appear intact. Shoulder arthroplasty. Hardware is intact without hardware fracture or periprosthetic lucency to suggest loosening. Alignment is stable. Severe acromioclavicular degenerative narrowing. Soft tissues: No suspicious soft tissue calcifications. IMPRESSION: Shoulder arthroplasty. No visualized acute fracture or dislocation. However, if clinical concern and/or pain persist, short interval imaging followup in 7-10 days is recommended, as occult injury cannot be definitively excluded. UE CT: Radiologist's Impression: PROCEDURE: CT UE RT WO CON INDICATIONS: Eval for fracture/dislocation of right shoulder TECHNIQUE: Noncontrast 0.75 mm thick sections acquired from the acromioclavicular joint to the inferior scapula, with coronal and sagittal reformatting. COMPARISON: [facility], CT, CT UE RT WO CON, 03/03/2020, 9:46. [facility], CR, XR SHOULDER RT MIN 2V, 11/25/2023, 21:07. FINDINGS: Image quality: Portions of the shoulder are suboptimally evaluated secondary to metallic streak artifact from shoulder arthroplasty. Bones: Significant artifact is present. There is cortical irregularity and discontinuity at the superior anterior aspect the humerus the level of the humeral arthroplasty. It is not well seen all views secondary to significant artifact. It is best seen on series 2 image 81. This appears similar compared to 2019 and suspected to be related to old trauma. There is a linear lucency nondisplaced within the posterior lateral aspect the scapula, seen series 7, image 136. This appears new since 2020. There is also significant artifact within this region. Soft tissues: Within normal limits. IMPRESSION: Markedly limited exam secondary to artifact. Suspected scapular fracture as described. While this could be artifactual, lucency is slightly more prominent and seen on several sequences. It is new since 2020. MDM Narrative Medical decision making narrative: Initially had difficulty obtaining x-rays secondary to the patient's discomfort and inability to really move his shoulder at all. A CT scan was performed. Because of his prior shoulder replacement there was quite a bit artifact. It is not dislocated. No new fractures around the humerus. He does have what appears to be a fracture of the right scapula. This does correspond to where he is having discomfort. No other injuries from the event. I did discuss the case with Dr. Dumont orthopedist on-call who stated that patient can be placed in his sling and pain control and follow-up as an outpatient. Discuss this with the patient. He was given return precautions. He expressed understanding and agreement. Discharge Plan Departure Patient Disposition: Home Clinical Impression: Scapular fracture Instructions: How to Use a Sling, DI for Scapula Fracture Activity Restrictions/Additional Instructions: The sling is for your comfort. You can take it off as tolerated. Use the pain medication as needed. I do recommend that tomorrow you contact the Orthopedic Department of the number provided below for a follow-up. Return to the emergency department for new symptoms Prescriptions: New hydrocodone-acetaminophen 5-325 mg tablet See Rx Instructions .ROUTE .COMPLEX PRN (Reason: pain) Qty: 20 0RF Rx Instructions: 1-2 tabs PO q 4 hours PRN for pain No Action liothyronine [Cytomel] 5 MCG tablet 5 mcg PO 0600 Qty: 0 clonazepam 1 mg tablet 1 mg PO QAM Qty: 0 Patient Comments: 1 every am and 2 every night carbamazepine 300 mg capsule, ER multiphase 12 hr 300 mg PO BID Qty: 0 baclofen 10 mg tablet 20 mg PO TID Qty: 0 furosemide 20 mg tablet 20 mg PO DAILY Qty: 30 3RF tamsulosin 0.4 mg capsule 0.4 mg PO DAILY Qty: 90 1RF tadalafil [Cialis] 20 mg tablet 20 mg PO DAILY PRN (Reason: sexual activity) Qty: 10 3RF Rx Instructions: 1 tablet daily as needed. lorazepam 2 mg tablet 2 mg PO BID PRN (Reason: anxiety) Qty: 180 2RF cefadroxil 500 mg capsule 1,000 mg PO BID Qty: 120 7RF diclofenac sodium 75 mg tablet,delayed release (DR/EC) 75 mg PO BID pantoprazole 40 mg tablet,delayed release (DR/EC) 40 mg PO DAILY PRN (Reason: Acid Reflux) sennosides [Senokot] 8.6 mg tablet See Rx Instructions PO DAILY PRN Patient Comments: 1 TAB IN AM, 2 IN PM PO DAILY PRN; Rx Instructions: 1 TAB IN AM, 2 IN PM PO DAILY PRN; hydrocortisone [Cortef] 10 mg tablet See Rx Instructions .ROUTE .COMPLEX Rx Instructions: 20mg in am, 10mg in pm mometasone 0.1 % solution 1 applic topical DAILY PRN (Reason: itching) Qty: 60 0RF triamcinolone acetonide 0.1 % cream 1 applic topical BID Qty: 80 0RF duloxetine 60 mg capsule,delayed release(DR/EC) 60 mg PO DAILY Qty: 90 3RF sulfamethoxazole-trimethoprim 800-160 mg tablet 1 tab PO BID Qty: 180 3RF testosterone cypionate 200 mg/mL oil 200 mg IM ondansetron 4 mg tablet,disintegrating 4 mg PO TID-QID PRN (Reason: nausea and vomiting) Qty: 10 0RF promethazine-codeine 6.25-10 mg/5 mL syrup 10 ml PO Q6H PRN (Reason: cough) Qty: 473 0RF clonazepam 1 mg tablet 2 mg PO QPM Patient Comments: TK 1 T PO QAM AND TK 2 TS QPM. levothyroxine 112 mcg tablet 56 mcg PO DAILY Patient Comments: TK 1/2 T PO QD cyclobenzaprine 10 MG tablet 10 mg PO TID morphine 15 mg tablet 45 mg PO Q6H PRN (Reason: pain) Patient Comments: TK 1 TO 2 TS PO Q 6 H PRN P Referrals: Charli Sampson MD [Primary Care Provider] - Lizandro Dumont MD [Physician] - Stand Alone Forms: Patient Portal/API
[2023-11-26] VITALS: PULSE 64; O2SAT 95
[2023-11-26 00:09] VITALS: BP 161/83; PULSE 61; RESP 18; O2SAT 96
[2023-11-26] MEDS: HYDROCODONE/ACET 5/325 PREPACK 1 BOTTLE MISC (00:15)
== END 2023-11-26 00:36 | disposition home or self-care (01) ==
PROVIDERS: Emergency Provider Emergency Medicine; PCP Internal Medicine
DX: S42.101A Fracture of unspecified part of scapula, right shoulder, initial encounter for closed fracture (principal); W18.30XA Fall on same level, unspecified, initial encounter; Z79.899 Other long term (current) drug therapy
CPT/HCPCS: 73030; 73200; 96372; 99284; J1170

== ENCOUNTER → 2023-11-27 11:46 | Outpatient (CLI) | payer MEDICARE, SELFPAY ==
[2023-11-27 14:50] LABS: Ur Creatinine Normal (Normal); Ur Specific Gravity Normal (Normal); Urine Amphetamines Negative (Negative); Urine Barbiturates Negative (Negative); Urine Benzodiazepines Positive (Negative); Urine Cocaine Negative (Negative); Urine MDMA Negative (Negative); Urine Methadone Negative (Negative); Urine Methamphetamines Negative (Negative); Urine Opiates Positive (Negative); Urine Oxycodone Negative (Negative); Urine Phencyclidine Negative (Negative); Urine THC Negative (Negative); Urine Tricyclic Antidepressant Positive (Negative); Urine pH Normal (Normal)
== END ==
PROVIDERS: PCP Internal Medicine; Referring Provider Internal Medicine; Visit Provider Internal Medicine
DX: Z02.83 Encounter for blood-alcohol and blood-drug test (principal)
CPT/HCPCS: 80305

== ENCOUNTER 2024-01-25 15:54 | Emergency (ER) | payer MEDICARE, SELFPAY ==
[2024-01-25 16:17] VITALS: BP 111/72; PULSE 97; RESP 18; TEMP 36.9; O2SAT 97; BMI 27.3
--- NOTE | 2024-01-25 16:21 | DI.RAD.S_ITS ---
PROCEDURE: XR SHOULDER LT MIN 2V INDICATIONS: thinks its dislocated, pain TECHNIQUE: 2 views of the shoulder were acquired. COMPARISON: [facility], CR, XR SHOULDER RT MIN 2V, 11/25/2023, 21:07. [facility], CR, XR SHOULDER RT MIN 2V, 02/06/2019, 11:30. FINDINGS: Bones: No fractures or dislocations. Moderate acromioclavicular and glenohumeral joint degeneration. No suspicious bony lesions. Visualized ribs appear intact. Soft tissues: No suspicious soft tissue calcifications. IMPRESSION: No acute fracture or dislocation. Dictated by: Dre Schultz M.D. on 01/25/2024 at 16:01 Approved by: Dre Schultz M.D. on 01/25/2024 at 16:02
--- NOTE | 2024-01-25 17:33 | ED.UPPEXIN ---
HPI - Extremity Injury (Upper) General Chief Complaint: Extremity Injury, Upper Stated Complaint: L Shoulder Pain Time Seen by Provider: 01/25/24 17:33 Source: patient Mode of arrival: Ambulatory Limitations: no limitations History of Present Illness HPI narrative: 73-year-old male with history of multiple orthopedic issues and recurrent surgeries on his right shoulder and knee. Patient presents with complaint of left shoulder pain. He states he has been having some chronic discomfort in that left shoulder with sitting in bed last night was moving his arm around trying to find a position of comfort when he felt a snap or a pop and thought it had dislocated. He states pain was quite intense. It is improved but is still very much present and he has pain with movement. Patient states he has not had any prior interventions on his left shoulder. He does not report any prior injuries but has had pain in that shoulder before and has talked to his regular orthopedic surgeon about his shoulder and had an x-ray in the past. He states no numbness or tingling. No weakness in his hand or wrist with movement but has pain with movement at the shoulder itself. No trauma or other injuries recently. He states he was lying back in bed when this occurred and describes fairly minimal movement. This was early this morning. He took a lorazepam for pain but has not take anything else for pain today. He is on medications chronically for joint infections in his right shoulder and knee including Bactrim and cefadroxil, anxiety medication, bipolar disorder hypothyroidism. Patient does follow with Orthopedic surgery regularly he has not appointment in the next 2 weeks with his regular orthopedic surgeon who also sees him for his other shoulder. He states he has not on any chronic pain medication currently. Describes allergies to phenobarbital and Bees. States no regular tobacco, no regular alcohol or recreational drugs. Related Data Home Medications Medication Instructions Recorded Confirmed liothyronine 5 mcg tablet (Cytomel) 5 mcg PO 0600 #0 tabs 04/02/13 09/19/23 diclofenac sodium 75 mg 75 mg PO BID 03/10/18 09/19/23 tablet,delayed release pantoprazole 40 mg tablet,delayed 40 mg PO DAILY PRN Acid Reflux 03/10/18 09/19/23 release clonazepam 1 mg tablet 1 mg PO QAM #0 tabs 05/28/18 09/19/23 sennosides 8.6 mg tablet (Senokot) See Rx Instructions PO DAILY PRN 01/19/19 09/19/23 clonazepam 1 mg tablet 2 mg PO QPM 03/24/19 09/19/23 cyclobenzaprine 10 mg tablet 10 mg PO TID 03/24/19 09/19/23 levothyroxine 112 mcg tablet 56 mcg PO DAILY 03/24/19 09/19/23 carbamazepine 300 mg 300 mg PO BID #0 caps 02/15/20 09/19/23 capsule,extended release [id number] baclofen 10 mg tablet 20 mg PO TID #0 tabs 06/16/20 09/19/23 morphine 15 mg immediate release 45 mg PO Q6H PRN pain 06/16/20 09/19/23 tablet hydrocortisone 10 mg tablet See Rx Instructions .Route .COMPLEX 01/25/22 09/19/23 (Cortef) testosterone cypionate 200 mg/mL 200 mg IM 09/06/22 09/19/23 intramuscular oil Previous Rx's Medication Instructions Recorded furosemide 20 mg tablet 20 mg PO DAILY #30 tabs 05/28/21 ondansetron 4 mg disintegrating 4 mg PO TID-QID PRN nausea and 10/12/22 tablet vomiting #10 tabs duloxetine 60 mg capsule,delayed 60 mg PO DAILY #90 caps 06/12/23 release mometasone 0.1 % topical solution 1 applic topical DAILY PRN itching 06/12/23 #60 mL triamcinolone acetonide 0.1 % 1 applic topical BID #80 grams 06/12/23 topical cream tadalafil 20 mg tablet (Cialis) 20 mg PO DAILY PRN sexual activity 07/16/23 #10 tabs promethazine 6.25 mg-codeine 10 10 ml PO Q6H PRN cough #473 mL 07/23/23 mg/5 mL syrup sulfamethoxazole 800 1 tab PO BID #180 tabs 09/19/23 mg-trimethoprim 160 mg tablet lorazepam 2 mg tablet 2 mg PO BID PRN anxiety #180 tabs 10/09/23 cefadroxil 500 mg capsule 1,000 mg (2 x 500 mg) PO BID #120 10/27/23 caps hydrocodone 5 mg-acetaminophen 325 See Rx Instructions .Route 11/26/23 mg tablet .COMPLEX PRN pain #20 tabs tamsulosin 0.4 mg capsule 0.4 mg PO DAILY #90 caps 01/01/24 hydrocodone 5 mg-acetaminophen 325 1 tab PO Q6H PRN pain #10 tabs 01/25/24 mg tablet Allergies Allergy/AdvReac Type Severity Reaction Status Date / Time phenobarbital [PHENOBARBITAL] Allergy Severe REALLY SICK Verified 01/25/24 16:17 venom-honey bee Allergy Severe ANAPHYLAXIS Verified 01/25/24 16:17 [BEE VENOM (HONEY BEE)] venom-wasp [WASP VENOM] Allergy Severe Anaphylaxis Verified 01/25/24 16:17 Review of Systems Review of Systems ROS Unobtainable: All systems reviewed & are unremarkable except as noted in HPI and below Patient History Medical History Seizure disorder COVID-19 Generalized anxiety disorder Constipation due to opioid therapy Chronic pain History of migraine headaches Chronic infection of right knee Tinnitus Peripheral neuropathy Depression Bipolar 1 disorder Lumbago (05/31/02) 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) Hypogonadism in male (12/14/15) Chronic adrenal insufficiency (05/21/13) Other specified hypothyroidism (05/21/13) Pituitary adenoma (10/18/02) Surgical History Status post surgery Status post left knee 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 (~04/27/19) History of knee replacement Family History Father Leukemia Social History marital status: number of children: 3 household members: none lives independently: Yes caregiver/support person: No housing: house pets and animals: Yes education level: college occupational status: other Previous occupational history: Various leisure activities: music and other Smoking Status: Never smoker Tobacco: How many years used: 0 quit status: quit date established second hand exposure: No alcohol intake: current substance use type: does not use Smoking Status: Never smoker alcohol intake frequency: holidays/special occasions only Substance Use Type: does not use Exam Narrative Exam Narrative: GENERAL: Alert and oriented x three, male in distress HEENT: Head normocephalic, atraumatic, EOMI, pupils reactive, face symmetric, moist mucous membranes NECK: Supple, full range of motion CARDIOVASCULAR: Regular rate and rhythm without murmurs, rubs or gallops. RESPIRATORY: Breath sounds equal bilaterally, no wheezes rales or rhonchi. ABDOMEN: Soft, nontender. Normoactive bowel sounds all 4 quadrants. No guarding or rebound, rigidity, no mass : No CVA tenderness EXTREMITIES: Normal range of motion of the hand, wrist elbow, patient has decreased movement of the left shoulder. Patient has discomfort over the AC joint. No obvious deformity. No warmth erythema or skin changes. Patient has equal satellite dish repairer bilaterally. 2+ radial pulses bilaterally., no clubbing or edema. Neurovascularly intact. NEUROLOGICAL: Cranial nerves II through XII grossly intact. Moving all extremities SKIN: Warm, dry, no petechiae, no rashes or lesions. Initial Vital Signs Initial Vital Signs: Vital Signs Temperature 98.4 F 01/25/24 16:17 Pulse Rate 97 H 01/25/24 16:17 Respiratory Rate 18 01/25/24 16:17 Blood Pressure 111/72 01/25/24 16:17 Pulse Oximetry 97 01/25/24 16:17 Oxygen Delivery Method Room Air 01/25/24 16:17 Course Orders Ordered: ED Orders 01/25/24 16:21 XR shoulder LT min 2V Stat Discontinued Medications Hydrocodone Bitart/Acetaminophen (Hydrocodone/Acet 5/325 Prepack) 1 bottle MISC DIRECTED ONE Stop: 01/25/24 17:51 Last Admin: 01/25/24 18:34 Dose: 1 bottle Documented By: SB Vital Signs Vital signs: Vital Signs - 8 hr 01/25/24 16:17 Temperature 98.4 F Pulse Rate 97 H Respiratory Rate 18 Blood Pressure 111/72 Pulse Oximetry 97 Oxygen Delivery Method Room Air MDM - Extremity Injury (Upper) Imaging Data Extremity x-ray #1: Radiologist's Impression: [address] [address] XRay Report? Signed Patient: Adriana Rico MR#: [id number] : 08/04/1965 Acct:[id number] Age/Sex: 58 / F Date of Service: 01/25/24 Loc: ED Accession Number: [id number]? ? Procedure: XR foot LT min 3V Ordering Provider: Mank,Trixie C D.O. PROCEDURE:? XR FOOT LT MIN 3V ? INDICATIONS:? fall, swelling ? TECHNIQUE:? 3 views of the foot were acquired.?? ? COMPARISON:? [facility], CR, FOOT 3V LEFT, 11/27/2015, 21:44. ? FINDINGS:?? ? Bones:? No fractures or dislocations.? No suspicious bony lesions.?? ? Soft tissues:? No tibiotalar joint effusion.? Achilles tendon appears normal.? IMPRESSION:? ? No acute bony abnormality. ? ? Dictated by: Dre Schultz M.D. on 01/25/2024 at 16:00? ? ? Approved by: Dre Schultz M.D. on 01/25/2024 at 16:00? ? MDM Narrative Medical decision making narrative: 73-year-old male no obvious fracture or dislocation on left shoulder x-ray. He does have discomfort with movement, patient was lying in bed moving freely minimally when he felt a pop and increased pain. No other recent traumatic injury but has had multiple orthopedic issues bilaterally. He has not had any interventions on his left shoulders but has had x-rays with his orthopedic surgeon. Patient was placed in sling, short term pain medication and dyspnea his images was provided to share with his orthopedic surgeon. Gentle range of motion with increased use if tolerated was discussed. Patient has follow up already in place. Discharge Plan Departure Patient Disposition: Home Clinical Impression: Left shoulder pain Instructions: DI for Shoulder Pain Activity Restrictions/Additional Instructions: Follow up with your orthopedic surgeon for recheck. A copy of your imaging is included, take the disc with the images on it to your follow up with Orthopedic surgery. You can take Solomons 1-2 tablets every 6 hours as needed for pain. This medication can make you sleepy do not drive, perform hazardous activities or make any major decisions while taking it. This medication will make you constipated please take a stool softener once to twice daily until stools are soft and regular. Prescription sent to [facility] in [place]. Splint Care: Keep splint clean and dry. Elevated affected body part to decrease swelling. OK to use ice pack on the affected body part. Use for 15-20 minutes each time, for 5-6x per day. If you develop worsening pain, numbness, tingling, discoloration of the affected body part, loosen the splint by loosening the CHRISTINE wrap, and either see your doctor for an urgent re-assessment, or return to the Emergency Department. Return to the Emergency Department for any new or worsening symptoms. Prescriptions: New hydrocodone-acetaminophen 5-325 mg tablet 1 tab PO Q6H PRN (Reason: pain) Qty: 10 0RF No Action liothyronine [Cytomel] 5 MCG tablet 5 mcg PO 0600 Qty: 0 clonazepam 1 mg tablet 1 mg PO QAM Qty: 0 Patient Comments: 1 every am and 2 every night carbamazepine 300 mg capsule, ER multiphase 12 hr 300 mg PO BID Qty: 0 baclofen 10 mg tablet 20 mg PO TID Qty: 0 furosemide 20 mg tablet 20 mg PO DAILY Qty: 30 3RF tadalafil [Cialis] 20 mg tablet 20 mg PO DAILY PRN (Reason: sexual activity) Qty: 10 3RF Rx Instructions: 1 tablet daily as needed. lorazepam 2 mg tablet 2 mg PO BID PRN (Reason: anxiety) Qty: 180 2RF cefadroxil 500 mg capsule 1,000 mg PO BID Qty: 120 7RF tamsulosin 0.4 mg capsule 0.4 mg PO DAILY Qty: 90 1RF diclofenac sodium 75 mg tablet,delayed release (DR/EC) 75 mg PO BID pantoprazole 40 mg tablet,delayed release (DR/EC) 40 mg PO DAILY PRN (Reason: Acid Reflux) sennosides [Senokot] 8.6 mg tablet See Rx Instructions PO DAILY PRN Patient Comments: 1 TAB IN AM, 2 IN PM PO DAILY PRN; Rx Instructions: 1 TAB IN AM, 2 IN PM PO DAILY PRN; hydrocortisone [Cortef] 10 mg tablet See Rx Instructions .ROUTE .COMPLEX Rx Instructions: 20mg in am, 10mg in pm mometasone 0.1 % solution 1 applic topical DAILY PRN (Reason: itching) Qty: 60 0RF triamcinolone acetonide 0.1 % cream 1 applic topical BID Qty: 80 0RF duloxetine 60 mg capsule,delayed release(DR/EC) 60 mg PO DAILY Qty: 90 3RF sulfamethoxazole-trimethoprim 800-160 mg tablet 1 tab PO BID Qty: 180 3RF testosterone cypionate 200 mg/mL oil 200 mg IM ondansetron 4 mg tablet,disintegrating 4 mg PO TID-QID PRN (Reason: nausea and vomiting) Qty: 10 0RF promethazine-codeine 6.25-10 mg/5 mL syrup 10 ml PO Q6H PRN (Reason: cough) Qty: 473 0RF hydrocodone-acetaminophen 5-325 mg tablet See Rx Instructions .ROUTE .COMPLEX PRN (Reason: pain) Qty: 20 0RF Rx Instructions: 1-2 tabs PO q 4 hours PRN for pain clonazepam 1 mg tablet 2 mg PO QPM Patient Comments: TK 1 T PO QAM AND TK 2 TS QPM. levothyroxine 112 mcg tablet 56 mcg PO DAILY Patient Comments: TK 1/2 T PO QD cyclobenzaprine 10 MG tablet 10 mg PO TID morphine 15 mg tablet 45 mg PO Q6H PRN (Reason: pain) Patient Comments: TK 1 TO 2 TS PO Q 6 H PRN P Referrals: Charli Sampson MD [Primary Care Provider] - Stand Alone Forms: Patient Portal/API
[2024-01-25] MEDS: HYDROCODONE/ACET 5/325 PREPACK 1 BOTTLE MISC (18:34)
== END 2024-01-25 18:38 | disposition home or self-care (01) ==
PROVIDERS: Emergency Provider Emergency Medicine; PCP Internal Medicine
DX: M25.512 Pain in left shoulder (principal)
CPT/HCPCS: 73030; 99282; 99283

== ENCOUNTER 2024-03-21 12:11 | Observation (INO) | payer MEDICARE, SELFPAY ==
[2024-03-21 12:23] VITALS: BP 141/66; PULSE 55; RESP 18; TEMP 36.4; O2SAT 96; BMI 26.7
--- NOTE | 2024-03-21 12:37 | ED_ITS ---
HPI - General Adult General Chief complaint: Dizziness Stated complaint: not feeling well, nausea Time Seen by Provider: 03/21/24 12:37 Source: patient Mode of arrival: Wheelchair History of Present Illness HPI narrative: 73-year-old gentleman with a history of bipolar disorder, generalized anxiety disorder, seizures, panhypopituitarism, hypothyroidism recent right shoulder surgery after traumatic fall and injury with postop appointment 03/11. Comes into the emergency department with general complaints of not feeling well, dizziness nausea but is not anymore forthcoming with the triage nurse. In looking through records it looks like he has been prescribed multiple narcotics this month from the multiple different providers which may be related to his recent surgery. Patient states he is taking 15 mg of immediate release morphine only. Has his box of medications but isn't sure what else he is taking. When asked about volume of water recently he states he tends to buy [employer] cases of individual water bottles and drinks them regularly. His partner also reports that she regularly brings him large glasses of water. It is unclear whether this is excessive. Patient's thought processes circular, easily distractible and he clearly is altered. Related Data Home Medications Medication Instructions Recorded Confirmed liothyronine 5 mcg tablet (Cytomel) 5 mcg PO 0600 #0 tabs 04/02/13 03/21/24 diclofenac sodium 75 mg 75 mg PO BID 03/10/18 03/21/24 tablet,delayed release pantoprazole 40 mg tablet,delayed 40 mg PO BEDTIME 03/10/18 03/21/24 release clonazepam 1 mg tablet 1 mg PO DAILY #0 tabs 05/28/18 03/21/24 sennosides 8.6 mg tablet (Senokot) 8.6 mg PO DAILY Constipation 01/19/19 03/21/24 clonazepam 1 mg tablet 2 mg PO BEDTIME 03/24/19 03/21/24 cyclobenzaprine 10 mg tablet 10 mg PO TID PRN Spasms 03/24/19 03/21/24 carbamazepine 300 mg 300 mg PO BID #0 caps 02/15/20 03/21/24 capsule,extended release [id number] baclofen 10 mg tablet 20 mg PO BEDTIME #0 tabs 06/16/20 03/21/24 morphine 15 mg immediate release 45 mg PO Q6H PRN pain 06/16/20 03/21/24 tablet hydrocortisone 10 mg tablet 20 mg PO DAILY 01/25/22 03/21/24 (Cortef) testosterone cypionate 200 mg/mL 100 mg IM QWEEK 09/06/22 03/21/24 intramuscular oil baclofen 10 mg tablet 10 mg PO DAILY 03/21/24 03/21/24 calcium 500 mg tablet 500 mg PO QPM 03/21/24 03/21/24 levothyroxine 50 mcg tablet 50 mcg PO 0600 03/21/24 03/21/24 multivitamin 1 tab PO QPM 03/21/24 03/21/24 sennosides 8.6 mg tablet (senna) 17.2 mg PO BEDTIME 03/21/24 03/21/24 sennosides 8.6 mg-docusate sodium 1 tab-cap PO DAILY 03/21/24 03/21/24 50 mg tablet (Senna with Docusate Sodium) vit C-vit [id number]-[id number]-omega 1 cap PO BID 03/21/24 03/21/24 3 100 mg-15 unit-2 mg-100 mg capsule Previous Rx's Medication Instructions Recorded duloxetine 60 mg capsule,delayed 60 mg PO DAILY #90 caps 06/12/23 release mometasone 0.1 % topical solution 1 applic topical DAILY PRN itching 06/12/23 #60 mL triamcinolone acetonide 0.1 % 1 applic topical BID #80 grams 06/12/23 topical cream tadalafil 20 mg tablet (Cialis) 20 mg PO DAILY PRN sexual activity 07/16/23 #10 tabs sulfamethoxazole 800 1 tab PO BID #180 tabs 09/19/23 mg-trimethoprim 160 mg tablet lorazepam 2 mg tablet 2 mg PO BID PRN anxiety #180 tabs 10/09/23 cefadroxil 500 mg capsule 1,000 mg (2 x 500 mg) PO BID #120 10/27/23 caps tamsulosin 0.4 mg capsule 0.4 mg PO DAILY #90 caps 01/01/24 Allergies Allergy/AdvReac Type Severity Reaction Status Date / Time phenobarbital [PHENOBARBITAL] Allergy Severe REALLY SICK Verified 03/21/24 12:23 venom-honey bee Allergy Severe ANAPHYLAXIS Verified 03/21/24 12:23 [BEE VENOM (HONEY BEE)] venom-wasp [WASP VENOM] Allergy Severe Anaphylaxis Verified 03/21/24 12:23 Review of Systems Review of Systems Narrative: Pertinent positive and negative findings as per HPI Patient History Medical History Seizure disorder COVID-19 Generalized anxiety disorder Constipation due to opioid therapy Chronic pain History of migraine headaches Chronic infection of right knee Tinnitus Peripheral neuropathy Depression Bipolar 1 disorder Lumbago (05/31/02) 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) Hypogonadism in male (12/14/15) Chronic adrenal insufficiency (05/21/13) Other specified hypothyroidism (05/21/13) Pituitary adenoma (10/18/02) Surgical History Status post surgery Status post left knee 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 (~04/27/19) History of knee replacement Family History Father Leukemia Social History marital status: number of children: 3 household members: none lives independently: Yes caregiver/support person: No housing: house pets and animals: Yes education level: college occupational status: other Previous occupational history: Various leisure activities: music and other Smoking Status: Never smoker Tobacco: How many years used: 0 quit status: quit date established second hand exposure: No alcohol intake: current substance use type: does not use Smoking Status: Never smoker alcohol intake frequency: holidays/special occasions only Substance Use Type: does not use Exam Initial Vital Signs Initial Vital Signs: Vital Signs Temperature 97.5 F L 03/21/24 12:23 Pulse Rate 55 L 03/21/24 12:23 Respiratory Rate 18 03/21/24 12:23 Blood Pressure 141/66 H 03/21/24 12:23 Pulse Oximetry 96 03/21/24 12:23 Oxygen Delivery Method Room Air 03/21/24 12:23 General: Healthy appearing, in no acute distress. Well-nourished well- developed HEENT: Moist mucous membranes, normal sclera with reactive pupils, Respiratory: Lungs are clear to auscultation, no wheezing no rales no rhonchi. Full and symmetrical air movement Cardiac: Regular rate and rhythm no murmurs no bruits Abdomen: Soft, nontender, good bowel tones, no flank pain Skin: Warm and dry, no rashes Neurologic: Grossly neurologically intact with no obvious asymmetries or abnormalities Extremities: Recent posterior approach shoulder surgery with scar healing nicely Psych: Cooperative, confused, tangential, forgetful. He has not responding to internal stimuli. He is unable to complete a coherent thought or explain even why he is in the emergency department Course Orders Ordered: ED Orders 03/21/24 12:11 Ammonia (NH3) Stat Carbamazepine Tegretol Level Stat Complete Blood Count AUTO DIFF Stat Comprehensive Metabolic Panel Stat 03/21/24 14:54 urine tox [Urine Drug Screen, Rapid] Stat Acetaminophen (Acetaminophen 325 Mg Tablet) 650 mg PO Q6H PRN PRN Reason: Fever/Mild Pain (1-3) Baclofen (Baclofen 10 Mg Tablet) 20 mg PO BEDTIME KEYANNA Baclofen (Baclofen 10 Mg Tablet) 10 mg PO DAILY KEYANNA Calcium Carbonate (Calcium Carbonate 500 Mg Tab) 1,000 mg PO Q4HR PRN PRN Reason: Dyspepsia Calcium Carbonate (Calcium Carbonate 500 Mg Tab) 500 mg PO QPM KEYANNA Last Admin: 03/21/24 18:23 Dose: Not Given Documented By: CLL Carbamazepine (Carbamazepine Xr 100 Mg Tab) 300 mg PO BID KEYANNA Clonazepam (Clonazepam 0.5 Mg Tablet) 1 mg PO DAILY KEYANNA Clonazepam (Clonazepam 0.5 Mg Tablet) 2 mg PO BEDTIME KEYANNA Cyclobenzaprine HCl (Cyclobenzaprine 10 Mg Tablet) 10 mg PO TID PRN PRN Reason: Spasms Duloxetine HCl (Duloxetine 30 Mg Capsule) 60 mg PO DAILY KEYANNA Enoxaparin Sodium (Enoxaparin 40 Mg/0.4 Ml Syringe) 40 mg SUBCUT DAILY KEYANNA Hydrocortisone (Hydrocortisone 10 Mg Tablet) 20 mg PO DAILY [facility] Sodium Chloride (Normal Saline 0.9%) 1,000 mls @ 84 mls/hr IV CONT KEYANNA Levothyroxine Sodium (Levothyroxine 50 Mcg Tablet) 50 mcg PO 0600 KEYANNA Liothyronine Sodium (Liothyronine 5 Mcg Tablet) 5 mcg PO 0600 KEYANNA Lorazepam (Lorazepam 1 Mg Tablet) 2 mg PO BID PRN PRN Reason: anxiety Morphine Sulfate (Morphine Ir 15 Mg Tablet) 45 mg PO Q6H PRN PRN Reason: pain Morphine Sulfate (Morphine 4 Mg/Ml Inj) 3 mg IV Q2HR PRN PRN Reason: pain Naloxone HCl (Naloxone 0.4 Mg/Ml Vial) 0.2 mg IV Q2MIN PRN PRN Reason: Opiate Reversal Stored In Pharmacy 0 each PO PRN PRN PRN Reason: . Non-Formulary: Cefadroxil 500 Mg Capsule 1,000 mg PO BID [facility] Oxycodone HCl (Oxycodone Ir 5 Mg Tablet) 5 mg PO Q3H PRN PRN Reason: Pain, Moderate (4-6) Pantoprazole Sodium (Pantoprazole Dr 20 Mg Tablet) 20 mg PO 0600 [facility] Pantoprazole Sodium (Pantoprazole Dr 40 Mg Tablet) 40 mg PO BEDTIME [facility] Sennosides (Sennosides 8.6 Mg Tablet) 8.6 mg PO DAILY [facility] Sodium Chloride (Sodium Chloride 1,000 Mg Tablet) 1,000 mg PO BID [facility] Tamsulosin HCl (Tamsulosin 0.4 Mg Capsule) 0.4 mg PO DAILY [facility] Trimethoprim/Sulfamethoxazole (Trimeth/Sulfa 160/800 (Ds) Tablet) 1 tab PO BID KEYANNA Discontinued Medications Sodium Chloride (Normal Saline 0.9%) 1,000 mls @ 1,000 mls/hr IV BOLUS ONE Stop: 03/21/24 15:22 Last Infusion: 03/21/24 15:41 Dose: 1,000 mls/hr Documented By: Admin: 03/21/24 15:04 Dose: 1,000 mls/hr Documented By: ARIAS Morphine Sulfate (Morphine 4 Mg/Ml Inj) 3 mg IV Q2HR KEYANNA Last Admin: 03/21/24 18:31 Dose: Not Given Documented By: ROSANNA Vital Signs Vital signs: Vital Signs - 8 hr 03/21/24 12:23 Temperature 97.5 F L Pulse Rate 55 L Respiratory Rate 18 Blood Pressure 141/66 H Pulse Oximetry 96 Oxygen Delivery Method Room Air Medical Decision Making Lab Data 03/21/24 12:11 03/21/24 12:11 Labs: Lab Results 03/21/24 Range/Units 12:11 WBC 5.5 (4.5-11.0) X10^3/uL RBC 4.42 L (4.5-5.9) X10^6/uL Hgb 11.6 L (13.5-17.5) g/dL Hct 35.4 L (41-53) % MCV 80.0 (80-100) fL MCH 26.2 (26-34) PG MCHC 32.7 (30-36) % RDW 16.4 H (11.6-14.8) % Plt Count 240 (150-400) X10^3/uL Neut % (Auto) 56.2 (50-75) % Lymph % (Auto) 28.8 (25-40) % [place] % (Auto) 11.7 (3-14) % Eos % (Auto) 2.4 (2-4) % Baso % (Auto) 0.9 (0-2) % Neut # (Auto) 3100 (0180-8035) /uL Lymph # (Auto) 1600 (3631-4543) /uL [place] # (Auto) 600 (0-900) /uL Eos # (Auto) 100 (0-450) /uL Baso # (Auto) 0 (0-100) /uL Sodium 127 L (137-145) mmol/L Potassium 3.9 (3.4-5.1) mmol/L Chloride 92 L (98-107) mmol/L Carbon Dioxide 28 (22-32) mmol/L BUN 14 (9-20) mg/dL Creatinine 0.76 (0.66-1.25) mg/dL Estimated GFR > 60 (>60) mL/min BUN/Creatinine Ratio 18.4 (6-22) Glucose 101 (80-110) mg/dL Calcium 8.4 (8.4-10.2) mg/dL Total Bilirubin 0.5 (0.2-1.3) mg/dL AST 40 (17-59) IU/L ALT 25 (<50) IU/L Alkaline Phosphatase 204 H (38-126) U/L Ammonia < 9 L (9-30) umol/L Total Protein 6.4 (6.3-8.2) g/dL Albumin 4.0 (3.5-5.0) g/dL Globulin 2.4 (1.7-4.1) g/dL Albumin/Globulin Ratio 1.7 (1.0-2.8) MDM Narrative Medical decision making narrative: CC: Confusion and dizziness Complicating co-morbidities: Recent shoulder surgery, currently on morphine, reportedly on benzodiazepines for anxiety, hypothyroidism with the report of roberto hypopituitarism, Data collected from: patient, partner Social determinants of health that may influence the patients condition: Neither patient nor partner are able to explain why they are in the emergency department and both seem significantly confused Medical records reviewed: Recent primary care notes from Dr. Sampson reviewed Differential considered: Electrolyte abnormality, stroke, polypharmacy, infection Exam documented above, pertinent findings include: Physically patient is doing well and exam is unremarkable. Psychiatrically he is confused, tangential, wondering complaining of intermittent dizziness Lab Test results independently reviewed as above. Pertinent findings: CBC shows mild anemia no suggestion of infection Chemistries show sodium low at 127. In reviewing prior numbers he has been in the 130 and 131 range. Remainder of chemistries are unremarkable Ammonia level is unremarkable Treatments: Fluids, free water restriction Discussion: 73-year-old gentleman comes into the emergency department complaining of dizziness, he is significantly confused unsure what medications he is taking. It does look like he has benzodiazepines, narcotics, muscle relaxants. I am concerned with polydipsia exacerbating his hyponatremia. He is on carbamazepine levels will be obtained. At this point I would like to admit him for further observation for altered mental status and hyponatremia. We will discuss need for CT scan of the head with the admitting physician. In light of polypharmacy and low-sodium and no trauma I do not feel strongly about CT scan at this time. We will give him a L of fluid, will suggest free water restriction, we will review medications and polypharmacy and he will need re- evaluation in the morning. Discharge Plan Departure Patient Disposition: Admitted as Observation Clinical Impression: Acute alteration in mental status, Acute hyponatremia, Polypharmacy Admit Date/Time: 03/21/24 14:35 Admit Provider: Asif Simpson
[2024-03-21 13:31] LABS: Add Manual Diff / Slide Review NO; Basophils Absolute Auto 0 /uL (0-100); Basophils Percent Auto 0.9 % (0-2); Eosinophils Absolute Auto 100 /uL (0-450); Eosinophils Percent Auto 2.4 % (2-4); Hematocrit 35.4 % (41-53); Hemoglobin 11.6 g/dL (13.5-17.5); Lymphocytes Absolute Auto 1600 /uL (1100-4500); Lymphocytes Percent Auto 28.8 % (25-40); Mean Corpuscular HGB Conc 32.7 % (30-36); Mean Corpuscular Hemoglobin 26.2 PG (26-34); Monocytes Absolute Auto 600 /uL (0-900); Monocytes Percent Auto 11.7 % (3-14); Neutrophils Absolute Auto 3100 /uL (1500-7000); Neutrophils Percent Auto 56.2 % (50-75); Platelet Count 240 X10^3/uL (150-400); Red Blood Cell Count 4.42 X10^6/uL (4.5-5.9); Red Cell Distribution Width 16.4 % (11.6-14.8); White Blood Cell Count 5.5 X10^3/uL (4.5-11.0)
[2024-03-21 13:41] LABS: Alanine Aminotransferase 25 IU/L (<50); Albumin Globulin Ratio 1.7 (1.0-2.8); Alkaline Phosphatase 204 U/L (38-126); Aspartate Aminotransferase 40 IU/L (17-59); BUN Creatinine Ratio 18.4 (6-22); Bilirubin Total 0.5 mg/dL (0.2-1.3); Blood Urea Nitrogen 14 mg/dL (9-20); Calcium 8.4 mg/dL (8.4-10.2); Carbon Dioxide 28 mmol/L (22-32); Chloride 92 mmol/L (98-107); Estimated Glomerular Filt Rate > 60 mL/min (>60); Globulin 2.4 g/dL (1.7-4.1); Glucose 101 mg/dL (80-110); HEMOLYSIS < 15 (0-50); Potassium 3.9 mmol/L (3.4-5.1); Sodium 127 mmol/L (137-145); Total Protein 6.4 g/dL (6.3-8.2)
[2024-03-21 13:42] LABS: Ammonia (NH3) < 9 umol/L (9-30)
[2024-03-21 15:04] LABS: Ur Creatinine Normal (Normal); Ur Specific Gravity Normal (Normal); Urine pH Normal (Normal)
[2024-03-21] MEDS: SODIUM CHLORIDE 0.9% 1,000 ML 1000 ML IV (15:04)
[2024-03-21 15:05] VITALS: BP 180/78; PULSE 59; RESP 15; TEMP 36.5; O2SAT 96
[2024-03-21 15:05] LABS: Urine Amphetamines Negative (Negative); Urine Barbiturates Negative (Negative); Urine Benzodiazepines Positive (Negative); Urine Cocaine Negative (Negative); Urine MDMA Negative (Negative); Urine Methadone Negative (Negative); Urine Methamphetamines Negative (Negative); Urine Opiates Positive (Negative); Urine Oxycodone Negative (Negative); Urine Phencyclidine Negative (Negative); Urine THC Negative (Negative); Urine Tricyclic Antidepressant Negative (Negative)
--- NOTE | 2024-03-21 15:07 | PC.NURSE ---
Pt reports feeling a brief lightheaded episode about 1-2 hours [employer]. Pt reports having multiple surgeries.
[2024-03-21 16:26] VITALS: BMI 26.7
--- NOTE | 2024-03-21 16:58 | P.HP_ITS ---
History of Present Illness History of Present Illness Date Patient Seen: 03/21/24 Time Patient Seen: 16:58 Chief complaint: not feeling well, nausea Narrative: Patient of Dr. Sampson' with hx of chronic pain, anxiety, and BP1, presented to ED well-prepared but generally confused and disoriented found to be hyponatremic into the 120s. He is recent s/p a scapular repair c/o ortho and it does appear there may have been an element of dipsomania at work. He reports feeling generally ok without any specific complaints besides his postop R shoulder. Endorses drinking lots of water I thought it was healthy! 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) Hypogonadism in male (12/14/15) Chronic adrenal insufficiency (05/21/13) Other specified hypothyroidism (05/21/13) Pituitary adenoma (10/18/02) Surgical History Status post surgery Status post left knee 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 (~04/27/19) History of knee replacement Family History Father Leukemia Social History marital status: number of children: 3 household members: none lives independently: Yes caregiver/support person: No housing: house pets and animals: Yes education level: college occupational status: other Previous occupational history: Various leisure activities: music and other Smoking Status: Never smoker Tobacco: How many years used: 0 quit status: quit date established second hand exposure: No alcohol intake: current substance use type: does not use Meds Home Medications and Allergies Home Medications Medication Instructions Recorded Confirmed Type liothyronine 5 mcg tablet (Cytomel) 5 mcg PO 0600 #0 tabs 04/02/13 03/21/24 History diclofenac sodium 75 mg 75 mg PO BID 03/10/18 03/21/24 History tablet,delayed release pantoprazole 40 mg tablet,delayed 40 mg PO BEDTIME 03/10/18 03/21/24 History release clonazepam 1 mg tablet 1 mg PO DAILY #0 tabs 05/28/18 03/21/24 History sennosides 8.6 mg tablet (Senokot) 8.6 mg PO DAILY Constipation 01/19/19 03/21/24 History clonazepam 1 mg tablet 2 mg PO BEDTIME 03/24/19 03/21/24 History cyclobenzaprine 10 mg tablet 10 mg PO TID PRN Spasms 03/24/19 03/21/24 History carbamazepine 300 mg 300 mg PO BID #0 caps 02/15/20 03/21/24 History capsule,extended release [id number] baclofen 10 mg tablet 20 mg PO BEDTIME #0 tabs 06/16/20 03/21/24 History morphine 15 mg immediate release 45 mg PO Q6H PRN pain 06/16/20 03/21/24 History tablet hydrocortisone 10 mg tablet 20 mg PO DAILY 01/25/22 03/21/24 History (Cortef) testosterone cypionate 200 mg/mL 100 mg IM QWEEK 09/06/22 03/21/24 History intramuscular oil duloxetine 60 mg capsule,delayed 60 mg PO DAILY #90 caps 06/12/23 03/21/24 Rx release mometasone 0.1 % topical solution 1 applic topical DAILY PRN itching 06/12/23 03/21/24 Rx #60 mL triamcinolone acetonide 0.1 % 1 applic topical BID #80 grams 06/12/23 03/21/24 Rx topical cream tadalafil 20 mg tablet (Cialis) 20 mg PO DAILY PRN sexual activity 07/16/23 03/21/24 Rx #10 tabs sulfamethoxazole 800 1 tab PO BID #180 tabs 09/19/23 03/21/24 Rx mg-trimethoprim 160 mg tablet lorazepam 2 mg tablet 2 mg PO BID PRN anxiety #180 tabs 10/09/23 03/21/24 Rx cefadroxil 500 mg capsule 1,000 mg (2 x 500 mg) PO BID #120 10/27/23 03/21/24 Rx caps tamsulosin 0.4 mg capsule 0.4 mg PO DAILY #90 caps 01/01/24 03/21/24 Rx baclofen 10 mg tablet 10 mg PO DAILY 03/21/24 03/21/24 History calcium 500 mg tablet 500 mg PO QPM 03/21/24 03/21/24 History levothyroxine 50 mcg tablet 50 mcg PO 0600 03/21/24 03/21/24 History multivitamin 1 tab PO QPM 03/21/24 03/21/24 History sennosides 8.6 mg tablet (senna) 17.2 mg PO BEDTIME 03/21/24 03/21/24 History sennosides 8.6 mg-docusate sodium 1 tab-cap PO DAILY 03/21/24 03/21/24 History 50 mg tablet (Senna with Docusate Sodium) vit C-vit [id number] 1 cap PO BID 03/21/24 03/21/24 History 3 100 mg-15 unit-2 mg-100 mg capsule Allergies Allergy/AdvReac Type Severity Reaction Status Date / Time phenobarbital [PHENOBARBITAL] Allergy Severe REALLY SICK Verified 03/21/24 12:23 venom-honey bee Allergy Severe ANAPHYLAXIS Verified 03/21/24 12:23 [BEE VENOM (HONEY BEE)] venom-wasp [WASP VENOM] Allergy Severe Anaphylaxis Verified 03/21/24 12:23 Review of Systems Review of Systems Narrative: all systems reviewed and negative except as otherwise documented in HPI. Exam Vital Signs (past 8 hours): - 03/21/24 12:23 03/21/24 15:05 Temperature 97.5 F L 97.7 F Pulse Rate 55 L 59 L Respiratory Rate 18 15 Blood Pressure 141/66 H 180/78 H Pulse Oximetry 96 96 Oxygen Delivery Method Room Air Room Air Oxygen Delivery Method Room Air Narrative Exam Narrative: ambulatory coming from bathroom Const Other: well developed well nourished [facility] Other: Normocephalic atraumatic Eyes Other: Extraocular movements intact Resp Other: Clear to auscultation bilaterally Cardio Other: Regular rate S1-S2 no pedal edema GI Other: Active bowel sounds soft nontender Skin Other: No rash noted well-healing incision over right scapula with minimal erythema no drainage Neuro Other: alert awake disoriented with intermittently good history moving all limbs equally Psych Other: Divagatious tangential Objective Labs 03/21/24 12:11 03/21/24 12:11 Labs: Laboratory Results - last 24 hr 03/21/24 03/21/24 12:11 14:54 WBC 5.5 RBC 4.42 L Hgb 11.6 L Hct 35.4 L MCV 80.0 MCH 26.2 MCHC 32.7 RDW 16.4 H Plt Count 240 Neut % (Auto) 56.2 Lymph % (Auto) 28.8 [place] % (Auto) 11.7 Eos % (Auto) 2.4 Baso % (Auto) 0.9 Neut # (Auto) 3100 Lymph # (Auto) 1600 [place] # (Auto) 600 Eos # (Auto) 100 Baso # (Auto) 0 Sodium 127 L Potassium 3.9 Chloride 92 L Carbon Dioxide 28 BUN 14 Creatinine 0.76 Estimated GFR > 60 BUN/Creatinine Ratio 18.4 Glucose 101 Calcium 8.4 Total Bilirubin 0.5 AST 40 ALT 25 Alkaline Phosphatase 204 H Ammonia < 9 L Total Protein 6.4 Albumin 4.0 Globulin 2.4 Albumin/Globulin Ratio 1.7 U Opiates 300ng/mL cut Positive H Ur Oxycodone Screen Negative Urine Methadone Screen Negative Ur Barbiturates Screen Negative U Tricyclic Antidepress Negative Ur Phencyclidine Scrn Negative Ur Amphetamines Screen Negative U Methamphetamines Scrn Negative Ur MDMA Scrn (Ecstasy) Negative U Benzodiazepines Scrn Positive H Urine Cocaine Screen Negative U Marijuana (THC) Screen Negative Urine pH Normal Urine Specific [place] Normal Ur Creatinine Normal Assessment & Plan Assessment & Plan narrative: #acute on chronic hyponatremia #hypochloremia #metabolic encephalopathy salt tabs, IVF NS, fluid restrict and monitor sodium levels general diet, extra salty pls #hx of R scapular repair incision has some inflammation but overall looks to be healing ok his range of motion is ok continue outpt abx #acquired hypothyroid Complex meds slate including daily steroids we will continue #BP1 #generalized anxiety carbamezepine levels look ok, continue home meds Dispo: admit for sodium correction PCP: Adrián Code: full MDM: diet: General DVT: lovenox GI: protonix Time-Based Coding :: [TOTAL MINUTES] spent with patient and on the chart (including review of chart, obtaining history, exam, reviewing outside data, placing orders, documenting exam and treatment plan, and counseling patient) on [DATE].
[2024-03-21] MEDS: SODIUM CHLORIDE 0.9% 1,000 ML 84 ML IV (19:40)
[2024-03-21] MEDS: OXYCODONE IR 5 MG TABLET PO (19:41)
[2024-03-21 20:00] VITALS: BP 157/71; PULSE 55; RESP 20; TEMP 36.3; O2SAT 96
[2024-03-21] MEDS: ONDANSETRON 4 MG/2 ML INJ IV (20:38)
[2024-03-21] MEDS: BACLOFEN 10 MG TABLET 20 MG PO (21:01)
[2024-03-21] MEDS: SODIUM CHLORIDE 1,000 MG TABLET 1000 MG PO (21:01)
[2024-03-21] MEDS: carBAMazepine XR 100 MG TAB 300 MG PO (21:02)
[2024-03-21] MEDS: TRIMETH/SULFA 160/800 (DS) TABLET 1 TAB PO (21:02)
[2024-03-21] MEDS: PANTOPRAZOLE DR 40 MG TABLET PO (21:02)
[2024-03-21] MEDS: clonazePAM 0.5 MG TABLET 2 MG PO (21:02)
[2024-03-21] MEDS: MORPHINE IR 15 MG TABLET 45 MG PO (23:02)
[2024-03-22] VITALS: BP 146/79; PULSE 63; TEMP 36.2; O2SAT 95
[2024-03-22 04:00] VITALS: BP 143/61; PULSE 61; RESP 20; TEMP 36.5; O2SAT 98
[2024-03-22] MEDS: LIOTHYRONINE 5 MCG TABLET PO (05:44)
[2024-03-22] MEDS: MORPHINE IR 15 MG TABLET 45 MG PO (05:44)
[2024-03-22] MEDS: LEVOTHYROXINE 50 MCG TABLET PO (05:44)
[2024-03-22 06:19] LABS: Add Manual Diff / Slide Review NO; Basophils Absolute Auto 0 /uL (0-100); Eosinophils Absolute Auto 200 /uL (0-450); Eosinophils Percent Auto 4.8 % (2-4); Hematocrit 34.5 % (41-53); Hemoglobin 11.3 g/dL (13.5-17.5); Lymphocytes Absolute Auto 1500 /uL (1100-4500); Lymphocytes Percent Auto 35.4 % (25-40); Mean Corpuscular HGB Conc 32.7 % (30-36); Mean Corpuscular Hemoglobin 26.2 PG (26-34); Mean Corpuscular Volume 80.1 fL (80-100); Monocytes Absolute Auto 600 /uL (0-900); Monocytes Percent Auto 15.4 % (3-14); Neutrophils Absolute Auto 1800 /uL (1500-7000); Neutrophils Percent Auto 43.4 % (50-75); Platelet Count 235 X10^3/uL (150-400); Red Blood Cell Count 4.31 X10^6/uL (4.5-5.9); Red Cell Distribution Width 15.9 % (11.6-14.8); White Blood Cell Count 4.1 X10^3/uL (4.5-11.0)
[2024-03-22 06:26] LABS: Alanine Aminotransferase 21 IU/L (<50); Albumin 3.2 g/dL (3.5-5.0); Albumin Globulin Ratio 1.5 (1.0-2.8); Alkaline Phosphatase 159 U/L (38-126); Aspartate Aminotransferase 34 IU/L (17-59); BUN Creatinine Ratio 15.1 (6-22); Bilirubin Total 0.6 mg/dL (0.2-1.3); Blood Urea Nitrogen 11 mg/dL (9-20); Calcium 8.1 mg/dL (8.4-10.2); Carbon Dioxide 30 mmol/L (22-32); Chloride 97 mmol/L (98-107); Estimated Glomerular Filt Rate > 60 mL/min (>60); Globulin 2.2 g/dL (1.7-4.1); Glucose 89 mg/dL (80-110); HEMOLYSIS < 15 (0-50); Potassium 3.9 mmol/L (3.4-5.1); Sodium 130 mmol/L (137-145); Total Protein 5.4 g/dL (6.3-8.2)
[2024-03-22 08:00] VITALS: BP 177/80; PULSE 80; RESP 17; TEMP 36.3; O2SAT 95
--- NOTE | 2024-03-22 08:34 | PM.DS.1 ---
History of Present Illness History of Present Illness Date Patient Seen: 03/22/24 Time Patient Seen: 08:34 Chief complaint: not feeling well, nausea Narrative: Patient of Dr. Sampson' with hx of chronic pain, anxiety, and BP1, presented to ED well-prepared but generally confused and disoriented found to be hyponatremic into the 120s. He is recent s/p a scapular repair c/o ortho and it does appear there may have been an element of dipsomania at work. He reports feeling generally ok without any specific complaints besides his postop R shoulder. Endorses drinking lots of water I thought it was healthy! {from Dr. Simpson's H&P 03/21/24} Discharge Providers Provider Date of admission: 03/21/24 14:35 Discharge Date: 03/22/24 Primary care physician: Charli Sampson MD Discharge provider: Charli Sampson MD Summary Hospital Course Discharge Diagnosis: 1. Metabolic encephalopathy 2. Inadvertent medication mismanagement 3. Hyponatremia 4. Polypharmacy 5. Panhypopituitarism 6. Bipolar 1 disorder 7. Peripheral neuropathy 8. Chronic pain 9. 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 Hypothyroidism 11. Chronic left shoulder pain 12. Scapular fracture Hospital Course: Patient presented as above. Found to be very minimally hyponatremic with a sodium of 127 with normal being about 131 for this patient. This was considered as a possible source of his minimally altered mental status. Also patient with significant polypharmacy prescribed opiates by Orthopedic surgery recently in the form of hydromorphone orally but also prescribed immediate release morphine chronically by his pain specialist in [place]. In addition I have been prescribing him clonazepam for anxiety as well as lorazepam for breakthrough anxiety. Patient this morning says he is feeling much better and improve does not feel as disoriented as he did yesterday. He was not really sure of his medications with the exception that he is very clear he has been taking morphine and did not use any of the last prescription that his orthopedic surgeon Dr. Springer prescribed for him following his discharge from [facility]. This would be the hydromorphone that Dr. Springer prescribed. Patient was felt to be functioning pretty much back to baseline on day of discharge. Patient does have some issues with chronic anxiety potentially bipolar 1 disorder as well as just very difficult to communicate with can be very tangential at times and by the morning of discharge he seem like he was back to his baseline in my opinion as well. Sodium did improve to 130 but seems very unlikely to me that that was a source of his issues given how close to normal it really was upon presentation Long discussion was held with patient regarding his continued use of multiple medications including narcotics in the form morphine and or hydromorphone as well as benzodiazepines with clonazepam and lorazepam. Lorazepam will be discontinued and he will continue on the low-dose clonazepam. I will reach out and contact his other prescribers to ensure everyone is aware of his medications. In addition we do not really have any of his medical records either from his chronic pain specialist his technical customer support specialist his spool salvager his infectious disease specialist loulou to provide input on his care here in and a [place]. These specialists are all located elsewhere and on completely different EMR and no records are available at time of this dictation Plan to see him back in the office sooner rather than later to ensure stability Status at Discharge Cognitive/behavioral status at discharge: at baseline, oriented Functional status at discharge: uses cane/walker Overall status at discharge: patient is progressing back to baseline Time Spent with Patient Time spent: Greater than 30 minutes Exam Vital Signs (past 8 hours): - 03/22/24 04:00 Temperature 97.7 F Pulse Rate 61 Respiratory Rate 20 Blood Pressure 143/61 H Pulse Oximetry 98 Oxygen Flow Rate 0 Oxygen Delivery Method Room Air Oxygen Flow Rate 0 Objective Labs 03/22/24 05:25 03/22/24 05:25 Labs: Laboratory Results - last 24 hr 03/21/24 03/21/24 03/22/24 12:11 14:54 05:25 WBC 5.5 4.1 L RBC 4.42 L 4.31 L Hgb 11.6 L 11.3 L Hct 35.4 L 34.5 L MCV 80.0 80.1 MCH 26.2 26.2 MCHC 32.7 32.7 RDW 16.4 H 15.9 H Plt Count 240 235 Neut % (Auto) 56.2 43.4 L Lymph % (Auto) 28.8 35.4 Rankin % (Auto) 11.7 15.4 H Eos % (Auto) 2.4 4.8 H Baso % (Auto) 0.9 1.0 Neut # (Auto) 3100 1800 Lymph # (Auto) 1600 1500 Rankin # (Auto) 600 600 Eos # (Auto) 100 200 Baso # (Auto) 0 0 Sodium 127 L 130 L Potassium 3.9 3.9 Chloride 92 L 97 L Carbon Dioxide 28 30 BUN 14 11 Creatinine 0.76 0.73 Estimated GFR > 60 > 60 BUN/Creatinine Ratio 18.4 15.1 Glucose 101 89 Calcium 8.4 8.1 L Total Bilirubin 0.5 0.6 AST 40 34 ALT 25 21 Alkaline Phosphatase 204 H 159 H Ammonia < 9 L Total Protein 6.4 5.4 L Albumin 4.0 3.2 L Globulin 2.4 2.2 Albumin/Globulin Ratio 1.7 1.5 U Opiates 300ng/mL cut Positive H Ur Oxycodone Screen Negative Urine Methadone Screen Negative Ur Barbiturates Screen Negative Carbamazepine 9.0 U Tricyclic Antidepress Negative Ur Phencyclidine Scrn Negative Ur Amphetamines Screen Negative U Methamphetamines Scrn Negative Ur MDMA Scrn (Ecstasy) Negative U Benzodiazepines Scrn Positive H Urine Cocaine Screen Negative U Marijuana (THC) Screen Negative Urine pH Normal Urine Specific [place] Normal Ur Creatinine Normal PFS Medical History Seizure disorder COVID-19 Generalized anxiety disorder Constipation due to opioid therapy Chronic pain History of migraine headaches Chronic infection of right knee Tinnitus Peripheral neuropathy Depression Bipolar 1 disorder Lumbago (05/31/02) 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) Hypogonadism in male (12/14/15) Chronic adrenal insufficiency (05/21/13) Other specified hypothyroidism (05/21/13) Pituitary adenoma (10/18/02) Surgical History Status post surgery Status post left knee 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 (~04/27/19) History of knee replacement Family History Father Leukemia Social History marital status: number of children: 3 household members: none lives independently: Yes caregiver/support person: No housing: house pets and animals: Yes education level: college occupational status: other Previous occupational history: Various leisure activities: music and other Smoking Status: Never smoker Tobacco: How many years used: 0 quit status: quit date established second hand exposure: No alcohol intake: current substance use type: does not use Discharge Plan Discharge Plan Patient Disposition: Home Discharge orders & Medications Prescriptions: Continued liothyronine [Cytomel] 5 MCG tablet 5 mcg PO 0600 Qty: 0 clonazepam 1 mg tablet 1 mg PO DAILY Qty: 0 Patient Comments: 1 every am and 2 every night carbamazepine 300 mg capsule, ER multiphase 12 hr 300 mg PO BID Qty: 0 baclofen 10 mg tablet 20 mg PO BEDTIME Qty: 0 tadalafil [Cialis] 20 mg tablet 20 mg PO DAILY PRN (Reason: sexual activity) Qty: 10 3RF Rx Instructions: 1 tablet daily as needed. cefadroxil 500 mg capsule 1,000 mg PO BID Qty: 120 7RF tamsulosin 0.4 mg capsule 0.4 mg PO DAILY Qty: 90 1RF diclofenac sodium 75 mg tablet,delayed release (DR/EC) 75 mg PO BID pantoprazole 40 mg tablet,delayed release (DR/EC) 40 mg PO BEDTIME hydrocortisone [Cortef] 10 mg tablet 20 mg PO DAILY mometasone 0.1 % solution 1 applic topical DAILY PRN (Reason: itching) Qty: 60 0RF triamcinolone acetonide 0.1 % cream 1 applic topical BID Qty: 80 0RF duloxetine 60 mg capsule,delayed release(DR/EC) 60 mg PO DAILY Qty: 90 3RF sulfamethoxazole-trimethoprim 800-160 mg tablet 1 tab PO BID Qty: 180 3RF testosterone cypionate 200 mg/mL oil 100 mg IM QWEEK multivitamin Tablet 1 tab PO QPM sennosides-docusate sodium [Senna with Docusate Sodium] 8.6-50 mg Tablet 1 tab-cap PO DAILY calcium 500 mg Tablet 500 mg PO QPM baclofen 10 mg tablet 10 mg PO DAILY levothyroxine 50 mcg tablet 50 mcg PO 0600 vit C-vit [id number] Capsule 1 cap PO BID clonazepam 1 mg tablet 2 mg PO BEDTIME Patient Comments: TK 1 T PO QAM AND TK 2 TS QPM. cyclobenzaprine 10 MG tablet 10 mg PO TID PRN (Reason: Spasms) morphine 15 mg tablet 45 mg PO Q6H PRN (Reason: pain) Patient Comments: TK 1 TO 2 TS PO Q 6 H PRN P Discontinued lorazepam 2 mg tablet 2 mg PO BID PRN (Reason: anxiety) Qty: 180 2RF sennosides [Senokot] 8.6 mg tablet 8.6 mg PO DAILY Patient Comments: 1 TAB IN AM, 2 IN PM PO DAILY PRN; sennosides [senna] 8.6 mg Tablet 17.2 mg PO BEDTIME Medication counseling provided by Pharmacist: Yes Follow up/Referrals: Charli Sampson MD [Primary Care Provider] - 1 Week Discharge Health Status Multidrug resistant organism: No MDRO Diet/Activity/Treatments Diet: Diet as Tolerated Visit Report/Discharge Packet Instructions: DI for Prescription Opioid Use Stand Alone Forms: Patient Portal/API, Stroke Signs & Symptoms Discharge Data Primary Care Provider: Charli Sampson Attending Provider: Charli Sampson Admit Date/Time: 03/21/24 14:35 PROFEE Charge Codes Discharge inpatient/observation: [id number]
[2024-03-22] MEDS: DULOXETINE 30 MG CAPSULE 60 MG PO (09:11)
[2024-03-22] MEDS: clonazePAM 0.5 MG TABLET 1 MG PO (09:11)
[2024-03-22] MEDS: ENOXAPARIN 40 MG/0.4 ML SYRINGE SUBCUT (09:11)
[2024-03-22] MEDS: carBAMazepine XR 100 MG TAB 300 MG PO (09:11)
[2024-03-22] MEDS: BACLOFEN 10 MG TABLET PO (09:11)
[2024-03-22] MEDS: TRIMETH/SULFA 160/800 (DS) TABLET 1 TAB PO (09:12)
[2024-03-22] MEDS: MORPHINE 4 MG/ML INJ 3 MG IV (09:12)
[2024-03-22] MEDS: TAMSULOSIN 0.4 MG CAPSULE PO (09:12)
[2024-03-22] MEDS: SODIUM CHLORIDE 1,000 MG TABLET 1000 MG PO (09:12)
[2024-03-22] MEDS: SENNOSIDES 8.6 MG TABLET PO (09:12)
[2024-03-22] MEDS: HYDROCORTISONE 10 MG TABLET 20 MG PO (09:12)
--- NOTE | 2024-03-22 11:58 | CM.DANOTE ---
DCP Assessment Note Pt is a 73yo M here following low sodium with a PMH of chronic pain/anxiety/BPD1. PCP Adrián Payer Medicare and [employer] PHONOGRAPH NEEDLE TIP MAKER reviewed EMR. Per chart review, pt's sodium is better today. Adrián concerned about pt polysubstance interaction for meds provider by orthopedic/other providers. Other than that, pt cleared to dc home with close OP f/u. PHONOGRAPH NEEDLE TIP MAKER met with pt in room and introduced self and role. Confirms lives indep in [place] with partner. Pt denies any CM needs and that his ride/partner is on her way to pick him up. Pt reports feeling a lot better today than yesterday. P: dc home with partner support today and close OP f/u. CM team will continue to follow as needed EDWARD Lara Discharge Planning/Care Management CM Discharge Assessment Start: 03/22/24 11:56 Freq: Status: Active Protocol: Document 03/22/24 11:56 (Rec: 03/22/24 11:58 [id number]) Discharge Planning Assessment Assigned Yoga Teacher EDWARD Heart DPOA/Assigned Designee Name vee Roblero Contact Information [phone] Advance Directives? Yes Advance Directives on File No: has paperwork at home History Provided By Patient Prior Living Arrangements House Household Members none Type of transporation used prior to Drives own vehicle admit Independent with ADL's Yes Is patient alert and oriented? Yes Barriers to Discharge No Discharge Plan Home Transportation Arrangement partner in POV Referrals Initiated None needed Whiteboard Updated in Patient Room with No name and ext. # of Yoga Teacher Review Status In Process Please Provide Date Initial DC 03/22/24 Assessment Was Performed Next Review Type Continued Stay Review
--- NOTE | 2024-03-22 13:08 | PC.NURSE ---
Discharge Note Patient A&O, VSS, RA, no complaints of pain/discomfort. Discharge packet reviewed with patient, all questions/concerns addressed. PIV discontinued. Patient able to dress self and pack all belongings. Patient taken down via wheelchair to POV.
== END 2024-03-22 12:55 | disposition home or self-care (01) ==
LOC: ED 14:30 → AC 14:35
PROVIDERS: Admitting Provider Family Medicine; Emergency Provider Emergency Medicine; PCP Internal Medicine; Referring Provider Emergency Medicine; Visit Provider Internal Medicine
DX: G93.41 Metabolic encephalopathy (principal); E87.1 Hypo-osmolality and hyponatremia; E03.9 Hypothyroidism, unspecified; G62.9 Polyneuropathy, unspecified; E23.0 Hypopituitarism; G89.29 Other chronic pain; F31.89 Other bipolar disorder
CPT/HCPCS: 36415; 80053; 80156; 80305; 82140; 85025; 96361; 96372; 96374; 96375; 99239; 99283; 99284; G0378; J1650; J2270; J2405

== ENCOUNTER → 2024-03-30 16:53 | Outpatient (CLI) | payer MEDICARE, SELFPAY ==
[2024-03-21 16:26] VITALS: BMI 26.7
[2024-03-30 18:01] LABS: BUN Creatinine Ratio 23.9 (6-22); Blood Urea Nitrogen 22 mg/dL (9-20); Calcium 8.8 mg/dL (8.4-10.2); Carbon Dioxide 25 mmol/L (22-32); Chloride 98 mmol/L (98-107); Estimated Glomerular Filt Rate > 60 mL/min (>60); Glucose 97 mg/dL (80-110); HEMOLYSIS < 15 (0-50); Potassium 4.5 mmol/L (3.4-5.1); Sodium 131 mmol/L (137-145)
== END ==
PROVIDERS: PCP Internal Medicine; Referring Provider Internal Medicine; Visit Provider Internal Medicine
DX: E87.1 Hypo-osmolality and hyponatremia (principal)
CPT/HCPCS: 36415; 80048

== ENCOUNTER → 2024-05-05 08:48 | Outpatient (CLI) | payer MEDICARE, SELFPAY ==
--- NOTE | 2024-05-05 | DI.CT.S_ITS ---
PROCEDURE: CT UE RT WO CON INDICATIONS: Displaced fracture of acromial process, right shoulder, init TECHNIQUE: Noncontrast 0.75 mm thick sections acquired from the acromioclavicular joint to the inferior scapula, with coronal and sagittal reformatting. COMPARISON: [facility], CR, XR SHOULDER RT MIN 2V, 11/25/2023, 21:07. [facility], CT, CT UE RT WO CON, 11/25/2023, 22:17. [facility], CT, CT UE RT WO CON, 03/03/2020, 9:46. FINDINGS: Image quality: Fair; streak artifact secondary to the reverse total shoulder arthroplasty severely limits evaluation for integrity of the hardware construct. Bones: Status post prior reverse total shoulder arthroplasty with minimal inferior scapular notching (6/170). No subsidence of the glenosphere. Compared to 11/25/2023, there has been interval plate and screw fixation of the scapular spine and scapular body fractures extending to the proximal acromion, with persistently visible fracture lines (6/146). At least 3 screws are present posterior to the lower fixation plate, embedded within the spinal deltoid musculature (2/71). There is an additional screw along the proximal-medial border of the scaphoid body (2/105; 6/158). Joints: Heterotopic calcification at the acromioclavicular joint (2/32). Muscles: At least moderate subscapularis and infraspinatus muscle atrophy. Severe supraspinatus muscle atrophy. Vessels: Moderate vascular calcifications along the right common carotid artery and at the origin of the right vertebral artery (5/88). No aneurysmal dilatation of the right upper extremity arterial vasculature. Lymph nodes: No right axillary lymphadenopathy. Other soft tissues: Subpleural reticulation and fibrotic changes of the right lung parenchyma. Mildly dilated and air-filled esophagus (5/117). IMPRESSION: 1. Status post plate and screw fixation of the scapular/acromial fractures, with intramuscular screws along the spinal deltoid and proximal infraspinatus musculature. 2. Status post reverse total shoulder arthroplasty; please note streak artifact limits evaluation for hardware integrity. 3. Mildly patulous esophagus, which can be seen with esophageal reflux disease. Finding #[address] Springer, the ordering provider, via telephone on 05/05/2024 at 1:40 p.m. Dictated by: Ricky Goff M.D. on 05/05/2024 at 11:32 Approved by: Ricky Goff M.D. on 05/05/2024 at 13:43
== END ==
PROVIDERS: PCP Internal Medicine; Referring Provider Orthopaedic Surgery; Visit Provider Orthopaedic Surgery
DX: S42.121A Displaced fracture of acromial process, right shoulder, initial encounter for closed fracture (principal); Z98.890 Other specified postprocedural states
CPT/HCPCS: 73200

== ENCOUNTER → 2025-04-08 17:11 | Outpatient (CLI) | payer MEDICARE, SELFPAY ==
[2024-08-17 14:21] VITALS: BMI 26.7
== END ==
PROVIDERS: Family Provider Internal Medicine; PCP Internal Medicine; Referring Provider Psychiatry & Neurology Psychiatry; Visit Provider Psychiatry & Neurology Psychiatry
DX: G31.09 Other frontotemporal neurocognitive disorder (principal)
CPT/HCPCS: 36415